=== PATIENT | female | born 1945 | race Caucasian/White ===

== ENCOUNTER 2016-02-29 19:27 | Emergency (ER) | payer OTHER ==
[~2016-02-29] VITALS: Ht 156.2 cm; Wt 93.0 kg
[~2016-02-29 19:27] MED LIST: ASPI325T45 PO; ATEN50TA8 PO; CALC-20 PO; CLOP1TAB54 PO; INSDGI SC; MIRT45TA3 PO; MULT-506 PO; NORT50CA3 PO; ROPI0.5T15 PO; SERT-234 PO; VSNOPS OPB; WARF5INJ PO
[2016-02-29 19:50] VITALS: BP 133/81; PULSE 81; TEMP 36.9; O2SAT 98; Ht 156.2 cm; Wt 93.0 kg
[2016-03-01] MEDS ORDERED: NTRGSL/4 SL (10:01)
[2016-03-01] MEDS ORDERED: FLUT110A INH (10:56)
[2016-03-01] MEDS ORDERED: THIA100T11 PO (22:03)
[2016-03-01] MEDS ORDERED: CYM/30 PO (22:03)
[2016-03-01] MEDS ORDERED: CMD/25 PO (22:03)
[2016-03-01] MEDS ORDERED: PROAIR INH (22:03)
[2016-03-01] MEDS ORDERED: GLIP2.5T11 PO (22:03)
[2016-03-01] MEDS ORDERED: LAMO25TA PO (22:03)
[2016-08-01] MEDS ORDERED: CRFL PO (17:18)
[2016-08-01] MEDS ORDERED: OMEP20TA PO (17:18)
[2016-09-14] MEDS ORDERED: GFNSR600 PO (11:03)
[2016-09-14] MEDS ORDERED: DXY100 PO (11:03)
[2016-09-14] MEDS ORDERED: HYCUDL5 PO (11:03)
[2016-09-14] MEDS ORDERED: OXYC1TAB3 PO (13:19)
[2016-09-14] MEDS ORDERED: NTRGSL/4 SL (13:27)
[2016-11-01] MEDS ORDERED: OXYB5TAB74 PO (10:56)
[2016-11-01] MEDS ORDERED: ATOR-26 PO (13:52)
== END 2016-02-29 20:15 | disposition left against medical advice (07) ==
LOC: C.EDB 19:28

== ENCOUNTER 2016-03-01 19:38 | Emergency (ER) | payer OTHER ==
[~2016-03-01] VITALS: Ht 157.5 cm; Wt 95.5 kg
[~2016-03-01 19:38] MED LIST changes: +FLUT110A INH; +NTRGSL/4 SL
[2016-03-01 19:55] VITALS: TEMP 36.7; Ht 157.5 cm; Wt 95.5 kg
[2016-03-01] MEDS ORDERED: OPTIRAY 320 IV PRN (20:15)
[2016-03-01 20:36] LABS: PARTIAL THROMBOPLASTIN RATIO 1.6; PROTHROMBIN TIME (PATIENT) 49.5 SECONDS (9.0-12.0)
[2016-03-01 20:41] LABS: ISTAT CREATININE 0.8 mg/dl (0.6-1.3); ISTAT HEMOGLOBIN 14.3 g/dl (12.0-16.0); ISTAT IONIZED CALCIUM 1.12 mmol/l (1.12-1.32)
[2016-03-01 20:43] LABS: INR 4.4 (0.9-1.1)
--- NOTE | 2016-03-01 20:57 | DIAGNOSTIC IMAGING REPORT ---
HEAD CT NONCONTRAST CT DOSE: 2939.69 mGy.cm HISTORY: Trauma EVALUATE FOR TRAUMA/INJURY TECHNIQUE: Multiaxial CT images of the head were performed without the use of intravenous contrast. Comparison: 07/06/2012 Findings: The paranasal sinuses and mastoid air cells are clear. The calvarium and skull base are intact. The ventricles and sulci are within normal limits. There is no mass, hematoma, midline shift, or acute infarct. Impression: No acute intracranial abnormality. Electronically signed by: Barak Lassiter M.D. 03/01/2016 8:55 PM
--- NOTE | 2016-03-01 20:59 | DIAGNOSTIC IMAGING REPORT ---
CHEST CT WITH CONTRAST CT DOSE: HISTORY: Trauma. Pain. EVALUATE FOR TRAUMA/INJURY TECHNIQUE: Multiaxial CT images of the chest were performed following the intravenous administration of contrast. COMPARISON: None. FINDINGS: The lungs are clear. The mediastinal vascular structures are within normal limits. No mediastinal or hilar lymphadenopathy. No pleural effusion or pneumothorax. Limited views of the upper abdomen demonstrate a normal liver and spleen. IMPRESSION: No significant abnormality identified within the chest. Electronically signed by: Barak Lassiter M.D. 03/01/2016 8:57 PM
--- NOTE | 2016-03-01 21:01 | DIAGNOSTIC IMAGING REPORT ---
ABDOMEN AND PELVIS CT WITH IV CONTRAST CT DOSE: HISTORY: Trauma. Pain. EVALUATE FOR TRAUMA/INJURY TECHNIQUE: Multiaxial CT images of the abdomen and pelvis were performed following the use of intravenous contrast. COMPARISON STUDY: None. FINDINGS: Minimal dependent basilar atelectasis. Liver spleen and pancreas are uniform. Mild cortical scarring of the kidneys. No evidence for hydronephrosis. Pancreas demonstrates mild fatty replacement. Graft bowel pattern overall is nonobstructive. There is no evidence for free fluid within the paracolic gutters. Bladder is midline. Findings of chronic sigmoid diverticulosis. There is no acute diverticulitis. IMPRESSION: No acute processes the abdomen or pelvis. Mild chronic sigmoid diverticulosis. Electronically signed by: Barak Lassiter M.D. 03/01/2016 8:59 PM
--- NOTE | 2016-03-01 21:28 | EMERGENCY ROOM VISIT NOTE ---
History Report prepared by Janet: Heather White Under the Supervision of: Dr. Gee Calderon D.O. First contact with patient: 19:49 Chief Complaint: ABDOMINAL PAIN Stated Complaint: SOB, CHEST PAIN, AB PAIN History of Present Illness The patient is a 70 year old female who presents to the Emergency Room with complaints of a sudden fall that occurred yesterday around 1700. She currently rates her discomfort as a 9/10 in severity. The patient states that last evening she fell five feet last evening landing on her right chest and then on right abdomen, but denies hitting her head. She notes that this morning around 0300 she developed abdominal pain. The patient additionally notes chest pain, and shortness of breath. She states that she is currently on Coumadin for previous PEs and DVTs. The patient additionally notes a history of previous MIs and strokes. She additionally notes a history of migraines and a cholecystectomy. The patient states that she took Tylenol last evening for her discomfort and additionally notes that she was given something prior to arrival in the ambulance. She denies any history of atrial fibrillation. The patient states that she normally does not have feeling from her waist down. Source of History: patient Onset: 0300 this morning Position: other (global) Symptom Intensity: 9/10 Quality: other (fall) Timing: other (sudden) Associated Symptoms: + SOB, + chest pain Review of Systems See HPI for pertinent positives & negatives. A total of 10 systems reviewed and were otherwise negative. Past Medical & Surgical Medical Problems: (1) CVA (cerebral vascular accident) (2) Depression (3) Diabetes (4) Hyperlipidemia (5) Hypertension (6) NV (myocardial infarction) (7) Recurrent DVT Surgical Problems: (1) History of appendectomy (2) History of cholecystectomy (3) History of hysterectomy Family History FHx: cancer FHx: diabetes FHx: gallbladder disease FHx: heart disease FHx: hypertension FHx: kidney disease/stones FHx: lung disease Social History Smoking Status: Never Smoker Alcohol Use: none Marital Status: Housing Status: lives with family Occupation Status: retired Current/Historical Medications Scheduled Alendronate Sodium (Fosamax), 70 MG PO WK Aspirin (Aspirin), 325 MG PO DAILY Atenolol (Tenormin), 50 MG PO DAILY Atorvastatin (Lipitor), 80 MG PO DAILY Calcium Carbonate-Vitamin D (Calcium 600 + D), 1 TABLET PO BID Clopidogrel Bisulfate (Plavix), 75 MG PO DAILY Insulin Glargine (Lantus), 34 UNITS SC QPM Mirtazapine (Mirtazapine), 45 MG PO HS Multivitamin (Multivitamin), 1 TABLET PO DAILY Nortriptyline Hcl (Pamelor), 50 MG PO HS Oxybutynin Chloride (Ditropan), 5 MG PO TID Ropinirole (Requip), 0.5 MG PO DAILY Sertraline (Zoloft), 200 MG PO DAILY Warfarin Sodium (Coumadin), 1 TAB PO QD@16 Scheduled PRN Fluticasone Propionate Hfa (Flovent Hfa 110MCG Inhaler), 2 PUFFS INH Q12 PRN Nitroglycerin (Nitrostat), 0.4 MG SL UD PRN for Chest Pain Tetrahydrozoline Hcl (Ophth) (Visine), 1 DROP OPB PRN PRN for PRN Allergies Coded Allergies: Aspirin (Verified Allergy, Unknown, 04/02/09) ASA=TONGUE SWELLS Macrolides and Ketolides (Verified Allergy, Unknown, `, 03/01/16) Niacin (Verified Allergy, Unknown, 04/02/09) Penicillins (Verified Allergy, Unknown, 04/02/09) Procaine (Verified Allergy, Unknown, unknown, 03/01/16) Pt states she either swelled or had a rash. Sulfa Antibiotics (Verified Allergy, Unknown, `, 03/01/16) Physical Exam Vital Signs Date Time Temp Pulse Resp B/P Pulse Ox O2 Delivery O2 Flow Rate FiO2 03/01/16 19:55 36.7 73 18 133/79 98 Room Air 03/01/16 19:52 61 Physical Exam CONSTITUTIONAL/VITAL SIGNS: Reviewed / noted above. GENERAL: Non-toxic in appearance. INTEGUMENTARY: Warm, dry, and Rex. HEAD: Normocephalic. EYES: without scleral icterus or trauma. ENT/OROPHARYNX: clear and moist. LYMPHADENOPATHY/NECK: Is supple without lymphadenopathy or meningismus. CHEST WALL: Tenderness to the chest. Ecchymosis to the left breast. RESPIRATORY: Lungs clear and equal. CARDIOVASCULAR: Regular rate and rhythm. GI/ABDOMEN: Distension and tenderness to the abdomen. Soft. No organomegaly or pulsatile mass. No rebound or guarding. Normal bowel sounds. EXTREMITIES: Warm and well perfused. BACK: No CVA tenderness. NEUROLOGICAL: Intact without focal deficits. PSYCHIATRIC: normal affect. MUSCULOSKELETAL: Normally developed with good muscle tone. Medical Decision & Procedures ER Provider Diagnostic Interpretation: CT results as stated below per my review and radiologist interpretation: HEAD CT NONCONTRAST CT DOSE: 2939.69 mGy.cm HISTORY: Trauma EVALUATE FOR TRAUMA/INJURY TECHNIQUE: Multiaxial CT images of the head were performed without the use of intravenous contrast. Comparison: 07/06/2012 Findings: The paranasal sinuses and mastoid air cells are clear. The calvarium and skull base are intact. The ventricles and sulci are within normal limits. There is no mass, hematoma, midline shift, or acute infarct. Impression: No acute intracranial abnormality. Electronically signed by: Barak Lassiter M.D. 03/01/2016 8:[address] WITH CONTRAST CT DOSE: HISTORY: Trauma. Pain. EVALUATE FOR TRAUMA/INJURY TECHNIQUE: Multiaxial CT images of the chest were performed following the intravenous administration of contrast. COMPARISON: None. FINDINGS: The lungs are clear. The mediastinal vascular structures are within normal limits. No mediastinal or hilar lymphadenopathy. No pleural effusion or pneumothorax. Limited views of the upper abdomen demonstrate a normal liver and spleen. IMPRESSION: No significant abnormality identified within the chest. Electronically signed by: Barak Lassiter M.D. 03/01/2016 8:57 PM ABDOMEN AND PELVIS CT WITH IV CONTRAST CT DOSE: HISTORY: Trauma. Pain. EVALUATE FOR TRAUMA/INJURY TECHNIQUE: Multiaxial CT images of the abdomen and pelvis were performed following the use of intravenous contrast. COMPARISON STUDY: None. FINDINGS: Minimal dependent basilar atelectasis. Liver spleen and pancreas are uniform. Mild cortical scarring of the kidneys. No evidence for hydronephrosis. Pancreas demonstrates mild fatty replacement. Graft bowel pattern overall is nonobstructive. There is no evidence for free fluid within the paracolic gutters. Bladder is midline. Findings of chronic sigmoid diverticulosis. There is no acute diverticulitis. IMPRESSION: No acute processes the abdomen or pelvis. Mild chronic sigmoid diverticulosis. Electronically signed by: Barak Lassiter M.D. 03/01/2016 8:59 PM Laboratory Results Test 03/01/16 20:05 03/01/16 20:11 03/01/16 20:21 Prothrombin Time 49.5 SECONDS (9.0-12.0) Prothromb Time International Ratio 4.4 (0.9-1.1) Activated Partial Thromboplast Time 41.8 SECONDS (21.0-31.0) Partial Thromboplastin Ratio 1.6 Bedside Lactic Acid Venous 1.86 mmol/L (0.90-1.70) Bedside Hemoglobin 14.3 g/dl (12.0-16.0) Bedside Hematocrit 42 % (37-47) Bedside Sodium 142 mEq/L (135-144) Bedside Potassium 3.8 mEq/L (3.3-5.0) Bedside Chloride 102 mEq/L (101-112) Bedside Total CO2 23 mEq/l (24-31) Anion Gap 21.0 mmol/L (16-25) Bedside Blood Urea Nitrogen 4 mg/dl (7-18) Bedside Creatinine 0.8 mg/dl (0.6-1.3) Bedside Glucose (other) 105 mg/dl (70-99) Bedside Ionized Calcium (Christina) 1.12 mmol/l (1.12-1.32) Laboratory results as stated above per my review. ED Course 1950: Previous medical records were reviewed. The patient was evaluated in room B8. A complete history and physical examination was performed. 2127: I reevaluated the patient and she is resting comfortably. I discussed the exam findings and I discussed the treatment plan. She verbalized complete understanding and agreement. She is ready to go home. 2129: IV Morphine 4mg. Medical Decision Differential includes close head injury, intracranial bleed, facial trauma, cervical spine trauma, chest and thoracic trauma, abdominal and intra-abdominal trauma, spine neurologic trauma, extremity trauma. This is a 70-year-old female who presents to the ED with a chief complaint of a fall. The patient states that she fell possibly 5 feet yesterday. She came to the emergency department last night but because it was busy, she left and came back today. The patient complains of anterior chest pain as well as anterior abdominal pain. Her exam reveals a ecchymotic area over her left breast. There is no other areas of ecchymosis noted on her exam. She has diffuse tenderness to the chest wall and abdominal wall. Her lungs are clear. The rest of her exam was unremarkable. She denies any headaches or striking her head or loss of consciousness. Her vital signs are stable. Physical exam was noted above. Hemoglobin is 14.3. INR is 4.4. She is on Coumadin. She is on this for DVT/PE. PRP was unremarkable. CT scan of the head did not show any acute intracranial process. A CT scan of the chest, abdomen and pelvis was performed and did not show any acute abnormality. The patient was told the results of the test per cheese felt to be stable for discharge and outpatient follow-up. She was given IV morphine for pain. Impression Primary Impression: Fall Additional Impression: Chest wall contusion Scribe Attestation The scribe's documentation has been prepared under my direction and personally reviewed by me in its entirety. I confirm that the note above accurately reflects all work, treatment, procedures, and medical decision making performed by me. Departure Information Dispostion Home / Self-Care Referrals Ayanna Rhodes M.D. (PCP) Forms HOME CARE DOCUMENTATION FORM, IMPORTANT VISIT INFORMATION Patient Instructions A Signature Page Additional Instructions Follow-up with your doctor for further care and evaluation in 1-2 days. Return to the emergency department for worsening or new symptoms or any concerns. You have been examined and treated today on an emergency basis only. This is not a substitute for, or an effort to provide, complete comprehensive medical care. It is impossible to recognize and treat all injuries or illnesses in a single emergency department visit. It is therefore important that you follow up closely with your doctor. Call as soon as possible for an appointment.
[2016-03-01] MEDS ORDERED: MoRPHine SULFATE 4 MG/ML 1 ML CARP\\VIAL IV STA (21:30)
[2016-03-01] MEDS ORDERED: MoRPHine SULFATE 4 MG/ML 1 ML CARP\\VIAL ONE (21:31)
[2016-03-01] MEDS ORDERED: CYM/30 PO (22:03)
[2016-03-01] MEDS ORDERED: THIA100T11 PO (22:03)
[2016-03-01] MEDS ORDERED: GLIP2.5T11 PO (22:03)
[2016-03-01] MEDS ORDERED: LAMO25TA PO (22:03)
[2016-03-01] MEDS ORDERED: CMD/25 PO (22:03)
[2016-03-01] MEDS ORDERED: PROAIR INH (22:03)
[2016-03-01 22:04] VITALS: BP 174/79; PULSE 76; O2SAT 98
[2016-08-01] MEDS ORDERED: OMEP20TA PO (17:18)
[2016-08-01] MEDS ORDERED: CRFL PO (17:18)
[2016-09-14] MEDS ORDERED: HYCUDL5 PO (11:03)
[2016-09-14] MEDS ORDERED: DXY100 PO (11:03)
[2016-09-14] MEDS ORDERED: GFNSR600 PO (11:03)
[2016-09-14] MEDS ORDERED: OXYC1TAB3 PO (13:19)
[2016-09-14] MEDS ORDERED: NTRGSL/4 SL (13:27)
[2016-11-01] MEDS ORDERED: OXYB5TAB74 PO (10:56)
[2016-11-01] MEDS ORDERED: ATOR-26 PO (13:52)
== END 2016-03-01 22:05 | disposition home or self-care (01) ==
LOC: EDBD 19:38 → C.EDB 19:42
DX: S20.212A Contusion of left front wall of thorax, initial encounter (principal); K57.30 Diverticulosis of large intestine without perforation or abscess without bleeding; E11.9 Type 2 diabetes mellitus without complications; Z79.4 Long term (current) use of insulin; Z79.01 Long term (current) use of anticoagulants; Z86.73 Personal history of transient ischemic attack (TIA), and cerebral infarction without residual deficits; E78.5 Hyperlipidemia, unspecified; I10 Essential (primary) hypertension; Z86.711 Personal history of pulmonary embolism; Z86.718 Personal history of other venous thrombosis and embolism; Z79.82 Long term (current) use of aspirin; I25.2 Old myocardial infarction; W17.89XA Other fall from one level to another, initial encounter; Y93.89 Activity, other specified; Y92.89 Other specified places as the place of occurrence of the external cause; Y99.8 Other external cause status

== ENCOUNTER 2016-07-31 13:34 | Observation (INO) | payer OTHER ==
[~2016-07-31] VITALS: Ht 154.9 cm; Wt 96.7 kg
[~2016-07-31 13:34] MED LIST changes: -ASPI325T45 PO; -ATEN50TA8 PO; -CALC-20 PO; -CLOP1TAB54 PO; +CMD/25 PO; +CYM/30 PO; +GLIP2.5T11 PO; +LAMO25TA PO; -MIRT45TA3 PO; -MULT-506 PO; -NORT50CA3 PO; +PROAIR INH; -ROPI0.5T15 PO; -SERT-234 PO; +THIA100T11 PO; -VSNOPS OPB; -WARF5INJ PO
[2016-07-31] MEDS ORDERED: NITROGLYCERIN 0.4 MG SL PER TAB CHARGE SL PRN ×2 (14:30→17:15)
--- NOTE | 2016-07-31 14:51 | DIAGNOSTIC IMAGING REPORT ---
CHEST ONE VIEW PORTABLE CLINICAL HISTORY: Atypical chest pain COMPARISON STUDY: 07/06/2012 FINDINGS: The cardiac and mediastinal contours are normal. There is no evidence of focal pulmonary consolidation. There is no evidence of failure. No pleural effusions are visualized.[ IMPRESSION: No active disease in the chest. Electronically signed by: Zacarias Campoverde M.D. 07/31/2016 2:50 PM Dictated Date/Time: 07/31/2016 2:49 PM
[2016-07-31 15:42] LABS: BASO % 0.2 %; BASO ABS # 0.02 K/uL (0-0.2); COMPLETE YES; EOS % 0.9 %; HEMATOCRIT 37.3 % (37-47); IG% 0.2 %; LYMPH % 31.6 %; LYMPH ABS # 2.53 K/uL (1.2-3.4); MEAN CELL VOLUME 95.4 fL (80-100); MEAN CORPUSCULAR HEMOGLOBIN 31.7 pg (25-34); MEAN CORPUSCULAR HGB CONC 33.2 g/dl (32-36); MONO % 6.6 %; NEUT % 60.5 %; PLATELET COUNT 325 K/uL (130-400); RED BLOOD COUNT 3.91 M/uL (4.2-5.4); WHITE BLOOD COUNT 8.01 K/uL (4.8-10.8)
[2016-07-31 16:00] LABS: BLOOD UREA NITROGEN 13 mg/dl (7-18); BUN/CREATININE RATIO 12.5 (10-20); CALCIUM 8.7 mg/dl (8.5-10.1); CARBON DIOXIDE 31 mmol/L (21-32); CHLORIDE 110 mmol/L (98-107); GLUCOSE 85 mg/dl (70-99); POTASSIUM 4.1 mmol/L (3.5-5.1); SODIUM 146 mmol/L (136-145)
[2016-07-31 16:05] LABS: CKMB/CK RATIO 1.1 (0-3.0)
[2016-07-31 16:24] LABS: INR 1.8 (0.9-1.1); PROTHROMBIN TIME (PATIENT) 20.3 SECONDS (9.0-12.0)
[2016-07-31 16:40] VITALS: O2SAT 98; BMI 40.2
[2016-07-31 16:43] LABS: ALKALINE PHOSPHATASE 69 U/L (45-117); ALT/SGPT 20 U/L (12-78); AST/SGOT 14 U/L (15-37)
[2016-07-31] MEDS ORDERED: ONDANSETRON INJ 2 MG/ML 2 ML VIAL IV PRN (17:15)
[2016-07-31] MEDS ORDERED: ACETAMINOPHEN 325 MG TAB PO PRN (17:15)
[2016-07-31 17:24] VITALS: BP 149/70; PULSE 56; TEMP 36.7; O2SAT 90
[2016-07-31] MEDS ORDERED: OXYCODONE HCL IR 5 MG TAB (IMMEDIATE RELEASE) PO PRN (17:30)
[2016-07-31] MEDS ORDERED: ALBUTEROL HFA 8 GM INHALER INH PRN (17:30)
[2016-07-31] MEDS ORDERED: ZINC OXIDE EXT PRN (17:30)
[2016-07-31] MEDS ORDERED: OXYC1TAB3 PO (17:31)
[2016-07-31] MEDS ORDERED: GLUCOSE 10 TABS/TUBE PO PRN (17:45)
[2016-07-31] MEDS ORDERED: GLUCOSE 40% GEL 15 GM TUBE PO PRN (17:45)
[2016-07-31] MEDS ORDERED: DEXTROSE 50% 50 ML SYR IV PRN (17:45)
[2016-07-31] MEDS ORDERED: GLUCAGON FOR INJ 1 MG VIAL SQ PRN (17:45)
--- NOTE | 2016-07-31 18:10 | DIAGNOSTIC IMAGING REPORT ---
THORACIC SPINE 2-VIEWS CLINICAL HISTORY: fall, back pain, rule out fx trauma. Pain. COMPARISON STUDY: None FINDINGS: Moderate degenerative disc change. No evidence for compression deformity. Moderate reactive anterior and anterolateral osteophytic changes throughout. IMPRESSION: Degenerative change. No acute abnormality. Electronically signed by: Barak Lassiter M.D. 07/31/2016 6:08 PM Dictated Date/Time: 07/31/2016 6:08 PM
--- NOTE | 2016-07-31 18:11 | DIAGNOSTIC IMAGING REPORT ---
LEFT SHOULDER MIN 2 VIEWS ROUTINE CLINICAL HISTORY: rule out fx or dislocation trauma. Pain. COMPARISON: None. DISCUSSION: The bones and joint spaces appear intact. There is no evidence of fracture, dislocation or bony disease. There is no evidence for soft tissue swelling. IMPRESSION: Negative study. Electronically signed by: Barak Lassiter M.D. 07/31/2016 6:09 PM Dictated Date/Time: 07/31/2016 6:09 PM
[2016-07-31] MEDS ORDERED: IV FLUIDS COMPLETED PRN (18:30)
[2016-07-31] MEDS: FLUTICASONE PROP HFA INH 44 MCG INHALER INH SCH (20:32)
[2016-07-31] MEDS: INSULIN ASPART 100 UNITS/ML 3 ML PEN SC SCH (20:32)
[2016-07-31] MEDS: OXYBUTYNIN CHLORIDE 5 MG TAB PO SCH (20:33)
--- NOTE | 2016-07-31 20:38 | EMERGENCY ROOM VISIT NOTE ---
History Report prepared by Janet: Romy Alba Under the Supervision of: Dr. Fito Castro D.O. First contact with patient: 14:00 Chief Complaint: CHEST PAIN Stated Complaint: CHEST PAIN Nursing Triage Summary: pt c/o sudden onset of substernal chest pain and sob after climbing steps at apt bldg. elevator was not working and grandson was helping her up steps to fast , pt believes. felt dizzy. pt took 1 sl nitro pain from 9 to 3. given [facility] pt reports she fell a couple days ago and and has upper abd tenderness and swollen size of baseball. no bruising seen pt has hx of mi's and cva History of Present Illness The patient is a 71 year old female who presents to the Emergency Room with complaints of improved chest pain that started [employer]. The pain improved with nitroglycerin. The patient states that she got into the elevator, which was previously not working, and it fell 4-5 inches then went down to the basement. When it got to the basement, the door took a long time to open so she decided to take the stairs when she went back upstairs. She states that the chest pain started while she was going up the stairs and was accompanied by shortness of breath. She denies any jaw or arm pain, but states that she "jammed" her left arm several days ago and has been experiencing pain from that. The patient also adds that her grandson was pulling her arm to try to get her to go up the stairs faster. The patient states that she has been experiencing chest pain with exertion since February. The patient is also experiencing dizziness. The patient has a history of MIs and states that the pain feels similar to the pain she experienced with those. She is on warfarin and takes 3 baby aspirin in the morning. She states that her last heart catheterization was several years ago. The patient has a history of cholecystectomy. Source of History: patient Onset: [employer]ILRO[employer]CTION [employer]OR Position: chest Timing: other (improved) Modifying Factors (Worsening): exertion Modifying Factors (Relieving): other (nitroglycerin) Associated Symptoms: + SOB Note: dizziness, no jaw or arm pain Review of Systems See HPI for pertinent positives & negatives. A total of 10 systems reviewed and were otherwise negative. Past Medical & Surgical Medical Problems: (1) Benign neoplasm of cerebral meninges (2) CAD (coronary artery disease) (3) Chest pain (4) CVA (cerebral vascular accident) (5) Depression (6) DM type 2 (diabetes mellitus, type 2) (7) DVT (deep venous thrombosis) (8) GERD (gastroesophageal reflux disease) (9) Hyperlipidemia (10) Hypertension (11) NM (myocardial infarction) (12) Peripheral neuropathy (13) Recurrent DVT (14) RLS (restless legs syndrome) Surgical Problems: (1) History of appendectomy (2) History of cholecystectomy (3) History of hysterectomy (4) History of salpingo-oophorectomy (5) S/P cholecystectomy (6) S/P removal of ovarian cyst Family History FHx: cancer FHx: diabetes FHx: gallbladder disease FHx: heart disease FHx: hypertension FHx: kidney disease/stones FHx: lung disease Social History Smoking Status: Never Smoker Alcohol Use: none Marital Status: Housing Status: lives with family Occupation Status: retired Current/Historical Medications Scheduled Alendronate Sodium (Fosamax), 70 MG PO WK Aspirin (Aspirin Adult Low Dose), 81 MG PO DAILY Atenolol (Tenormin), 25 MG PO DAILY Atorvastatin (Lipitor), 80 MG PO DAILY Cyanocobalamin (Vitamin B-12), 100 MCG PO DAILY Fluticasone Propionate (Flovent Hfa), 2 PUFFS INH BID Glipizide (Glipizide Er), 1 TAB PO DAILY Insulin Glargine (Lantus), 36 UNITS SC QPM Oxybutynin Chloride (Ditropan), 5 MG PO TID Ropinirole (Requip), 4 MG PO HS Warfarin Sod (Jantoven), 2 MG PO 5XWK Warfarin Sod (Jantoven), 4 MG PO 2XWK Scheduled PRN Albuterol (Ventolin Hfa), 2 PUFFS INH QID PRN for SOB/Wheezing Nitroglycerin (Nitrostat), 0.4 MG SL UD PRN for Chest Pain Oxycodone Ir (Roxicodone Ir), 5 MG PO Q4H PRN for Pain Tetrahydrozoline Hcl (Ophth) (Visine), 1 DROP OPB UD PRN for DRYNESS Zinc Oxide (Topical) (Desitin Rapid Relief), 1 APPLN EXT UD PRN for excoriation Allergies Coded Allergies: Macrolides and Ketolides (Verified Allergy, Unknown, `, 07/31/16) Niacin (Verified Allergy, Unknown, 07/31/16) Penicillins (Verified Allergy, Unknown, 07/31/16) Procaine (Verified Allergy, Unknown, unknown, 07/31/16) Pt states she either swelled or had a rash. Sulfa Antibiotics (Verified Allergy, Unknown, `, 07/31/16) Physical Exam Vital Signs Date Time Temp Pulse Resp B/P (MAP) Pulse Ox O2 Delivery O2 Flow Rate FiO2 07/31/16 16:15 56 20 122/65 98 Room Air 07/31/16 14:59 61 18 116/70 94 07/31/16 14:58 66 18 114/65 94 Room Air 07/31/16 13:48 59 07/31/16 13:46 99 Room Air 07/31/16 13:46 36.5 56 18 124/53 99 Room Air Physical Exam GENERAL: alert, sitting up in bed, disheveled, chronically ill appearing, well nourished, no distress, non-toxic EYE EXAM: normal conjunctiva OROPHARYNX: no exudate, no erythema, lips, buccal mucosa, and tongue normal and mucous membranes are moist NECK: supple, no nuchal rigidity, no adenopathy, non-tender LUNGS: Clear to auscultation. Normal chest wall mechanics HEART: no murmurs, S1 normal and S2 normal ABDOMEN: abdomen soft, non-tender, normo-active bowel sounds, no masses, no rebound or guarding. BACK: Back is symmetrical on inspection and there is no deformity, no midline tenderness, no CVA tenderness. SKIN: no rashes and no bruising UPPER EXTREMITIES: upper extremities are grossly normal. LOWER EXTREMITIES: Left calf bigger than right which is chronic per patient, no pitting edema. NEURO EXAM: Normal sensorium, cranial nerves II-XII grossly intact, normal speech, no gross weakness of arms, no gross weakness of legs. Medical Decision & Procedures ER Provider Diagnostic Interpretation: Radiology results as stated below per my review and the radiologist's interpretation: CHEST ONE VIEW PORTABLE FINDINGS: The cardiac and mediastinal contours are normal. There is no evidence of focal pulmonary consolidation. There is no evidence of failure. No pleural effusions are visualized.[ IMPRESSION: No active disease in the chest. Electronically signed by: Zacarias Campoverde M.D. 07/31/2016 2:50 PM Dictated Date/Time: 07/31/2016 2:49 PM LEFT SHOULDER MIN 2 VIEWS ROUTINE DISCUSSION: The bones and joint spaces appear intact. There is no evidence of fracture, dislocation or bony disease. There is no evidence for soft tissue swelling. IMPRESSION: Negative study. Electronically signed by: Barak Lassiter M.D. 07/31/2016 6:09 PM Dictated Date/Time: 07/31/2016 6:09 PM THORACIC SPINE 2-VIEWS FINDINGS: Moderate degenerative disc change. No evidence for compression deformity. Moderate reactive anterior and anterolateral osteophytic changes throughout. IMPRESSION: Degenerative change. No acute abnormality. Electronically signed by: Barak Lassiter M.D. 07/31/2016 6:08 PM Dictated Date/Time: 07/31/2016 6:08 PM Laboratory Results 07/31/16 15:25 Red Blood Count 3.91, Mean Corpuscular Volume 95.4, Mean Corpuscular Hemoglobin 31.7, Mean Corpuscular Hemoglobin Concent 33.2, Mean Platelet Volume 10.0, Neutrophils (%) (Auto) 60.5, Lymphocytes (%) (Auto) 31.6, Monocytes (%) (Auto) 6.6, Eosinophils (%) (Auto) 0.9, Basophils (%) (Auto) 0.2, Neutrophils # (Auto) 4.84, Lymphocytes # (Auto) 2.53, Monocytes # (Auto) 0.53, Eosinophils # (Auto) 0.07, Basophils # (Auto) 0.02 07/31/16 15:25 Test 07/31/16 15:25 White Blood Count 8.01 K/uL (4.8-10.8) Red Blood Count 3.91 M/uL (4.2-5.4) Hemoglobin 12.4 g/dL (12.0-16.0) Hematocrit 37.3 % (37-47) Mean Corpuscular Volume 95.4 fL (80-100) Mean Corpuscular Hemoglobin 31.7 pg (25-34) Mean Corpuscular Hemoglobin Concent 33.2 g/dl (32-36) Platelet Count 325 K/uL (130-400) Mean Platelet Volume 10.0 fL (7.4-10.4) Neutrophils (%) (Auto) 60.5 % Lymphocytes (%) (Auto) 31.6 % Monocytes (%) (Auto) 6.6 % Eosinophils (%) (Auto) 0.9 % Basophils (%) (Auto) 0.2 % Neutrophils # (Auto) 4.84 K/uL (1.4-6.5) Lymphocytes # (Auto) 2.53 K/uL (1.2-3.4) Monocytes # (Auto) 0.53 K/uL (0.11-0.59) Eosinophils # (Auto) 0.07 K/uL (0-0.5) Basophils # (Auto) 0.02 K/uL (0-0.2) RDW Standard Deviation 47.1 fL (36.4-46.3) RDW Coefficient of Variation 13.5 % (11.5-14.5) Immature Granulocyte % (Auto) 0.2 % Immature Granulocyte # (Auto) 0.02 K/uL (0.00-0.02) Prothrombin Time 20.3 SECONDS (9.0-12.0) Prothromb Time International Ratio 1.8 (0.9-1.1) Anion Gap 5.0 mmol/L (3-11) Est Creatinine Clear Calc Drug Dose 55.6 ml/min Estimated GFR () 66.1 Estimated GFR (Non- 57.0 BUN/Creatinine Ratio 12.5 (10-20) Calcium Level 8.7 mg/dl (8.5-10.1) Total Bilirubin 0.3 mg/dl (0.2-1) Direct Bilirubin < 0.1 mg/dl (0-0.2) Aspartate Amino Transf (AST/SGOT) 14 U/L (15-37) Alanine Aminotransferase (ALT/SGPT) 20 U/L (12-78) Alkaline Phosphatase 69 U/L (45-117) Total Creatine Kinase 129 U/L (26-192) Creatine Kinase MB 1.4 ng/ml (0.5-3.6) Creatine Kinase MB Ratio 1.1 (0-3.0) Troponin I < 0.015 ng/ml (0-0.045) Total Protein 7.1 gm/dl (6.4-8.2) Albumin 3.2 gm/dl (3.4-5.0) Lipase 131 U/L (73-393) Laboratory results per my review. Medications Administered Medications (Trade) Dose Ordered Sig/Juany Route Start Time Stop Time Status Last Admin Dose Admin Nitroglycerin (Nitrostat Tab) 0.4 mg Q5M PRN SL 07/31/16 14:30 07/31/16 17:50 DC 07/31/16 15:16 0.4 MG ECG Indication: chest pain Rate (beats per minute): 58 Rhythm: sinus bradycardia Findings: T-wave inversion (Inferior), no ectopy Comparison ECG Date: 07/06/2012 Change: no significant change ED Course ED COURSE: Vital signs were reviewed and showed bradycardia and hypertension. The patients medical record was reviewed The above diagnostic studies were performed and reviewed. ED treatments and interventions as stated above. 1413: The patient was evaluated in room C2. A complete history and physical examination was performed. 1430: Ordered Nitroglycerin 0.4 mg SL 1612: Upon reevaluation, the patient is resting comfortably. I discussed my findings with the patient and she understands and agrees with the treatment plan. Based on the patients age, coexisting illnesses, exam and lab findings the decision to treat as an inpatient was made. The patient remained stable while under my care. The patient will be evaluated for further management. 1616: I reviewed the patient's case with Chasity Roberts. She will evaluate the patient for further management. Medical Decision Differential diagnoses includes but is not limited to acute coronary syndrome, myocardial infarction, pericarditis, pulmonary embolus, aortic dissection, pneumonia, pneumothorax, musculoskeletal, shingles, esophageal. Medication Reconciliation: I attest that I have personally reviewed the patient' s current medication list. Blood pressure screening: Patient was found to have an elevated blood pressure and was referred to their primary doctor for recheck and further treatment. Patient is a 71-year-old female with a past medical history of multiple MIs and instructed presents the ER with exertional chest pain which has been worsening over the past several weeks. EKG was unremarkable. Chest x-ray and troponin were both negative. INR was subtherapeutic at 1.8. Patient's pain was relieved with nitroglycerin. It did recur in the ER when she got up to go to the bathroom. I do believe that this is likely cardiac in origin as she notes it feels like her previous MIs. Pain was relieved with nitroglycerin the patient was admitted to internal medicine for exertional chest pain likely unstable angina. Consults Time Called: 1614 Consulting Physician: Chasity Roberts Returned Call: 1616 I reviewed the patient's case with Chasity Roberts. She will evaluate the patient for further management. Impression Primary Impression: Exertional chest pain Scribe Attestation The scribe's documentation has been prepared under my direction and personally reviewed by me in its entirety. I confirm that the note above accurately reflects all work, treatment, procedures, and medical decision making performed by me. Departure Information Dispostion Being Evaluated By Hospitalist Referrals Ayanna Rhodes M.D. (PCP) Patient Instructions [facility]
--- NOTE | 2016-07-31 20:44 | History and Physical ---
History & Physical Date & Time of Service: Jul 31, 2016 at 17:37 Chief Complaint: Chest Pain Primary Care Physician: Ayanna Rhodes M.D. History of Present Illness Source: patient, clinic records This is a 71 y/o female with PMH of CAD, hypertension, dyslipidemia, DM 2, CVA with left sided residual weakness, history of DVT, GERD, depression, legal blindness, and other problems listed below who presents to the ED with chest pain. Patient states earlier today the elevator broke in her apartment building and while climbing 1 flight of stairs with her grandson she developed chest pain with SOB and diaphoresis. She describes pain as substernal pressure, non- radiating. Patient took SL nitro with relief. Patient states she was anxious at the time due to fear of falling because she usually does not climb stairs. She took 1 baby aspirin this am and was given 3 baby ASA by paramedics. While in ER patient developed chest pain again while ambulating to restroom. She was given SL nitro with resolution of chest pain. Repeat EKG showed no significant change. Patient states pain felt similar to prior cardiac pain. She states she had a ND approx 10 year ago. Reports cath in [place] approx 30 years ago. No stents. No recent cardiology follow up. [place] [facility] [place] stated that she had a previous normal cath. Last stress echo in 2011 was negative. Last TTE 06/2012 showed EF 60-65%, grade I diastolic dysfunction. Patient reports that 2 days ago she fell due to becoming lightheaded after standing up quickly. Patient states she hit her epigastric area on a foot stool and "jammed" her left shoulder. No LOC or head trauma. Since that time she reports epigastric burning and pain around left shoulder blade. The epigastric pain is different from the substernal CP. Epigastric pain is not affected by eating. No change in chronic diarrhea and bowel/ bladder incontinence. She reports loss of sensation from waist down attributed to neuropathy. Additionally patient reports stopping her Cymbalta and Lamictal approx 2 weeks ago because she felt they were no longer working as she was crying easily. Still feels the same. No suicidal ideation. Patient denies cough, palpitations, nausea, vomiting, abnormal bleeding, acute focal weakness/ numbness. 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 (9) Hyperlipidemia Status: Chronic (10) Hypertension Status: Chronic (11) ND (myocardial infarction) Status: Chronic Medical Problems: (1) 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 (2) CAD (coronary artery disease) Status: Chronic (3) CVA (cerebral vascular accident) Permanent Comment: with residual left sided weakness Status: Chronic (4) Depression Status: Chronic (5) DM type 2 (diabetes mellitus, type 2) Status: Chronic (6) DVT (deep venous thrombosis) Status: Resolved (7) GERD (gastroesophageal reflux disease) Status: Chronic (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 (9) Hyperlipidemia Status: Chronic (10) Hypertension Status: Chronic (11) ND (myocardial infarction) Status: Chronic (12) Peripheral neuropathy Status: Chronic (13) Recurrent DVT Status: Chronic (14) RLS (restless legs syndrome) Status: Chronic Surgical Problems: (1) History of appendectomy Status: Resolved (2) History of cholecystectomy Status: Resolved (3) History of hysterectomy Status: Resolved (4) History of salpingo-oophorectomy Status: Chronic (5) S/P cholecystectomy Status: Chronic (6) S/P removal of ovarian cyst Status: Chronic Family History Early CAD FATHER ( in 30s of ND) MOTHER ( in 30s of ND) BROTHER ( in 50s of ND) FHx: cancer FHx: diabetes FHx: gallbladder disease FHx: heart disease FHx: hypertension FHx: kidney disease/stones FHx: lung disease Social History Smoking Status: Never Smoker Alcohol Use: none Drug Use: none Marital Status: Housing status: lives with family (with daughter) Occupational Status: retired Immunizations History of Influenza Vaccine: Yes History of Tetanus Vaccine?: Yes Tetanus Immunization Date: July 07, 2003 History of Pneumococcal: Yes History of Hepatitis B Vaccine: No Multi-Drug Resistant Organisms History of MDRO: No Allergies Coded Allergies: Macrolides and Ketolides (Verified Allergy, Unknown, `, 07/31/16) Niacin (Verified Allergy, Unknown, 07/31/16) Penicillins (Verified Allergy, Unknown, 07/31/16) Procaine (Verified Allergy, Unknown, unknown, 07/31/16) Pt states she either swelled or had a rash. Sulfa Antibiotics (Verified Allergy, Unknown, `, 07/31/16) Home Medications Scheduled Alendronate Sodium (Fosamax), 70 MG PO WK Aspirin (Aspirin Adult Low Dose), 81 MG PO DAILY Atenolol (Tenormin), 25 MG PO DAILY Atorvastatin (Lipitor), 80 MG PO DAILY Cyanocobalamin (Vitamin B-12), 100 MCG PO DAILY Fluticasone Propionate (Flovent Hfa), 2 PUFFS INH BID Glipizide (Glipizide Er), 1 TAB PO DAILY Insulin Glargine (Lantus), 36 UNITS SC QPM Omeprazole (Omeprazole), 1 TAB PO DAILY Oxybutynin Chloride (Ditropan), 5 MG PO TID Ropinirole (Requip), 4 MG PO HS Sucralfate (Carafate), 10 ML PO BID Warfarin Sod (Jantoven), 2 MG PO 5XWK Warfarin Sod (Jantoven), 4 MG PO 2XWK Scheduled PRN Albuterol (Ventolin Hfa), 2 PUFFS INH QID PRN for SOB/Wheezing Nitroglycerin (Nitrostat), 0.4 MG SL UD PRN for Chest Pain Oxycodone Ir (Roxicodone Ir), 5 MG PO Q4H PRN for Pain Tetrahydrozoline Hcl (Ophth) (Visine), 1 DROP OPB UD PRN for DRYNESS Zinc Oxide (Topical) (Desitin Rapid Relief), 1 APPLN EXT UD PRN for excoriation Review of Systems Ten systems reviewed and negative except as noted in HPI. Physical Exam Vital Signs Date Time Temp Pulse Resp B/P (MAP) Pulse Ox O2 Delivery O2 Flow Rate FiO2 07/31/16 17:24 36.7 56 20 149/70 (96) 90 Room Air 07/31/16 17:03 61 18 139/80 95 Room Air 07/31/16 16:40 98 Room Air 07/31/16 16:15 56 20 122/65 98 Room Air 07/31/16 14:59 61 18 116/70 94 07/31/16 14:58 66 18 114/65 94 Room Air 07/31/16 13:48 59 07/31/16 13:46 99 Room Air 07/31/16 13:46 36.5 56 18 124/53 99 Room Air General Appearance: no apparent distress, + obese Head: normocephalic, atraumatic Eyes: normal inspection, PERRL, EOMI ENT: hearing grossly normal, pharynx normal Neck: supple, trachea midline Respiratory/Chest: lungs clear, normal breath sounds, no respiratory distress, no accessory muscle use Cardiovascular: regular rate, rhythm, no murmur Abdomen/GI: normal bowel sounds, soft, + pertinent finding (tender in epigastrium. there is an area of bulging in epigastric area when she engages abdominal muscles which reduces with lying supine.) Back: + pertinent finding (tenderness to palpation on thoracic spine and left thoracic paraspinal muscles) Extremities/Musculoskelatal: no calf tenderness, no pedal edema, + pertinent finding (left shoulder painful ROM) Neurologic/Psych: alert, oriented x 3, + pertinent finding (diminished sensation to light touch bilateral LE- chronic. LUE and LLE strength 4/5- chronic. RUE and RLE strenth 5/5. ) Skin: normal color, warm/dry, no rash (no rash on the chest) Diagnostics Laboratory Results Results Past 24 Hours Test 07/31/16 15:25 Range/Units White Blood Count 8.01 4.8-10.8 K/uL Red Blood Count 3.91 4.2-5.4 M/uL Hemoglobin 12.4 12.0-16.0 g/dL Hematocrit 37.3 37-47 % Mean Corpuscular Volume 95.4 80-100 fL Mean Corpuscular Hemoglobin 31.7 25-34 pg Mean Corpuscular Hemoglobin Concent 33.2 32-36 g/dl Platelet Count 325 130-400 K/uL Mean Platelet Volume 10.0 7.4-10.4 fL Neutrophils (%) (Auto) 60.5 % Lymphocytes (%) (Auto) 31.6 % Monocytes (%) (Auto) 6.6 % Eosinophils (%) (Auto) 0.9 % Basophils (%) (Auto) 0.2 % Neutrophils # (Auto) 4.84 1.4-6.5 K/uL Lymphocytes # (Auto) 2.53 1.2-3.4 K/uL Monocytes # (Auto) 0.53 0.11-0.59 K/uL Eosinophils # (Auto) 0.07 0-0.5 K/uL Basophils # (Auto) 0.02 0-0.2 K/uL RDW Standard Deviation 47.1 36.4-46.3 fL RDW Coefficient of Variation 13.5 11.5-14.5 % Immature Granulocyte % (Auto) 0.2 % Immature Granulocyte # (Auto) 0.02 0.00-0.02 K/uL Prothrombin Time 20.3 9.0-12.0 SECONDS Prothromb Time International Ratio 1.8 0.9-1.1 Sodium Level 146 136-145 mmol/L Potassium Level 4.1 3.5-5.1 mmol/L Chloride Level 110 98-107 mmol/L Carbon Dioxide Level 31 21-32 mmol/L Anion Gap 5.0 3-11 mmol/L Blood Urea Nitrogen 13 7-18 mg/dl Creatinine 1.00 0.60-1.20 mg/dl Est Creatinine Clear Calc Drug Dose 55.6 ml/min Estimated GFR () 66.1 Estimated GFR (Non- 57.0 BUN/Creatinine Ratio 12.5 10-20 Random Glucose 85 70-99 mg/dl Calcium Level 8.7 8.5-10.1 mg/dl Total Bilirubin 0.3 0.2-1 mg/dl Direct Bilirubin < 0.1 0-0.2 mg/dl Aspartate Amino Transf (AST/SGOT) 14 15-37 U/L Alanine Aminotransferase (ALT/SGPT) 20 12-78 U/L Alkaline Phosphatase 69 45-117 U/L Total Creatine Kinase 129 26-192 U/L Creatine Kinase MB 1.4 0.5-3.6 ng/ml Creatine Kinase MB Ratio 1.1 0-3.0 Troponin I < 0.015 0-0.045 ng/ml Total Protein 7.1 6.4-8.2 gm/dl Albumin 3.2 3.4-5.0 gm/dl Lipase 131 73-393 U/L Diagnostic Radiology CHEST ONE VIEW PORTABLE CLINICAL HISTORY: Atypical chest pain COMPARISON STUDY: 07/06/2012 FINDINGS: The cardiac and mediastinal contours are normal. There is no evidence of focal pulmonary consolidation. There is no evidence of failure. No pleural effusions are visualized.[ IMPRESSION: No active disease in the chest. THORACIC SPINE 2-VIEWS CLINICAL HISTORY: fall, back pain, rule out fx trauma. Pain. COMPARISON STUDY: None FINDINGS: Moderate degenerative disc change. No evidence for compression deformity. Moderate reactive anterior and anterolateral osteophytic changes throughout. IMPRESSION: Degenerative change. No acute abnormality. LEFT SHOULDER MIN 2 VIEWS ROUTINE CLINICAL HISTORY: rule out fx or dislocation trauma. Pain. COMPARISON: None. DISCUSSION: The bones and joint spaces appear intact. There is no evidence of fracture, dislocation or bony disease. There is no evidence for soft tissue swelling. IMPRESSION: Negative study. EKG Initial EKG- Sinus bradycardia, non specific T wave inversion lead III, no significant change from prior EKG per cardiology read, also reviewed by me Repeat EKG- NSR, no significant change Impression Assessment and Plan CHEST PAIN Presents with anginal type pain relieved by nitro R/o ACS; risk factors include hx CAD, DM 2, HTN, HL, family hx premature CAD [place] [facility] [place] [facility] [place] Last stress echo in 2011 negative; Last TTE 06/2012-EF 60-65%, grade I diastolic dysfunction Initial troponin negative; EKG- no ischemic changes; CXR- no acute findings Trend serial cardiac enzymes Check echo Repeat EKG in am Fasting lipid panel in am Took 1 baby ASA this morning then 3 baby ASA en route Continue daily aspirin 81 mg, statin, beta marvin On Coumadin for hx DVT; INR mildly subtherapeutic- continue Coumadin and recheck INR in am Consult cardiology NPO after midnight for possible stress test HX CVA With residual left sided weakness No acute issues Continue aspirin, statin DM TYPE 2 Hold glipizide Continue Lantus at reduced dose Novolog sliding scale Check A1c EPIGASTRIC PAIN Possibly due to reducible ventral hernia vs. abdominal wall pain from recent fall LFT's and lipase WNL Continue PPI for GERD L SHOULDER/ THORACIC BACK PAIN X-rays unremarkable Continue home oxycodone DEPRESSION Recently self-discontinued Cymbalta and Lamictal Denies suicidal ideation Will defer management to PCP HX DVT INR mildly subtherapeutic at 1.8 Continue Coumadin Monitor INR FULL CODE per my discussion with the patient DISPOSITION Obs to telemetry Follows with Dr. Rhodes for primary care Patient seen in collaboration with Dr. David. Please see his addendum. Attending Addendum 71 y/o female with PMH of CAD, hypertension, dyslipidemia, DM 2, CVA with left sided residual weakness, history of DVT, GERD, depression, legal blindness presents to the ED with chest pain associated with SOB and diaphoresis. Pt said that the chest pain started after she climbed a flight of stairs with her grandson. She describes pain as substernal pressure, non-radiating and relief after taking nitro. She recently fell about 2 days ago after standing up too quick and became lightheadedness. she said that she hit her epigastric area and her left shoulder. General- No acute distress Head- atraumatic Eyes- PERRL, EOMI ENT- oropharynx clear Neck- supple, no JVD Lungs- clear to auscultation, no wheezing Heart- regular rhythm; no murmur Abdomen- normal bowel sounds, soft, epigastric tenderness Extremities- no calf tenderness Chest Pain Need to r/o ACS EKG showed no significant ST changes 1st troponin negative will monitor CM check echo in am continue aspirin, statin, and beta marvin Will consult cardiology. Lab, imaging and EKG reviewed Please refer to Rosa'james PA for other documentation Rachel David MD Advanced Directives Existing Living Will: No Existing Power of Chemistry Instructor: No VTE Prophylaxis VTE Risk Assessment Done? Y/N: Yes Risk Level: High Given or contraindicated: Warfarin (Coumadin)
[2016-07-31] MEDS ORDERED: INSULIN GLARGINE SOLOSTAR 100 UNITS/ML 3 ML PEN SC SCH (21:00)
[2016-07-31] MEDS ORDERED: ROPINIROLE HCL 1 MG TAB PO SCH (21:00)
[2016-07-31 21:46] LABS: CKMB/CK RATIO 1.7 (0-3.0)
[2016-07-31 23:30] VITALS: BP 104/66; PULSE 59; TEMP 36.5; O2SAT 95
[2016-08-01 03:05] VITALS: BP 103/65; PULSE 59; TEMP 36.7; O2SAT 95
[2016-08-01 03:23] LABS: INR 1.7 (0.9-1.1); PROTHROMBIN TIME (PATIENT) 18.4 SECONDS (9.0-12.0)
[2016-08-01 03:38] LABS: CHOLESTEROL 144 mg/dl (0-200); CHOLESTEROL/HDL RATIO 3.4; CKMB/CK RATIO 1.4 (0-3.0); HDL CHOLESTEROL 42 mg/dl; LDL CHOLESTEROL CALCULATED 73 mg/dl; TRIGLYCERIDES 143 mg/dl (0-150); VERY LOW DENSITY LIPOPROT CALC 29 mg/dl
[2016-08-01 07:40] LABS: ESTIMATED AVERAGE GLUCOSE 160 mg/dl; HA1C FLAG Normal (Normal)
[2016-08-01 07:49] VITALS: BP 157/74; PULSE 63; TEMP 36.7; O2SAT 96
[2016-08-01] MEDS ORDERED: PERFLUTREN LIPID MICROSPHERE (DEFINITY) IV ONE ×2 (08:30→11:11)
[2016-08-01] MEDS ORDERED: CYANOCOBALAMIN 100 MCG TAB (VIT B-12) PO SCH (09:00)
[2016-08-01] MEDS ORDERED: ASPIRIN 81 MG ECTAB PO SCH (09:00)
[2016-08-01] MEDS ORDERED: ATORVASTATIN 40 MG TAB PO SCH (09:00)
[2016-08-01] MEDS: INSULIN ASPART 100 UNITS/ML 3 ML PEN SC SCH ×3 (09:03→17:39)
[2016-08-01] MEDS: FLUTICASONE PROP HFA INH 44 MCG INHALER INH SCH (09:04)
[2016-08-01] MEDS: OXYBUTYNIN CHLORIDE 5 MG TAB PO SCH ×2 (09:09→14:13)
[2016-08-01] MEDS ORDERED: DOBUTamine HCL 12.5 MG/ML 20 ML VIAL ONE (10:26)
[2016-08-01] MEDS ORDERED: ATROPINE SULFATE 0.1 MG/ML 5ML SYR ONE (10:26)
[2016-08-01] MEDS ORDERED: METOPROLOL TARTRATE 1 MG/ML VIAL ONE (10:26)
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
--- NOTE | 2016-08-01 11:11 | ECHOCARDIOGRAM REPORT ---
*NOTICE TO RECEIVING CONSTITUTION PARTY AGENCY This information is strictly Confidential and protected under [place] law. [place] law prohibits you from making any further disclosure of this information unless further disclosure is expressly permitted by the written consent of the person to whom it pertains or is authorized by law. A general authorization for the release of medical or other information is not sufficient for this purpose. Hospital accepts no responsibility if the information is made available to any other person, INCLUDING THE PATIENT. Interpretation Summary * Name: TACO BURTON Study Date: 08/01/2016 07:35 AM BP: 157/74 mmHg * Patient Location: [facility]\S\N283\S\1 HR: 59 * : 1945 (M/d/yyyy) Gender: Female Height: 60 in * Age: 71 yrs Ethnicity: [place] Weight: 213 lb * Ordering Physician: Rosa Marie * Referring Physician: Self, Referred * Performed By: Zuleyka Martinez * * Reason For Study: CHEST PAIN * BSA: 1.9 m2 * -- Conclusions -- * The left ventricular wall motion is normal. * The LV Left ventricular systolic function is normal. * Ejection Fraction = 60-65%. * Doppler findings do not suggest pulmonary hypertension. * Grade I diastolic dysfunction, (abnormal relaxation pattern). * There is no significant valvular heart disease. Procedure Details * A complete two-dimensional transthoracic echocardiogram was performed (2D, M-mode, Doppler and color flow Doppler). Left Ventricle * The left ventricle is normal in size. * There is normal left ventricular wall thickness. * Left ventricular systolic function is normal. * Ejection Fraction = 60-65%. * The left ventricular wall motion is normal. Right Ventricle * The right ventricle is normal size. * The right ventricular systolic function is normal as assessed by tricuspid annular plane systolic excursion (TAPSE) (normal >1.5 cm). Atria * The left atrial size is normal. * Right atrial size is normal. * There is no evidence of atrial septal defect, but resolution does not allow assessment for a patent foramen ovale. Mitral Valve * The mitral valve is normal. * There is no mitral valve stenosis. * Significant mitral regurgitation is absent. Tricuspid Valve * The tricuspid valve is normal. * There is no tricuspid stenosis. * Significant tricuspid regurgitation is absent. * Doppler findings do not suggest pulmonary hypertension. Aortic Valve * The aortic valve is trileaflet. * Aortic stenosis is absent. * There is no significant aortic regurgitation. Pulmonic Valve * The pulmonary valve is not well seen, but the Doppler examination is normal without significant regurgitation or stenosis. Great Vessels * The aortic root and proximal ascending aorta are normal sized. Pericardium/Pleural * There is no pericardial effusion. Great Vessels * Normal inferior vena cava diameter and respiratory variation suggests normal central venous pressure. * Normal inferior vena cava size and collapsability with sniff indicates a normal right atrial pressure of 3 mmHg Left Ventricular Diastolic Function * Grade I diastolic dysfunction, (abnormal relaxation pattern). MMode 2D Measurements and Calculations IVSd 0.98 cm IVSs 1.6 cm LVIDd 5.0 cm LVIDs 3.1 cm LVPWd 1.5 cm LVPWs 2.0 cm IVS/LVPW 0.67 FS 37.3 % EDV(Teich) 116.8 ml ESV(Teich) 38.5 ml EF(Teich) 67.1 % EDV(cubed) 123.1 ml ESV(cubed) 30.3 ml EF(cubed) 75.4 % % IVS thick 61.7 % % LVPW thick 38.6 % LV mass(C)d 239.2 grams LV mass(C)dI 124.7 grams/m\S\2 LV mass(C)s 230.9 grams LV mass(C)sI 120.4 grams/m\S\2 CO(Teich) 6.4 l/min CI(Teich) 3.4 l/min/m\S\2 SV(Teich) 78.3 ml SI(Teich) 40.9 ml/m\S\2 CO(cubed) 7.6 l/min CI(cubed) 4.0 l/min/m\S\2 SV(cubed) 92.7 ml SI(cubed) 48.4 ml/m\S\2 ACS 1.9 cm LA dimension 3.9 cm asc Aorta Diam 3.0 cm LVOT diam 2.0 cm LVOT area 3.2 cm\S\2 LVAd ap4 30.5 cm\S\2 LVLd ap4 8.3 cm EDV(MOD-sp4) 92.0 ml LVAs ap4 15.2 cm\S\2 LVLs ap4 6.0 cm ESV(MOD-sp4) 32.0 ml EF(MOD-sp4) 65.2 % LVAd ap2 27.8 cm\S\2 LVLd ap2 7.4 cm EDV(MOD-sp2) 86.0 ml LVAs ap2 14.5 cm\S\2 LVLs ap2 6.2 cm ESV(MOD-sp2) 28.0 ml EF(MOD-sp2) 67.4 % CO(MOD-sp4) 4.9 l/min CI(MOD-sp4) 2.6 l/min/m\S\2 SV(MOD-sp4) 60.0 ml SI(MOD-sp4) 31.3 ml/m\S\2 CO(MOD-sp2) 4.8 l/min CI(MOD-sp2) 2.5 l/min/m\S\2 SV(MOD-sp2) 58.0 ml SI(MOD-sp2) 30.3 ml/m\S\2 Doppler Measurements and Calculations MV E max richie 76.0 cm/sec MV A max richie 74.5 cm/sec MV E/A 1.0 MV P1/2t max richie 77.6 cm/sec MV P1/2t 88.5 msec MVA(P1/2t) 2.5 cm\S\2 MV dec slope 257.0 cm/sec\S\2 MV dec time 0.22 sec Ao V2 max 122.2 cm/sec Ao max PG 6.0 mmHg Ao max PG (full) 2.2 mmHg RAFITA(V,A) 2.5 cm\S\2 RAFITA(V,D) 2.5 cm\S\2 LV V1 max PG 3.7 mmHg LV V1 max 96.7 cm/sec PA V2 max 64.4 cm/sec PA max PG 1.7 mmHg
[2016-08-01 11:30] VITALS: BP 150/87; PULSE 79; TEMP 36.6; O2SAT 95
--- NOTE | 2016-08-01 12:42 | DOBUTAMINE ECHO ---
*NOTICE TO RECEIVING GREEN PARTY AGENCY This information is strictly Confidential and protected under [place] law. [place] law prohibits you from making any further disclosure of this information unless further disclosure is expressly permitted by the written consent of the person to whom it pertains or is authorized by law. A general authorization for the release of medical or other information is not sufficient for this purpose. Hospital accepts no responsibility if the information is made available to any other person, INCLUDING THE PATIENT. Interpretation Summary * The study was technically adequate. * Name: TACO BURTON Study Date: 08/01/2016 10:04 AM BP: 128/70 mmHg Patient Location: [facility]\S\N283\S\1 HR: 59 : 1945 (M/d/yyy) Gender: Female Height: 61 in Age: 71 yrs Ethnicity: [place] Weight: 213 lb Ordering Physician: Marielle Hua Referring Physician: Self, Referred Performed By: Heather Carey RDCS Reason For Study: CHEST PAIN BSA: 1.9 m2 * -- Conclusions -- * STRESS STUDY: * Normal pharmacologic stress echocardiogram. * No echocardiographic or ECG evidence of myocardial ischemia having achieved heart rate adequate for diagnostic purposes. * No symptoms suggestive of angina were induced. * The heart rate and blood pressure responses to exercise were appropriate. * Refer to separate report for details of complete resting study. Procedure Details * DOBUTAMINE ECHO, CPT#87589 Left Ventricle * The left ventricle is normal in size. * There is normal left ventricular wall thickness. * Ejection Fraction = 60-65%. * Resting wall motion: Normal. Stress wall motion: Appropriate increase in Left ventricular systolic function and decrease in cavity size. No stress induced segmental wall motion abnormalities. Stress Parameters * Normal baseline electrocardiogram. * The stress ECG response was normal * Rare isolated PVCs were noted during pharmacologic stress. * The stress portion of this study was personally supervised by the undersigned interpreting physician. * Rest heart rate was '59' BPM. * Rest blood pressure was '128/70' * Maximum heart rate achieved was 130 bpm. * Maximum heart rate was 86 % of maximum age-predicted heart rate. * Maximum blood pressure was '131/54' * Maximum Dobutamine infusion rate was '50' mcg/kg/min. * A total of .75 mg of intravenous Atropine was used to supplement Dobutamine for heart rate response. * Dobutamine infusion was terminated due to achieving target heart rate * A total of 2.5 mg of IV Metoprolol was administered to reverse Dobutamine-induced tachycardia.
--- NOTE | 2016-08-01 13:42 | Discharge Instructions ---
Discharge Instructions Date of Service Aug 01, 2016. Admission Reason for Admission: Chest Pain Discharge Discharge Diagnosis / Problem: CHEST PAIN /NO EVIDENCE OF ACUTE CORONARY EVENT Discharge Goals Goal(s): Decrease discomfort, Diagnostic testing Activity Recommendations Activity Limitations: resume your previous activity . Instructions / Follow-Up Instructions / Follow-Up HOSPITAL FOLLOW UP ON 08/07/2016 @ 11:[address] Ayanna Rhodes MD [facility] Current Hospital Diet Patient's current hospital diet: Diabetes Type 2 Diet, AHA Diet (Heart Healthy) Discharge Diet Recommended Diet: AHA Diet (Heart Healthy), Diabetes Type 2 Diet Pending Studies Studies pending at discharge: no Laboratory Results Hemoglobin A1c Test 08/01/16 03:04 Range/Units Estimated Average Glucose 160 mg/dl Hemoglobin A1c 7.2 H 4.5-5.6 % Lipid Panel Test 08/01/16 03:04 Range/Units Triglycerides Level 143 0-150 mg/dl Cholesterol Level 144 0-200 mg/dl HDL Cholesterol 42 mg/dl Cholesterol/HDL Ratio 3.4 LDL Cholesterol, Calculated 73 mg/dl Medical Emergencies . Who to Call and When: Medical Emergencies: If at any time you feel your situation is an emergency, please call 911 immediately. . Non-Emergent Contact Non-Emergency issues call your: Primary Care Provider . . "Provider Documentation" section prepared by Carmen Baker. . VTE Core Measure Inpt VTE Proph given/why not?: Warfarin (Coumadin)
[2016-08-01 14:51] VITALS: BP 130/82; PULSE 70; TEMP 36.6; O2SAT 94
[2016-08-01 15:19] VITALS: Ht 154.9 cm; Wt 96.7 kg
[2016-08-01 15:46] VITALS: BP 114/68; PULSE 72; O2SAT 96
[2016-08-01] MEDS ORDERED: WARFARIN SOD 2 MG TAB PO SCH (16:00)
[2016-08-01] MEDS ORDERED: OMEP20TA PO (17:18)
[2016-08-01] MEDS ORDERED: CRFL PO (17:18)
[2016-08-01] MEDS ORDERED: SUCRALFATE 1 GM/10 ML UDC PO ONE (17:30)
[2016-08-01 18:05] VITALS: BP 114/68; PULSE 72; TEMP 36.6; O2SAT 96
--- NOTE | 2016-08-01 21:52 | Discharge Summary ---
Discharge Summary Date of Service Aug 01, 2016. Discharge Summary Admission Date: Jul 31, 2016 at 16:24 Discharge Date: Aug 01, 2016 Discharge Disposition: Home Principal Diagnosis: CHEST PAIN /NO EVIDENCE OF ACUTE CORONARY EVENT Procedures: DOBUTAMINE STRESS TEST NEGATIVE FOR STRESS INDUCED ISCHEMIA Medication Reconciliation New Medications: Omeprazole (Omeprazole) 20 Mg Tab 1 TAB PO DAILY for 30 Days, #30 TAB 3 Refills Sucralfate (Carafate) 1 Gm/10 Ml Callie 10 ML PO BID for 6 Days, #120 ML 1 Refill Continued Medications: Albuterol (Ventolin Hfa) 60 Puffs/5400 Mcg Aers 2 PUFFS INH QID PRN for SOB/Wheezing Alendronate Sodium (Fosamax) 70 Mg Tab 70 MG PO WK, TAB TAKE THIS MEDICATION EVERY SUNDAY 30 MINUTES BEFORE FIRST MEAL OF THE DAY WITH 8 OUNCES OF WATER AND REMAIN UPRIGHT FOR 30 MINUTES AFTER TAKING. Aspirin (Aspirin Adult Low Dose) 81 Mg Tab 81 MG PO DAILY Atenolol (Tenormin) 25 Mg Tab 25 MG PO DAILY, TAB Atorvastatin (Lipitor) 80 Mg Tab 80 MG PO DAILY, TAB Cyanocobalamin (Vitamin B-12) 100 Mcg Tab 100 MCG PO DAILY, TAB Fluticasone Propionate (Flovent Hfa) 120 Puffs/5280 Mcg Aero 2 PUFFS INH BID for 30 Days, #10.6 GM 2 Refills Glipizide (Glipizide Er) 2.5 Mg Tab 1 TAB PO DAILY for 90 Days, #90 TAB 3 Refills Insulin Glargine (Lantus) 100 Unit/Ml Inj 36 UNITS SC QPM, VIAL Nitroglycerin (Nitrostat) 0.4 Mg Tab 0.4 MG SL UD PRN for Chest Pain PLACE ONE TABLET UNDER THE TONGUE EVERY 5 MINUTES FOR UP TO 3 DOSES IF NEEDED FOR CHEST PAIN. Oxybutynin Chloride (Ditropan) 5 Mg Tab 5 MG PO TID, TAB Oxycodone Ir (Roxicodone Ir) 5 Mg Tab 5 MG PO Q4H PRN for Pain, TAB Ropinirole (Requip) 4 Mg Tab 4 MG PO HS, TAB Tetrahydrozoline Hcl (Ophth) (Visine) 0.05 % Tequila 1 DROP OPB UD PRN for DRYNESS Warfarin Sod (Jantoven) 2 Mg Tab 2 MG PO 5XWK, TAB pt takes 2 mg on sunday/sunday/sunday/sunday/sunday Warfarin Sod (Jantoven) 4 Mg Tab 4 MG PO 2XWK, TAB takes on sunday/ Zinc Oxide (Topical) (Desitin Rapid Relief) 13 % Cre 1 APPLN EXT UD PRN for excoriation Admission Information HPI (per Admitting provider): This is a 71 y/o female with PMH of CAD, hypertension, dyslipidemia, DM 2, CVA with left sided residual weakness, history of DVT, GERD, depression, legal blindness, and other problems listed below who presents to the ED with chest pain. Patient states earlier today the elevator broke in her apartment building and while climbing 1 flight of stairs with her grandson she developed chest pain with SOB and diaphoresis. She describes pain as substernal pressure, non- radiating. Patient took SL nitro with relief. Patient states she was anxious at the time due to fear of falling because she usually does not climb stairs. She took 1 baby aspirin this am and was given 3 baby ASA by paramedics. While in ER patient developed chest pain again while ambulating to restroom. She was given SL nitro with resolution of chest pain. Repeat EKG showed no significant change. Patient states pain felt similar to prior cardiac pain. She states she had a DC approx 10 year ago. Reports cath in [place] approx 30 years ago. No stents. No recent cardiology follow up. In 2002 [facility] [place] hospitality intern's note stated that she had a previous normal cath. Last stress echo in 2011 was negative. Last TTE 06/2012 showed EF 60-65%, grade I diastolic dysfunction. Patient reports that 2 days ago she fell due to becoming lightheaded after standing up quickly. Patient states she hit her epigastric area on a foot stool and "jammed" her left shoulder. No LOC or head trauma. Since that time she reports epigastric burning and pain around left shoulder blade. The epigastric pain is different from the substernal CP. Epigastric pain is not affected by eating. No change in chronic diarrhea and bowel/ bladder incontinence. She reports loss of sensation from waist down attributed to neuropathy. Additionally patient reports stopping her Cymbalta and Lamictal approx 2 weeks ago because she felt they were no longer working as she was crying easily. Still feels the same. No suicidal ideation. Patient denies cough, palpitations, nausea, vomiting, abnormal bleeding, acute focal weakness/ numbness. Physical Exam (per Admitting): General Appearance: no apparent distress, + obese Head: normocephalic, atraumatic Eyes: normal inspection, PERRL, EOMI ENT: hearing grossly normal, pharynx normal Neck: supple, trachea midline Respiratory/Chest: lungs clear, normal breath sounds, no respiratory distress, no accessory muscle use Cardiovascular: regular rate, rhythm, no murmur Abdomen/GI: normal bowel sounds, soft, + pertinent finding (tender in epigastrium. there is an area of bulging in epigastric area when she engages abdominal muscles which reduces with lying supine.) Back: + pertinent finding (tenderness to palpation on thoracic spine and left thoracic paraspinal muscles) Extremities/Musculoskelatal: no calf tenderness, no pedal edema, + pertinent finding (left shoulder painful ROM) Neurologic/Psych: alert, oriented x 3, + pertinent finding (diminished sensation to light touch bilateral LE- chronic. LUE and LLE strength 4/5- chronic. RUE and RLE strenth 5/5. ) Skin: normal color, warm/dry, no rash (no rash on the chest) Hospital Course CHEST PAIN POSSIBLE GERD /LARGE HIATAL HERNIA symptom has resolved Dobutamine stress test negative pt has large Hiatal hernia possible symptom GI /GERD related ordered for Carafate /PPI out pt follow up with Family Physician HX CVA With residual left sided weakness No acute issues Continue aspirin, statin DM TYPE 2 glipizide resumed on discharge Continue Lantus Novolog sliding scale EPIGASTRIC PAIN possible causing chest heaviness /discomfort due to reducible ventral hernia /hx of hiatal hernia LFT's and lipase WNL Continue PPI for GERD added Carafate L SHOULDER/ THORACIC BACK PAIN X-rays unremarkable Continue home oxycodone DEPRESSION Recently self-discontinued Cymbalta and Lamictal Denies suicidal ideation Will defer management to PCP HX DVT Continue Coumadin Monitor INR FULL CODE DISPOSITION stable to be discharged home Follows with Dr. Rhodes for primary care Discharge Instructions DI: Medical v4 Discharge Instructions Date of Service Aug 01, 2016. Admission Reason for Admission: Chest Pain Discharge Discharge Diagnosis / Problem: CHEST PAIN /NO EVIDENCE OF ACUTE CORONARY EVENT Discharge Goals Goal(s): Decrease discomfort, Diagnostic testing Activity Recommendations Activity Limitations: resume your previous activity . Instructions / Follow-Up Instructions / Follow-Up HOSPITAL FOLLOW UP ON 08/07/2016 @ 11:[address] Ayanna Rhodes MD [facility] Current Hospital Diet Patient's current hospital diet: Diabetes Type 2 Diet, AHA Diet (Heart Healthy) Discharge Diet Recommended Diet: AHA Diet (Heart Healthy), Diabetes Type 2 Diet Pending Studies Studies pending at discharge: no Laboratory Results Hemoglobin A1c Test 08/01/16 03:04 Range/Units Estimated Average Glucose 160 mg/dl Hemoglobin A1c 7.2 H 4.5-5.6 % Lipid Panel Test 08/01/16 03:04 Range/Units Triglycerides Level 143 0-150 mg/dl Cholesterol Level 144 0-200 mg/dl HDL Cholesterol 42 mg/dl Cholesterol/HDL Ratio 3.4 LDL Cholesterol, Calculated 73 mg/dl Medical Emergencies . Who to Call and When: Medical Emergencies: If at any time you feel your situation is an emergency, please call 911 immediately. . Non-Emergent Contact Non-Emergency issues call your: Primary Care Provider . . "Provider Documentation" section prepared by Carmen Baker. . VTE Core Measure Inpt VTE Proph given/why not?: Warfarin (Coumadin) Additional Copies To Ayanna Rhodes M.D.
[2016-08-03] MEDS ORDERED: WARFARIN SOD 4 MG TAB PO SCH (16:00)
[2016-08-05] MEDS ORDERED: ALENDRONATE SODIUM 70 MG TAB PO SCH (06:30)
[2016-09-11] MEDS ORDERED: LVQ500 PO (16:43)
[2016-09-14] MEDS ORDERED: GFNSR600 PO (11:03)
[2016-09-14] MEDS ORDERED: HYCUDL5 PO (11:03)
[2016-09-14] MEDS ORDERED: DXY100 PO (11:03)
[2016-09-14] MEDS ORDERED: OXYC1TAB3 PO (13:19)
[2016-09-14] MEDS ORDERED: NTRGSL/4 SL (13:27)
[2016-11-01] MEDS ORDERED: DTR/5 PO (10:56)
[2016-11-01] MEDS ORDERED: ATOR-26 PO (13:52)
[2017-01-27] MEDS ORDERED: NRN100 PO (11:58)
[2017-01-27] MEDS ORDERED: CMD2 PO (11:58)
[2017-01-27] MEDS ORDERED: LDDP5 TD (11:58)
[2017-01-27] MEDS ORDERED: FLX5 PO (11:58)
== END 2016-08-01 18:19 | disposition home or self-care (01) ==
LOC: EDBD 13:34 → C.EDC 13:35 → C.MED 16:24 → ENRESERV 16:52
PROVIDERS: ADMIT Internal Medicine; ATTEND Hospitalist
DX: R07.9 Chest pain, unspecified (principal); R00.1 Bradycardia, unspecified; G90.2 Horner's syndrome; K21.9 Gastro-esophageal reflux disease without esophagitis; F32.9 Major depressive disorder, single episode, unspecified; E78.2 Mixed hyperlipidemia; H54.8 Legal blindness, as defined in USA; I10 Essential (primary) hypertension; G62.9 Polyneuropathy, unspecified; M81.0 Age-related osteoporosis without current pathological fracture; G25.81 Restless legs syndrome; E11.9 Type 2 diabetes mellitus without complications; I69.898 Other sequelae of other cerebrovascular disease; I25.10 Atherosclerotic heart disease of native coronary artery without angina pectoris; E66.9 Obesity, unspecified; I25.2 Old myocardial infarction; Z68.35 Body mass index [BMI] 35.0-35.9, adult; Z86.718 Personal history of other venous thrombosis and embolism; Z86.711 Personal history of pulmonary embolism; Z79.82 Long term (current) use of aspirin; Z79.01 Long term (current) use of anticoagulants; Z79.4 Long term (current) use of insulin; Z90.49 Acquired absence of other specified parts of digestive tract; Z90.710 Acquired absence of both cervix and uterus; Z83.3 Family history of diabetes mellitus; Z82.49 Family history of ischemic heart disease and other diseases of the circulatory system; Z83.6 Family history of other diseases of the respiratory system

== ENCOUNTER 2016-09-08 15:28 | Inpatient (IN) | payer OTHER ==
[~2016-09-08] VITALS: Ht 154.9 cm; Wt 95.8 kg
[~2016-09-08 15:28] MED LIST changes: -CMD/25 PO; +CRFL PO; -CYM/30 PO; -FLUT110A INH; -INSDGI SC; -LAMO25TA PO; +OMEP20TA PO; +OXYC1TAB3 PO; -PROAIR INH; -THIA100T11 PO
[2016-09-08] MEDS ORDERED: SODIUM CHLORIDE 0.9% 1000ML 1,000 ML IV STA (16:26)
[2016-09-08] MEDS ORDERED: ALBUT/IPRATROP 3MG/0.5MG NEB 3 ML VIAL INH STA (16:26)
--- NOTE | 2016-09-08 16:39 | DIAGNOSTIC IMAGING REPORT ---
CHEST ONE VIEW PORTABLE CLINICAL HISTORY: CHEST PAIN dyspnea COMPARISON STUDY: 07/31/2016 FINDINGS: The bones soft tissues and hemidiaphragms are normal. The cardiomediastinal silhouette is normal. The lungs are clear. The pulmonary vasculature is normal. IMPRESSION: Negative chest. The above report was generated using voice recognition software. It may contain grammatical, syntax or spelling errors. Electronically signed by: Barak Lassiter M.D. 09/08/2016 4:38 PM Dictated Date/Time: 09/08/2016 4:37 PM
[2016-09-08] MEDS ORDERED: MoRPHine SULFATE 4 MG/ML 1 ML CARP\\VIAL IV STA (16:58)
[2016-09-08] MEDS ORDERED: ONDANSETRON INJ 2 MG/ML 2 ML VIAL IV STA (16:58)
[2016-09-08 16:59] LABS: BASO % 0.4 %; BASO ABS # 0.04 K/uL (0-0.2); COMPLETE YES; EOS % 1.2 %; HEMATOCRIT 41.9 % (37-47); IG% 0.1 %; LYMPH % 22.6 %; LYMPH ABS # 2.18 K/uL (1.2-3.4); MEAN CELL VOLUME 97.4 fL (80-100); MEAN CORPUSCULAR HEMOGLOBIN 31.9 pg (25-34); MEAN CORPUSCULAR HGB CONC 32.7 g/dl (32-36); MEAN PLATELET VOLUME 9.7 fL (7.4-10.4); MONO % 8.6 %; NEUT % 67.1 %; PLATELET COUNT 343 K/uL (130-400); WHITE BLOOD COUNT 9.65 K/uL (4.8-10.8)
--- NOTE | 2016-09-08 17:05 | EMERGENCY ROOM VISIT NOTE ---
ED Visit Note First contact with patient: 16:12 I have seen and examined this patient with Sammy Nieto and generally agree with the treatment plan as discussed. 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 (9) Hyperlipidemia Status: Chronic (10) Hypertension Status: Chronic (11) FL (myocardial infarction) Status: Chronic (12) Peripheral neuropathy Status: Chronic (13) Recurrent DVT Status: Chronic (14) RLS (restless legs syndrome) Status: Chronic Surgical Problems: (1) History of appendectomy Status: Resolved (2) History of cholecystectomy Status: Resolved (3) History of hysterectomy Status: Resolved (4) History of salpingo-oophorectomy Status: Chronic (5) S/P cholecystectomy Status: Chronic (6) S/P removal of ovarian cyst Status: Chronic Current/Historical Medications Scheduled Alendronate Sodium (Fosamax), 70 MG PO WK Aspirin (Aspirin Adult Low Dose), 81 MG PO DAILY Atenolol (Tenormin), 25 MG PO DAILY Atorvastatin (Lipitor), 80 MG PO DAILY Cyanocobalamin (Vitamin B-12), 100 MCG PO DAILY Fluticasone Propionate (Flovent Hfa), 2 PUFFS INH BID Glipizide (Glipizide Er), 2.5 MG PO DAILY Insulin Glargine (Lantus), 36 UNITS SC QPM Omeprazole (Prilosec), 20 MG PO DAILY Oxybutynin Chloride (Ditropan), 5 MG PO TID Ropinirole (Requip), 4 MG PO HS Sucralfate (Carafate), 10 ML PO BID Warfarin Sod (Jantoven), 2 MG PO 5XWK Warfarin Sod (Jantoven), 4 MG PO 2XWK Scheduled PRN Albuterol (Ventolin Hfa), 2 PUFFS INH QID PRN for SOB/Wheezing Nitroglycerin (Nitrostat), 0.4 MG SL UD PRN for Chest Pain Oxycodone Ir (Roxicodone Ir), 5 MG PO Q4H PRN for Pain Tetrahydrozoline Hcl (Ophth) (Visine), 1 DROP OPB UD PRN for DRYNESS Zinc Oxide (Topical) (Desitin Rapid Relief), 1 APPLN EXT UD PRN for excoriation Allergies Coded Allergies: Macrolides and Ketolides (Verified Allergy, Unknown, `, 07/31/16) Niacin (Verified Allergy, Unknown, 07/31/16) Penicillins (Verified Allergy, Unknown, 07/31/16) Procaine (Verified Allergy, Unknown, unknown, 07/31/16) Pt states she either swelled or had a rash. Sulfa Antibiotics (Verified Allergy, Unknown, `, 07/31/16) Uncoded Allergies: MIACIN (Allergy, Unknown, UNKNOWN, 09/08/16) Vital Signs Date Time Temp Pulse Resp B/P (MAP) Pulse Ox O2 Delivery O2 Flow Rate FiO2 09/08/16 15:44 37.1 79 16 112/56 93 Room Air Laboratory Results 09/08/16 16:43 Red Blood Count 4.30, Mean Corpuscular Volume 97.4, Mean Corpuscular Hemoglobin 31.9, Mean Corpuscular Hemoglobin Concent 32.7, Mean Platelet Volume 9.7, Neutrophils (%) (Auto) 67.1, Lymphocytes (%) (Auto) 22.6, Monocytes (%) (Auto) 8.6, Eosinophils (%) (Auto) 1.2, Basophils (%) (Auto) 0.4, Neutrophils # (Auto) 6.47, Lymphocytes # (Auto) 2.18, Monocytes # (Auto) 0.83, Eosinophils # (Auto) 0.12, Basophils # (Auto) 0.04 Test 09/08/16 16:43 09/08/16 16:47 White Blood Count 9.65 K/uL (4.8-10.8) Red Blood Count 4.30 M/uL (4.2-5.4) Hemoglobin 13.7 g/dL (12.0-16.0) Hematocrit 41.9 % (37-47) Mean Corpuscular Volume 97.4 fL (80-100) Mean Corpuscular Hemoglobin 31.9 pg (25-34) Mean Corpuscular Hemoglobin Concent 32.7 g/dl (32-36) Platelet Count 343 K/uL (130-400) Mean Platelet Volume 9.7 fL (7.4-10.4) Neutrophils (%) (Auto) 67.1 % Lymphocytes (%) (Auto) 22.6 % Monocytes (%) (Auto) 8.6 % Eosinophils (%) (Auto) 1.2 % Basophils (%) (Auto) 0.4 % Neutrophils # (Auto) 6.47 K/uL (1.4-6.5) Lymphocytes # (Auto) 2.18 K/uL (1.2-3.4) Monocytes # (Auto) 0.83 K/uL (0.11-0.59) Eosinophils # (Auto) 0.12 K/uL (0-0.5) Basophils # (Auto) 0.04 K/uL (0-0.2) RDW Standard Deviation 52.1 fL (36.4-46.3) RDW Coefficient of Variation 14.7 % (11.5-14.5) Immature Granulocyte % (Auto) 0.1 % Immature Granulocyte # (Auto) 0.01 K/uL (0.00-0.02) Bedside Troponin I < 0.030 ng/ml (0-0.045) Medications Administered Medications (Trade) Dose Ordered Sig/Juany Route Start Time Stop Time Status Last Admin Dose Admin Sodium Chloride 1,000 ml @ 999 mls/hr Q1H1M STAT IV 09/08/16 16:26 09/08/16 17:26 09/08/16 16:57 999 MLS/HR Albuterol/ Ipratropium (Duoneb) 3 ml NOW STAT INH 09/08/16 16:26 09/08/16 16:27 DC 09/08/16 16:57 3 ML Departure Information Referrals Ayanna Rhodes M.D. (PCP) Patient Instructions My [facility]
[2016-09-08 17:18] LABS: ALT/SGPT 23 U/L (12-78); BLOOD UREA NITROGEN 13 mg/dl (7-18); BUN/CREATININE RATIO 9.7 (10-20); CALCIUM 9.2 mg/dl (8.5-10.1); CARBON DIOXIDE 30 mmol/L (21-32); CHLORIDE 105 mmol/L (98-107); GLUCOSE 64 mg/dl (70-99); POTASSIUM 3.5 mmol/L (3.5-5.1); SODIUM 140 mmol/L (136-145)
[2016-09-08 17:21] LABS: ALKALINE PHOSPHATASE 86 U/L (45-117); AST/SGOT 12 U/L (15-37)
[2016-09-08] MEDS ORDERED: DEXTROSE 50% 50 ML SYR IV PRN (18:15)
[2016-09-08] MEDS ORDERED: GLUCAGON FOR INJ 1 MG VIAL SQ PRN (18:15)
[2016-09-08] MEDS ORDERED: GLUCOSE 40% GEL 15 GM TUBE PO PRN (18:15)
[2016-09-08] MEDS ORDERED: MAGNESIUM HYDROXIDE SUSP 30 ML UDC PO PRN (18:15)
[2016-09-08] MEDS ORDERED: POLYETHYLENE (MIRALAX) 17 GM PACK PO PRN (18:15)
[2016-09-08] MEDS ORDERED: GLUCOSE 10 TABS/TUBE PO PRN (18:15)
[2016-09-08] MEDS ORDERED: ALBUT/IPRATROP 3MG/0.5MG NEB 3 ML VIAL INH PRN (18:15)
[2016-09-08] MEDS ORDERED: ONDANSETRON INJ 2 MG/ML 2 ML VIAL IV PRN (18:15)
[2016-09-08] MEDS ORDERED: ALUMINUM/MAGNESIUM/SIMETH (MAALOX MAX) 30 ML UDC PO PRN (18:15)
[2016-09-08] MEDS ORDERED: HYDROCODONE/HOMATROPINE SYRUP 5MG/1.5MG 5ML UDP PO PRN (18:15)
[2016-09-08 18:17] LABS: PARTIAL THROMBOPLASTIN RATIO 1.8; PROTHROMBIN TIME (PATIENT) 63.4 SECONDS (9.0-12.0)
[2016-09-08 18:21] LABS: INR 5.5 (0.9-1.1)
--- NOTE | 2016-09-08 18:32 | History and Physical ---
History & Physical Date & Time of Service: Sep 08, 2016 at 18:20 Chief Complaint: Sorethroat, Cough, Migraine Primary Care Physician: Ayanna Rhodes M.D. History of Present Illness Source: patient, clinic records, hospital records This is a 71 year old female with a PMH of insulin dependent DM2, hx. of DVT and PE on Coumadin, HTN, HLD, depression presents with a one day history of cough, congestion and multiple post-tussive symptoms. She states that the coughing began on 09/07 - it worsened throughout the day and into the night - she denies fevers/chills, denies chest pain - states that the coughing got so bad last night that she had two episodes of vomiting and decreased PO intake. Also states that at around 2AM, her coughing was so bad that she could not get a deep breath in and fell to the bed/chair. Denies chest pain. 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 (9) Hyperlipidemia Status: Chronic (10) Hypertension Status: Chronic (11) ID (myocardial infarction) Status: Chronic (12) Peripheral neuropathy Status: Chronic (13) Recurrent DVT Status: Chronic (14) RLS (restless legs syndrome) Status: Chronic Surgical Problems: (1) History of appendectomy Status: Resolved (2) History of cholecystectomy Status: Resolved (3) History of hysterectomy Status: Resolved (4) History of salpingo-oophorectomy Status: Chronic (5) S/P cholecystectomy Status: Chronic (6) S/P removal of ovarian cyst Status: Chronic Family History Early CAD FATHER ( in 30s of ID) MOTHER ( in 30s of ID) BROTHER ( in 50s of ID) FHx: cancer FHx: diabetes FHx: gallbladder disease FHx: heart disease FHx: hypertension FHx: kidney disease/stones FHx: lung disease Social History Smoking Status: Never Smoker Drug Use: none Marital Status: Housing status: lives with family Occupational Status: retired Immunizations History of Influenza Vaccine: Yes History of Tetanus Vaccine?: Yes Tetanus Immunization Date: July 07, 2003 History of Pneumococcal: Yes History of Hepatitis B Vaccine: No Multi-Drug Resistant Organisms History of MDRO: No Allergies Coded Allergies: Macrolides and Ketolides (Verified Allergy, Unknown, `, 07/31/16) Niacin (Verified Allergy, Unknown, 07/31/16) Penicillins (Verified Allergy, Unknown, 07/31/16) Procaine (Verified Allergy, Unknown, unknown, 07/31/16) Pt states she either swelled or had a rash. Sulfa Antibiotics (Verified Allergy, Unknown, `, 07/31/16) Uncoded Allergies: MIACIN (Allergy, Unknown, UNKNOWN, 09/08/16) Home Medications Scheduled Alendronate Sodium (Fosamax), 70 MG PO WK Aspirin (Aspirin Adult Low Dose), 81 MG PO DAILY Atenolol (Tenormin), 25 MG PO DAILY Atorvastatin (Lipitor), 80 MG PO DAILY Cyanocobalamin (Vitamin B-12), 100 MCG PO DAILY Fluticasone Propionate (Flovent Hfa), 2 PUFFS INH BID Glipizide (Glipizide Er), 2.5 MG PO DAILY Insulin Glargine (Lantus), 36 UNITS SC QPM Omeprazole (Prilosec), 20 MG PO DAILY Oxybutynin Chloride (Ditropan), 5 MG PO TID Ropinirole (Requip), 4 MG PO HS Sucralfate (Carafate), 10 ML PO BID Warfarin Sod (Jantoven), 2 MG PO 5XWK Warfarin Sod (Jantoven), 4 MG PO 2XWK Scheduled PRN Albuterol (Ventolin Hfa), 2 PUFFS INH QID PRN for SOB/Wheezing Nitroglycerin (Nitrostat), 0.4 MG SL UD PRN for Chest Pain Oxycodone Ir (Roxicodone Ir), 5 MG PO Q4H PRN for Pain Tetrahydrozoline Hcl (Ophth) (Visine), 1 DROP OPB UD PRN for DRYNESS Zinc Oxide (Topical) (Desitin Rapid Relief), 1 APPLN EXT UD PRN for excoriation Review of Systems Constitutional: No fever, No chills, No sweats Respiratory: + cough (chest congestion), + shortness of breath, No sputum, No wheezing, No dyspnea on exertion, No dyspnea at rest, No hemoptysis Abdomen: + nausea, + vomiting, No pain, No diarrhea, No constipation, No GI bleeding Musculoskeletal: No joint pain, No muscle pain Genitourinary - Female: No dysuria, No urinary frequency, No urinary urgency, No urinary incontinence, No urinary retention, No hematuria Neurologic: + problem reported (dizziness with coughing), No memory loss, No paralysis, No weakness, No balance problems Psychiatric: No depression symptoms, No anxiety, No insomnia Hematologic / Lymphatic: No abnormal bleeding/bruising Integumentary: No rash Allergic / Immunologic: + seasonal allergies, No environmental allergies Physical Exam Vital Signs Date Time Temp Pulse Resp B/P (MAP) Pulse Ox O2 Delivery O2 Flow Rate FiO2 09/08/16 17:11 68 09/08/16 17:00 71 18 104/57 96 Room Air 09/08/16 15:44 37.1 79 16 112/56 93 Room Air General Appearance: no apparent distress, + obese, + pertinent finding ( intermittent dry coughing throughout exam) Head: normocephalic, atraumatic Eyes: normal inspection Respiratory/Chest: chest non-tender, lungs clear, normal breath sounds, no respiratory distress, no accessory muscle use Cardiovascular: regular rate, rhythm, no edema, no murmur Abdomen/GI: normal bowel sounds, non tender, soft Extremities/Musculoskelatal: normal inspection, no calf tenderness, normal capillary refill, no pedal edema, normal range of motion Neurologic/Psych: no motor/sensory deficits, alert, normal mood/affect Skin: normal color Lymphatic: no adenopathy Diagnostics Laboratory Results Results Past 24 Hours Test 09/08/16 16:43 09/08/16 16:47 Range/Units White Blood Count 9.65 4.8-10.8 K/uL Red Blood Count 4.30 4.2-5.4 M/uL Hemoglobin 13.7 12.0-16.0 g/dL Hematocrit 41.9 37-47 % Mean Corpuscular Volume 97.4 80-100 fL Mean Corpuscular Hemoglobin 31.9 25-34 pg Mean Corpuscular Hemoglobin Concent 32.7 32-36 g/dl Platelet Count 343 130-400 K/uL Mean Platelet Volume 9.7 7.4-10.4 fL Neutrophils (%) (Auto) 67.1 % Lymphocytes (%) (Auto) 22.6 % Monocytes (%) (Auto) 8.6 % Eosinophils (%) (Auto) 1.2 % Basophils (%) (Auto) 0.4 % Neutrophils # (Auto) 6.47 1.4-6.5 K/uL Lymphocytes # (Auto) 2.18 1.2-3.4 K/uL Monocytes # (Auto) 0.83 0.11-0.59 K/uL Eosinophils # (Auto) 0.12 0-0.5 K/uL Basophils # (Auto) 0.04 0-0.2 K/uL RDW Standard Deviation 52.1 36.4-46.3 fL RDW Coefficient of Variation 14.7 11.5-14.5 % Immature Granulocyte % (Auto) 0.1 % Immature Granulocyte # (Auto) 0.01 0.00-0.02 K/uL Sodium Level 140 136-145 mmol/L Potassium Level 3.5 3.5-5.1 mmol/L Chloride Level 105 98-107 mmol/L Carbon Dioxide Level 30 21-32 mmol/L Anion Gap 5.0 3-11 mmol/L Blood Urea Nitrogen 13 7-18 mg/dl Creatinine 1.30 0.60-1.20 mg/dl Est Creatinine Clear Calc Drug Dose 41.9 ml/min Estimated GFR () 48.1 Estimated GFR (Non- 41.5 BUN/Creatinine Ratio 9.7 10-20 Random Glucose 64 70-99 mg/dl Calcium Level 9.2 8.5-10.1 mg/dl Total Bilirubin 0.3 0.2-1 mg/dl Direct Bilirubin < 0.1 0-0.2 mg/dl Aspartate Amino Transf (AST/SGOT) 12 15-37 U/L Alanine Aminotransferase (ALT/SGPT) 23 12-78 U/L Alkaline Phosphatase 86 45-117 U/L Total Protein 7.7 6.4-8.2 gm/dl Albumin 3.3 3.4-5.0 gm/dl Lipase 92 73-393 U/L Bedside Troponin I < 0.030 0-0.045 ng/ml Microbiology Results 09/08/16 Group A Streptococcus Screen - Final, Resulted SPECIMEN NEGATIVE FOR GROUP A BETA ST... 09/08/16 Group A Streptococcus Screen (ESME), Resulted Pending Diagnostic Radiology CHEST ONE VIEW PORTABLE CLINICAL HISTORY: CHEST PAIN dyspnea COMPARISON STUDY: 07/31/2016 FINDINGS: The bones soft tissues and hemidiaphragms are normal. The cardiomediastinal silhouette is normal. The lungs are clear. The pulmonary vasculature is normal. IMPRESSION: Negative chest. EKG Normal sinus rhythm Nonspecific T wave abnormality Abnormal ECG Impression Assessment and Plan This is a 71 year old female with a PMH of insulin dependent DM2, hx. of DVT and PE on Coumadin, HTN, HLD, depression presents with a one day history of cough, congestion and multiple post-tussive symptoms Viral Bronchitis leading to Post-tussive Emesis, Post-tussive Syncope patient has had a bad cough one day prior to arrival CXR, WBC, vitals stable unlikely a pneumonia, will recheck two view CXR in AM will try Hycodan syrup TID PRN nebs as needed oxygen as needed observe in tele, and trend cardiac enzymes; unlikely ACS Acute Kidney Injury likely from emesis and decreased appetite creatinine of 1.3, baseline is around 0.9 gentle hydration Hx. of PE hx. of multiple PEs and DVTs patient is on Coumadin INR supratherapeutic no signs of bleeding/bruising hold Coumadin until INR < 3 Insulin Dependent DM2 well controlled at home, with Ha1c consistent < 7% will hold glipizide Lantus 15units BID sliding scale HTN blood pressure stable continue current medications DVT ppx Coumadin FULL CODE VTE Prophylaxis VTE Risk Assessment Done? Y/N: Yes Risk Level: High Given or contraindicated: Warfarin (Coumadin)
[2016-09-08] MEDS ORDERED: IV FLUIDS COMPLETED PRN (19:00)
[2016-09-08] MEDS ORDERED: HYDROCODONE/HOMATROPINE SYRUP 5MG/1.5MG 5ML UDP PO STA (19:06)
[2016-09-08 19:08] VITALS: BP 146/81; PULSE 72; TEMP 37; O2SAT 93; BMI 38.9
[2016-09-08] MEDS: ACETAMINOPHEN 325 MG TAB PO PRN (19:47)
[2016-09-08] MEDS: SODIUM CHLORIDE 0.9% 1000ML 1,000 ML IV SCH (19:50)
[2016-09-08 20:00] VITALS: O2SAT 94
[2016-09-08] MEDS: SUCRALFATE 1 GM/10 ML UDC PO SCH (21:32)
[2016-09-08] MEDS: FLUTICASONE PROP HFA INH 44 MCG INHALER INH SCH (21:32)
[2016-09-08] MEDS: ROPINIROLE HCL 1 MG TAB PO SCH (21:33)
[2016-09-08] MEDS: OXYBUTYNIN CHLORIDE 5 MG TAB PO SCH (21:33)
[2016-09-08] MEDS: INSULIN ASPART 100 UNITS/ML 3 ML PEN SC SCH (21:34)
[2016-09-08] MEDS: INSULIN GLARGINE SOLOSTAR 100 UNITS/ML 3 ML PEN SC SCH (21:36)
--- NOTE | 2016-09-08 22:08 | EMERGENCY ROOM VISIT NOTE ---
ED Visit Note First contact with patient: 16:12 Chief Complaint: Sore throat and cough. History of Present Illness: Ms. Kamara is a 71-year-old white female who ambulates into the ED accompanied by a female friend with complaints of sore throat and cough. Historically patient reports she has a history of coronary artery disease with myocardial infarction, pulmonary emboli, dyslipidemia, hypertension and insulin- dependent diabetes. Patient reports she was feeling her normal self until late afternoon yesterday, approximately 24 hours ago. She reports at that time she developed a gradual onset of severe right-sided throat pain. Initially it was mild and gradually increased in intensity. Then she developed sinus congestion and cough. Overnight she reports she went to the bathroom twice and developed a severe coughing episode and subsequently had 2 episodes of post tussive syncope. These episodes are not observed. Her symptoms continued through the night and when she woke this morning her throat pain was now bilateral and she has developed posttussive chest pain. Currently she reports her worse discomfort is her posttussive chest pain. She describes this as a sharp sensation. She places this discomfort over the anterior sternum. She rates her discomfort 9/10. The pain is nonradiating. She reports the pain occurs with cough and a few minutes after the cough then self resolves. She is not taken any medications for any of her symptoms prior to arrival at the hospital. Additionally she complains of throat pain over the posterior pharyngeal area. She describes this as an achy sensation. She rates her discomfort 9/10. Her pain is radiating into both ears. Her pain worsens with swallowing and coughing. She has not identified any alleviating factors related to the pain. Associated with her pain she reports she is having dizziness, painful swallowing and sinus congestion. She denies fevers, chills, sweats, headache, recent head trauma, hearing changes , ear drainage, inability to swallow, voice changes, drooling, painful talking, neck pain/stiffness, hemoptysis, wheezing, claudication, cramping, recent surgery/inactivity/extended travel, abdominal pain, posttussive vomiting, decreased appetite, diarrhea, constipation, back/flank pain, urinary symptoms, hematuria. Review of Systems: As noted above in history of present illness. All body systems were reviewed and found to be negative as noted above. Past Medical History: As previously noted, CVA, GERD, Alfonso syndrome, peripheral neuropathy, restless leg syndrome, depression, status post appendectomy, cholecystectomy, hysterectomy and ovarian cyst removal. Current Medications: Medications Dose Route/Sig Max Daily Dose Days Date Category Dose Instructions Prilosec (Omeprazole) 20 Mg Capcr 20 Mg PO DAILY 09/08/16 Reported Carafate (Sucralfate) 1 Gm/10 Ml Callie 10 Ml PO BID 6 08/01/16 Rx Aspirin Adult Low Dose (Aspirin) 81 Mg Tab 81 Mg PO DAILY 07/31/16 Reported Visine (Tetrahydrozoline Hcl (Ophth)) 0.05 % Tequila 1 Drop OPB UD PRN 07/31/16 Reported Roxicodone Ir (Oxycodone HCl) 5 Mg Tab 5 Mg PO Q4H PRN 07/31/16 Reported Desitin Rapid Relief (Zinc Oxide (Topical)) 13 % Cre 1 Appln EXT UD PRN 07/31/16 Reported Ventolin Hfa (Albuterol) 60 Puffs/5400 Mcg Aers 2 Puffs INH QID PRN 07/31/16 Reported Jantoven (Warfarin Sodium) 4 Mg Tab 4 Mg PO 2XWK 07/31/16 Reported takes on sunday/ Jantoven (Warfarin Sodium) 2 Mg Tab 2 Mg PO 5XWK 07/31/16 Reported pt takes 2 mg on sunday/sunday/sunday/sunday/sunday Lantus (Insulin Glargine) 100 Unit/Ml Inj 36 Units SC QPM 07/31/16 Reported Flovent Hfa (Fluticasone Propionate) 120 Puffs/5280 Mcg Aero 2 Puffs INH BID 30 07/31/16 Reported Tenormin (Atenolol) 25 Mg Tab 25 Mg PO DAILY 03/01/16 Reported Glipizide Er (Glipizide) 2.5 Mg Tab 2.5 Mg PO DAILY 90 03/01/16 Reported Requip (Ropinirole HCl) 4 Mg Tab 4 Mg PO HS 03/01/16 Reported Fosamax (Alendronate Sodium) 70 Mg Tab 70 Mg PO WK 04/30/13 Reported TAKE THIS MEDICATION EVERY SUNDAY 30 MINUTES BEFORE FIRST MEAL OF THE DAY WITH 8 OUNCES OF WATER AND REMAIN UPRIGHT FOR 30 MINUTES AFTER TAKING. Lipitor (Atorvastatin Calcium) 80 Mg Tab 80 Mg PO DAILY 03/07/13 Reported Ditropan (Oxybutynin Chloride) 5 Mg Tab 5 Mg PO TID 07/06/12 Reported Nitrostat (Nitroglycerin) 0.4 Mg Tab 0.4 Mg SL UD PRN 02/13/[address] ONE TABLET UNDER THE TONGUE EVERY 5 MINUTES FOR UP TO 3 DOSES IF NEEDED FOR CHEST PAIN. Allergies to Medications: Miacin, macrolides, ketolides, niacin, penicillin, procaine, sulfa. Social History: Patient is not employed; she lives with her daughter and feels safe in her home environment; she denies tobacco and alcohol use. Physical Examination: Vital Signs: Date Time Temp Pulse Resp B/P (MAP) Pulse Ox O2 Delivery O2 Flow Rate FiO2 09/08/16 17:00 71 18 104/57 96 Room Air 09/08/16 15:44 37.1 79 16 112/56 93 Room Air GENERAL: 71-year-old female in mild distress due to pain, nontoxic-appearing, afebrile and hemodynamically stable. NEUROLOGICAL: Awake, alert and oriented to person, place and time. Answering questions appropriately and following commands. Normal gait. Good hand eye coordination. No focal motor sensory deficits. SKIN: Warm, dry and pink. No soft tissue eruptions or trauma noted. HEENT: Atraumatic and normocephalic. No erythema or tenderness over the frontal or maxillary sinuses. External ears are nontender. Auditory canals are pink and patent. Normal-appearing tympanic membranes without erythema or edema. PERRLA. Sclera white and conjunctiva pink. No drainage from naris, but auto congestion. Airway patent. Pharynx is minimally erythematous but not edematous. No posterior pharyngeal exudates. Speech normal. No lymphadenopathy. Trachea midline. No jugular venous distention. No carotid bruits. BACK: No tenderness over the bony cervical, thoracic and lumbar spine. No nuchal rigidity. Full range of motion of the cervical spine. No CVA tenderness. THORAX: Lungs sounds are slightly decreased bilaterally with a few scattered rales in the right base. Equal bilaterally with symmetrical chest wall. No wheezing, rales. No crepitus, tenderness, subcutaneous air or deformities noted. HEART: Regular rate and rhythm. No gallops, rubs or murmurs are appreciated. ABDOMEN: Obese, soft and nontender. Positive bowel sounds in all quadrants. No guarding, rigidity or organomegaly. EXTREMITIES: Moves all extremities well on command and with purpose. All distal neurovascular statuses are intact and equal bilaterally. No dependent edema. No calf tenderness or cords. ED Course: Patient is assessed as noted above. Patient's medication list was reviewed. Laboratory Testing: Test 09/08/16 16:43 09/08/16 16:47 Range/Units White Blood Count 9.65 4.8-10.8 K/uL Red Blood Count 4.30 4.2-5.4 M/uL Hemoglobin 13.7 12.0-16.0 g/dL Hematocrit 41.9 37-47 % Mean Corpuscular Volume 97.4 80-100 fL Mean Corpuscular Hemoglobin 31.9 25-34 pg Mean Corpuscular Hemoglobin Concent 32.7 32-36 g/dl Platelet Count 343 130-400 K/uL Mean Platelet Volume 9.7 7.4-10.4 fL Neutrophils (%) (Auto) 67.1 % Lymphocytes (%) (Auto) 22.6 % Monocytes (%) (Auto) 8.6 % Eosinophils (%) (Auto) 1.2 % Basophils (%) (Auto) 0.4 % Neutrophils # (Auto) 6.47 1.4-6.5 K/uL Lymphocytes # (Auto) 2.18 1.2-3.4 K/uL Monocytes # (Auto) 0.83 0.11-0.59 K/uL Eosinophils # (Auto) 0.12 0-0.5 K/uL Basophils # (Auto) 0.04 0-0.2 K/uL RDW Standard Deviation 52.1 36.4-46.3 fL RDW Coefficient of Variation 14.7 11.5-14.5 % Immature Granulocyte % (Auto) 0.1 % Immature Granulocyte # (Auto) 0.01 0.00-0.02 K/uL Prothrombin Time 63.4 9.0-12.0 SECONDS Prothromb Time International Ratio 5.5 0.9-1.1 Activated Partial Thromboplast Time 47.4 21.0-31.0 SECONDS Partial Thromboplastin Ratio 1.8 Sodium Level 140 136-145 mmol/L Potassium Level 3.5 3.5-5.1 mmol/L Chloride Level 105 98-107 mmol/L Carbon Dioxide Level 30 21-32 mmol/L Anion Gap 5.0 3-11 mmol/L Blood Urea Nitrogen 13 7-18 mg/dl Creatinine 1.30 0.60-1.20 mg/dl Est Creatinine Clear Calc Drug Dose 41.9 ml/min Estimated GFR () 48.1 Estimated GFR (Non- 41.5 BUN/Creatinine Ratio 9.7 10-20 Random Glucose 64 70-99 mg/dl Calcium Level 9.2 8.5-10.1 mg/dl Total Bilirubin 0.3 0.2-1 mg/dl Direct Bilirubin < 0.1 0-0.2 mg/dl Aspartate Amino Transf (AST/SGOT) 12 15-37 U/L Alanine Aminotransferase (ALT/SGPT) 23 12-78 U/L Alkaline Phosphatase 86 45-117 U/L Total Protein 7.7 6.4-8.2 gm/dl Albumin 3.3 3.4-5.0 gm/dl Lipase 92 73-393 U/L Bedside Troponin I < 0.030 0-0.045 ng/ml Group A Streptococcus Screen: Negative. Cultures pending. EKG: Was read by myself and reviewed with Dr. Pelaez; shows normal sinus rhythm with nonspecific T wave abnormalities. Ventricular rate 71 bpm. No acute ischemic changes. When compared to previous from July 2016 there were no longer abnormalities in the T waves in the lateral leads and the T waves in the anterior leads are now inverted. Chest X-Rays: Were read by myself and the radiologist showing no acute infiltrates, effusions or pneumothorax. Normal heart silhouette and bony anatomy. No vascular changes. Patient was hydrated with normal saline and she received an albuterol/Atrovent nebulizer breathing treatment. Additionally she received 4 mg of morphine IV for pain and 4 mg of Zofran. Patient was reassessed after her breathing treatment and reported that she was feeling better. I did listen to her lungs and she had resolution of rhonchi in the right bases. After she received her morphine and Zofran and she reports she was not feeling any better with her pain level. I also noted during my reassessments of the patient her pulse oximetry was ranging 88-90% on room air. Patient's case was reviewed with Dr. Pelaez; we agreed on diagnostic approach , treatment, disposition and plan. Patient's case was consulted with case management and Dr. Lew, [facility] hospitalist, for medical observation/admission. Patient was educated about today's findings and instructed on her treatment plan. Clinical Impression: Posttussive chest pain. Posttussive syncope. Elevated INR. Pharyngitis. Bilateral ear pain. Decision-Making: Initially my differential diagnosis I considered strep throat, mononucleosis, other causes of pharyngitis, otitis interna, otitis externa, sinusitis, pneumonia, pulmonary embolism, carotid sinus syndrome and other causes. Disposition and Plan: Patient be brought in the hospital by the [facility]ist; please see their notes and orders for final disposition and plan.
[2016-09-08 23:58] VITALS: BP 115/68; PULSE 83; TEMP 37.2; O2SAT 92
[2016-09-09] VITALS (9 sets, daily range): BP systolic 110–120; BP diastolic 64–75; PULSE 70–90; TEMP 36.7–37.9; O2SAT 86–93
[2016-09-09] MEDS: INSULIN ASPART 100 UNITS/ML 3 ML PEN SC SCH ×4 (07:00→20:47)
[2016-09-09] MEDS: FLUTICASONE PROP HFA INH 44 MCG INHALER INH SCH ×2 (07:35→20:59)
[2016-09-09] MEDS: ATORVASTATIN 40 MG TAB PO SCH (07:36)
[2016-09-09] MEDS: SUCRALFATE 1 GM/10 ML UDC PO SCH ×2 (07:36→20:58)
[2016-09-09] MEDS: CYANOCOBALAMIN 100 MCG TAB (VIT B-12) PO SCH (07:37)
[2016-09-09] MEDS: PANTOprazole SOD 40 MG TAB PO SCH (07:38)
[2016-09-09] MEDS: OXYBUTYNIN CHLORIDE 5 MG TAB PO SCH ×3 (07:38→20:57)
[2016-09-09] MEDS: INSULIN GLARGINE SOLOSTAR 100 UNITS/ML 3 ML PEN SC SCH ×2 (07:48→20:57)
[2016-09-09] MEDS: SODIUM CHLORIDE 0.9% 1000ML 1,000 ML IV SCH (07:48)
[2016-09-09 08:55] LABS: MEAN CELL VOLUME 96.2 fL (80-100); MEAN CORPUSCULAR HEMOGLOBIN 30.1 pg (25-34); MEAN CORPUSCULAR HGB CONC 31.3 g/dl (32-36); MEAN PLATELET VOLUME 9.6 fL (7.4-10.4); PLATELET COUNT 304 K/uL (130-400); RED BLOOD COUNT 3.95 M/uL (4.2-5.4); WHITE BLOOD COUNT 11.66 K/uL (4.8-10.8)
[2016-09-09] MEDS ORDERED: ASPIRIN 81 MG ECTAB PO SCH (09:00)
--- NOTE | 2016-09-09 09:27 | DIAGNOSTIC IMAGING REPORT ---
CHEST 2 VIEWS ROUTINE CLINICAL HISTORY: r/o pneumonia pneumonia COMPARISON STUDY: 09/08/2016 FINDINGS: Developing right basilar parenchymal infiltrate. Lungs otherwise are clear. Mild stable cardiomegaly. Diaphragms smooth. IMPRESSION: Developing parenchymal infiltrate right base The above report was generated using voice recognition software. It may contain grammatical, syntax or spelling errors. Electronically signed by: Barak Lassiter M.D. 09/09/2016 9:26 AM Dictated Date/Time: 09/09/2016 9:25 AM
[2016-09-09 09:36] LABS: BUN/CREATININE RATIO 8.8 (10-20); CALCIUM 7.9 mg/dl (8.5-10.1); CREATININE 1.1 mg/dl (0.60-1.20); POTASSIUM 3.7 mmol/L (3.5-5.1)
--- NOTE | 2016-09-09 15:33 | Progress Note ---
Internal Med Progress Note Date of Service: Sep 09, 2016. Provider Documentation: SUBJECTIVE: has persisted cough very poor appetite feels tired and weak OBJECTIVE: Vital Signs-as noted below Exam: General-very weak Eyes-sclera non icteric Lungs-+ crackles Heart-regular Abdomen-soft, non tender Extremities- no lower ext edema Neuro-generalized weakness, legally blind , no focal deficit Lab data as noted below. ASSESSMENT & PLAN: This is a 71 year old female with a PMH of insulin dependent DM2, hx. of DVT and PE on Coumadin, HTN, HLD, depression presents with a one day history of cough, congestion and multiple post-tussive symptoms Cough /Pneumonia : Cxray : IMPRESSION: Developing parenchymal infiltrate right base will order Doxycycline -total 5-7 days tx cont antitussive meds -changed to Robitussin AC cont resp support with neb tx / Acute Kidney Injury resolved likely from emesis and decreased appetite D/c IVF Hx. of PE hx. of multiple PEs and DVTs INR supratherapeutic no signs of bleeding/bruising hold Coumadin until INR ~2 Insulin Dependent DM2 well controlled at home, with Ha1c consistent < 7% will hold glipizide Lantus 15units BID sliding scale HTN blood pressure stable continue current medications DVT ppx INR elevated FULL CODE DISPOSITION lives at home will need PT/OT eval prior to discharge Vital Signs: Date Time Temp Pulse Resp B/P (MAP) Pulse Ox O2 Delivery O2 Flow Rate FiO2 09/09/16 12:18 91 Nasal Cannula 3.0 09/09/16 11:30 36.7 70 20 116/72 (87) 86 Room Air 09/09/16 08:00 91 Nasal Cannula 3.0 09/09/16 07:55 90 Nasal Cannula 2.0 09/09/16 07:45 36.9 89 20 113/75 (88) 88 Room Air 09/09/16 04:04 37.0 84 20 120/64 (82) 93 Nasal Cannula 3.0 09/09/16 04:00 Nasal Cannula 2.0 09/09/16 00:00 Nasal Cannula 2.0 09/08/16 23:58 37.2 83 20 115/68 (84) 92 Nasal Cannula 3.0 09/08/16 20:00 94 Room Air 09/08/16 19:08 37.0 72 18 146/81 93 Room Air 09/08/16 18:53 71 18 128/67 91 09/08/16 17:11 68 09/08/16 17:00 71 18 104/57 96 Room Air 09/08/16 15:44 37.1 79 16 112/56 93 Room Air Lab Results: Results Past 24 Hours Test 09/08/16 16:43 09/08/16 16:47 09/08/16 19:15 09/08/16 19:50 Range/Units White Blood Count 9.65 4.8-10.8 K/uL Red Blood Count 4.30 4.2-5.4 M/uL Hemoglobin 13.7 12.0-16.0 g/dL Hematocrit 41.9 37-47 % Mean Corpuscular Volume 97.4 80-100 fL Mean Corpuscular Hemoglobin 31.9 25-34 pg Mean Corpuscular Hemoglobin Concent 32.7 32-36 g/dl Platelet Count 343 130-400 K/uL Mean Platelet Volume 9.7 7.4-10.4 fL Neutrophils (%) (Auto) 67.1 % Lymphocytes (%) (Auto) 22.6 % Monocytes (%) (Auto) 8.6 % Eosinophils (%) (Auto) 1.2 % Basophils (%) (Auto) 0.4 % Neutrophils # (Auto) 6.47 1.4-6.5 K/uL Lymphocytes # (Auto) 2.18 1.2-3.4 K/uL Monocytes # (Auto) 0.83 0.11-0.59 K/uL Eosinophils # (Auto) 0.12 0-0.5 K/uL Basophils # (Auto) 0.04 0-0.2 K/uL RDW Standard Deviation 52.1 36.4-46.3 fL RDW Coefficient of Variation 14.7 11.5-14.5 % Immature Granulocyte % (Auto) 0.1 % Immature Granulocyte # (Auto) 0.01 0.00-0.02 K/uL Prothrombin Time 63.4 9.0-12.0 SECONDS Prothromb Time International Ratio 5.5 0.9-1.1 Activated Partial Thromboplast Time 47.4 21.0-31.0 SECONDS Partial Thromboplastin Ratio 1.8 Sodium Level 140 136-145 mmol/L Potassium Level 3.5 3.5-5.1 mmol/L Chloride Level 105 98-107 mmol/L Carbon Dioxide Level 30 21-32 mmol/L Anion Gap 5.0 3-11 mmol/L Blood Urea Nitrogen 13 7-18 mg/dl Creatinine 1.30 0.60-1.20 mg/dl Est Creatinine Clear Calc Drug Dose 41.9 ml/min Estimated GFR () 48.1 Estimated GFR (Non- 41.5 BUN/Creatinine Ratio 9.7 10-20 Random Glucose 64 70-99 mg/dl Calcium Level 9.2 8.5-10.1 mg/dl Total Bilirubin 0.3 0.2-1 mg/dl Direct Bilirubin < 0.1 0-0.2 mg/dl Aspartate Amino Transf (AST/SGOT) 12 15-37 U/L Alanine Aminotransferase (ALT/SGPT) 23 12-78 U/L Alkaline Phosphatase 86 45-117 U/L Total Protein 7.7 6.4-8.2 gm/dl Albumin 3.3 3.4-5.0 gm/dl Lipase 92 73-393 U/L Bedside Troponin I < 0.030 0-0.045 ng/ml Bedside Glucose 76 76 70-90 mg/dl Test 09/09/16 00:45 09/09/16 06:34 09/09/16 08:17 09/09/16 10:59 Range/Units Total Creatine Kinase 111 100 26-192 U/L Creatine Kinase MB < 0.5 < 0.5 0.5-3.6 ng/ml Creatine Kinase MB Ratio 0-3.0 Troponin I < 0.015 < 0.015 0-0.045 ng/ml Bedside Glucose 134 136 70-90 mg/dl White Blood Count 11.66 4.8-10.8 K/uL Red Blood Count 3.95 4.2-5.4 M/uL Hemoglobin 11.9 12.0-16.0 g/dL Hematocrit 38.0 37-47 % Mean Corpuscular Volume 96.2 80-100 fL Mean Corpuscular Hemoglobin 30.1 25-34 pg Mean Corpuscular Hemoglobin Concent 31.3 32-36 g/dl RDW Standard Deviation 51.7 36.4-46.3 fL RDW Coefficient of Variation 14.5 11.5-14.5 % Platelet Count 304 130-400 K/uL Mean Platelet Volume 9.6 7.4-10.4 fL Prothrombin Time 57.0 9.0-12.0 SECONDS Prothromb Time International Ratio 5.0 0.9-1.1 Sodium Level 137 136-145 mmol/L Potassium Level 3.7 3.5-5.1 mmol/L Chloride Level 104 98-107 mmol/L Carbon Dioxide Level 28 21-32 mmol/L Anion Gap 5.0 3-11 mmol/L Blood Urea Nitrogen 10 7-18 mg/dl Creatinine 1.10 0.60-1.20 mg/dl Est Creatinine Clear Calc Drug Dose 49.7 ml/min Estimated GFR () 58.9 Estimated GFR (Non- 50.8 BUN/Creatinine Ratio 8.8 10-20 Random Glucose 151 70-99 mg/dl Calcium Level 7.9 8.5-10.1 mg/dl
[2016-09-09] MEDS ORDERED: WARFARIN SOD 2 MG TAB PO SCH (16:00)
[2016-09-09] MEDS: DOXYCYCLINE IV 100 MG in DEXTROSE 5% 100ML 100 ML IV SCH (17:31)
[2016-09-09] MEDS: ACETAMINOPHEN 325 MG TAB PO PRN (17:35)
[2016-09-09] MEDS: GUAIFENESIN/CODEINE 100MG/10MG 5ML UDC PO PRN (17:35)
[2016-09-09] MEDS: ROPINIROLE HCL 1 MG TAB PO SCH (20:58)
[2016-09-10] VITALS (10 sets, daily range): BP systolic 84–120; BP diastolic 52–77; PULSE 65–86; TEMP 36.7–37.8; O2SAT 91–95
[2016-09-10] MEDS: DOXYCYCLINE IV 100 MG in DEXTROSE 5% 100ML 100 ML IV SCH (04:51)
[2016-09-10] MEDS: INSULIN ASPART 100 UNITS/ML 3 ML PEN SC SCH ×4 (07:00→20:10)
[2016-09-10 08:18] LABS: INR 3.5 (0.9-1.1); PROTHROMBIN TIME (PATIENT) 39.7 SECONDS (9.0-12.0)
[2016-09-10] MEDS: SUCRALFATE 1 GM/10 ML UDC PO SCH ×2 (09:17→20:05)
[2016-09-10] MEDS: OXYBUTYNIN CHLORIDE 5 MG TAB PO SCH ×3 (09:17→20:03)
[2016-09-10] MEDS: PANTOprazole SOD 40 MG TAB PO SCH (09:17)
[2016-09-10] MEDS: FLUTICASONE PROP HFA INH 44 MCG INHALER INH SCH ×2 (09:17→20:05)
[2016-09-10] MEDS: ATORVASTATIN 40 MG TAB PO SCH (09:17)
[2016-09-10] MEDS: CYANOCOBALAMIN 100 MCG TAB (VIT B-12) PO SCH (09:19)
[2016-09-10] MEDS: INSULIN GLARGINE SOLOSTAR 100 UNITS/ML 3 ML PEN SC SCH ×2 (09:20→20:14)
[2016-09-10] MEDS: GUAIFENESIN/CODEINE 100MG/10MG 5ML UDC PO PRN ×2 (09:25→20:01)
[2016-09-10] MEDS: ACETAMINOPHEN 325 MG TAB PO PRN (09:26)
[2016-09-10] MEDS ORDERED: GUAIFENESIN 600 MG TABCR PO ONE (11:30)
[2016-09-10] MEDS: LEVOFLOXACIN 500 MG TAB PO SCH (11:34)
[2016-09-10] MEDS: OXYCODONE HCL IR 5 MG TAB (IMMEDIATE RELEASE) PO PRN ×2 (11:40→22:51)
--- NOTE | 2016-09-10 12:25 | Progress Note ---
Internal Med Progress Note Date of Service: Sep 10, 2016. Provider Documentation: SUBJECTIVE: cough still persists says does not feel well , no fever or chills OBJECTIVE: Vital Signs-as noted below Exam: General-very weak Eyes-sclera non icteric Lungs-+ crackles Heart-regular Abdomen-soft, non tender Extremities- no lower ext edema Neuro-generalized weakness, legally blind , no focal deficit Lab data as noted below. ASSESSMENT & PLAN: This is a 71 year old female with a PMH of insulin dependent DM2, hx. of DVT and PE on Coumadin, HTN, HLD, depression presents with a one day history of cough, congestion and multiple post-tussive symptoms Cough /Pneumonia : Cxray : IMPRESSION: Developing parenchymal infiltrate right base pt mentions of having coughing spell while eating speech eval requested to assess dysphagia -appreciate bed side eval by speech no dysphagia or aspiration noted diet resumed to regular consistency Abx changed to Levaquin for broader coverage cont antitussive meds -changed to Robitussin AC cont resp support with neb Acute Kidney Injury resolved likely from emesis and decreased appetite Hx. of PE hx. of multiple PEs and DVTs INR supratherapeutic no signs of bleeding/bruising hold Coumadin until INR ~2 Insulin Dependent DM2 well controlled at home, with Ha1c consistent < 7% will hold glipizide Lantus 15units BID sliding scale HTN blood pressure stable continue current medications DVT ppx INR elevated FULL CODE DISPOSITION lives at home appreciate OT eval -pt is independent in ADL's no further OT needed awaiting PT eval plan to discharge home when medically stable Vital Signs: Date Time Temp Pulse Resp B/P (MAP) Pulse Ox O2 Delivery O2 Flow Rate FiO2 09/10/16 12:00 36.9 69 22 84/52 (63) 95 Nasal Cannula 4.0 09/10/16 11:15 36.9 72 18 95 4.0 09/10/16 11:05 36.9 72 18 119/65 (83) 95 4.0 09/10/16 09:47 86 18 94 Nasal Cannula 4.0 09/10/16 08:00 Nasal Cannula 4.0 09/10/16 07:53 37.0 76 19 110/68 (82) 94 Nasal Cannula 6.0 09/10/16 04:21 Nasal Cannula 3.0 09/10/16 04:15 37.8 83 20 120/77 (91) 91 Nasal Cannula 6.0 Humidified Oxygen 09/10/16 00:00 Nasal Cannula 3.0 09/09/16 23:20 37.9 83 28 112/68 (83) 92 Nasal Cannula 6.0 Humidified Oxygen 09/09/16 20:00 Nasal Cannula 3.0 09/09/16 19:37 37.2 90 18 110/70 (83) 88 Nasal Cannula 3.0 09/09/16 16:00 Nasal Cannula 3.0 09/09/16 15:33 37.4 72 18 113/64 (80) 91 Nasal Cannula 3.0 Lab Results: Results Past 24 Hours Test 09/09/16 16:04 09/09/16 20:46 09/10/16 06:36 09/10/16 07:47 Range/Units Bedside Glucose 100 94 115 70-90 mg/dl Prothrombin Time 39.7 9.0-12.0 SECONDS Prothromb Time International Ratio 3.5 0.9-1.1 Test 09/10/16 11:20 Range/Units Bedside Glucose 111 70-90 mg/dl
[2016-09-10] MEDS ORDERED: WARFARIN SOD 4 MG TAB PO SCH (16:00)
[2016-09-10] MEDS: GUAIFENESIN 600 MG TABCR PO SCH (20:03)
[2016-09-10] MEDS: ROPINIROLE HCL 1 MG TAB PO SCH (20:04)
[2016-09-11] MEDS: GUAIFENESIN/CODEINE 100MG/10MG 5ML UDC PO PRN ×3 (04:02→16:15)
[2016-09-11 05:32] LABS: INR 3.2 (0.9-1.1); PROTHROMBIN TIME (PATIENT) 36.1 SECONDS (9.0-12.0)
[2016-09-11 07:43] VITALS: BP 119/77; PULSE 73; TEMP 37.3; O2SAT 92
[2016-09-11] MEDS: OXYCODONE HCL IR 5 MG TAB (IMMEDIATE RELEASE) PO PRN ×3 (08:39→21:28)
[2016-09-11] MEDS: CYANOCOBALAMIN 100 MCG TAB (VIT B-12) PO SCH (08:40)
[2016-09-11] MEDS: ATORVASTATIN 40 MG TAB PO SCH (08:40)
[2016-09-11] MEDS: GUAIFENESIN 600 MG TABCR PO SCH ×2 (08:41→21:29)
[2016-09-11] MEDS: OXYBUTYNIN CHLORIDE 5 MG TAB PO SCH ×3 (08:41→21:29)
[2016-09-11] MEDS: PANTOprazole SOD 40 MG TAB PO SCH (08:41)
[2016-09-11] MEDS: SUCRALFATE 1 GM/10 ML UDC PO SCH ×2 (08:42→21:30)
[2016-09-11] MEDS: INSULIN ASPART 100 UNITS/ML 3 ML PEN SC SCH ×4 (08:42→20:05)
[2016-09-11] MEDS: FLUTICASONE PROP HFA INH 44 MCG INHALER INH SCH ×2 (08:42→21:28)
[2016-09-11] MEDS: LEVOFLOXACIN 500 MG TAB PO SCH (08:43)
[2016-09-11] MEDS: INSULIN GLARGINE SOLOSTAR 100 UNITS/ML 3 ML PEN SC SCH ×2 (08:51→21:28)
[2016-09-11 09:54] VITALS: O2SAT 87
[2016-09-11 09:55] VITALS: O2SAT 90
[2016-09-11 13:10] VITALS: O2SAT 91
[2016-09-11 13:45] VITALS: Ht 154.9 cm; Wt 95.8 kg
[2016-09-11] MEDS ORDERED: LVQ500 PO (16:43)
--- NOTE | 2016-09-11 16:44 | Discharge Instructions ---
Discharge Instructions Date of Service Sep 11, 2016. Admission Reason for Admission: Syncope, Viral Bronchitis Discharge Discharge Diagnosis / Problem: PNEUMONIA Discharge Goals Goal(s): Decrease discomfort, Diagnostic testing Activity Recommendations Activity Limitations: resume your previous activity . Instructions / Follow-Up Instructions / Follow-Up HOSPITAL FOLLOW UP : 09/18/2016 11:20 AM Miugel Rodríguez MD Family Practice [facility] CL[facility] FOLLOW UP : 09/14/2016 12:15 PM [facility], [facility] Diet Patient's current hospital diet: Diabetes Type 2 Diet, AHA Diet (Heart Healthy) Discharge Diet Recommended Diet: AHA Diet (Heart Healthy), Diabetes Type 2 Diet Pending Studies Studies pending at discharge: no Laboratory Results Hemoglobin A1c Test 08/01/16 03:04 Range/Units Estimated Average Glucose 160 mg/dl Hemoglobin A1c 7.2 H 4.5-5.6 % Lipid Panel Test 08/01/16 03:04 Range/Units Triglycerides Level 143 0-150 mg/dl Cholesterol Level 144 0-200 mg/dl HDL Cholesterol 42 mg/dl Cholesterol/HDL Ratio 3.4 LDL Cholesterol, Calculated 73 mg/dl Medical Emergencies . Who to Call and When: Medical Emergencies: If at any time you feel your situation is an emergency, please call 911 immediately. . Non-Emergent Contact Non-Emergency issues call your: Primary Care Provider . . "Provider Documentation" section prepared by Carmen Baker. . VTE Core Measure Inpt VTE Proph given/why not?: Warfarin (Coumadin)
--- NOTE | 2016-09-11 18:34 | Progress Note ---
Internal Med Progress Note Date of Service: Sep 11, 2016. Provider Documentation: SUBJECTIVE: clinically better still has dry non productive cough sided /ribs hurt with constant coughing OBJECTIVE: Vital Signs-as noted below Exam: General-very weak Eyes-sclera non icteric Lungs-mild crackles at rt side Heart-regular Abdomen-soft, non tender Extremities- no lower ext edema Neuro-generalized weakness, legally blind , no focal deficit Lab data as noted below. ASSESSMENT & PLAN: This is a 71 year old female with a PMH of insulin dependent DM2, hx. of DVT and PE on Coumadin, HTN, HLD, depression presents with a one day history of cough, congestion and multiple post-tussive symptoms Cough /Pneumonia : Cxray : IMPRESSION: Developing parenchymal infiltrate right base pt mentions of having coughing spell while eating speech eval requested to assess dysphagia -appreciate bed side eval by speech no dysphagia or aspiration noted diet resumed to regular consistency Abx changed to Levaquin for broader coverage -needs 5 days tx cont antitussive meds -changed to Robitussin AC cont resp support with neb / Acute Kidney Injury resolved likely from emesis and decreased appetite Hx. of PE hx. of multiple PEs and DVTs INR supratherapeutic no signs of bleeding/bruising hold Coumadin until INR ~2 Insulin Dependent DM2 well controlled at home, with Ha1c consistent < 7% will hold glipizide Lantus 15units BID sliding scale HTN blood pressure stable continue current medications DVT ppx INR elevated FULL CODE DISPOSITION lives at home appreciate OT eval -pt is independent in ADL's no further OT needed awaiting PT eval plan to discharge home when medically stable Vital Signs: Date Time Temp Pulse Resp B/P (MAP) Pulse Ox O2 Delivery O2 Flow Rate FiO2 09/12/16 08:14 37.1 69 18 113/74 (87) 90 Room Air 09/12/16 08:00 Room Air 09/12/16 06:18 37.0 09/12/16 00:00 Room Air 09/11/16 23:28 37.7 74 20 99/63 (75) 91 Room Air 09/11/16 16:50 Room Air 09/11/16 13:10 91 Room Air 09/11/16 09:55 90 Nasal Cannula 1.0 Humidified Oxygen 09/11/16 09:54 87 Room Air Lab Results: Results Past 24 Hours Test 09/11/16 11:33 09/11/16 16:23 09/11/16 19:48 09/12/16 07:04 Range/Units Bedside Glucose 82 79 92 70-90 mg/dl Prothrombin Time 23.3 9.0-12.0 SECONDS Prothromb Time International Ratio 2.1 0.9-1.1 Test 09/12/16 07:29 Range/Units Bedside Glucose 99 70-90 mg/dl
[2016-09-11] MEDS: ROPINIROLE HCL 1 MG TAB PO SCH (21:29)
[2016-09-11] MEDS ORDERED: NURSING DECISION MEDICATION ORDER SCH (22:30)
[2016-09-11] MEDS ORDERED: COUGH DROP (SUGAR FREE) LOZ 24 LOZ/1 BOX PO PRN (22:45)
[2016-09-11 23:28] VITALS: BP 99/63; PULSE 74; TEMP 37.7; O2SAT 91
[2016-09-12 06:18] VITALS: TEMP 37
[2016-09-12] MEDS: GUAIFENESIN/CODEINE 100MG/10MG 5ML UDC PO PRN (06:20)
[2016-09-12] MEDS: CYANOCOBALAMIN 100 MCG TAB (VIT B-12) PO SCH (07:53)
[2016-09-12] MEDS: SUCRALFATE 1 GM/10 ML UDC PO SCH ×2 (07:53→21:10)
[2016-09-12] MEDS: PANTOprazole SOD 40 MG TAB PO SCH (07:53)
[2016-09-12] MEDS: FLUTICASONE PROP HFA INH 44 MCG INHALER INH SCH ×2 (07:53→21:11)
[2016-09-12] MEDS: OXYBUTYNIN CHLORIDE 5 MG TAB PO SCH ×3 (07:53→21:11)
[2016-09-12] MEDS: GUAIFENESIN 600 MG TABCR PO SCH ×2 (07:54→21:11)
[2016-09-12] MEDS: ATORVASTATIN 40 MG TAB PO SCH (07:55)
[2016-09-12] MEDS: INSULIN ASPART 100 UNITS/ML 3 ML PEN SC SCH ×4 (07:58→21:00)
[2016-09-12 08:14] VITALS: BP 113/74; PULSE 69; TEMP 37.1; O2SAT 90
[2016-09-12] MEDS: INSULIN GLARGINE SOLOSTAR 100 UNITS/ML 3 ML PEN SC SCH ×2 (08:40→21:10)
[2016-09-12 08:56] LABS: INR 2.1 (0.9-1.1); PROTHROMBIN TIME (PATIENT) 23.3 SECONDS (9.0-12.0)
[2016-09-12] MEDS ORDERED: ALBUTEROL HFA 8 GM INHALER INH PRN (09:30)
[2016-09-12] MEDS: LEVOFLOXACIN 500 MG TAB PO SCH (12:17)
[2016-09-12] MEDS ORDERED: HYDROCODONE/HOMATROPINE SYRUP 5MG/1.5MG 5ML UDP PO SCH (13:15)
[2016-09-12] MEDS ORDERED: MAGNESIUM SULFATE 1GM / D5W 1 GM in PREMIXED IN D5W 100 ML IV SCH (13:30)
--- NOTE | 2016-09-12 13:45 | Progress Note ---
Subjective Date of Service: Sep 12, 2016. Subjective Pt evaluation today including: conversation w/ patient, physical exam, lab review, review of studies, review of inpatient medication list Saw/examined the patient in room 421 cough with no improvement chest congestion, difficulty bringing up sputum Rib pain secondary to cough No chest pain Problem List Medical Problems: (1) Chest wall contusion Status: Acute (2) Exertional chest pain Status: Acute (3) Fall Status: Acute Review of Systems Constitutional: No fever, No chills Respiratory: + cough, + sputum, + shortness of breath, + dyspnea on exertion, + problem reported (rib pain with cough), No wheezing, No dyspnea at rest, No hemoptysis Cardiac: No chest pain, No edema, No palpitations Abdomen: + pain (epigastric pain worse with cough) Female : No dysuria, No urinary frequency Psychiatric: No depression symptoms Heme: No abnormal bleeding/bruising Medications Current Inpatient Medications Medications (Trade) Dose Ordered Sig/Juany Route Start Time Stop Time Status Last Admin Dose Admin Acetaminophen (Tylenol Tab) 650 mg Q4H PRN PO 09/08/16 18:15 10/08/16 18:14 09/10/16 09:26 650 MG Al Hydrox/Mg Hydrox/Simethicone (Maalox Max Susp) 15 ml Q4H PRN PO 09/08/16 18:15 10/08/16 18:14 Magnesium Hydroxide (Milk Of Magnesia Susp) 30 ml Q12H PRN PO 09/08/16 18:15 10/08/16 18:14 09/12/16 08:49 30 ML Ondansetron HCl (Zofran Inj) 4 mg Q6H PRN IV 09/08/16 18:15 10/08/16 18:14 Polyethylene (Miralax Powder Packet) 17 gm DAILY PRN PO 09/08/16 18:15 10/08/16 18:14 09/11/16 23:43 17 GM Insulin Glargine (Lantus Solostar Pen) 15 units Q12 SC 09/08/16 21:00 10/08/16 20:59 09/12/16 08:40 15 UNITS Insulin Aspart (novoLOG ASPART) SLIDING SCALE If C... ACHS SC 09/08/16 21:00 10/08/16 20:59 Glucose (Glucose 40% Gel) 15-30 GRAMS 15 GRAMS... UD PRN PO 09/08/16 18:15 10/08/16 18:14 Glucose (Glucose Chew Tab) 4-8 Tablets 4 Tabl... UD PRN PO 09/08/16 18:15 10/08/16 18:14 Dextrose (Dextrose 50% 50ML Syringe) 25-50ML OF 50% DW IV FOR... UD PRN IV 09/08/16 18:15 10/08/16 18:14 Glucagon (Glucagon Inj) 1 mg UD PRN SQ 09/08/16 18:15 10/08/16 18:14 Atenolol (Tenormin Tab) 25 mg DAILY PO 09/09/16 09:00 10/09/16 08:59 09/12/16 07:54 25 MG Atorvastatin Calcium (Lipitor Tab) 80 mg DAILY PO 09/09/16 09:00 10/09/16 08:59 09/12/16 07:55 80 MG Cyanocobalamin (Vitamin B-12 Tab) 100 mcg DAILY PO 09/09/16 09:00 10/09/16 08:59 09/12/16 07:53 100 MCG Fluticasone Propionate (Flovent Hfa 44MCG Inhaler) 2 puffs BID INH 09/08/16 21:00 10/08/16 20:59 09/12/16 07:53 2 PUFFS Oxybutynin Chloride (Ditropan Tab) 5 mg TID PO 09/08/16 21:00 10/08/16 20:59 09/12/16 07:53 5 MG Ropinirole HCl (Requip Tab) 4 mg HS PO 09/08/16 21:00 10/08/16 20:59 09/11/16 21:29 4 MG Sucralfate (Carafate Susp) 1 gm BID PO 09/08/16 21:00 10/08/16 20:59 09/12/16 07:53 1 GM Pantoprazole Sodium (Protonix Tab) 40 mg DAILY PO 09/09/16 09:00 10/09/16 08:59 09/12/16 07:53 40 MG Albuterol/ Ipratropium (Duoneb) 3 ml Q4R PRN INH 09/08/16 18:15 10/08/16 18:14 09/10/16 09:47 3 ML Miscellaneous (Iv Fluids Completed) 1 ea PRN PRN N/A 09/08/16 19:00 09/08/17 18:59 Levofloxacin (Levaquin Tab) 500 mg DAILY@11 PO 09/10/16 11:00 09/17/16 10:59 09/12/16 12:17 500 MG Oxycodone HCl (Roxicodone Immediate Rel Tab) 5 mg Q4H PRN PO 09/10/16 10:15 09/24/16 10:14 09/11/16 21:28 5 MG Guaifenesin (Mucinex Contr Rel Tab) 600 mg Q12 PO 09/10/16 21:00 10/10/16 20:59 09/12/16 07:54 600 MG Menthol (Nice Rea) 1 rea PRN PRN PO 09/11/16 22:45 10/11/16 22:44 09/11/16 23:43 1 REA Albuterol (Ventolin Hfa Inhaler) 2 puffs QID PRN INH 09/12/16 09:30 10/12/16 09:29 Aspirin (Ecotrin Tab) 81 mg DAILY PO 09/13/16 08:00 10/13/16 07:59 Warfarin Sodium (Coumadin Tab) 2 mg DAILY@16 PO 09/12/16 16:00 10/12/16 15:59 Hydrocodone Bit/ Homatropine Methylb (Hycodan Syrup) 5 ml TODAY@1315 PO 09/12/16 13:15 09/12/16 16:00 Hydrocodone Bit/ Homatropine Methylb (Hycodan Syrup) 5 ml TID PRN PO 09/12/16 12:45 09/26/16 12:44 Magnesium Sulfate 1 gm/Prmx 100 ml @ 100 mls/hr TODAY@1330 IV 09/12/16 13:30 09/12/16 17:00 Objective Vital Signs Date Time Temp Pulse Resp B/P (MAP) Pulse Ox O2 Delivery O2 Flow Rate FiO2 09/12/16 08:14 37.1 69 18 113/74 (87) 90 Room Air 09/12/16 08:00 Room Air 09/12/16 06:18 37.0 09/12/16 00:00 Room Air 09/11/16 23:28 37.7 74 20 99/63 (75) 91 Room Air 09/11/16 16:50 Room Air Physical Exam General Appearance: no apparent distress Eyes: normal inspection Respiratory/Chest: no respiratory distress, no accessory muscle use, + rhonchi , + pertinent finding (+chest wall tenderness lateral wall bilaterally) Cardiovascular: regular rate, rhythm, no edema, no murmur Abdomen: normal bowel sounds, soft, + tenderness (epigastric tenderness, + hernia), + hernia Extremities: no pedal edema Neurologic/Psychiatric: no motor/sensory deficits, alert, normal mood/affect Skin: normal color Laboratory Results Last 24 Hours Test 09/11/16 16:23 09/11/16 19:48 09/12/16 07:04 09/12/16 07:29 Bedside Glucose 79 mg/dl 92 mg/dl 99 mg/dl Prothrombin Time 23.3 SECONDS Prothromb Time International Ratio 2.1 Test 09/12/16 11:41 Bedside Glucose 109 mg/dl Assessment and Plan This is a 71 year old female with a PMH of insulin dependent DM2, hx. of DVT and PE on Coumadin, HTN, HLD, depression presents with a one day history of cough, congestion and multiple post-tussive symptoms Pneumonia leading to Post-tussive Emesis, Post-tussive Syncope 09/12 repeat CXR suggestive of pneumonia on Levaquin day #4/5 switch cough medications to Hycodan continue Mucinex nebs and O2 as needed 09/11 patient has had a bad cough one day prior to arrival CXR, WBC, vitals stable unlikely a pneumonia, will recheck two view CXR in AM will try Hycodan syrup TID PRN nebs as needed oxygen as needed observe in tele, and trend cardiac enzymes; unlikely ACS Acute Kidney Injury likely from emesis and decreased appetite creatinine of 1.3, baseline is around 0.9 gentle hydration Hx. of PE hx. of multiple PEs and DVTs patient is on Coumadin INR supratherapeutic no signs of bleeding/bruising hold Coumadin until INR < 3 Insulin Dependent DM2 well controlled at home, with Ha1c consistent < 7% will hold glipizide Lantus 15units BID sliding scale HTN blood pressure stable continue current medications DVT ppx Coumadin FULL CODE
[2016-09-12 15:17] VITALS: BP 113/72; PULSE 86; TEMP 37.2; O2SAT 90
[2016-09-12] MEDS: WARFARIN SOD 2 MG TAB PO SCH (16:00)
[2016-09-12] MEDS: BOOST GLUCOSE CONTROL PO SCH (17:00)
[2016-09-12] MEDS: HYDROCODONE/HOMATROPINE SYRUP 5MG/1.5MG 5ML UDP PO PRN (21:10)
[2016-09-12] MEDS: OXYCODONE HCL IR 5 MG TAB (IMMEDIATE RELEASE) PO PRN (21:11)
[2016-09-12] MEDS: ROPINIROLE HCL 1 MG TAB PO SCH (21:12)
[2016-09-12 22:50] VITALS: BP 101/65; PULSE 69; TEMP 36.9; O2SAT 90
[2016-09-13 06:11] LABS: MEAN CELL VOLUME 93.9 fL (80-100); MEAN CORPUSCULAR HEMOGLOBIN 30.4 pg (25-34); MEAN CORPUSCULAR HGB CONC 32.4 g/dl (32-36); MEAN PLATELET VOLUME 8.9 fL (7.4-10.4); PLATELET COUNT 317 K/uL (130-400); RED BLOOD COUNT 3.62 M/uL (4.2-5.4); WHITE BLOOD COUNT 6.77 K/uL (4.8-10.8)
[2016-09-13 06:22] LABS: INR 1.9 (0.9-1.1); PROTHROMBIN TIME (PATIENT) 20.6 SECONDS (9.0-12.0)
[2016-09-13 06:42] LABS: BUN/CREATININE RATIO 11.4 (10-20); CALCIUM 8.3 mg/dl (8.5-10.1); CREATININE 0.93 mg/dl (0.60-1.20); MAGNESIUM 2.5 mg/dl (1.8-2.4); POTASSIUM 3.6 mmol/L (3.5-5.1)
[2016-09-13 07:28] VITALS: BP 107/71; PULSE 65; TEMP 36.7; O2SAT 91
[2016-09-13] MEDS: CYANOCOBALAMIN 100 MCG TAB (VIT B-12) PO SCH (08:59)
[2016-09-13] MEDS: OXYBUTYNIN CHLORIDE 5 MG TAB PO SCH ×3 (09:00→20:49)
[2016-09-13] MEDS: PANTOprazole SOD 40 MG TAB PO SCH (09:00)
[2016-09-13] MEDS: GUAIFENESIN 600 MG TABCR PO SCH ×2 (09:00→20:50)
[2016-09-13] MEDS: ATORVASTATIN 40 MG TAB PO SCH (09:00)
[2016-09-13] MEDS: BOOST GLUCOSE CONTROL PO SCH ×2 (09:01→17:00)
[2016-09-13] MEDS: SUCRALFATE 1 GM/10 ML UDC PO SCH ×2 (09:01→20:49)
[2016-09-13] MEDS: FLUTICASONE PROP HFA INH 44 MCG INHALER INH SCH ×2 (09:02→20:50)
[2016-09-13] MEDS: INSULIN ASPART 100 UNITS/ML 3 ML PEN SC SCH ×4 (09:06→20:48)
[2016-09-13] MEDS: INSULIN GLARGINE SOLOSTAR 100 UNITS/ML 3 ML PEN SC SCH ×2 (09:11→20:53)
[2016-09-13] MEDS: HYDROCODONE/HOMATROPINE SYRUP 5MG/1.5MG 5ML UDP PO PRN ×2 (09:11→21:01)
[2016-09-13] MEDS: ASPIRIN 81 MG ECTAB PO SCH (09:52)
[2016-09-13] MEDS: LEVOFLOXACIN 500 MG TAB PO SCH (12:23)
[2016-09-13] MEDS ORDERED: BENZONATATE 100MG CAP PO ONE (13:30)
--- NOTE | 2016-09-13 14:53 | Progress Note ---
Subjective Date of Service: Sep 13, 2016. Subjective Pt evaluation today including: conversation w/ patient, physical exam, lab review, review of studies, review of inpatient medication list Saw/examined the patient in room 421 +cough persists no shortness of breath chest wall tenderness with coughing Problem List Medical Problems: (1) Chest wall contusion Status: Acute (2) Exertional chest pain Status: Acute (3) Fall Status: Acute Review of Systems Constitutional: No fever, No chills Respiratory: + cough, + sputum, No wheezing, No shortness of breath, No dyspnea on exertion, No dyspnea at rest, No hemoptysis Cardiac: No chest pain, No edema, No palpitations Abdomen: No pain, No nausea, No vomiting, No diarrhea Heme: No abnormal bleeding/bruising Medications Current Inpatient Medications Medications (Trade) Dose Ordered Sig/Juany Route Start Time Stop Time Status Last Admin Dose Admin Acetaminophen (Tylenol Tab) 650 mg Q4H PRN PO 09/08/16 18:15 10/08/16 18:14 09/10/16 09:26 650 MG Al Hydrox/Mg Hydrox/Simethicone (Maalox Max Susp) 15 ml Q4H PRN PO 09/08/16 18:15 10/08/16 18:14 Magnesium Hydroxide (Milk Of Magnesia Susp) 30 ml Q12H PRN PO 09/08/16 18:15 10/08/16 18:14 09/12/16 08:49 30 ML Ondansetron HCl (Zofran Inj) 4 mg Q6H PRN IV 09/08/16 18:15 10/08/16 18:14 09/12/16 21:10 4 MG Polyethylene (Miralax Powder Packet) 17 gm DAILY PRN PO 09/08/16 18:15 10/08/16 18:14 09/11/16 23:43 17 GM Insulin Glargine (Lantus Solostar Pen) 15 units Q12 SC 09/08/16 21:00 10/08/16 20:59 09/13/16 09:11 7 UNITS Insulin Aspart (novoLOG ASPART) SLIDING SCALE If C... ACHS SC 09/08/16 21:00 10/08/16 20:59 Glucose (Glucose 40% Gel) 15-30 GRAMS 15 GRAMS... UD PRN PO 09/08/16 18:15 10/08/16 18:14 Glucose (Glucose Chew Tab) 4-8 Tablets 4 Tabl... UD PRN PO 09/08/16 18:15 10/08/16 18:14 Dextrose (Dextrose 50% 50ML Syringe) 25-50ML OF 50% DW IV FOR... UD PRN IV 09/08/16 18:15 10/08/16 18:14 Glucagon (Glucagon Inj) 1 mg UD PRN SQ 09/08/16 18:15 10/08/16 18:14 Atenolol (Tenormin Tab) 25 mg DAILY PO 09/09/16 09:00 10/09/16 08:59 09/13/16 08:59 25 MG Atorvastatin Calcium (Lipitor Tab) 80 mg DAILY PO 09/09/16 09:00 10/09/16 08:59 09/13/16 09:00 80 MG Cyanocobalamin (Vitamin B-12 Tab) 100 mcg DAILY PO 09/09/16 09:00 10/09/16 08:59 09/13/16 08:59 100 MCG Fluticasone Propionate (Flovent Hfa 44MCG Inhaler) 2 puffs BID INH 09/08/16 21:00 10/08/16 20:59 09/13/16 09:02 2 PUFFS Oxybutynin Chloride (Ditropan Tab) 5 mg TID PO 09/08/16 21:00 10/08/16 20:59 09/13/16 14:18 5 MG Ropinirole HCl (Requip Tab) 4 mg HS PO 09/08/16 21:00 10/08/16 20:59 09/12/16 21:12 4 MG Sucralfate (Carafate Susp) 1 gm BID PO 09/08/16 21:00 10/08/16 20:59 09/13/16 09:01 1 GM Pantoprazole Sodium (Protonix Tab) 40 mg DAILY PO 09/09/16 09:00 10/09/16 08:59 09/13/16 09:00 40 MG Albuterol/ Ipratropium (Duoneb) 3 ml Q4R PRN INH 09/08/16 18:15 10/08/16 18:14 09/10/16 09:47 3 ML Miscellaneous (Iv Fluids Completed) 1 ea PRN PRN N/A 09/08/16 19:00 09/08/17 18:59 Levofloxacin (Levaquin Tab) 500 mg DAILY@11 PO 09/10/16 11:00 09/17/16 10:59 09/13/16 12:23 500 MG Oxycodone HCl (Roxicodone Immediate Rel Tab) 5 mg Q4H PRN PO 09/10/16 10:15 09/24/16 10:14 09/12/16 21:11 5 MG Guaifenesin (Mucinex Contr Rel Tab) 600 mg Q12 PO 09/10/16 21:00 10/10/16 20:59 09/13/16 09:00 600 MG Menthol (Nice Rea) 1 rae PRN PRN PO 09/11/16 22:45 10/11/16 22:44 09/11/16 23:43 1 REA Albuterol (Ventolin Hfa Inhaler) 2 puffs QID PRN INH 09/12/16 09:30 10/12/16 09:29 Aspirin (Ecotrin Tab) 81 mg DAILY PO 09/13/16 08:00 10/13/16 07:59 09/13/16 09:52 81 MG Warfarin Sodium (Coumadin Tab) 2 mg DAILY@16 PO 09/12/16 16:00 10/12/16 15:59 09/12/16 16:00 2 MG Hydrocodone Bit/ Homatropine Methylb (Hycodan Syrup) 5 ml TID PRN PO 09/12/16 12:45 09/26/16 12:44 09/13/16 09:11 5 ML Enteral Nutritional Formula (Boost Glucose Control) 1 can BIDM PO 09/12/16 17:00 10/12/16 16:59 09/13/16 09:01 1 CAN Objective Vital Signs Date Time Temp Pulse Resp B/P (MAP) Pulse Ox O2 Delivery O2 Flow Rate FiO2 09/13/16 09:00 Room Air 09/13/16 07:28 36.7 65 16 107/71 (83) 91 Room Air 09/13/16 00:00 Room Air 09/12/16 22:50 36.9 69 18 101/65 (77) 90 Room Air 09/12/16 16:24 Room Air 09/12/16 15:17 37.2 86 24 113/72 (86) 90 Room Air Physical Exam General Appearance: no apparent distress Eyes: normal inspection ENT: hearing grossly normal Respiratory/Chest: lungs clear, normal breath sounds, no respiratory distress, no accessory muscle use Cardiovascular: regular rate, rhythm, no edema, no murmur Abdomen: normal bowel sounds, non tender, soft Extremities: normal inspection, no pedal edema Neurologic/Psychiatric: no motor/sensory deficits, alert, normal mood/affect Laboratory Results Last 24 Hours Test 09/12/16 16:50 09/12/16 19:54 09/13/16 06:00 09/13/16 07:41 Bedside Glucose 100 mg/dl 122 mg/dl 85 mg/dl White Blood Count 6.77 K/uL Red Blood Count 3.62 M/uL Hemoglobin 11.0 g/dL Hematocrit 34.0 % Mean Corpuscular Volume 93.9 fL Mean Corpuscular Hemoglobin 30.4 pg Mean Corpuscular Hemoglobin Concent 32.4 g/dl RDW Standard Deviation 48.4 fL RDW Coefficient of Variation 14.0 % Platelet Count 317 K/uL Mean Platelet Volume 8.9 fL Nucleated RBC Absolute Count (auto) 0.02 K/uL Nucleated Red Blood Cells % 0.3 % Prothrombin Time 20.6 SECONDS Prothromb Time International Ratio 1.9 Sodium Level 140 mmol/L Potassium Level 3.6 mmol/L Chloride Level 103 mmol/L Carbon Dioxide Level 32 mmol/L Anion Gap 5.0 mmol/L Blood Urea Nitrogen 11 mg/dl Creatinine 0.93 mg/dl Est Creatinine Clear Calc Drug Dose 59.5 ml/min Estimated GFR () 72.2 Estimated GFR (Non- 62.3 BUN/Creatinine Ratio 11.4 Random Glucose 81 mg/dl Calcium Level 8.3 mg/dl Magnesium Level 2.5 mg/dl Test 09/13/16 11:28 Bedside Glucose 94 mg/dl Assessment and Plan This is a 71 year old female with a PMH of insulin dependent DM2, hx. of DVT and PE on Coumadin, HTN, HLD, depression presents with a one day history of cough, congestion and multiple post-tussive symptoms Pneumonia leading to Post-tussive Emesis, Post-tussive Syncope 09/13 last dose of Levaquin today repeat CXR in AM Hycodan, Mucinex nebs, O2 as needed chest PT ambulation will likely d/c home in AM 09/12 repeat CXR suggestive of pneumonia on Levaquin day #4/5 switch cough medications to Hycodan continue Mucinex nebs and O2 as needed 09/11 patient has had a bad cough one day prior to arrival CXR, WBC, vitals stable unlikely a pneumonia, will recheck two view CXR in AM will try Hycodan syrup TID PRN nebs as needed oxygen as needed observe in tele, and trend cardiac enzymes; unlikely ACS Acute Kidney Injury likely from emesis and decreased appetite creatinine of 1.3, baseline is around 0.9 gentle hydration Hx. of PE hx. of multiple PEs and DVTs patient is on Coumadin INR supratherapeutic no signs of bleeding/bruising Coumadin restarted Insulin Dependent DM2 well controlled at home, with Ha1c consistent < 7% will hold glipizide Lantus 15units BID sliding scale HTN blood pressure stable continue current medications DVT ppx Coumadin FULL CODE
[2016-09-13 15:05] VITALS: BP 94/58; PULSE 63; TEMP 36.9; O2SAT 92
[2016-09-13] MEDS: WARFARIN SOD 2 MG TAB PO SCH (15:52)
[2016-09-13] MEDS ORDERED: BENZONATATE 100MG CAP PO SCH (20:00)
[2016-09-13] MEDS: ROPINIROLE HCL 1 MG TAB PO SCH (20:50)
[2016-09-13 23:16] VITALS: BP 108/67; PULSE 64; TEMP 37; O2SAT 91
[2016-09-14 06:40] LABS: INR 1.8 (0.9-1.1); PROTHROMBIN TIME (PATIENT) 19.4 SECONDS (9.0-12.0)
[2016-09-14 07:21] VITALS: BP 125/76; PULSE 62; TEMP 36.8; O2SAT 92
--- NOTE | 2016-09-14 08:02 | DIAGNOSTIC IMAGING REPORT ---
CHEST 2 VIEWS ROUTINE HISTORY: 71 years Female f/u CXR for poss pneumonia COMPARISON: Chest radiograph 09/09/2016, 07/31/2016; chest CT 03/01/2016 TECHNIQUE: Frontal and lateral views of the chest FINDINGS: There are worsening subsegmental alveolar opacities of the bilateral lung bases. Mild blunting of the right costophrenic angle suggests trace pleural effusion. Cardiac silhouette is upper limits of normal. There is no pneumothorax. No overt pulmonary edema. Bones are grossly intact. IMPRESSION: Worsening subsegmental alveolar opacities of the bilateral lung bases suggest pneumonia with trace right pleural effusion. The above report was generated using voice recognition software. It may contain grammatical, syntax or spelling errors. Electronically signed by: Alen Mills M.D. 09/14/2016 8:01 AM Dictated Date/Time: 09/14/2016 7:58 AM
[2016-09-14] MEDS: SUCRALFATE 1 GM/10 ML UDC PO SCH (09:15)
[2016-09-14] MEDS: CYANOCOBALAMIN 100 MCG TAB (VIT B-12) PO SCH (09:15)
[2016-09-14] MEDS: ASPIRIN 81 MG ECTAB PO SCH (09:16)
[2016-09-14] MEDS: GUAIFENESIN 600 MG TABCR PO SCH (09:16)
[2016-09-14] MEDS: PANTOprazole SOD 40 MG TAB PO SCH (09:16)
[2016-09-14] MEDS: OXYBUTYNIN CHLORIDE 5 MG TAB PO SCH (09:16)
[2016-09-14] MEDS: ATORVASTATIN 40 MG TAB PO SCH (09:16)
[2016-09-14] MEDS: BOOST GLUCOSE CONTROL PO SCH (09:17)
[2016-09-14] MEDS: INSULIN ASPART 100 UNITS/ML 3 ML PEN SC SCH (09:18)
[2016-09-14] MEDS: FLUTICASONE PROP HFA INH 44 MCG INHALER INH SCH (09:18)
[2016-09-14] MEDS: INSULIN GLARGINE SOLOSTAR 100 UNITS/ML 3 ML PEN SC SCH (09:23)
[2016-09-14] MEDS: HYDROCODONE/HOMATROPINE SYRUP 5MG/1.5MG 5ML UDP PO PRN (09:24)
[2016-09-14] MEDS ORDERED: DOXYCYCLINE HYCLATE 100 MG CAP PO STA (09:52)
--- NOTE | 2016-09-14 11:00 | Progress Note ---
Subjective Date of Service: Sep 14, 2016. Subjective Pt evaluation today including: conversation w/ patient, physical exam, lab review, review of studies, review of inpatient medication list Saw/examined the patient in room 421 +dry cough persistent, but slightly improved; no nausea/vomiting, no syncope since admission No chest pain, no shortness of breath Problem List Medical Problems: (1) Chest wall contusion Status: Acute (2) Exertional chest pain Status: Acute (3) Fall Status: Acute Review of Systems Constitutional: No fever, No chills, No weakness Respiratory: + cough, No sputum, No wheezing, No shortness of breath, No dyspnea on exertion, No dyspnea at rest, No hemoptysis Cardiac: No chest pain Neurologic: No weakness, No vertigo, No balance problems Heme: No abnormal bleeding/bruising Medications Current Inpatient Medications Medications (Trade) Dose Ordered Sig/Juany Route Start Time Stop Time Status Last Admin Dose Admin Acetaminophen (Tylenol Tab) 650 mg Q4H PRN PO 09/08/16 18:15 10/08/16 18:14 09/10/16 09:26 650 MG Al Hydrox/Mg Hydrox/Simethicone (Maalox Max Susp) 15 ml Q4H PRN PO 09/08/16 18:15 10/08/16 18:14 Magnesium Hydroxide (Milk Of Magnesia Susp) 30 ml Q12H PRN PO 09/08/16 18:15 10/08/16 18:14 09/12/16 08:49 30 ML Ondansetron HCl (Zofran Inj) 4 mg Q6H PRN IV 09/08/16 18:15 10/08/16 18:14 09/12/16 21:10 4 MG Polyethylene (Miralax Powder Packet) 17 gm DAILY PRN PO 09/08/16 18:15 10/08/16 18:14 09/11/16 23:43 17 GM Insulin Glargine (Lantus Solostar Pen) 15 units Q12 SC 09/08/16 21:00 10/08/16 20:59 09/14/16 09:23 7 UNITS Insulin Aspart (novoLOG ASPART) SLIDING SCALE If C... ACHS SC 09/08/16 21:00 10/08/16 20:59 Glucose (Glucose 40% Gel) 15-30 GRAMS 15 GRAMS... UD PRN PO 09/08/16 18:15 10/08/16 18:14 Glucose (Glucose Chew Tab) 4-8 Tablets 4 Tabl... UD PRN PO 09/08/16 18:15 10/08/16 18:14 Dextrose (Dextrose 50% 50ML Syringe) 25-50ML OF 50% DW IV FOR... UD PRN IV 09/08/16 18:15 10/08/16 18:14 Glucagon (Glucagon Inj) 1 mg UD PRN SQ 09/08/16 18:15 10/08/16 18:14 Atenolol (Tenormin Tab) 25 mg DAILY PO 09/09/16 09:00 10/09/16 08:59 09/14/16 09:15 25 MG Atorvastatin Calcium (Lipitor Tab) 80 mg DAILY PO 09/09/16 09:00 10/09/16 08:59 09/14/16 09:16 80 MG Cyanocobalamin (Vitamin B-12 Tab) 100 mcg DAILY PO 09/09/16 09:00 10/09/16 08:59 09/14/16 09:15 100 MCG Fluticasone Propionate (Flovent Hfa 44MCG Inhaler) 2 puffs BID INH 09/08/16 21:00 10/08/16 20:59 09/14/16 09:18 2 PUFFS Oxybutynin Chloride (Ditropan Tab) 5 mg TID PO 09/08/16 21:00 10/08/16 20:59 09/14/16 09:16 5 MG Ropinirole HCl (Requip Tab) 4 mg HS PO 09/08/16 21:00 10/08/16 20:59 09/13/16 20:50 4 MG Sucralfate (Carafate Susp) 1 gm BID PO 09/08/16 21:00 10/08/16 20:59 09/14/16 09:15 1 GM Pantoprazole Sodium (Protonix Tab) 40 mg DAILY PO 09/09/16 09:00 10/09/16 08:59 09/14/16 09:16 40 MG Albuterol/ Ipratropium (Duoneb) 3 ml Q4R PRN INH 09/08/16 18:15 10/08/16 18:14 09/10/16 09:47 3 ML Miscellaneous (Iv Fluids Completed) 1 ea PRN PRN N/A 09/08/16 19:00 09/08/17 18:59 Oxycodone HCl (Roxicodone Immediate Rel Tab) 5 mg Q4H PRN PO 09/10/16 10:15 09/24/16 10:14 09/12/16 21:11 5 MG Guaifenesin (Mucinex Contr Rel Tab) 600 mg Q12 PO 09/10/16 21:00 10/10/16 20:59 09/14/16 09:16 600 MG Menthol (Nice Rea) 1 rea PRN PRN PO 09/11/16 22:45 10/11/16 22:44 09/11/16 23:43 1 REA Albuterol (Ventolin Hfa Inhaler) 2 puffs QID PRN INH 09/12/16 09:30 10/12/16 09:29 Aspirin (Ecotrin Tab) 81 mg DAILY PO 09/13/16 08:00 10/13/16 07:59 09/14/16 09:16 81 MG Warfarin Sodium (Coumadin Tab) 2 mg DAILY@16 PO 09/12/16 16:00 10/12/16 15:59 09/13/16 15:52 2 MG Hydrocodone Bit/ Homatropine Methylb (Hycodan Syrup) 5 ml TID PRN PO 09/12/16 12:45 09/26/16 12:44 09/14/16 09:24 5 ML Enteral Nutritional Formula (Boost Glucose Control) 1 can BIDM PO 09/12/16 17:00 10/12/16 16:59 09/14/16 09:17 1 CAN Doxycycline Hyclate (Vibramycin Cap) 100 mg BID PO 09/14/16 20:00 09/20/16 20:01 Objective Vital Signs Date Time Temp Pulse Resp B/P (MAP) Pulse Ox O2 Delivery O2 Flow Rate FiO2 09/14/16 07:21 36.8 62 19 125/76 (92) 92 Room Air 09/13/16 23:16 37.0 64 16 108/67 (81) 91 Room Air 09/13/16 16:15 Room Air 09/13/16 15:05 36.9 63 16 94/58 (70) 92 Room Air Physical Exam General Appearance: no apparent distress ENT: hearing grossly normal Respiratory/Chest: chest non-tender, lungs clear, normal breath sounds, no respiratory distress, no accessory muscle use Cardiovascular: regular rate, rhythm, no edema, no murmur Abdomen: normal bowel sounds, non tender, soft Extremities: normal range of motion, non-tender, normal inspection, no pedal edema, no calf tenderness Neurologic/Psychiatric: no motor/sensory deficits, alert, normal mood/affect Skin: normal color Lymphatic: no adenopathy Laboratory Results Last 24 Hours Test 09/13/16 11:28 09/13/16 16:45 09/13/16 20:26 09/14/16 06:04 Bedside Glucose 94 mg/dl 108 mg/dl 124 mg/dl Prothrombin Time 19.4 SECONDS Prothromb Time International Ratio 1.8 Test 09/14/16 07:47 Bedside Glucose 97 mg/dl Assessment and Plan This is a 71 year old female with a PMH of insulin dependent DM2, hx. of DVT and PE on Coumadin, HTN, HLD, depression presents with a one day history of cough, congestion and multiple post-tussive symptoms Pneumonia leading to Post-tussive Emesis, Post-tussive Syncope 09/14 patient with pneumonia will switch Levaquin to doxycycline, seems like an atypical pneumonia with dry cough continue Hycodan syrup for cough no Tessalon due to procaine allergy noted 09/13 last dose of Levaquin today repeat CXR in AM Hycodan, Mucinex nebs, O2 as needed chest PT ambulation will likely d/c home in AM 09/12 repeat CXR suggestive of pneumonia on Levaquin day #4/5 switch cough medications to Hycodan continue Mucinex nebs and O2 as needed 09/11 patient has had a bad cough one day prior to arrival CXR, WBC, vitals stable unlikely a pneumonia, will recheck two view CXR in AM will try Hycodan syrup TID PRN nebs as needed oxygen as needed observe in tele, and trend cardiac enzymes; unlikely ACS Acute Kidney Injury likely from emesis and decreased appetite creatinine of 1.3, baseline is around 0.9 gentle hydration Hx. of PE hx. of multiple PEs and DVTs patient is on Coumadin INR supratherapeutic no signs of bleeding/bruising Coumadin restarted Insulin Dependent DM2 well controlled at home, with Ha1c consistent < 7% will hold glipizide Lantus 15units BID sliding scale HTN blood pressure stable continue current medications DVT ppx Coumadin FULL CODE
[2016-09-14] MEDS ORDERED: HYCUDL5 PO (11:03)
[2016-09-14] MEDS ORDERED: DXY100 PO (11:03)
[2016-09-14] MEDS ORDERED: GFNSR600 PO (11:03)
--- NOTE | 2016-09-14 11:06 | Discharge Instructions ---
Discharge Instructions Date of Service Sep 14, 2016. Admission Reason for Admission: Syncope, Viral Bronchitis Discharge Discharge Diagnosis / Problem: Pneumonia; Post-tussive syncope, vomiting Discharge Goals Goal(s): Decrease discomfort, Improve function, Diagnostic testing, Therapeutic intervention Activity Recommendations Activity Limitations: resume your previous activity . Instructions / Follow-Up Instructions / Follow-Up Please follow-up with Dr. Saldana (covering for Dr. Rhodes) on September 19 at 12:30PM You will be prescribed doxycycline for likely atypical pneumonia - take this twice a day for seven days You will be prescribed Hycodan syrup for the cough Follow-up with the Coumadin clinic early next week to make sure INR is within 2- 3 Current Hospital Diet Patient's current hospital diet: Diabetes Type 2 Diet, AHA Diet (Heart Healthy) Discharge Diet Recommended Diet: AHA Diet (Heart Healthy), Diabetes Type 2 Diet Pending Studies Studies pending at discharge: no Laboratory Results Hemoglobin A1c Test 08/01/16 03:04 Range/Units Estimated Average Glucose 160 mg/dl Hemoglobin A1c 7.2 H 4.5-5.6 % Lipid Panel Test 08/01/16 03:04 Range/Units Triglycerides Level 143 0-150 mg/dl Cholesterol Level 144 0-200 mg/dl HDL Cholesterol 42 mg/dl Cholesterol/HDL Ratio 3.4 LDL Cholesterol, Calculated 73 mg/dl Medical Emergencies . Who to Call and When: Medical Emergencies: If at any time you feel your situation is an emergency, please call 911 immediately. . Non-Emergent Contact Non-Emergency issues call your: Primary Care Provider . . "Provider Documentation" section prepared by Shon Zuinga. . VTE Core Measure Inpt VTE Proph given/why not?: Warfarin (Coumadin)
--- NOTE | 2016-09-14 11:11 | Discharge Summary ---
Discharge Summary Date of Service Sep 14, 2016. Discharge Summary Admission Date: Sep 09, 2016 at 17:44 Discharge Date: Sep 14, 2016 Discharge Disposition: Home Principal Diagnosis: Pneumonia, likely Atypical Post-tussive syncope Post-tussive vomiting Medication Reconciliation New Medications: Doxycycline Hyclate (Doxycycline Hyclate) 100 Mg Cap 100 MG PO BID for 7 Days, #14 CAP Guaifenesin Ext Rel (Mucinex Ext Rel) 600 Mg Tabcr 600 MG PO Q12 for 5 Days, #10 TABS Hydrocodone/Homatropine (Hydromet 5-1.5 mg/5Ml) 5 Ml/Cup Syrp 5 ML PO TID PRN for Cough for 5 Days, #100 ML Continued Medications: Albuterol (Ventolin Hfa) 60 Puffs/5400 Mcg Aers 2 PUFFS INH QID PRN for SOB/Wheezing Alendronate Sodium (Fosamax) 70 Mg Tab 70 MG PO WK, TAB TAKE THIS MEDICATION EVERY SUNDAY 30 MINUTES BEFORE FIRST MEAL OF THE DAY WITH 8 OUNCES OF WATER AND REMAIN UPRIGHT FOR 30 MINUTES AFTER TAKING. Aspirin (Aspirin Adult Low Dose) 81 Mg Tab 81 MG PO DAILY Atenolol (Tenormin) 25 Mg Tab 25 MG PO DAILY, TAB Atorvastatin (Lipitor) 80 Mg Tab 80 MG PO DAILY, TAB Cyanocobalamin (Vitamin B-12) 100 Mcg Tab 100 MCG PO DAILY, TAB Fluticasone Propionate (Flovent Hfa) 120 Puffs/5280 Mcg Aero 2 PUFFS INH BID for 30 Days, #10.6 GM 2 Refills Glipizide (Glipizide Er) 2.5 Mg Tab 2.5 MG PO DAILY for 90 Days, #90 TAB 3 Refills Insulin Glargine (Lantus) 100 Unit/Ml Inj 36 UNITS SC QPM, VIAL Nitroglycerin (Nitrostat) 0.4 Mg Tab 0.4 MG SL UD PRN for Chest Pain PLACE ONE TABLET UNDER THE TONGUE EVERY 5 MINUTES FOR UP TO 3 DOSES IF NEEDED FOR CHEST PAIN. Omeprazole (Prilosec) 20 Mg Capcr 20 MG PO DAILY, CAP Oxybutynin Chloride (Ditropan) 5 Mg Tab 5 MG PO TID, TAB Oxycodone Ir (Roxicodone Ir) 5 Mg Tab 5 MG PO Q4H PRN for Pain, TAB Ropinirole (Requip) 4 Mg Tab 4 MG PO HS, TAB Sucralfate (Carafate) 1 Gm/10 Ml Callie 10 ML PO BID for 6 Days, #120 ML 1 Refill Tetrahydrozoline Hcl (Ophth) (Visine) 0.05 % Tequila 1 DROP OPB UD PRN for DRYNESS Warfarin Sod (Febtoven) 2 Mg Tab 2 MG PO 5XWK, TAB pt takes 2 mg on sunday/sunday/sunday/sunday/sunday Warfarin Sod (Febtoven) 4 Mg Tab 4 MG PO 2XWK, TAB takes on sunday/ Zinc Oxide (Topical) (Desitin Rapid Relief) 13 % Cre 1 APPLN EXT UD PRN for excoriation Admission Information HPI (per Admitting provider): This is a 71 year old female with a PMH of insulin dependent DM2, hx. of DVT and PE on Coumadin, HTN, HLD, depression presents with a one day history of cough, congestion and multiple post-tussive symptoms. She states that the coughing began on 09/07 - it worsened throughout the day and into the night - she denies fevers/chills, denies chest pain - states that the coughing got so bad last night that she had two episodes of vomiting and decreased PO intake. Also states that at around 2AM, her coughing was so bad that she could not get a deep breath in and fell to the bed/chair. Denies chest pain. Physical Exam (per Admitting): General Appearance: no apparent distress, + obese, + pertinent finding ( intermittent dry coughing throughout exam) Head: normocephalic, atraumatic Eyes: normal inspection Respiratory/Chest: chest non-tender, lungs clear, normal breath sounds, no respiratory distress, no accessory muscle use Cardiovascular: regular rate, rhythm, no edema, no murmur Abdomen/GI: normal bowel sounds, non tender, soft Extremities/Musculoskelatal: normal inspection, no calf tenderness, normal capillary refill, no pedal edema, normal range of motion Neurologic/Psych: no motor/sensory deficits, alert, normal mood/affect Skin: normal color Lymphatic: no adenopathy Hospital Course This is a 71 year old female with a PMH of insulin dependent DM2, hx. of DVT and PE on Coumadin, HTN, HLD, depression presents with a one day history of cough, congestion and multiple post-tussive symptoms Pneumonia leading to Post-tussive Emesis, Post-tussive Syncope 09/14 patient with pneumonia will switch Levaquin to doxycycline, seems like an atypical pneumonia with dry cough continue Hycodan syrup for cough no Tessalon due to procaine allergy noted 09/13 last dose of Levaquin today repeat CXR in AM Hycodan, Mucinex nebs, O2 as needed chest PT ambulation will likely d/c home in AM 09/12 repeat CXR suggestive of pneumonia on Levaquin day #4/5 switch cough medications to Hycodan continue Mucinex nebs and O2 as needed 09/11 patient has had a bad cough one day prior to arrival CXR, WBC, vitals stable unlikely a pneumonia, will recheck two view CXR in AM will try Hycodan syrup TID PRN nebs as needed oxygen as needed observe in tele, and trend cardiac enzymes; unlikely ACS Acute Kidney Injury likely from emesis and decreased appetite creatinine of 1.3, baseline is around 0.9 gentle hydration Hx. of PE hx. of multiple PEs and DVTs patient is on Coumadin INR supratherapeutic no signs of bleeding/bruising Coumadin restarted Insulin Dependent DM2 well controlled at home, with Ha1c consistent < 7% will hold glipizide Lantus 15units BID sliding scale HTN blood pressure stable continue current medications DVT ppx Coumadin FULL CODE Total time spent on discharge = 40 minutes This includes examination of the patient, discharge planning, medication reconciliation, and communication with other providers. Discharge Instructions Please follow-up with Dr. Saldana (covering for Dr. Rhodes) on September 19 at 12:30PM You will be prescribed doxycycline for likely atypical pneumonia - take this twice a day for seven days You will be prescribed Hycodan syrup for the cough Follow-up with the Coumadin clinic early next week to make sure INR is within 2- 3
[2016-09-14 11:56] VITALS: BP 125/76; PULSE 62; TEMP 36.8; O2SAT 92
[2016-09-14] MEDS ORDERED: OXYC1TAB3 PO (13:19)
[2016-09-14] MEDS ORDERED: NTRGSL/4 SL (13:27)
[2016-09-14] MEDS ORDERED: DOXYCYCLINE HYCLATE 100 MG CAP PO SCH (20:00)
[2016-11-01] MEDS ORDERED: OXYB5TAB74 PO (10:56)
[2016-11-01] MEDS ORDERED: ATOR-26 PO (13:52)
== END 2016-09-14 13:46 | disposition home or self-care (01) | DRG 194 ==
LOC: C.EDB 15:29 → C.2T 18:06 → EDBEDREQ 18:11 → ENRESERV 18:18 → OBSVTOIN 09-09 17:44 → ENRESERV 09-10 10:33 → C.4E 09-10 11:59
PROVIDERS: ADMIT Family Medicine; ATTEND Family Medicine
DX: J18.9 Pneumonia, unspecified organism (principal); N17.9 Acute kidney failure, unspecified; I69.354 Hemiplegia and hemiparesis following cerebral infarction affecting left non-dominant side; J20.8 Acute bronchitis due to other specified organisms; R11.10 Vomiting, unspecified; I25.10 Atherosclerotic heart disease of native coronary artery without angina pectoris; I25.2 Old myocardial infarction; I11.9 Hypertensive heart disease without heart failure; E11.42 Type 2 diabetes mellitus with diabetic polyneuropathy; E78.5 Hyperlipidemia, unspecified; K21.9 Gastro-esophageal reflux disease without esophagitis; G25.81 Restless legs syndrome; E66.9 Obesity, unspecified; Z51.81 Encounter for therapeutic drug level monitoring; Z79.899 Other long term (current) drug therapy; Z79.01 Long term (current) use of anticoagulants; Z79.4 Long term (current) use of insulin; Z79.82 Long term (current) use of aspirin; Z86.718 Personal history of other venous thrombosis and embolism; Z86.711 Personal history of pulmonary embolism; Z68.39 Body mass index [BMI] 39.0-39.9, adult; Z82.49 Family history of ischemic heart disease and other diseases of the circulatory system; Z83.3 Family history of diabetes mellitus; Z84.1 Family history of disorders of kidney and ureter

== ENCOUNTER 2016-11-01 14:58 | Emergency (ER) | payer OTHER ==
[~2016-11-01] VITALS: Ht 154.9 cm; Wt 94.0 kg
[~2016-11-01 14:58] MED LIST changes: +ATOR-26 PO; +DXY100 PO; +GFNSR600 PO; +HYCUDL5 PO; -OMEP20TA PO; +OXYB5TAB74 PO
[2016-11-01 15:04] VITALS: TEMP 36.7; Ht 154.9 cm; Wt 94.0 kg
[2016-11-01] MEDS ORDERED: ONDANSETRON INJ 2 MG/ML 2 ML VIAL IV STA (15:13)
[2016-11-01] MEDS ORDERED: SODIUM CHLORIDE 0.9% 500ML 500 ML IV STA (15:13)
[2016-11-01] MEDS ORDERED: MoRPHine SULFATE 10 MG/ML CARP/VIAL IV STA (15:13)
[2016-11-01] MEDS ORDERED: MoRPHine SULFATE 4 MG/ML 1 ML CARP\\VIAL IV PRN (15:15)
[2016-11-01] MEDS ORDERED: WARF2TAB8 PO (15:26)
[2016-11-01] MEDS ORDERED: ALEN70TA2 PO (15:26)
[2016-11-01] MEDS ORDERED: INSDGI SC (15:26)
[2016-11-01] MEDS ORDERED: WARF4TAB8 PO (15:26)
[2016-11-01] MEDS ORDERED: FLVHFA44 INH (15:26)
--- NOTE | 2016-11-01 15:38 | EMERGENCY ROOM VISIT NOTE ---
History Report prepared by Janet: Gwendolyn Agustin Under the Supervision of: Dr. Damian Draper M.D. First contact with patient: 15:06 Chief Complaint: BACK PAIN Stated Complaint: HERNIA, BACK PAIN, LEFT FOOT History of Present Illness The patient is a 71 year old female who presents to the Emergency Room with complaints of worsening back pain starting around 0800 this morning. She currently rates her discomfort as a 10/10 in severity. The patient was slightly lightheaded this morning when she woke up. She notes that this is normal as her blood sugar is sometimes low in the morning. She was trying to get out of bed and her right foot got caught in the sheets. She fell to the ground landing on her left foot and then her abdomen. The pain worsens with movement. She reports pain in the outside of her left foot. She has pain in her lower back between her waist and her pelvis. She also has worsened pain in her abdomen around her hernia. She is nauseous. She denies any ankle pain, rib pain, neck pain, or LOC. She is unsure if she hit her head. She has a headache, but states that she often has migraines. She is on Coumadin. She had been feeling well the past couple of days. She states that the pain feels like her previous appendicitis. She has had an appendectomy. She has a history of kidney problems and has been on dialysis in the past. Source of History: patient Onset: 0800 this morning Position: back (lower) Symptom Intensity: 10/10 Quality: other (pain) Timing: worsening Modifying Factors (Worsening): movement Associated Symptoms: + headache, + nausea, + abdominal pain, No LOC, No neck pain Note: Pt reports foot pain. Pt denies ankle pain, rib pain. Review of Systems See HPI for pertinent positives & negatives. A total of 10 systems reviewed and were otherwise negative. Past Medical & Surgical Medical Problems: (1) Benign neoplasm of cerebral meninges (2) CAD (coronary artery disease) (3) Chest pain (4) CVA (cerebral vascular accident) (5) Depression (6) DM type 2 (diabetes mellitus, type 2) (7) DVT (deep venous thrombosis) (8) GERD (gastroesophageal reflux disease) (9) History of Alfonso's syndrome (10) Hyperlipidemia (11) Hypertension (12) KS (myocardial infarction) (13) Peripheral neuropathy (14) Pneumonia (15) Recurrent DVT (16) RLS (restless legs syndrome) (17) Syncope (18) Viral bronchitis Surgical Problems: (1) History of appendectomy (2) History of cholecystectomy (3) History of hysterectomy (4) History of salpingo-oophorectomy (5) S/P cholecystectomy (6) S/P removal of ovarian cyst Family History Early CAD FATHER ( in 30s of [place]) MOTHER ( in 30s of [place]) BROTHER ( in 50s of [place]) FHx: cancer FHx: diabetes FHx: gallbladder disease FHx: heart disease FHx: hypertension FHx: kidney disease/stones FHx: lung disease Social History Smoking Status: Never Smoker Alcohol Use: none Drug Use: none Marital Status: Housing Status: lives with family Occupation Status: retired Current/Historical Medications Scheduled Alendronate Sodium (Fosamax), 70 MG PO WK Aspirin (Aspirin Adult Low Dose), 81 MG PO DAILY Atenolol (Tenormin), 25 MG PO DAILY Atorvastatin (Lipitor), 80 MG PO DAILY Cyanocobalamin (Vitamin B-12), 100 MCG PO DAILY Duloxetine Hcl (Cymbalta), 60 MG PO DAILY Fluticasone Propionate (Flovent Hfa), 2 PUFFS INH BID Glipizide (Glipizide Er), 2.5 MG PO DAILY Insulin Glargine (Lantus), 36 UNITS SC QPM Omeprazole (Prilosec), 20 MG PO DAILY Oxybutynin Chloride (Ditropan), 5 MG PO TID Ropinirole (Requip), 4 MG PO HS Warfarin Sod (Jantoven), 2 MG PO 4XWK Warfarin Sod (Jantoven), 4 MG PO 3XWK Scheduled PRN Albuterol (Ventolin Hfa), 2 PUFFS INH QID PRN for SOB/Wheezing Hydrocodone/Acetaminophen 5MG/325MG ([place]o 5MG/325MG), 1 TABLET PO Q4 PRN for Pain Nitroglycerin (Nitrostat), 0.4 MG SL UD PRN for Chest Pain Tetrahydrozoline Hcl (Ophth) (Visine), 1 DROP OPB UD PRN for DRYNESS Tramadol (Ultram), 50 MG PO Q6 PRN for Pain Zinc Oxide (Topical) (Desitin Rapid Relief), 1 APPLN EXT UD PRN for excoriation Allergies Coded Allergies: Macrolides and Ketolides (Verified Allergy, Unknown, `, 07/31/16) Niacin (Verified Allergy, Unknown, 07/31/16) Penicillins (Verified Allergy, Unknown, 07/31/16) Procaine (Verified Allergy, Unknown, unknown, 07/31/16) Pt states she either swelled or had a rash. Sulfa Antibiotics (Verified Allergy, Unknown, `, 07/31/16) Uncoded Allergies: MIACIN (Allergy, Unknown, UNKNOWN, 09/08/16) Physical Exam Vital Signs Date Time Temp Pulse Resp B/P (MAP) Pulse Ox O2 Delivery O2 Flow Rate FiO2 11/01/16 16:22 58 18 130/77 92 Room Air 11/01/16 15:04 36.7 66 18 116/76 98 Room Air Physical Exam GENERAL: Patient is in moderate distress secondary to pain. HEENT: No acute trauma, normocephalic atraumatic, mucous membranes moist, no nasal congestion, no scleral icterus. NECK: No stridor, no adenopathy, no meningismus, trachea is midline. LUNGS: Clear to auscultation bilaterally, no wheeze, no rhonchi, breath sounds equal. HEART: Without murmurs gallops or rubs, regular rate and rhythm. ABDOMEN: Epigastric abdominal wall hernia that is reducible, no peritonitis, no contusions, abdomen is soft. BACK: Unable to directly examine as she was in too much pain to roll, lower back pain worsens with any movement. EXTREMITIES: Tender over the lateral proximal left 5th metatarsal, no gross deformity, no contusion or swelling, left ankle is nontender, other extremities show no evidence for acute trauma. NEUROLOGIC: Oriented x 3, no acute motor or sensory deficits, no focal weakness. SKIN: No rash, no jaundice, no diaphoresis. Medical Decision & Procedures ER Provider Diagnostic Interpretation: X-ray results as stated below per interpretation by me and the radiologist. Radiology results as stated below per my review and radiologist interpretation: LEFT FOOT 3 VIEWS CLINICAL HISTORY: Fall with left foot pain. FINDINGS: 3 views of the left foot are obtained. No prior studies are available for comparison at the time of dictation. The skeletal structures are osteopenic. No fracture is seen. Mild arthritic change is present at the first metatarsophalangeal joint. The joint spaces of the foot are otherwise preserved. There is a large plantar calcaneal enthesophyte. Mild degenerative spurring is noted along the dorsal aspect of the tarsal bones. Mild dorsal soft tissue swelling is observed. IMPRESSION: 1. Mild soft tissue swelling with no radiographic evidence of left foot fracture. 2. Osteopenia, plantar heel spur, and mild arthritic change as above. Electronically signed by: Damian Kinney M.D. 11/01/2016 4:41 PM Dictated Date/Time: 11/01/2016 4:[address] OF THE ABDOMEN AND PELVIS WITHOUT CONTRAST CLINICAL HISTORY: Abdominal pain following fall. Anticoagulation. COMPARISON STUDY: CT of the abdomen and pelvis March 01, 2016. TECHNIQUE: Axial images of the abdomen and pelvis were obtained without IV contrast. Images were reviewed in the axial, sagittal, and coronal planes. A dose lowering technique was utilized adhering to the principles of ALARA. FINDINGS: Note is made of multiple old right-sided rib fractures. Evaluation of the abdomen and pelvis is suboptimal given the lack of IV and oral contrast. No hemoperitoneum or pneumoperitoneum is present. Fat-containing ventral hernias are noted. There is no evidence of traumatic injury to the liver, spleen, adrenal glands, kidneys or pancreas on this unenhanced examination. 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 There is no evidence for rupture. This colonic diverticulosis without evidence for acute diverticulitis. Pelvic collaterals are incidentally noted. No acute lumbar spine or pelvic fractures identified. There is no ascites. There is no lymphadenopathy. Mild biliary ductal dilatation is unchanged from prior CT and likely related to prior cholecystectomy. IMPRESSION: 1. No acute traumatic findings within the abdomen or pelvis although evaluation suboptimal given the lack of IV contrast. 2. Colonic diverticulosis without evidence for acute diverticulitis. 3. 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 No rupture. Electronically signed by: Jose Levy M.D. 11/01/2016 4:37 PM Dictated Date/Time: 11/01/2016 4:[address] SCAN OF THE BRAIN WITHOUT IV CONTRAST CLINICAL HISTORY: Fall. Head injury. COMPARISON STUDY: CT of the brain dated 03/01/2016. TECHNIQUE: Unenhanced axial CT scan of the brain is performed from the vertex to the skull base. CT DOSE: 2652.35 mGy.cm FINDINGS: Brain parenchyma: There are age-related involutional changes noting mild subcortical and periventricular microangiopathic change. There is no hemorrhage, mass effect, or evidence of acute territorial ischemia by CT criteria. Buchanan-white matter is preserved. No extra-axial fluid collection is seen. Ventricles, sulci, cisterns: Prominent secondary to involutional change. Intracranial vasculature: There is atherosclerotic calcification of the cavernous carotid arteries. Calvarium: Skeletal structures are osteopenic. There is no depressed calvarial fracture. Sinuses and mastoids: The visualized paranasal sinuses are clear. The mastoid air cells are well pneumatized. Orbits: The bony orbits are grossly intact. IMPRESSION: There is no hemorrhage, mass effect, or evidence of acute territorial ischemia by CT criteria. Electronically signed by: Damian Kinney M.D. 11/01/2016 4:30 PM Dictated Date/Time: 11/01/2016 4:[address] SCAN OF THE LUMBAR SPINE WITHOUT IV CONTRAST CLINICAL HISTORY: Fall with back pain. COMPARISON STUDY: Abdominal CT dated 03/01/2016. TECHNIQUE: CT scan of the lumbar spine is performed from the lower thoracic spine to the sacrum. Images are reviewed in the axial, sagittal, and coronal planes. IV contrast was not administered for this examination. A dose lowering technique was utilized adhering to the principles of ALARA. FINDINGS: The skeletal structures are osteopenic. There is no evidence of fracture or malalignment involving the lumbar spine. Vertebral body height and alignment are maintained. The transverse and spinous processes are intact. No lytic or blastic lesions are identified. There is no evidence of spondylolysis. Tiny anterior osteophytes are seen throughout. There is no evidence of large disc herniation. Small posterior disc bulges are suggested at L3-L4 and L4-L5. The visualized sacrum and bony pelvis appear intact. Mild degenerative change is noted in the sacroiliac joints. The paraspinous soft tissues are within normal limits. There is a 1.4 cm calcified right renal artery aneurysm. Mild atherosclerotic calcification is noted in the abdominal aorta. There is diverticulosis noted in the partially visualized colon. IMPRESSION: 1. There is no evidence of fracture or malalignment involving the lumbar spine. 2. Osteopenia and mild degenerative change as above. 3. Again seen is a peripherally calcified right renal artery aneurysm. Electronically signed by: Damian Kinney M.D. 11/01/2016 4:57 PM Dictated Date/Time: 11/01/2016 4:30 PM Laboratory Results 11/01/16 15:39 11/01/16 15:39 Test 11/01/16 15:39 Red Blood Count 4.19 M/uL (4.2-5.4) Mean Corpuscular Volume 97.1 fL (80-100) Mean Corpuscular Hemoglobin 32.0 pg (25-34) Mean Corpuscular Hemoglobin Concent 32.9 g/dl (32-36) RDW Standard Deviation 55.7 fL (36.4-46.3) RDW Coefficient of Variation 15.7 % (11.5-14.5) Mean Platelet Volume 10.0 fL (7.4-10.4) Prothrombin Time 18.1 SECONDS (9.0-12.0) Prothromb Time International Ratio 1.7 (0.9-1.1) Activated Partial Thromboplast Time 30.6 SECONDS (21.0-31.0) Partial Thromboplastin Ratio 1.2 Urine Color YELLOW Urine Appearance CLEAR (CLEAR) Urine pH 6.5 (4.5-7.5) Urine Specific [place] 1.023 (1.000-1.030) Urine Protein NEG (NEG) Urine Glucose (UA) NEG (NEG) Urine Ketones NEG (NEG) Urine Occult Blood NEG (NEG) Urine Nitrite NEG (NEG) Urine Bilirubin NEG (NEG) Urine Urobilinogen NEG (NEG) Urine Leukocyte Esterase NEG (NEG) Anion Gap 6.0 mmol/L (3-11) Est Creatinine Clear Calc Drug Dose 49.8 ml/min Estimated GFR () 58.9 Estimated GFR (Non- 50.8 BUN/Creatinine Ratio 8.6 (10-20) Calcium Level 9.3 mg/dl (8.5-10.1) Total Bilirubin 0.4 mg/dl (0.2-1) Aspartate Amino Transf (AST/SGOT) 15 U/L (15-37) Alanine Aminotransferase (ALT/SGPT) 21 U/L (12-78) Alkaline Phosphatase 90 U/L (45-117) Total Protein 8.0 gm/dl (6.4-8.2) Albumin 3.6 gm/dl (3.4-5.0) Globulin 4.4 gm/dl (2.5-4.0) Albumin/Globulin Ratio 0.8 (0.9-2) Laboratory results reviewed by me. Medications Administered Medications (Trade) Dose Ordered Sig/Juany Route Start Time Stop Time Status Last Admin Dose Admin Sodium Chloride 500 ml @ 999 mls/hr Q31M STAT IV 11/01/16 15:13 11/01/16 15:43 DC 11/01/16 15:53 999 MLS/HR Morphine Sulfate (MoRPHine SULFATE INJ) 6 mg NOW STAT IV 11/01/16 15:13 11/01/16 15:17 DC 11/01/16 15:53 6 MG Morphine Sulfate (MoRPHine SULFATE INJ) 4 mg Q15M PRN IV 11/01/16 15:15 11/15/16 15:14 11/01/16 16:51 4 MG Ondansetron HCl (Zofran Inj) 4 mg NOW STAT IV 11/01/16 15:13 11/01/16 15:17 DC 11/01/16 15:52 4 MG ED Course 1509: The patient was evaluated in room B3B. A complete history and physical exam was performed. 1513: Zofran Inj 4 mg IV, Morphine Sulfate 6 mg IV, NSS 500 ml @ 999 mls/hr IV. 1515: Morphine Sulfate 4 mg IV. 1714: I reevaluated the patient. I discussed results and discharge instructions : she verbalized understanding and agreement. The patient is ready for discharge. Medical Decision Differential diagnoses considered include foot fracture, intracranial bleeding, intraabdominal trauma, abdominal wall contusion, splenic or liver injury, lumbar fracture or strain. There is no leukocytosis or concerning anemia. No significant electrolyte abnormality, kidney failure, or hepatitis. INR is elevated and consistent with Coumadin use. Left foot film does not show fracture. Lumbar spine CT does not show any evidence for acute fracture. Abdominal and pelvis CT shows no acute traumatic process. No evidence for bleeding. Brain CT shows no acute bleed or mass effect. Urinalysis does not show infection or hematuria. On exam, the patient did have lower back pain with any movement. The patient received IV morphine, IV Zofran and IV saline. She is definitely more comfortable. The patient was reassured by her testing. She is feeling better. I think she has strained her back, contused her abdominal wall and contused her left foot. Ice to the sore areas, rest, Dacono for severe pain. The patient was encouraged to return to this ER for worsening symptoms. She will follow with her doctor for a recheck. She is being discharged. [place] Drug Monitoring Program Search Results: patient reviewed within database, no issues identified Medication Reconcilliation Current Medication List: was personally reviewed by me Blood Pressure Screening Patient's blood pressure: Elevated blood pressure Blood pressure disposition: Elevated BP felt to be situational Impression Primary Impression: Low back pain Additional Impressions: Contusion of left foot Abdominal wall contusion Fall Scribe Attestation The scribe's documentation has been prepared under my direction and personally reviewed by me in its entirety. I confirm that the note above accurately reflects all work, treatment, procedures, and medical decision making performed by me. Departure Information Dispostion Home / Self-Care Prescriptions Hydrocodone/Acetaminophen 5MG/325MG (Dacono 5MG/325MG) Tab 1 TABLET PO Q4 Y for Pain, #12 TAB Prov: Damian Draper M.D. 11/01/16 Referrals Ayanna Rhodes M.D. (PCP) Forms HOME CARE DOCUMENTATION FORM, IMPORTANT VISIT INFORMATION Patient Instructions My [facility] Additional Instructions norco 1 tab every 4 hours for severe pain ice to the sore areas for 2 days start heat in 2 days after you finish with the ice rest no lifting imaging was all see dontae [place] this week for a recheck return if worsening Problem Qualifiers
[2016-11-01 15:57] LABS: HEMATOCRIT 40.7 % (37-47); MEAN CELL VOLUME 97.1 fL (80-100); MEAN CORPUSCULAR HGB CONC 32.9 g/dl (32-36); PLATELET COUNT 365 K/uL (130-400); RED BLOOD COUNT 4.19 M/uL (4.2-5.4); WHITE BLOOD COUNT 7.49 K/uL (4.8-10.8)
[2016-11-01 16:10] LABS: INR 1.7 (0.9-1.1); PARTIAL THROMBOPLASTIN RATIO 1.2; PROTHROMBIN TIME (PATIENT) 18.1 SECONDS (9.0-12.0)
[2016-11-01 16:17] LABS: BUN/CREATININE RATIO 8.6 (10-20); CALCIUM 9.3 mg/dl (8.5-10.1); CREATININE 1.1 mg/dl (0.60-1.20); POTASSIUM 3.6 mmol/L (3.5-5.1)
[2016-11-01 16:20] LABS: ALB/GLOB RATIO 0.8 (0.9-2)
--- NOTE | 2016-11-01 16:32 | DIAGNOSTIC IMAGING REPORT ---
CT SCAN OF THE BRAIN WITHOUT IV CONTRAST CLINICAL HISTORY: Fall. Head injury. COMPARISON STUDY: CT of the brain dated 03/01/2016. TECHNIQUE: Unenhanced axial CT scan of the brain is performed from the vertex to the skull base. CT DOSE: 2652.35 mGy.cm FINDINGS: Brain parenchyma: There are age-related involutional changes noting mild subcortical and periventricular microangiopathic change. There is no hemorrhage, mass effect, or evidence of acute territorial ischemia by CT criteria. Buchanan-white matter is preserved. No extra-axial fluid collection is seen. Ventricles, sulci, cisterns: Prominent secondary to involutional change. Intracranial vasculature: There is atherosclerotic calcification of the cavernous carotid arteries. Calvarium: Skeletal structures are osteopenic. There is no depressed calvarial fracture. Sinuses and mastoids: The visualized paranasal sinuses are clear. The mastoid air cells are well pneumatized. Orbits: The bony orbits are grossly intact. IMPRESSION: There is no hemorrhage, mass effect, or evidence of acute territorial ischemia by CT criteria. Electronically signed by: Damian Kinney M.D. 11/01/2016 4:30 PM Dictated Date/Time: 11/01/2016 4:28 PM
--- NOTE | 2016-11-01 16:38 | DIAGNOSTIC IMAGING REPORT ---
CT OF THE ABDOMEN AND PELVIS WITHOUT CONTRAST CLINICAL HISTORY: Abdominal pain following fall. Anticoagulation. COMPARISON STUDY: CT of the abdomen and pelvis March 01, 2016. TECHNIQUE: Axial images of the abdomen and pelvis were obtained without IV contrast. Images were reviewed in the axial, sagittal, and coronal planes. A dose lowering technique was utilized adhering to the principles of ALARA. FINDINGS: Note is made of multiple old right-sided rib fractures. Evaluation of the abdomen and pelvis is suboptimal given the lack of IV and oral contrast. No hemoperitoneum or pneumoperitoneum is present. Fat-containing ventral hernias are noted. There is no evidence of traumatic injury to the liver, spleen, adrenal glands, kidneys or pancreas on this unenhanced examination. 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 There is no evidence for rupture. This colonic diverticulosis without evidence for acute diverticulitis. Pelvic collaterals are incidentally noted. No acute lumbar spine or pelvic fractures identified. There is no ascites. There is no lymphadenopathy. Mild biliary ductal dilatation is unchanged from prior CT and likely related to prior cholecystectomy. IMPRESSION: 1. No acute traumatic findings within the abdomen or pelvis although evaluation suboptimal given the lack of IV contrast. 2. Colonic diverticulosis without evidence for acute diverticulitis. 3. 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 No rupture. Electronically signed by: Jose Levy M.D. 11/01/2016 4:37 PM Dictated Date/Time: 11/01/2016 4:28 PM
--- NOTE | 2016-11-01 16:42 | DIAGNOSTIC IMAGING REPORT ---
LEFT FOOT 3 VIEWS CLINICAL HISTORY: Fall with left foot pain. FINDINGS: 3 views of the left foot are obtained. No prior studies are available for comparison at the time of dictation. The skeletal structures are osteopenic. No fracture is seen. Mild arthritic change is present at the first metatarsophalangeal joint. The joint spaces of the foot are otherwise preserved. There is a large plantar calcaneal enthesophyte. Mild degenerative spurring is noted along the dorsal aspect of the tarsal bones. Mild dorsal soft tissue swelling is observed. IMPRESSION: 1. Mild soft tissue swelling with no radiographic evidence of left foot fracture. 2. Osteopenia, plantar heel spur, and mild arthritic change as above. Electronically signed by: Damian Kinney M.D. 11/01/2016 4:41 PM Dictated Date/Time: 11/01/2016 4:40 PM
[2016-11-01] MEDS ORDERED: PRLSR20 PO (16:43)
[2016-11-01 16:52] LABS: URINE APPEARANCE CLEAR (CLEAR); URINE BILIRUBIN NEG (NEG); URINE COLOR YELLOW; URINE NITRITE NEG (NEG); URINE PH 6.5 (4.5-7.5); URINE SPECIFIC GRAVITY 1.023 (1.000-1.030); UROBILINOGEN NEG (NEG)
[2016-11-01 16:54] LABS: MANUAL MICROSCOPIC REQUIRED? NO; REVIEW REQ? NO
--- NOTE | 2016-11-01 16:58 | DIAGNOSTIC IMAGING REPORT ---
CT SCAN OF THE LUMBAR SPINE WITHOUT IV CONTRAST CLINICAL HISTORY: Fall with back pain. COMPARISON STUDY: Abdominal CT dated 03/01/2016. TECHNIQUE: CT scan of the lumbar spine is performed from the lower thoracic spine to the sacrum. Images are reviewed in the axial, sagittal, and coronal planes. IV contrast was not administered for this examination. A dose lowering technique was utilized adhering to the principles of ALARA. FINDINGS: The skeletal structures are osteopenic. There is no evidence of fracture or malalignment involving the lumbar spine. Vertebral body height and alignment are maintained. The transverse and spinous processes are intact. No lytic or blastic lesions are identified. There is no evidence of spondylolysis. Tiny anterior osteophytes are seen throughout. There is no evidence of large disc herniation. Small posterior disc bulges are suggested at L3-L4 and L4-L5. The visualized sacrum and bony pelvis appear intact. Mild degenerative change is noted in the sacroiliac joints. The paraspinous soft tissues are within normal limits. There is a 1.4 cm calcified right renal artery aneurysm. Mild atherosclerotic calcification is noted in the abdominal aorta. There is diverticulosis noted in the partially visualized colon. IMPRESSION: 1. There is no evidence of fracture or malalignment involving the lumbar spine. 2. Osteopenia and mild degenerative change as above. 3. Again seen is a peripherally calcified right renal artery aneurysm. Electronically signed by: Damian Kinney M.D. 11/01/2016 4:57 PM Dictated Date/Time: 11/01/2016 4:30 PM
[2016-11-01] MEDS ORDERED: DULO60CA44 PO (17:06)
[2016-11-01] MEDS ORDERED: TRAM-10 PO (17:06)
[2016-11-01] MEDS ORDERED: VSNOPS OPB (17:31)
[2016-11-01] MEDS ORDERED: ZINC1CRE3 EXT (17:31)
[2016-11-01] MEDS ORDERED: PRVHFAIN INH (17:31)
[2016-11-01] MEDS ORDERED: CYAN100T PO (17:31)
[2016-11-01] MEDS ORDERED: HYDR-5688 PO (17:34)
[2016-11-01 18:00] VITALS: BP 112/56; PULSE 61; O2SAT 93
[2016-11-01] MEDS ORDERED: ASPI-589 PO (19:50)
[2016-11-01] MEDS ORDERED: ROPI4TAB3 PO (22:03)
[2016-11-01] MEDS ORDERED: ATEN-173 PO (22:03)
== END 2016-11-01 18:40 | disposition home or self-care (01) ==
LOC: C.EDB 15:00
DX: M54.5 Low back pain (principal); S30.1XXA Contusion of abdominal wall, initial encounter; S90.32XA Contusion of left foot, initial encounter; W19.XXXA Unspecified fall, initial encounter; E11.9 Type 2 diabetes mellitus without complications; I10 Essential (primary) hypertension; E78.5 Hyperlipidemia, unspecified; I25.10 Atherosclerotic heart disease of native coronary artery without angina pectoris; F32.9 Major depressive disorder, single episode, unspecified; K21.9 Gastro-esophageal reflux disease without esophagitis; I25.2 Old myocardial infarction; Z86.73 Personal history of transient ischemic attack (TIA), and cerebral infarction without residual deficits; Z86.718 Personal history of other venous thrombosis and embolism; Z90.710 Acquired absence of both cervix and uterus; Z90.721 Acquired absence of ovaries, unilateral; Z90.49 Acquired absence of other specified parts of digestive tract; Z98.890 Other specified postprocedural states; Z79.4 Long term (current) use of insulin; Z79.82 Long term (current) use of aspirin; Z79.899 Other long term (current) drug therapy; Z88.0 Allergy status to penicillin; Z88.2 Allergy status to sulfonamides; Z88.8 Allergy status to other drugs, medicaments and biological substances; Z80.9 Family history of malignant neoplasm, unspecified; Z83.3 Family history of diabetes mellitus; Z83.79 Family history of other diseases of the digestive system; Z82.49 Family history of ischemic heart disease and other diseases of the circulatory system; Z84.1 Family history of disorders of kidney and ureter

== ENCOUNTER 2017-01-23 11:11 | Inpatient (IN) | payer OTHER ==
[~2017-01-23] VITALS: Ht 154.9 cm; Wt 93.0 kg
[~2017-01-23 11:11] MED LIST changes: +ALEN70TA2 PO; +ASPI-589 PO; +ATEN-173 PO; -CRFL PO; +CYAN100T PO; +DTR/5 PO; +DULO60CA44 PO; -DXY100 PO; +FLVHFA44 INH; -GFNSR600 PO; -HYCUDL5 PO; +HYDR-5688 PO; +INSDGI SC; -OXYB5TAB74 PO; -OXYC1TAB3 PO; +PRLSR20 PO; +PRVHFAIN INH; +ROPI4TAB3 PO; +TRAM-10 PO; +VSNOPS OPB; +WARF2TAB8 PO; +WARF4TAB8 PO; +ZINC1CRE3 EXT
[2017-01-23] MEDS ORDERED: ONDANSETRON INJ 2 MG/ML 2 ML VIAL IV STA ×2 (11:23→13:13)
[2017-01-23] MEDS ORDERED: SODIUM CHLORIDE 0.9% 1000ML 1,000 ML IV STA (11:23)
[2017-01-23] MEDS ORDERED: MoRPHine SULFATE 10 MG/ML CARP/VIAL IV STA ×2 (11:23→13:12)
[2017-01-23] MEDS ORDERED: OPTIRAY 320 IV PRN (11:45)
[2017-01-23 11:48] LABS: BASO % 0.6 %; BASO ABS # 0.04 K/uL (0-0.2); COMPLETE YES; EOS % 0.9 %; HEMATOCRIT 39.5 % (37-47); IG% 0.2 %; LYMPH % 35.3 %; LYMPH ABS # 2.28 K/uL (1.2-3.4); MEAN CELL VOLUME 98.3 fL (80-100); MEAN CORPUSCULAR HEMOGLOBIN 33.1 pg (25-34); MEAN CORPUSCULAR HGB CONC 33.7 g/dl (32-36); MEAN PLATELET VOLUME 10.4 fL (7.4-10.4); MONO % 8.8 %; NEUT % 54.2 %; PLATELET COUNT 301 K/uL (130-400); RED BLOOD COUNT 4.02 M/uL (4.2-5.4); WHITE BLOOD COUNT 6.46 K/uL (4.8-10.8)
[2017-01-23 12:07] LABS: ALT/SGPT 24 U/L (12-78); AST/SGOT 14 U/L (15-37); BLOOD UREA NITROGEN 11 mg/dl (7-18); BUN/CREATININE RATIO 10.2 (10-20); CALCIUM 8.8 mg/dl (8.5-10.1); CARBON DIOXIDE 28 mmol/L (21-32); CHLORIDE 105 mmol/L (98-107); GLUCOSE 120 mg/dl (70-99); POTASSIUM 3.9 mmol/L (3.5-5.1); SODIUM 138 mmol/L (136-145)
[2017-01-23 12:09] LABS: ALKALINE PHOSPHATASE 80 U/L (45-117)
[2017-01-23 12:12] LABS: MANUAL MICROSCOPIC REQUIRED? NO; REVIEW REQ? YES; URINE APPEARANCE CLEAR (CLEAR); URINE BILIRUBIN NEG (NEG); URINE COLOR YELLOW; URINE EPITHELIAL CELL AUTO >30 /lpf (0-5); URINE NITRITE NEG (NEG); URINE SPECIFIC GRAVITY 1.017 (1.000-1.030); UROBILINOGEN NEG (NEG); ZZUR CULT IF INDIC CLEAN CATCH YES
--- NOTE | 2017-01-23 13:02 | DIAGNOSTIC IMAGING REPORT ---
ABDOMEN AND PELVIS CT WITH IV CONTRAST CT DOSE: 1015.57 mGy.cm HISTORY: Acute generalized abdominal pain abd pain TECHNIQUE: Multiaxial CT images of the abdomen and pelvis were performed following the use of intravenous contrast. A dose lowering technique was utilized adhering to the principles of ALARA. COMPARISON STUDY: CT abdomen and pelvis 11/01/2016. FINDINGS: Mild subsegmental dependent bibasilar atelectasis. No pneumoperitoneum or pneumatosis. The imaged inferior cardiac chambers are mildly enlarged. Coronary arterial calcifications are noted. Prior cholecystectomy. Mild intrahepatic and nectar hepatic biliary ductal dilation is again seen, likely physiologic changes from post cholecystectomy state. Common bile duct measures 7 mm transversely. Liver is otherwise unremarkable. The spleen, pancreas and adrenal glands are within normal limits. There is cortical lobulation and parenchymal thinning involve the bilateral kidneys. 1.3 center low attenuating lesion of the posterior aspect interpolar right kidney suggests renal cyst. No renal calculi or hydronephrosis. 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 The ureters and urinary bladder are unremarkable. Prior hysterectomy. Unchanged 3.1 x 1.4 cm cystic structure within the region of the right adnexum is noted, nonspecific. There is mild atherosclerosis of the aorta. No bulky adenopathy. Small sliding-type hiatal hernia. There is no bowel obstruction identified. Moderate to extensive sigmoid diverticulosis without CT evidence of acute diverticulitis. The appendix is not seen and may be surgically absent. Nonspecific prominent venous collaterals are seen over the anterior lower pelvis. Calcifications are seen within the left femoral vein. These findings may be related to chronic deep venous thrombosis. Soft tissues are otherwise unremarkable. Diastases recti noted. The bones appear intact. Multilevel degenerative changes of the spine. IMPRESSION: 1. No acute intra-abdominal or intrapelvic abnormality identified. 2. Moderate to extensive sigmoid colonic diverticulosis without diverticulitis. 3. 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 4. Prior cholecystectomy with persistent mild intrahepatic and extrahepatic biliary ductal dilation, likely physiologic from postsurgical state. 5. Unchanged prominent venous collaterals over the lower anterior abdominal wall with calcifications of the left femoral vein. Chronic deep venous thrombosis is a differential consideration. Electronically signed by: Alen Mills M.D. 01/23/2017 1:01 PM Dictated Date/Time: 01/23/2017 12:54 PM
[2017-01-23 13:40] LABS: PROTHROMBIN TIME (PATIENT) 46.2 SECONDS (9.0-12.0)
[2017-01-23] MEDS ORDERED: CIPROFLOXACIN 500 MG TAB PO STA (13:44)
[2017-01-23] MEDS ORDERED: CIPR-255 PO (13:44)
[2017-01-23 13:55] LABS: INR 4.1 (0.9-1.1)
[2017-01-23 15:05] VITALS: BP 150/76; PULSE 62; TEMP 37; O2SAT 95; Ht 154.9 cm; Wt 93.0 kg
[2017-01-23] MEDS ORDERED: IV FLUIDS COMPLETED PRN (15:30)
[2017-01-23] MEDS ORDERED: HYDROmorphone INJ 1 MG/ML SYR ONE (15:41)
[2017-01-23] MEDS: HYDROmorphone INJ 1 MG/ML SYR IV PRN ×2 (15:43→20:11)
[2017-01-23] MEDS ORDERED: OMEP20TA PO (15:45)
[2017-01-23] MEDS ORDERED: MOMLX PO (15:45)
[2017-01-23] MEDS ORDERED: NITROGLYCERIN 0.4 MG SL PER TAB CHARGE SL PRN (15:45)
[2017-01-23] MEDS ORDERED: MRLP17X PO (15:45)
[2017-01-23] MEDS ORDERED: BUPR150T7 PO (15:45)
[2017-01-23] MEDS ORDERED: WARF1TAB PO (15:45)
[2017-01-23 16:14] VITALS: BP 114/68; PULSE 55; TEMP 36.7; O2SAT 95
[2017-01-23] MEDS ORDERED: ALBUTEROL HFA 8 GM INHALER INH PRN (16:15)
[2017-01-23] MEDS ORDERED: GLUCAGON FOR INJ 1 MG VIAL SQ PRN (16:15)
[2017-01-23] MEDS ORDERED: GLUCOSE 10 TABS/TUBE PO PRN (16:15)
[2017-01-23] MEDS ORDERED: DEXTROSE 50% 50 ML SYR IV PRN (16:15)
[2017-01-23] MEDS ORDERED: GLUCOSE 40% GEL 15 GM TUBE PO PRN (16:15)
[2017-01-23] MEDS ORDERED: PANTOprazole INJ 40 MG in SYRINGE 0 ML IV ONE (16:15)
[2017-01-23] MEDS: SODIUM CHLORIDE 0.9% 1000ML 1,000 ML IV SCH ×2 (16:30→23:57)
--- NOTE | 2017-01-23 16:30 | CONSULTATION REPORT ---
DATE OF CONSULTATION: 01/23/2017 CHIEF COMPLAINT: Right-sided abdominal pain and vomiting. HISTORY OF PRESENT ILLNESS: The patient is a 71-year-old female with pain that began in her right lower quadrant around the iliac crest last evening, seems spread throughout the right side during the night. She developed nausea and had 2 episodes of vomiting, which she describes as mucus material. She continues to have pain along the right side despite treatment with morphine. She has not had a previous history of pain. She did have open cholecystectomy in the early . She has not had any other epigastric pain or fatty food intolerance prior to this. She does not have any current fevers or chills. She had a small somewhat hard bowel movement since her symptoms began. She does feel somewhat bloated and has had difficulty voiding. She has been drinking water. She has not had anything to eat since last evening, when she had her regular dinner. She denies any itching or burning on the right side. She has had 1 previous urinary infection. No history of pyelonephritis. 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 PAST SURGICAL HISTORY: Open cholecystectomy, appendectomy, vaginal hysterectomy with unilateral oophorectomy and a history of a right ovarian cystectomy. FAMILY HISTORY: Strong history of cardiovascular disease including her father, mother and brother. SOCIAL HISTORY: She lives with her daughter, who was scheduled to be seen in [place] tomorrow regarding a possible leg amputation. She assists in the care of her [id number] great grandchild. She denies tobacco use and is . CURRENT MEDICATIONS: Home meds include Ventolin 2 puffs q.i.d. as needed, Fosamax 70 mg weekly, aspirin 81 mg daily, atenolol 25 mg daily, Lipitor 80 mg daily, Cipro 250 mg b.i.d., vitamin B12 100 mcg daily, Cymbalta 60 mg daily, Flovent 2 puffs b.i.d., glipizide 2.5 mg daily, Sterling 1 tablet as needed, Lantus 36 units at nighttime, nitroglycerin 0.4 mg as needed, Ditropan 0.5 mg t.i.d., Requip 4 mg at bedtime, Visine eyedrops as needed, Ultram 50 mg as needed, and Coumadin alternating doses of 2 and 4 mg. REVIEW OF SYSTEMS: GENERAL: No fevers or sweats. No weight changes. RESPIRATORY: Denies cough or shortness of breath. CARDIAC: History of CAD, but no current chest pain or edema. ABDOMEN: As per HPI. Her bowels move regularly. She has noted an epigastric hernia over the last 3 months or so. OBJECTIVE: VITAL SIGNS: She appears somewhat uncomfortable. Temperature 37.0, pulse 64, respirations 18, blood pressure 150/76, and pulse ox 95% on room air. HEENT: Consistent with visual impairment. Otherwise, unremarkable. HEART: Regular rate and rhythm. No murmurs appreciated. LUNGS: Clear to auscultation with regular respiratory rate. ABDOMEN: Shows easily reducible epigastric hernia about 2 cm. Left abdomen is nontender. She has superficial tenderness, extending from the right CVA area down along the right side into the right lower quadrant. She seems to be most tender over the costal margin. SKIN: No rashes were evident on her thorax or abdomen. The remaining skin was unremarkable. LABORATORY DATA: White count is 6000, hemoglobin 13.3, hematocrit 39.5, and platelets 301,000. Sodium 138, potassium 3.9, BUN 11, creatinine 1.1, and glucose 120. Lactic acid was 1.4. LFTs were all normal. Her INR was 4.1. Urinalysis shows trace blood, moderate leukocyte esterase, 10-30 white cells and negative for bacteria. IMAGING STUDIES: CT of the abdomen showed colonic diverticulosis without diverticulitis. There is a 1.3-cm aneurysm in the right renal artery without rupture. There was prior cholecystectomy with the common bile duct measuring 7 mm. There is a small hiatal hernia. The appendix was felt to be surgically absent. Overall, there is no acute intraabdominal or intrapelvic abnormality identified. IMPRESSION: 1. Right flank pain. 2. Supratherapeutic INR. 3. Possible urinary tract infection. PLAN: Source of her pain is unclear, although seems to be quite superficial and not intra-abdominal in nature. It is possible she has Tietze syndrome or may develop into shingles type of pattern. Her INR was 4. She was seen along with Dr. Almazan in the Emergency Department. We were concerned that she continued to require IV analgesics for her pain and her INR was elevated. We recommended evaluation by the medical service for possible admission. HORTENSIA
--- NOTE | 2017-01-23 16:46 | EMERGENCY ROOM VISIT NOTE ---
History Report prepared by Cameronibjuan jose: Lucia Chaudhary Under the Supervision of: Renata LoveO. First contact with patient: 11:16 Chief Complaint: ABDOMINAL PAIN Stated Complaint: SEVERE PAIN ON RIGHT SIDE, VOMITING History of Present Illness The patient is a 71 year old female who presents to the Emergency Room with complaints of worsening abdominal pain since yesterday afternoon. Her pain started in her RLQ yesterday and then radiated throughout her abdomen. She states that today most of her pain is located in the RUQ. She rates her current pain as a 10/10 in severity. She has a hiatal hernia and states that she has pain radiating from her hernia into the right side of her back. Movement exacerbates her pain. She is still passing gas. The patient reports nausea and 4 episodes of vomiting. She had a bowel movement yesterday that was harder than usual. She denies any dysuria or history of kidney stones. Pt denies headache, fevers, chest pain, shortness of breath, diarrhea, hematochezia, and melena. Source of History: patient Onset: yesterday afternoon Position: abdomen Symptom Intensity: 10/10 Quality: other (radiating) Timing: worsening Modifying Factors (Worsening): movement Associated Symptoms: + nausea, + vomiting, + back pain, No fevers, No headache, No chest pain, No SOB, No melena, No hematochezia, No diarrhea, No urinary symptoms Review of Systems See HPI for pertinent positives & negatives. A total of 10 systems reviewed and were otherwise negative. Past Medical & Surgical Medical Problems: (1) Benign neoplasm of cerebral meninges (2) CAD (coronary artery disease) (3) Chest pain (4) CVA (cerebral vascular accident) (5) Depression (6) DM type 2 (diabetes mellitus, type 2) (7) DVT (deep venous thrombosis) (8) GERD (gastroesophageal reflux disease) (9) History of Alfonso's syndrome (10) Hyperlipidemia (11) Hypertension (12) Macular degeneration (13) VA (myocardial infarction) (14) Peripheral neuropathy (15) Pneumonia (16) Recurrent DVT (17) RLS (restless legs syndrome) (18) Syncope (19) Viral bronchitis Surgical Problems: (1) History of appendectomy (2) History of cholecystectomy (3) History of hysterectomy (4) History of salpingo-oophorectomy (5) S/P cholecystectomy (6) S/P removal of ovarian cyst Family History Early CAD FATHER ( in 30s of VA) MOTHER ( in 30s of VA) BROTHER ( in 50s of VA) FHx: cancer FHx: diabetes FHx: gallbladder disease FHx: heart disease FHx: hypertension FHx: kidney disease/stones FHx: lung disease Social History Smoking Status: Never Smoker Alcohol Use: none Drug Use: none Marital Status: Housing Status: lives with family Occupation Status: retired Current/Historical Medications Scheduled Alendronate Sodium (Fosamax), 70 MG PO WK Aspirin (Aspirin Adult Low Dose), 81 MG PO DAILY Atenolol (Tenormin), 25 MG PO DAILY Atorvastatin (Lipitor), 80 MG PO DAILY Bupropion Hcl (Wellbutrin Sr), 1 TAB PO BID Cyanocobalamin (Vitamin B-12), 100 MCG PO DAILY Duloxetine Hcl (Cymbalta), 60 MG PO DAILY Fluticasone Propionate (Flovent Hfa), 2 PUFFS INH BID Glipizide (Glipizide Er), 2.5 MG PO DAILY Insulin Glargine (Lantus), 36 UNITS SC QPM Magnesium Hydroxide (Milk of Magnesia), 30 ML PO BID Omeprazole (Omeprazole), 1 TAB PO DAILY Oxybutynin Chloride (Ditropan), 5 MG PO TID Polyethylene (Miralax), 17 GM PO DAILY Warfarin Sodium (Coumadin), 1 TAB PO UD Scheduled PRN Albuterol (Ventolin Hfa), 2 PUFFS INH QID PRN for SOB/Wheezing Nitroglycerin (Nitrostat), 0.4 MG SL UD PRN for Chest Pain Tetrahydrozoline Hcl (Ophth) (Visine), 1 DROP OPB UD PRN for DRYNESS Tramadol (Ultram), 50 MG PO Q6 PRN for Pain Allergies Coded Allergies: Macrolides and Ketolides (Verified Allergy, Unknown, `, 01/23/17) Niacin (Verified Allergy, Unknown, 01/23/17) Penicillins (Verified Allergy, Unknown, 01/23/17) Procaine (Verified Allergy, Unknown, unknown, 01/23/17) Pt states she either swelled or had a rash. Sulfa Antibiotics (Verified Allergy, Unknown, `, 01/23/17) Uncoded Allergies: JAIME (Allergy, Unknown, UNKNOWN, 09/08/16) Physical Exam Vital Signs Date Time Temp Pulse Resp B/P (MAP) Pulse Ox O2 Delivery O2 Flow Rate FiO2 01/23/17 15:05 37.0 62 18 150/76 95 Room Air 01/23/17 14:31 64 18 150/76 95 01/23/17 13:05 55 18 140/74 93 Room Air 01/23/17 11:14 37.0 68 16 146/11 97 Physical Exam GENERAL: Disheveled elderly female in moderate distress holding right abdomen. EYE EXAM: normal conjunctiva. OROPHARYNX: no exudate, no erythema, lips, buccal mucosa, and tongue normal and mucous membranes are moist NECK: supple, no nuchal rigidity, no adenopathy, non-tender LUNGS: Clear to auscultation. Normal chest wall mechanics HEART: no murmurs, S1 normal and S2 normal ABDOMEN: Abdomen is tender to palpation in right side through right chest wall. Right abdomen palpable hernia in supraumbilical region. BACK: Back is symmetrical on inspection and there is no deformity, no midline tenderness, no CVA tenderness. SKIN: no rashes and no bruising UPPER EXTREMITIES: upper extremities are grossly normal. LOWER EXTREMITIES: No pitting edema. NEURO EXAM: Normal sensorium, cranial nerves II-XII grossly intact, normal speech, no gross weakness of arms, no gross weakness of legs. Medical Decision & Procedures ER Provider Diagnostic Interpretation: Radiology results as stated below per my review and the radiologist's interpretation: ABDOMEN AND PELVIS CT WITH IV CONTRAST CT DOSE: 1015.57 mGy.cm HISTORY: Acute generalized abdominal pain abd pain TECHNIQUE: Multiaxial CT images of the abdomen and pelvis were performed following the use of intravenous contrast. A dose lowering technique was utilized adhering to the principles of ALARA. COMPARISON STUDY: CT abdomen and pelvis 11/01/2016. FINDINGS: Mild subsegmental dependent bibasilar atelectasis. No pneumoperitoneum or pneumatosis. The imaged inferior cardiac chambers are mildly enlarged. Coronary arterial calcifications are noted. Prior cholecystectomy. Mild intrahepatic and nectar hepatic biliary ductal dilation is again seen, likely physiologic changes from post cholecystectomy state. Common bile duct measures 7 mm transversely. Liver is otherwise unremarkable. The spleen, pancreas and adrenal glands are within normal limits. There is cortical lobulation and parenchymal thinning involve the bilateral kidneys. 1.3 center low attenuating lesion of the posterior aspect interpolar right kidney suggests renal cyst. No renal calculi or hydronephrosis. 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 The ureters and urinary bladder are unremarkable. Prior hysterectomy. Unchanged 3.1 x 1.4 cm cystic structure within the region of the right adnexum is noted, nonspecific. There is mild atherosclerosis of the aorta. No bulky adenopathy. Small sliding-type hiatal hernia. There is no bowel obstruction identified. Moderate to extensive sigmoid diverticulosis without CT evidence of acute diverticulitis. The appendix is not seen and may be surgically absent. Nonspecific prominent venous collaterals are seen over the anterior lower pelvis. Calcifications are seen within the left femoral vein. These findings may be related to chronic deep venous thrombosis. Soft tissues are otherwise unremarkable. Diastases recti noted. The bones appear intact. Multilevel degenerative changes of the spine. IMPRESSION: 1. No acute intra-abdominal or intrapelvic abnormality identified. 2. Moderate to extensive sigmoid colonic diverticulosis without diverticulitis. 3. 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 4. Prior cholecystectomy with persistent mild intrahepatic and extrahepatic biliary ductal dilation, likely physiologic from postsurgical state. 5. Unchanged prominent venous collaterals over the lower anterior abdominal wall with calcifications of the left femoral vein. Chronic deep venous thrombosis is a differential consideration. Electronically signed by: Alen Mills M.D. 01/23/2017 1:01 PM Dictated Date/Time: 01/23/2017 12:54 PM Laboratory Results 01/23/17 11:40 Red Blood Count 4.02, Mean Corpuscular Volume 98.3, Mean Corpuscular Hemoglobin 33.1, Mean Corpuscular Hemoglobin Concent 33.7, Mean Platelet Volume 10.4, Neutrophils (%) (Auto) 54.2, Lymphocytes (%) (Auto) 35.3, Monocytes (%) (Auto) 8.8, Eosinophils (%) (Auto) 0.9, Basophils (%) (Auto) 0.6, Neutrophils # (Auto) 3.50, Lymphocytes # (Auto) 2.28, Monocytes # (Auto) 0.57, Eosinophils # (Auto) 0.06, Basophils # (Auto) 0.04 01/23/17 11:40 Test 01/23/17 11:40 01/23/17 11:50 01/23/17 12:55 White Blood Count 6.46 K/uL (4.8-10.8) Red Blood Count 4.02 M/uL (4.2-5.4) Hemoglobin 13.3 g/dL (12.0-16.0) Hematocrit 39.5 % (37-47) Mean Corpuscular Volume 98.3 fL (80-100) Mean Corpuscular Hemoglobin 33.1 pg (25-34) Mean Corpuscular Hemoglobin Concent 33.7 g/dl (32-36) Platelet Count 301 K/uL (130-400) Mean Platelet Volume 10.4 fL (7.4-10.4) Neutrophils (%) (Auto) 54.2 % Lymphocytes (%) (Auto) 35.3 % Monocytes (%) (Auto) 8.8 % Eosinophils (%) (Auto) 0.9 % Basophils (%) (Auto) 0.6 % Neutrophils # (Auto) 3.50 K/uL (1.4-6.5) Lymphocytes # (Auto) 2.28 K/uL (1.2-3.4) Monocytes # (Auto) 0.57 K/uL (0.11-0.59) Eosinophils # (Auto) 0.06 K/uL (0-0.5) Basophils # (Auto) 0.04 K/uL (0-0.2) RDW Standard Deviation 50.7 fL (36.4-46.3) RDW Coefficient of Variation 14.2 % (11.5-14.5) Immature Granulocyte % (Auto) 0.2 % Immature Granulocyte # (Auto) 0.01 K/uL (0.00-0.02) Prothrombin Time 46.2 SECONDS (9.0-12.0) Prothromb Time International Ratio 4.1 (0.9-1.1) Anion Gap 5.0 mmol/L (3-11) Est Creatinine Clear Calc Drug Dose 49.5 ml/min Estimated GFR () 58.9 Estimated GFR (Non- 50.8 BUN/Creatinine Ratio 10.2 (10-20) Calcium Level 8.8 mg/dl (8.5-10.1) Total Bilirubin 0.4 mg/dl (0.2-1) Direct Bilirubin < 0.1 mg/dl (0-0.2) Aspartate Amino Transf (AST/SGOT) 14 U/L (15-37) Alanine Aminotransferase (ALT/SGPT) 24 U/L (12-78) Alkaline Phosphatase 80 U/L (45-117) Total Protein 7.4 gm/dl (6.4-8.2) Albumin 3.3 gm/dl (3.4-5.0) Lipase 94 U/L (73-393) Urine Color YELLOW Urine Appearance CLEAR (CLEAR) Urine pH 7.0 (4.5-7.5) Urine Specific [place] 1.017 (1.000-1.030) Urine Protein NEG (NEG) Urine Glucose (UA) NEG (NEG) Urine Ketones NEG (NEG) Urine Occult Blood TRACE (NEG) Urine Nitrite NEG (NEG) Urine Bilirubin NEG (NEG) Urine Urobilinogen NEG (NEG) Urine Leukocyte Esterase MODERATE (NEG) Urine WBC (Auto) 10-30 /hpf (0-5) Urine RBC (Auto) 5-10 /hpf (0-4) Urine Hyaline Casts (Auto) 10-30 /lpf (0-5) Urine Epithelial Cells (Auto) >30 /lpf (0-5) Urine Bacteria (Auto) NEG (NEG) Urine Renal Epithelial Cells /lpf (0-5) Lactic Acid Level 1.4 mmol/L (0.4-2.0) Laboratory results per my review. Medications Administered Medications (Trade) Dose Ordered Sig/Juany Route Start Time Stop Time Status Last Admin Dose Admin Sodium Chloride 1,000 ml @ 999 mls/hr Q1H1M STAT IV 01/23/17 11:23 01/23/17 12:23 DC 01/23/17 11:44 999 MLS/HR Ondansetron HCl (Zofran Inj) 4 mg NOW STAT IV 01/23/17 11:23 01/23/17 11:26 DC 01/23/17 11:44 4 MG Morphine Sulfate (MoRPHine SULFATE INJ) 6 mg NOW STAT IV 01/23/17 11:23 01/23/17 11:26 DC 01/23/17 11:44 6 MG Morphine Sulfate (MoRPHine SULFATE INJ) 6 mg NOW STAT IV 01/23/17 13:12 01/23/17 13:13 DC 01/23/17 13:25 6 MG Ondansetron HCl (Zofran Inj) 4 mg NOW STAT IV 01/23/17 13:13 01/23/17 13:14 DC 01/23/17 13:25 4 MG Ciprofloxacin (Cipro Tab) 500 mg NOW STAT PO 01/23/17 13:44 01/23/17 13:45 DC 01/23/17 13:52 500 MG ED Course ED COURSE: Vital signs were reviewed and showed normal vitals. The patients medical record was reviewed The above diagnostic studies were performed and reviewed. ED treatments and interventions as stated above. 1117: The patient was evaluated in room A11. A complete history and physical examination was performed. 1123: Ordered Morphine Sulfate 6 mg IV, Zofran 4 mg IV, NSS 1,000 mL @ 999 mls/ hr 1216: I reassessed the patient at this time. She is still having pain and just received her medications. 1312: Ordered Ordered Morphine Sulfate 6 mg IV 1313: Ordered Zofran 4 mg IV 1318: I reassessed the patient at this time. She is feeling better and was given more pain medications. 1344: Ordered Cipro 500 mg PO 1350: I spoke with Dr. Almazan of general surgery. We discussed the patient' s case. He will have Андрей Cash PA-C come to evaluate the patient. 1352: I updated the patient and she is still having abdominal pain. 1356: I spoke with Андрей Cash PA-C with general surgery. He will come to see the patient in the ED. 1417: I discussed the case with Dr. Almazan again at this time. He recommends inpatient care. 1429: I spoke with Nathaly Tyler PA-C with the [facility] regarding the patient's case. She will evaluate the patient for further management. 1431: Upon reevaluation, the patient is resting more comfortably. I discussed my findings with the patient and she understands and agrees with the treatment plan. Based on the patients age, coexisting illnesses, exam and lab findings the decision to treat as an inpatient was made. The patient remained stable while under my care. The patient will be evaluated for further management. Medical Decision Differential diagnoses includes but is not limited to gastritis, peptic ulcer disease, GERD, gallbladder disease, pancreatitis, small bowel obstruction, acute coronary syndrome, pericarditis, ischemic bowel, irritable bowel disease, irritable bowel syndrome, appendicitis, diverticulitis, malignancy, hernia, urinary tract infection, torsion, [/ectopic (if female)], perforation, trauma, infectious. Patient is a 71-year-old female who presents to ER for right sided abdominal pain which started in her right lower quadrant. Previous cholecystectomy and appendectomy. CBC, BMP, LFTs, bilirubin and lipase is normal. Lactic acid was normal at 1.4. INR was supratherapeutic at 4.1. UA shows a likely UTI although it is contaminated. Patient was given 2 doses of IV morphine. She was persistently acutely tender in the right side. I did have surgery evaluate her at bedside due to her age and exam findings. They believe this is mostly musculoskeletal. I did recommend observation. Discussed with internal medicine. Patient will be observed overnight. Consults Time Called: 1347 Consulting Physician: Dr. Almazan Returned Call: [address] Almazan of general surgery. We discussed the patient's case. He will have Андрей Cash PA-C come to evaluate the patient. Additional Consults: Time Called: 1354 Consulted Physician: Андрей Cash PA-C Returned Call: 135 Additional Comments: I spoke with Андрей Cash PA-C with general surgery. He will come to see the patient in the ED. Time Called: 1417 Consulted Physician: Dr. Almazan Returned Call: 1413 Additional Comments: I discussed the case with Dr. Almazan again at this time. He recommends inpatient care. Impression Primary Impression: Abdominal pain Additional Impression: Vomiting Scribe Attestation The scribe's documentation has been prepared under my direction and personally reviewed by me in its entirety. I confirm that the note above accurately reflects all work, treatment, procedures, and medical decision making performed by me. Departure Information Dispostion Being Evaluated By Hospitalist Referrals No Doctor, Assigned (PCP) Forms Call Back Authorization, HOME CARE DOCUMENTATION FORM, IMPORTANT VISIT INFORMATION Patient Instructions Abdominal Pain - [facility], My [facility] Health Problem Qualifiers Primary Impression: Abdominal pain Abdominal location: unspecified location Qualified Codes: R10.9 - Unspecified abdominal pain Additional Impression: Vomiting Vomiting type: unspecified Vomiting Intractability: unspecified Nausea presence: unspecified Qualified Codes: R11.10 - Vomiting, unspecified
--- NOTE | 2017-01-23 17:13 | History and Physical ---
History & Physical Date & Time of Service: Jan 23, 2017 at 16:10 Chief Complaint: Severe Pain On Right Side, Vomiting Primary Care Physician: Ayanna Rhodes M.D. History of Present Illness Source: patient, clinic records, hospital records Pt is 71 y/o F with PMH HTN, DVT/PE on Coumadin, hx CVA, HTN, insulin dependent DM II, hyperlipidemia, depression, presented to ER with c/o abdominal pain starting yesterday. Pt c/o sharp pain to RLQ last night and today with upper abdominal pain with radiation to R flank. C/O nausea since yesterday and vomited 4 times. Hx GERD and on omeprazole but states this feels different. Ate hoagie last night, others also ate and have no symptoms. Denies recent travel, eating undercooked foods, drinking spring/well water. Pt states was holding and bouncing a baby on lap day prior to pain onset but denies any known injury. Denies diarrhea, last normal BM couple of days ago and states able to have hard BM yesterday. Reports has to use miralax or milk of magnesia intermittently for constipation. Also c/o decreased urine out put the past day. Has tried drinking water. Denies eating today. Pt reports hx SOB occurs during summer during high humidity and uses albuterol prn and flovent BID. states hasn't had to use those since summer, pt unsure if ever been formally dx with COPD or asthma. Reports hx chronically swollen left leg, denies any worsening. Reports hx left sided weakness s/p CVA in past. Hx cholecystectomy, appendectomy, hysterectomy and removal ovaries. Denies fever/chills, diaphoresis, hematemesis, hematochezia, melena, dysuria, hematuria, RIVERA, dizziness, syncope, neck pain, CP, SOB, orthopnea, palpitations, cough, sore throat, choking, otalgia, rhinorrhea, worsening weakness, rashes. In ER no leukocytosis, normal lactic acid, normal lipase. INR: 4.1. U/A: mod leuk, WBC:10-30, RBC: 5-10, epithelial >30, neg bacteria. Urine culture pending. CT scan: No acute intra-abdominal or intrapelvic abnormality identified. pt was given cipro po for possible UTI. Was given zofran x 2 doses which decreased nausea. Given total 12mg morphine and pt states continues with abdominal pain. 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 (9) Hyperlipidemia Status: Chronic (10) Hypertension Status: Chronic (11) SD (myocardial infarction) Status: Chronic (12) Peripheral neuropathy Status: Chronic (13) Recurrent DVT Status: Chronic (14) RLS (restless legs syndrome) Status: Chronic Surgical Problems: (1) History of appendectomy Status: Resolved (2) History of cholecystectomy Status: Resolved (3) History of hysterectomy Status: Resolved (4) History of salpingo-oophorectomy Status: Chronic (5) S/P cholecystectomy Status: Chronic (6) S/P removal of ovarian cyst Status: Chronic Family History Early CAD FATHER ( in 30s of SD) MOTHER ( in 30s of SD) BROTHER ( in 50s of SD) GRANDFATHER GRANDMOTHER FHx: cancer DAUGHTER (hx cervical and throat CA) FHx: gallbladder disease FHx: heart disease FHx: hypertension GRANDFATHER GRANDMOTHER Stroke GRANDMOTHER Social History Smoking Status: Former Smoker (smoked 1ppd x 2 years, quit 50 years ago) Smokeless Tobacco Use: No Alcohol Use: socially Drug Use: none Marital Status: Housing status: lives with family Occupational Status: retired Immunizations History of Influenza Vaccine: Yes History of Tetanus Vaccine?: Yes Tetanus Immunization Date: July 07, 2003 History of Pneumococcal: Yes History of Hepatitis B Vaccine: No Multi-Drug Resistant Organisms History of MDRO: No Allergies Coded Allergies: Macrolides and Ketolides (Verified Allergy, Unknown, `, 01/23/17) Niacin (Verified Allergy, Unknown, 01/23/17) Penicillins (Verified Allergy, Unknown, 01/23/17) Procaine (Verified Allergy, Unknown, unknown, 01/23/17) Pt states she either swelled or had a rash. Sulfa Antibiotics (Verified Allergy, Unknown, `, 01/23/17) Uncoded Allergies: MIACIN (Allergy, Unknown, UNKNOWN, 09/08/16) Home Medications Scheduled Alendronate Sodium (Fosamax), 70 MG PO WK Aspirin (Aspirin Adult Low Dose), 81 MG PO DAILY Atenolol (Tenormin), 25 MG PO DAILY Atorvastatin (Lipitor), 80 MG PO DAILY Bupropion Hcl (Wellbutrin Sr), 1 TAB PO BID Cyanocobalamin (Vitamin B-12), 100 MCG PO DAILY Duloxetine Hcl (Cymbalta), 60 MG PO DAILY Fluticasone Propionate (Flovent Hfa), 2 PUFFS INH BID Glipizide (Glipizide Er), 2.5 MG PO DAILY Insulin Glargine (Lantus), 36 UNITS SC QPM Magnesium Hydroxide (Milk of Magnesia), 30 ML PO BID Omeprazole (Omeprazole), 1 TAB PO DAILY Oxybutynin Chloride (Ditropan), 5 MG PO TID Polyethylene (Miralax), 17 GM PO DAILY Warfarin Sodium (Coumadin), 1 TAB PO UD Scheduled PRN Albuterol (Ventolin Hfa), 2 PUFFS INH QID PRN for SOB/Wheezing Nitroglycerin (Nitrostat), 0.4 MG SL UD PRN for Chest Pain Tetrahydrozoline Hcl (Ophth) (Visine), 1 DROP OPB UD PRN for DRYNESS Tramadol (Ultram), 50 MG PO Q6 PRN for Pain Review of Systems Constitutional: No fever, No chills, No sweats, No weight loss, No fatigue Eyes: No worsening of vision, No eye pain, No redness, No discharge, No diplopia ENT: No unusual epistaxis, No nasal symptoms, No sore throat, No tinnitus Respiratory: No cough, No sputum, No wheezing, No shortness of breath, No hemoptysis Cardiovascular: No chest pain, No orthopnea, No PND Abdomen: + problem reported (see HPI) Musculoskeletal: No joint pain, No muscle pain Neurologic: + weakness (hx left sided weakness from CVA), + numbness/tingling ( hx diabetic neuropathy, hx RLS, denies any worsening), No memory loss Psychiatric: + depression symptoms (denies suicidal ideations), No anxiety Hematologic / Lymphatic: + abnormal bleeding/bruising (denies acute bleeding) Integumentary: + color change, No rash, No itch Physical Exam Vital Signs Date Time Temp Pulse Resp B/P (MAP) Pulse Ox O2 Delivery O2 Flow Rate FiO2 01/23/17 14:31 64 18 150/76 95 01/23/17 13:05 55 18 140/74 93 Room Air 01/23/17 11:14 37.0 68 16 146/11 97 General Appearance: no apparent distress, + obese Head: normocephalic, atraumatic Eyes: normal inspection, sclerae normal ENT: hearing grossly normal, pharynx normal, + pertinent finding (mucous membranes moist) Neck: supple, no JVD, trachea midline Respiratory/Chest: chest non-tender, lungs clear, normal breath sounds, no respiratory distress, no accessory muscle use Cardiovascular: regular rate, rhythm, no murmur, normal peripheral pulses Abdomen/GI: normal bowel sounds, soft, + tenderness (distended secondary to adipose tissue, soft. r lower abdomen with approx 2 cm faint yellow ecchymosis without significant tenderness over this site. tenderness to palpation to epigastric, LUQ, RUQ, RLQ without rebound or guarding. ) Back: no CVA tenderness Extremities/Musculoskelatal: no calf tenderness, normal capillary refill, non- tender, + pertinent finding (left leg with non-pitting edema) Neurologic/Psych: alert, normal mood/affect, oriented x 3 Skin: normal color, warm/dry Diagnostics Laboratory Results Results Past 24 Hours Test 01/23/17 11:40 01/23/17 11:50 01/23/17 12:55 Range/Units White Blood Count 6.46 4.8-10.8 K/uL Red Blood Count 4.02 4.2-5.4 M/uL Hemoglobin 13.3 12.0-16.0 g/dL Hematocrit 39.5 37-47 % Mean Corpuscular Volume 98.3 80-100 fL Mean Corpuscular Hemoglobin 33.1 25-34 pg Mean Corpuscular Hemoglobin Concent 33.7 32-36 g/dl Platelet Count 301 130-400 K/uL Mean Platelet Volume 10.4 7.4-10.4 fL Neutrophils (%) (Auto) 54.2 % Lymphocytes (%) (Auto) 35.3 % Monocytes (%) (Auto) 8.8 % Eosinophils (%) (Auto) 0.9 % Basophils (%) (Auto) 0.6 % Neutrophils # (Auto) 3.50 1.4-6.5 K/uL Lymphocytes # (Auto) 2.28 1.2-3.4 K/uL Monocytes # (Auto) 0.57 0.11-0.59 K/uL Eosinophils # (Auto) 0.06 0-0.5 K/uL Basophils # (Auto) 0.04 0-0.2 K/uL RDW Standard Deviation 50.7 36.4-46.3 fL RDW Coefficient of Variation 14.2 11.5-14.5 % Immature Granulocyte % (Auto) 0.2 % Immature Granulocyte # (Auto) 0.01 0.00-0.02 K/uL Prothrombin Time 46.2 9.0-12.0 SECONDS Prothromb Time International Ratio 4.1 0.9-1.1 Sodium Level 138 136-145 mmol/L Potassium Level 3.9 3.5-5.1 mmol/L Chloride Level 105 98-107 mmol/L Carbon Dioxide Level 28 21-32 mmol/L Anion Gap 5.0 3-11 mmol/L Blood Urea Nitrogen 11 7-18 mg/dl Creatinine 1.10 0.60-1.20 mg/dl Est Creatinine Clear Calc Drug Dose 49.5 ml/min Estimated GFR () 58.9 Estimated GFR (Non- 50.8 BUN/Creatinine Ratio 10.2 10-20 Random Glucose 120 70-99 mg/dl Calcium Level 8.8 8.5-10.1 mg/dl Total Bilirubin 0.4 0.2-1 mg/dl Direct Bilirubin < 0.1 0-0.2 mg/dl Aspartate Amino Transf (AST/SGOT) 14 15-37 U/L Alanine Aminotransferase (ALT/SGPT) 24 12-78 U/L Alkaline Phosphatase 80 45-117 U/L Total Protein 7.4 6.4-8.2 gm/dl Albumin 3.3 3.4-5.0 gm/dl Lipase 94 73-393 U/L Urine Color YELLOW Urine Appearance CLEAR CLEAR Urine pH 7.0 4.5-7.5 Urine Specific [place] 1.017 1.000-1.030 Urine Protein NEG NEG Urine Glucose (UA) NEG NEG Urine Ketones NEG NEG Urine Occult Blood TRACE NEG Urine Nitrite NEG NEG Urine Bilirubin NEG NEG Urine Urobilinogen NEG NEG Urine Leukocyte Esterase MODERATE NEG Urine WBC (Auto) 10-30 0-5 /hpf Urine RBC (Auto) 5-10 0-4 /hpf Urine Hyaline Casts (Auto) 10-30 0-5 /lpf Urine Epithelial Cells (Auto) >30 0-5 /lpf Urine Bacteria (Auto) NEG NEG Urine Renal Epithelial Cells 0-5 /lpf Lactic Acid Level 1.4 0.4-2.0 mmol/L Microbiology Results 01/23/17 Urine Culture, Received Pending Diagnostic Radiology CT ABD/PELVIS: 1. No acute intra-abdominal or intrapelvic abnormality identified. 2. Moderate to extensive sigmoid colonic diverticulosis without diverticulitis. 3. 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 4. Prior cholecystectomy with persistent mild intrahepatic and extrahepatic biliary ductal dilation, likely physiologic from postsurgical state. 5. Unchanged prominent venous collaterals over the lower anterior abdominal wall with calcifications of the left femoral vein. Chronic deep venous thrombosis is a differential consideration. Impression Assessment and Plan ABDOMINAL PAIN Pt with onset abdominal pain, N/V last night. Hx cholecystectomy, appendectomy, hysterectomy, oophorectomy. Hx GERD. Vitals stable. Afebrile. No leukocytosis. normal lactic acid. Normal lipase. U/A: mod leuk, WBC: 10-30, RBC: 5-10, epi>30 , neg bacteria. initially given dose of cipro in ER. Pending urine culture. Pt without dysuria, gross hematuria. At this time will hold on further abx until urine culture. No CVA tenderness on exam so less likely pyelonephritis. DDX: gastroenteritis, pancreatitis CT abd/pelvis: 1. No acute intra-abdominal or intrapelvic abnormality identified. 2. Moderate to extensive sigmoid colonic diverticulosis without diverticulitis. -Continue to monitor -NSS 125ml/hr -Dilaudid 1mg IV Q4H prn pain initially, consider decreasing dose upon reassessment -Zofran IV prn N/V -Protonix IV -CBC, CMP, Lipase in am -surgery consult SUPRA THERAPEUTIC INR Pt with hx PE, recurrent DVT. INR 4.1 today. No active bleeding -will hold today's Coumadin -repeat INR in am DM II A1c 6.7 on 08/21/16 -hold glipizide -A1c in am -NovoLog sliding scale -Lantus - will decrease from home dose to 10U BID while pt on clear liquids HTN BP stable -continue atenolol HX CAD Pt denies CP, SOB -continue ASA -continue atenolol -continue Lipitor -nitro prn CP, notify provider and obtain EKG OVERACTIVE BLADDER -hold Ditropan as pt reporting decreased urine out put -continue to monitor DEPRESSION Stable, denies suicidal ideations -continue Cymbalta -continue Wellbutrin DVT PROPHYLAXIS -Coumadin DISPOSITION -admit med/surg obs -Full Code as per discussion with pt -Follows with Dr Rhodes for routine care Pt was seen with Dr Estrada. See addendum ADDENDUM: I have seen and examined this patient. VSS on exam and she denies h/ o fevers or chills. She has no CVA tenderness. She has significant TTP in RUQ extending into the epigastric and LUQ areas, worse in the RUQ. Pain is acute, sharp and constant and she denies having anything like this in the past. She had some vomiting overnight and reports nausea controlled only because of antiemetics being given. Abdomen is otherwise soft and not distended with a ventral hernia. Physical exam otherwise unremarkable. Agree with supportive care with IVF, pain meds and antiemetics. Apprec Surgery following serial abd exams. DO Sean Level of Care Med/Surg Advanced Directives Existing Living Will: No Existing Power of Display Department Manager: No Resuscitation Status FULL RESUSCITATION VTE Prophylaxis VTE Risk Assessment Done? Y/N: Yes Risk Level: Moderate Given or contraindicated: Warfarin (Coumadin) Additional Copies To Ayanna Rhodes M.D.
[2017-01-23] MEDS: INSULIN ASPART 100 UNITS/ML 3 ML PEN SC SCH ×2 (18:37→21:50)
[2017-01-23] MEDS: ONDANSETRON INJ 2 MG/ML 2 ML VIAL IV PRN (18:43)
[2017-01-23 19:28] VITALS: BP 127/88; PULSE 56; TEMP 36.6; O2SAT 92
[2017-01-23] MEDS ORDERED: ROPI4TAB3 PO (20:39)
[2017-01-23] MEDS ORDERED: INSULIN GLARGINE SOLOSTAR 100 UNITS/ML 3 ML PEN SC SCH (21:00)
[2017-01-23] MEDS: ACETAMINOPHEN 325 MG TAB PO PRN (21:47)
[2017-01-23] MEDS: ROPINIROLE HCL 1 MG TAB PO SCH (21:47)
[2017-01-23] MEDS: BuPROPion SR 150 MG TABCR PO SCH (21:47)
[2017-01-23 22:58] VITALS: BP 123/81; PULSE 57; TEMP 36.5; O2SAT 93
[2017-01-23] MEDS: TRAMADOL HCL 50 MG TAB PO PRN (23:57)
[2017-01-24] MEDS: TRAMADOL HCL 50 MG TAB PO PRN ×3 (06:08→23:21)
--- NOTE | 2017-01-24 07:40 | SURGERY PROGRESS NOTE ---
DATE: 01/24/2017 Salomon is resting in bed but still has moderate abdominal pain localized in the right lower rib cage. The pain is fairly much constant as it was yesterday. She is slightly nauseated. Her last vitals showed a temperature of 36.5, pulse 57, respirations 12, blood pressure 123/81, O2 sat is 93 on room air. I&O noted. Laboratory joseph is pending this morning. Yesterday her INR was 4.1. On physical exam, the patient has the most localized tenderness is in the right lower rib cage probably from the 9 to the 12th rib distribution as it is sensitive to touch. I do not see any skin breakdown at this time or any excoriation that may mimic a viral component such as shingles. The rest of the abdomen is benign. She does have what appears to be a soft tissue possibly lipoma above her incision which is a lower transverse incision. At this point, I think continue supportive care. We will leave it up to the medical service whether they want to treat her empirically for herpes simplex. I will review the CAT scan again with the radiologist today to see if there is any abdominal wall or lower rib cage pathology that may have been overlooked.
[2017-01-24 07:45] VITALS: BP 124/78; PULSE 62; TEMP 37; O2SAT 94
[2017-01-24 07:59] LABS: HEMATOCRIT 36.7 % (37-47); MEAN CELL VOLUME 100.5 fL (80-100); MEAN CORPUSCULAR HEMOGLOBIN 31.8 pg (25-34); MEAN CORPUSCULAR HGB CONC 31.6 g/dl (32-36); MEAN PLATELET VOLUME 10.1 fL (7.4-10.4); PLATELET COUNT 244 K/uL (130-400); RED BLOOD COUNT 3.65 M/uL (4.2-5.4); WHITE BLOOD COUNT 6.74 K/uL (4.8-10.8)
[2017-01-24] MEDS: INSULIN ASPART 100 UNITS/ML 3 ML PEN SC SCH ×4 (08:00→21:00)
[2017-01-24 08:04] VITALS: O2SAT 94
[2017-01-24 08:07] LABS: INR 3.1 (0.9-1.1)
[2017-01-24] MEDS: SODIUM CHLORIDE 0.9% 1000ML 1,000 ML IV SCH ×2 (08:24→16:13)
[2017-01-24 08:27] LABS: BUN/CREATININE RATIO 8.2 (10-20); CALCIUM 7.7 mg/dl (8.5-10.1); CREATININE 0.97 mg/dl (0.60-1.20)
[2017-01-24 08:30] LABS: ALB/GLOB RATIO 0.8 (0.9-2)
[2017-01-24] MEDS ORDERED: HYDROmorphone INJ 1 MG/ML SYR IV STA (08:36)
[2017-01-24] MEDS: ONDANSETRON INJ 2 MG/ML 2 ML VIAL IV PRN ×2 (08:44→15:51)
[2017-01-24] MEDS: ASPIRIN 81 MG ECTAB PO SCH (08:53)
[2017-01-24] MEDS: ATORVASTATIN 40 MG TAB PO SCH (08:53)
[2017-01-24] MEDS: BuPROPion SR 150 MG TABCR PO SCH ×2 (08:53→20:59)
[2017-01-24] MEDS: DULOXETINE HCL 60 MG CAP PO SCH (08:53)
[2017-01-24] MEDS ORDERED: GABAPENTIN 600 MG TAB PO STA (08:55)
[2017-01-24 09:50] LABS: ESTIMATED AVERAGE GLUCOSE 146 mg/dl; HA1C FLAG Normal (Normal)
--- NOTE | 2017-01-24 11:12 | DIAGNOSTIC IMAGING REPORT ---
ABDOMINAL ULTRASOUND, RIGHT UPPER QUADRANT HISTORY: right upper quadrant pain. COMPARISON: Abdomen and pelvis CT 01/23/2017. FINDINGS: Pancreas: Obscured by overlying bowel gas. Liver: No hepatic masses. The liver is 17 cm in length. Gallbladder: The gallbladder is surgically absent. CBD: 8 mm. This is within the range of normal limits given the patient's age and postcholecystectomy state. Right kidney: No hydronephrosis. IMPRESSION: 1. Cholecystectomy. 2. The pancreas is obscured by overlying bowel gas. Electronically signed by: Nemesio Hopson M.D. 01/24/2017 11:10 AM Dictated Date/Time: 01/24/2017 11:09 AM
[2017-01-24] MEDS: ACYCLOVIR 400 MG TAB PO SCH ×3 (11:15→20:59)
--- NOTE | 2017-01-24 11:16 | DIAGNOSTIC IMAGING REPORT ---
DUPLEX MESENTERIC CLINICAL HISTORY: 71 years-old Female presenting with rule out vascular obstruction. TECHNIQUE: Real-time grayscale and color and spectral Doppler ultrasound imaging of the aorta and mesenteric vessels was performed. COMPARISON: CT from 01/23/2017. FINDINGS: Aorta: Patent. Normal waveforms. Peak systolic velocity 86 cm/s. Celiac axis: Patent. Normal waveforms. Peak systolic velocity 126 cm/s. Hepatic artery: Not visualized. Splenic artery: Not visualized. Superior mesenteric artery: Patent. Normal waveforms. Peak systolic velocity 226 cm/s proximally, 109 cm/s in the midportion, and 98 cm/s distally. Inferior mesenteric artery: Not visualized. Reference ranges: Celiac artery: PSV ? 240 cm/s suggests stenosis ? 50%; PSV ? 320 cm/s suggests stenosis ? 70%. Superior mesenteric artery: PSV ? 295 cm/s suggests stenosis ? 50%; PSV ? 400 cm/s suggests stenosis ? 70%. IMPRESSION: 1. No evidence of abdominal aortic aneurysm or hemodynamically significant atherosclerotic plaque. Electronically signed by: Carlton lAcala M.D. 01/24/2017 11:15 AM Dictated Date/Time: 01/24/2017 11:12 AM
[2017-01-24] MEDS: PANTOprazole INJ 40 MG in SYRINGE 0 ML IV SCH (11:17)
--- NOTE | 2017-01-24 11:21 | DIAGNOSTIC IMAGING REPORT ---
ULTRASOUND KIDNEYS AND BLADDER CLINICAL HISTORY: Right flank pain. COMPARISON STUDY: Abdominal CT dated 01/23/2017. TECHNIQUE: Real-time, grayscale, and color flow sonography of the kidneys and bladder is performed. Images are reviewed in the transverse and longitudinal planes. FINDINGS: Kidneys: The kidneys demonstrate cortical atrophy. The right kidney measures 12.1 x 5.3 x 4.8 cm and the left kidney measures 11.2 x 5.7 x 3.7 cm. Small foci of cortical scarring are seen bilaterally. There is no hydronephrosis. No shadowing renal calculi are identified. There is no sonographic evidence of contour deforming renal mass lesion. No perinephric fluid is identified. Bladder: The bladder is decompressed and grossly unremarkable. Ureteral jets were not seen. IMPRESSION: 1. The kidneys demonstrate cortical atrophy and are without hydronephrosis. 2. The bladder was decompressed and is grossly unremarkable. Electronically signed by: Damian Kinney M.D. 01/24/2017 11:20 AM Dictated Date/Time: 01/24/2017 11:19 AM
[2017-01-24 15:39] VITALS: BP 144/87; PULSE 66; TEMP 36.6; O2SAT 94
[2017-01-24] MEDS ORDERED: WARFARIN SOD 2 MG TAB PO SCH (16:00)
[2017-01-24] MEDS: HYDROmorphone INJ 0.5 MG/0.5 ML SYR IV PRN ×2 (16:08→21:04)
--- NOTE | 2017-01-24 20:19 | Progress Note ---
Internal Med Progress Note Date of Service: Jan 24, 2017. Provider Documentation: SUBJECTIVE: Patient seen and assessed at the bedside. Has been having right upper quadrant pain and on exam right flank costovertebral tenderness OBJECTIVE: Exam: General- awake and alert Eyes- EOMI ENT- no epistaxis Neck- no JVD Lungs- CTABL Heart- bradycardic Abdomen- tenderness to palpation of right upper quadrant, ight flank costovertebral tenderness Extremities- no calf tenderness Neuro- residual left sided weakness from history of stroke in the past ASSESSMENT & PLAN: CT abd/pelvis: 1. No acute intra-abdominal or intrapelvic abnormality identified. 2. Moderate to extensive sigmoid colonic diverticulosis without diverticulitis. Ultrasound abdomen and kidneys did not find evidence for mesenteric ischemia or Kidney stones There are no skin findings of zoster however general surgery consultation concerned that patient may be have pre-lesional zoster pain Have started acyclovir empirically and gabapentin for neuralgia Continue other pain medications od Cymbata and dilaudid prn Pt with hx PE, recurrent DVT. INR 4.1 on admission with INR today 3.1 after coumadin was held on day of admission Will restart home dosed Coumadin medication regimen and trend INR DM II A1c 6.7 on 08/21/16 -hold glipizide -NovoLog sliding scale -on reduced dosed Lantus while pt on clear liquids and less appetite HTN BP stable -continue atenolol HX CAD Pt denies CP, SOB -continue ASA -continue atenolol -continue Lipitor OVERACTIVE BLADDER -hold Ditropan as pt reporting decreased urine out put -continue to monitor DEPRESSION Stable, denies suicidal ideations -continue Cymbalta -continue Wellbutrin DVT PROPHYLAXIS -Coumadin DISPOSITION -admit med/surg obs -Full Code as per discussion with pt -Follows with Dr Rhodes for routine care Vital Signs: Date Time Temp Pulse Resp B/P (MAP) Pulse Ox O2 Delivery O2 Flow Rate FiO2 01/24/17 15:45 Room Air 01/24/17 15:39 36.6 66 18 144/87 (106) 94 Room Air 01/24/17 08:04 94 Room Air 01/24/17 07:45 Room Air 01/24/17 07:45 37.0 62 16 124/78 (93) 94 Room Air 01/23/17 23:50 Room Air 01/23/17 22:58 36.5 57 12 123/81 (95) 93 Room Air Lab Results: Results Past 24 Hours Test 01/23/17 20:35 01/24/17 07:38 01/24/17 07:59 01/24/17 11:50 Range/Units Bedside Glucose 83 120 113 70-90 mg/dl White Blood Count 6.74 4.8-10.8 K/uL Red Blood Count 3.65 4.2-5.4 M/uL Hemoglobin 11.6 12.0-16.0 g/dL Hematocrit 36.7 37-47 % Mean Corpuscular Volume 100.5 80-100 fL Mean Corpuscular Hemoglobin 31.8 25-34 pg Mean Corpuscular Hemoglobin Concent 31.6 32-36 g/dl RDW Standard Deviation 53.4 36.4-46.3 fL RDW Coefficient of Variation 14.5 11.5-14.5 % Platelet Count 244 130-400 K/uL Mean Platelet Volume 10.1 7.4-10.4 fL Prothrombin Time 35.0 9.0-12.0 SECONDS Prothromb Time International Ratio 3.1 0.9-1.1 Sodium Level 137 136-145 mmol/L Potassium Level 4.0 3.5-5.1 mmol/L Chloride Level 105 98-107 mmol/L Carbon Dioxide Level 26 21-32 mmol/L Anion Gap 6.0 3-11 mmol/L Blood Urea Nitrogen 8 7-18 mg/dl Creatinine 0.97 0.60-1.20 mg/dl Est Creatinine Clear Calc Drug Dose 56.1 ml/min Estimated GFR () 68.6 Estimated GFR (Non- 59.2 BUN/Creatinine Ratio 8.2 10-20 Random Glucose 123 70-99 mg/dl Estimated Average Glucose 146 mg/dl Hemoglobin A1c 6.7 4.5-5.6 % Calcium Level 7.7 8.5-10.1 mg/dl Total Bilirubin 0.5 0.2-1 mg/dl Aspartate Amino Transf (AST/SGOT) 15 15-37 U/L Alanine Aminotransferase (ALT/SGPT) 20 12-78 U/L Alkaline Phosphatase 77 45-117 U/L Total Protein 6.5 6.4-8.2 gm/dl Albumin 2.9 3.4-5.0 gm/dl Globulin 3.6 2.5-4.0 gm/dl Albumin/Globulin Ratio 0.8 0.9-2 Lipase 82 73-393 U/L Test 01/24/17 17:10 Range/Units Bedside Glucose 74 70-90 mg/dl
[2017-01-24] MEDS: ROPINIROLE HCL 1 MG TAB PO SCH (21:00)
[2017-01-24 23:02] VITALS: BP 143/70; PULSE 63; TEMP 36.7; O2SAT 94
[2017-01-25] MEDS: SODIUM CHLORIDE 0.9% 1000ML 1,000 ML IV SCH (00:23)
[2017-01-25] MEDS: ACETAMINOPHEN 325 MG TAB PO PRN ×2 (04:00→13:51)
[2017-01-25 04:33] VITALS: O2SAT 92
[2017-01-25 04:34] VITALS: O2SAT 96
[2017-01-25] MEDS ORDERED: ALBUT/IPRATROP 3MG/0.5MG NEB 3 ML VIAL INH PRN (05:00)
[2017-01-25 05:29] VITALS: PULSE 82; O2SAT 96
--- NOTE | 2017-01-25 07:23 | DIAGNOSTIC IMAGING REPORT ---
CHEST ONE VIEW PORTABLE CLINICAL HISTORY: 71 years-old Female presenting with sob. TECHNIQUE: Portable upright AP view of the chest was obtained. COMPARISON: 09/14/2016. FINDINGS: Cardiomediastinal silhouette normal. Lungs and pleural spaces clear. Degenerative changes of the thoracic spine. Upper abdomen normal. IMPRESSION: 1. No acute cardiopulmonary disease. Electronically signed by: Carlton Alcala M.D. 01/25/2017 7:22 AM Dictated Date/Time: 01/25/2017 7:21 AM
[2017-01-25 07:24] VITALS: BP 130/76; PULSE 73; TEMP 36.7; O2SAT 97
[2017-01-25] MEDS: TRAMADOL HCL 50 MG TAB PO PRN ×2 (07:24→21:01)
--- NOTE | 2017-01-25 07:25 | SURGERY PROGRESS NOTE ---
DATE: 01/25/2017 Salomon still is complaining of significant pain in the right ribcage. Now she feels some of the pain is underneath the ribcage. I reviewed the CAT scan yesterday with the radiologist, there was nothing pertinent found in the musculoskeletal area of any significance. They questioned a minimal possible inflammatory process in the colon, but it is of soft reading. On exam today, she has localized tenderness again in the same area distribution between the 9th and 12th rib area. There is no skin erosions or any skin lesion at this time is suspicious for herpes, although she was started on Zovirax yesterday. However, clinically the patient is a little bit nauseated, but she was able to rest comfortably during the night. At this point, I would continue the present therapy. I do not see any reason to any reimaging. If the pain persists the next 24 hours that is not sufficient for oral analgesics then consideration may be given to the pain management possibility to a block that would just be therapeutic and diagnostic.
[2017-01-25] MEDS: INSULIN ASPART 100 UNITS/ML 3 ML PEN SC SCH ×4 (08:00→21:00)
[2017-01-25 08:17] LABS: BASO % 0.4 %; BASO ABS # 0.03 K/uL (0-0.2); COMPLETE YES; EOS % 1.2 %; IG% 0.4 %; LYMPH % 26.7 %; LYMPH ABS # 1.79 K/uL (1.2-3.4); MEAN CORPUSCULAR HEMOGLOBIN 32.6 pg (25-34); MEAN CORPUSCULAR HGB CONC 32.6 g/dl (32-36); MEAN PLATELET VOLUME 10.2 fL (7.4-10.4); MONO % 7.8 %; NEUT % 63.5 %; PLATELET COUNT 236 K/uL (130-400)
[2017-01-25 08:22] LABS: INR 3.3 (0.9-1.1)
[2017-01-25] MEDS: ASPIRIN 81 MG ECTAB PO SCH (08:42)
[2017-01-25] MEDS: ATORVASTATIN 40 MG TAB PO SCH (08:43)
[2017-01-25] MEDS: ACYCLOVIR 400 MG TAB PO SCH ×3 (08:43→21:02)
[2017-01-25] MEDS: DULOXETINE HCL 60 MG CAP PO SCH (08:43)
[2017-01-25] MEDS: BuPROPion SR 150 MG TABCR PO SCH ×2 (08:43→21:02)
[2017-01-25 08:44] LABS: BUN/CREATININE RATIO 7.3 (10-20); C-REACTIVE PROTEIN 0.54 mg/dl (0-0.29); CALCIUM 7.6 mg/dl (8.5-10.1); CREATININE 0.79 mg/dl (0.60-1.20); POTASSIUM 3.6 mmol/L (3.5-5.1)
[2017-01-25 08:47] LABS: ALB/GLOB RATIO 0.8 (0.9-2)
[2017-01-25] MEDS ORDERED: GABAPENTIN 600 MG TAB PO SCH (09:00)
[2017-01-25] MEDS: HYDROmorphone INJ 0.5 MG/0.5 ML SYR IV PRN (09:21)
[2017-01-25] MEDS ORDERED: POLYETHYLENE (MIRALAX) 17 GM PACK PO STA (10:37)
[2017-01-25] MEDS ORDERED: POTASSIUM CHLORIDE 20 MEQ TABCR PO STA (10:40)
[2017-01-25] MEDS ORDERED: POLYETHYLENE (MIRALAX) 17 GM PACK PO PRN (10:45)
[2017-01-25] MEDS: PANTOprazole INJ 40 MG in SYRINGE 0 ML IV SCH (11:06)
--- NOTE | 2017-01-25 15:12 | DIAGNOSTIC IMAGING REPORT ---
ULTRASOUND BILATERAL UPPER EXTREMITY VENOUS CLINICAL HISTORY: Upper extremity edema. COMPARISON STUDY: No priors.. TECHNIQUE: Real-time, grayscale, and color Doppler sonography of the deep veins of the right and left upper extremity is performed. Compression and augmentation were utilized. FINDINGS: There is no sonographic evidence of deep venous thrombosis identified in the right or left upper extremity. The internal jugular, axillary, and brachial veins are patent and normally compressible bilateral. Normal venous waveforms and augmentation are seen within the subclavian veins. The cephalic and basilic veins are clear in both are. The visualized radial and ulnar veins are patent bilaterally. IMPRESSION: There is no sonographic evidence of deep venous thrombosis identified in the right or left upper extremity. Electronically signed by: Damian Kinney M.D. 01/25/2017 3:11 PM Dictated Date/Time: 01/25/2017 3:11 PM
[2017-01-25 15:25] VITALS: BP 144/80; PULSE 73; TEMP 36.9; O2SAT 96
[2017-01-25] MEDS ORDERED: WARFARIN SOD 4 MG TAB PO SCH (16:00)
[2017-01-25] MEDS: ONDANSETRON INJ 2 MG/ML 2 ML VIAL IV PRN (19:12)
--- NOTE | 2017-01-25 19:31 | Progress Note ---
Internal Med Progress Note Date of Service: Jan 25, 2017. Provider Documentation: SUBJECTIVE: Patient seen and assessed at the bedside. IV fluids stopped due to hand swelling. Has been having right upper quadrant pain and on exam right flank costovertebral tenderness unchanged from yesterday. Lightheaded and headache when standing up. OBJECTIVE: Exam: General- awake and alert Eyes- EOMI ENT- no epistaxis Neck- no JVD Lungs- CTABL Heart- RRR Abdomen- tenderness to palpation of right upper quadrant, right flank costovertebral tenderness, no skin findings of Zoster lesions Extremities- no calf tenderness Neuro- residual left sided weakness from history of stroke in the past ASSESSMENT & PLAN: CT abd/pelvis: 1. No acute intra-abdominal or intrapelvic abnormality identified. 2. Moderate to extensive sigmoid colonic diverticulosis without diverticulitis. Ultrasound abdomen and kidneys did not find evidence for mesenteric ischemia or Kidney stones There are no skin findings of zoster however general surgery consultation concerned that patient may be have pre-lesional zoster pain Have started acyclovir empirically and gabapentin for neuralgia, gabapentin to be held because of lightheadedness Continue other pain medications of Cymbata and dilaudid prn Pain management consultation requested Pt with hx PE, recurrent DVT. INR 4.1 on admission Unchanged prominent venous collaterals over the lower anterior abdominal wall with calcifications of the left femoral vein. Chronic deep venous thrombosis is a differential consideration Ultrasound studies did not find evidence of upper extremities DVTs Home dosed Coumadin restarted and INR 3.3, unclear whether patient may need nerve block by pain management and will hold warfarin for now If INR becomes subtherapeutic and pain management does not need to do never block, then can supplement anticoagulation with Lovenox DM II A1c 6.7 on 08/21/16 -hold glipizide -NovoLog sliding scale -on reduced dosed Lantus while pt on clear liquids and less appetite, tolerating liquid diet to some extent HTN BP stable -continue atenolol HX CAD Pt denies CP, SOB -continue ASA -continue atenolol -continue Lipitor OVERACTIVE BLADDER -hold Ditropan as pt reporting decreased urine out put -continue to monitor DEPRESSION Stable, denies suicidal ideations -continue Cymbalta -continue Wellbutrin DVT PROPHYLAXIS -Coumadin therapeutic INR DISPOSITION -Full Code as per discussion with pt -Follows with Dr Rhodes for routine care Vital Signs: Date Time Temp Pulse Resp B/P (MAP) Pulse Ox O2 Delivery O2 Flow Rate FiO2 01/25/17 16:00 Room Air 01/25/17 15:25 36.9 73 18 144/80 (101) 96 Room Air 01/25/17 07:50 Nasal Cannula 2.0 01/25/17 07:24 36.7 73 18 130/76 (94) 97 Nasal Cannula 2.0 01/25/17 05:29 82 16 96 Nasal Cannula 2.0 01/25/17 04:34 96 Nasal Cannula 2.0 01/25/17 04:33 92 Room Air 01/24/17 23:10 Room Air 01/24/17 23:02 36.7 63 16 143/70 (94) 94 Room Air Lab Results: Results Past 24 Hours Test 01/24/17 20:30 01/25/17 07:57 01/25/17 08:14 01/25/17 12:05 Range/Units Bedside Glucose 93 121 129 70-90 mg/dl White Blood Count 6.70 4.8-10.8 K/uL Red Blood Count 3.50 4.2-5.4 M/uL Hemoglobin 11.4 12.0-16.0 g/dL Hematocrit 35.0 37-47 % Mean Corpuscular Volume 100.0 80-100 fL Mean Corpuscular Hemoglobin 32.6 25-34 pg Mean Corpuscular Hemoglobin Concent 32.6 32-36 g/dl Platelet Count 236 130-400 K/uL Mean Platelet Volume 10.2 7.4-10.4 fL Neutrophils (%) (Auto) 63.5 % Lymphocytes (%) (Auto) 26.7 % Monocytes (%) (Auto) 7.8 % Eosinophils (%) (Auto) 1.2 % Basophils (%) (Auto) 0.4 % Neutrophils # (Auto) 4.25 1.4-6.5 K/uL Lymphocytes # (Auto) 1.79 1.2-3.4 K/uL Monocytes # (Auto) 0.52 0.11-0.59 K/uL Eosinophils # (Auto) 0.08 0-0.5 K/uL Basophils # (Auto) 0.03 0-0.2 K/uL RDW Standard Deviation 51.8 36.4-46.3 fL RDW Coefficient of Variation 14.3 11.5-14.5 % Immature Granulocyte % (Auto) 0.4 % Immature Granulocyte # (Auto) 0.03 0.00-0.02 K/uL Erythrocyte Sedimentation Rate 27 0-21 mm/hr Prothrombin Time 37.0 9.0-12.0 SECONDS Prothromb Time International Ratio 3.3 0.9-1.1 Sodium Level 137 136-145 mmol/L Potassium Level 3.6 3.5-5.1 mmol/L Chloride Level 104 98-107 mmol/L Carbon Dioxide Level 26 21-32 mmol/L Anion Gap 7.0 3-11 mmol/L Blood Urea Nitrogen 6 7-18 mg/dl Creatinine 0.79 0.60-1.20 mg/dl Est Creatinine Clear Calc Drug Dose 68.9 ml/min Estimated GFR () 87.9 Estimated GFR (Non- 75.8 BUN/Creatinine Ratio 7.3 10-20 Random Glucose 111 70-99 mg/dl Calcium Level 7.6 8.5-10.1 mg/dl Total Bilirubin 0.4 0.2-1 mg/dl Aspartate Amino Transf (AST/SGOT) 14 15-37 U/L Alanine Aminotransferase (ALT/SGPT) 18 12-78 U/L Alkaline Phosphatase 68 45-117 U/L C-Reactive Protein 0.54 0-0.29 mg/dl Total Protein 6.3 6.4-8.2 gm/dl Albumin 2.8 3.4-5.0 gm/dl Globulin 3.5 2.5-4.0 gm/dl Albumin/Globulin Ratio 0.8 0.9-2
[2017-01-25] MEDS: SENNA 8.6 MG TAB PO SCH (21:01)
[2017-01-25] MEDS: ROPINIROLE HCL 1 MG TAB PO SCH (21:02)
[2017-01-25 22:48] VITALS: BP 131/85; PULSE 79; TEMP 37.1; O2SAT 93
[2017-01-26 06:19] LABS: BASO % 0.3 %; BASO ABS # 0.03 K/uL (0-0.2); COMPLETE YES; EOS % 0.7 %; HEMATOCRIT 35.9 % (37-47); IG% 0.1 %; LYMPH % 23.6 %; LYMPH ABS # 2.08 K/uL (1.2-3.4); MEAN CELL VOLUME 99.2 fL (80-100); MEAN CORPUSCULAR HEMOGLOBIN 31.8 pg (25-34); MEAN PLATELET VOLUME 9.8 fL (7.4-10.4); MONO % 7.7 %; NEUT % 67.6 %; PLATELET COUNT 244 K/uL (130-400); RED BLOOD COUNT 3.62 M/uL (4.2-5.4); WHITE BLOOD COUNT 8.83 K/uL (4.8-10.8)
[2017-01-26 06:26] LABS: INR 3.3 (0.9-1.1); PROTHROMBIN TIME (PATIENT) 36.8 SECONDS (9.0-12.0)
[2017-01-26 06:48] LABS: BUN/CREATININE RATIO 5.8 (10-20); CREATININE 0.81 mg/dl (0.60-1.20); POTASSIUM 3.7 mmol/L (3.5-5.1)
[2017-01-26 06:51] LABS: ALB/GLOB RATIO 0.8 (0.9-2)
[2017-01-26] MEDS: TRAMADOL HCL 50 MG TAB PO PRN (07:32)
[2017-01-26 07:53] VITALS: BP 138/82; PULSE 74; TEMP 36.8; O2SAT 94
--- NOTE | 2017-01-26 07:57 | SURGERY PROGRESS NOTE ---
DATE: 01/26/2017 SUBJECTIVE: Maribeth continues to have pain which is according to her not resolved at all since admission. She states it is still localized in her right lower chest rib cage between the 9 and 12th rib. OBJECTIVE: On examination, she is exquisitely tender in that area without any skin breakdown. At this point, her vitals showed a temperature of 37.1, pulse 79, respirations 16, blood pressure 131/85, O2 sats 93 on room air. The abdomen is completely benign, although she is complaining of some nausea. Laboratory-joseph, her INR is 3.3 today. She has no white count, no left shift, hemoglobin is 11.5. ASSESSMENT AND PLAN: At this point we will await pain management input. We may need to reconsider getting a CT scan of the chest and abdomen if she continues to have this incapacitating pain.
[2017-01-26 07:59] VITALS: O2SAT 94
[2017-01-26] MEDS: INSULIN ASPART 100 UNITS/ML 3 ML PEN SC SCH ×4 (08:00→21:00)
[2017-01-26] MEDS: ONDANSETRON INJ 2 MG/ML 2 ML VIAL IV PRN (09:00)
[2017-01-26] MEDS: HYDROmorphone INJ 0.5 MG/0.5 ML SYR IV PRN ×2 (09:07→21:10)
[2017-01-26] MEDS: ASPIRIN 81 MG ECTAB PO SCH (09:08)
[2017-01-26] MEDS: ACYCLOVIR 400 MG TAB PO SCH ×3 (09:08→21:02)
[2017-01-26] MEDS: SENNA 8.6 MG TAB PO SCH ×2 (09:08→21:00)
[2017-01-26] MEDS: ATORVASTATIN 40 MG TAB PO SCH (09:08)
[2017-01-26] MEDS: DULOXETINE HCL 60 MG CAP PO SCH (09:08)
[2017-01-26] MEDS: BuPROPion SR 150 MG TABCR PO SCH ×2 (09:08→21:02)
[2017-01-26] MEDS: PANTOprazole SOD 40 MG TAB PO SCH (09:09)
[2017-01-26] MEDS: GABAPENTIN 100 MG CAP PO SCH ×2 (09:38→21:02)
--- NOTE | 2017-01-26 10:27 | Pain Management Consultation ---
Pain Management Consultation Date of Consultation Jan 26, 2017. Reason for Consultation right abdominal pain Pain Location 1 - 2 - History Mrs. Kamara is a 71 year old white female that is being seen in consultation of the [facility] for right sided abdominal pain that has been ongoing for 4 days without any known cause. She describes a deep aching pain with sharp stabbing depending on physical activity. Pain is aggravated by laying on the right side, twisting, and bending forwards. Laying on her left side does decrease the pain. She denies any injury. Ther pain started abruptly 6 hours prior to arrival into the Emergency Department. There is associated nausea and vomiting. Patient denies ever having a similar pain before. She rates her pain an 8/10. Abdominal CT scan is negative, ultrasound is negative. Patient does have a history of a cholecystectomy. She is taking Tramadol 50mg x 4 hours PRN pain which is mildly efficacious. There is a suspicion of herpes zoster but the rash is not yet present so she has been empirically placed on Gabapentin and Acyclovir. Gabapentin at 600mg caused lightheadedness. She denies any constipation, diarrhea, vomiting, urinary sx, fevers. Case discussed with Dr. 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 (15) Macular degeneration (16) Abdominal pain (17) History of hysterectomy (18) History of cholecystectomy (19) History of appendectomy (20) S/P removal of ovarian cyst (21) History of salpingo-oophorectomy Family History Early CAD FATHER ( in 30s of MO) MOTHER ( in 30s of [place]) BROTHER ( in 50s of [place]) GRANDFATHER GRANDMOTHER FHx: cancer DAUGHTER (hx cervical and throat CA) FHx: gallbladder disease FHx: heart disease FHx: hypertension GRANDFATHER GRANDMOTHER Stroke GRANDMOTHER Social / Work History Smokeless Tobacco Use: No Alcohol Use: socially Drug Use: none Marital Status: Housing Status: lives with family Occupation: retired Allergies Coded Allergies: Macrolides and Ketolides (Verified Allergy, Unknown, `, 01/23/17) Niacin (Verified Allergy, Unknown, 01/23/17) Penicillins (Verified Allergy, Unknown, 01/23/17) Procaine (Verified Allergy, Unknown, unknown, 01/23/17) Pt states she either swelled or had a rash. Sulfa Antibiotics (Verified Allergy, Unknown, `, 01/23/17) Uncoded Allergies: MIACIN (Allergy, Unknown, UNKNOWN, 09/08/16) Medications Current Inpatient Medications Medications (Trade) Dose Ordered Sig/Juany Route Start Time Stop Time Status Last Admin Dose Admin Ioversol (Optiray 320) 100 ml UD PRN IV 01/23/17 11:45 01/27/17 11:44 Miscellaneous (Iv Fluids Completed) 1 ea PRN PRN N/A 01/23/17 15:30 01/23/18 15:29 Ondansetron HCl (Zofran Inj) 4 mg Q6H PRN IV 01/23/17 15:30 02/22/17 15:29 01/26/17 09:00 4 MG Albuterol (Ventolin Hfa Inhaler) 2 puffs QID PRN INH 01/23/17 16:15 02/22/17 16:14 Aspirin (Ecotrin Tab) 81 mg DAILY PO 01/24/17 09:00 02/23/17 08:59 01/26/17 09:08 81 MG Atenolol (Tenormin Tab) 25 mg DAILY PO 01/24/17 09:00 02/23/17 08:59 01/26/17 09:09 25 MG Atorvastatin Calcium (Lipitor Tab) 80 mg DAILY PO 01/24/17 09:00 02/23/17 08:59 01/26/17 09:08 80 MG Bupropion HCl (Wellbutrin-Sr Tab) 150 mg BID PO 01/23/17 21:00 02/22/17 20:59 01/26/17 09:08 150 MG Duloxetine HCl (Cymbalta Cap) 60 mg DAILY PO 01/24/17 09:00 02/23/17 08:59 01/26/17 09:08 60 MG Nitroglycerin (Nitrostat Tab) 0.4 mg UD PRN SL 01/23/17 15:45 02/22/17 15:44 Miscellaneous Information (Order Awaiting Action) 1 ea QS N/A 01/23/17 16:00 02/22/17 15:59 Insulin Glargine (Lantus Solostar Pen) 10 units Q12 SC 01/23/17 21:00 02/22/17 20:59 Future Hold Insulin Aspart (novoLOG ASPART) SLIDING SCALE If C... ACHS SC 01/23/17 17:15 02/22/17 17:14 Glucose (Glucose 40% Gel) 15-30 GRAMS 15 GRAMS... UD PRN PO 01/23/17 16:15 02/22/17 16:14 Glucose (Glucose Chew Tab) 4-8 Tablets 4 Tabl... UD PRN PO 01/23/17 16:15 02/22/17 16:14 Dextrose (Dextrose 50% 50ML Syringe) 25-50ML OF 50% DW IV FOR... UD PRN IV 01/23/17 16:15 02/22/17 16:14 01/23/17 19:00 25 ML Glucagon (Glucagon Inj) 1 mg UD PRN SQ 01/23/17 16:15 02/22/17 16:14 Hydromorphone HCl (Dilaudid Inj) 0.5 mg Q2H PRN IV 01/23/17 20:15 02/06/17 15:44 01/26/17 09:07 0.5 MG Acetaminophen (Tylenol Tab) 650 mg Q6H PRN PO 01/23/17 20:15 02/22/17 20:14 01/25/17 13:51 650 MG Tramadol HCl (Ultram Tab) 50 mg Q6H PRN PO 01/23/17 20:15 02/22/17 20:14 01/26/17 07:32 50 MG Ropinirole HCl (Requip Tab) 4 mg HS PO 01/23/17 21:00 02/22/17 20:59 01/25/17 21:02 4 MG Acyclovir (Zovirax Tab) 400 mg TID PO 01/24/17 09:30 02/03/17 09:29 01/26/17 09:08 400 MG Albuterol/ Ipratropium (Duoneb) 3 ml Q2H PRN INH 01/25/17 05:00 02/24/17 04:59 01/25/17 05:29 3 ML Senna (Senokot Tab) 8.6 mg BID PO 01/25/17 21:00 02/24/17 20:59 01/26/17 09:08 8.6 MG Polyethylene (Miralax Powder Packet) 17 gm DAILY PRN PO 01/25/17 10:45 02/24/17 10:44 01/26/17 09:07 17 GM Pantoprazole Sodium (Protonix Tab) 40 mg QAM PO 01/26/17 09:00 02/25/17 08:59 01/26/17 09:09 40 MG Gabapentin (Neurontin Cap) 100 mg BID PO 01/26/17 09:15 02/25/17 09:14 Lidocaine (Lidoderm Patch 5%) 1 patch QAM TD 01/27/17 09:00 02/26/17 08:59 Miscellaneous (Remove Lidoderm Patch) 1 ea DAILY@21 N/A 01/26/17 21:00 02/25/17 20:59 Review of Systems Denies any constitutional, cardiac, pulmonary, neurological, GI, , extremity, endocrine, neuro, ENT, dermatological, or musculoskeletal complaints other than stated in HPI Physical Exam Height & Weight: Height 5 feet, 1.00 inches. Weight 93.000 (Kilograms) 205 (Pounds) Last Vital Signs Documentation Date Time Temp Pulse Resp B/P (MAP) Pulse Ox O2 Delivery O2 Flow Rate FiO2 01/26/17 07:59 94 Room Air 01/26/17 07:53 36.8 74 18 138/82 (100) 01/25/17 07:50 2.0 Exam: GENERAL: Mrs. Kamara is a 71 y/o white female that appears her stated age. Speech and cognition is intact. Mood and affect is appropriate. She does appear moderately uncomfortable with positional changes. HEAD: Normocephalic; atraumatic. EYES: Pupils are round, equal, and reactive to light; EOM intact. ENT: No external ear discharge or lesions. No rhinorrhea or epistaxis. No mucosal lesions. CHEST: Regular chest respiration and excursion. No tenderness of the ribs or intercostal spaces. ABDOMEN: Active bowel sounds throughout. No peritoneal signs. There is exquisite tenderness to light palpation of the right CVA and the right upper and mid abdomen. There is no allodynia. BACK: Full ROM. No midline or facet tenderness. No SI joint tenderness. NEURO: CN II-XII grossly intact with no focal deficits noted. SKIN: No lesions, erythema, or rashes noted. Laboratory Laboratory Results (Last CBC): 01/26/17 05:58 Red Blood Count 3.62 L, Mean Corpuscular Volume 99.2, Mean Corpuscular Hemoglobin 31.8, Mean Corpuscular Hemoglobin Concent 32.0, Mean Platelet Volume 9.8, Neutrophils (%) (Auto) 67.6, Lymphocytes (%) (Auto) 23.6, Monocytes (%) ( Auto) 7.7, Eosinophils (%) (Auto) 0.7, Basophils (%) (Auto) 0.3, Neutrophils # ( Auto) 5.97, Lymphocytes # (Auto) 2.08, Monocytes # (Auto) 0.68 H, Eosinophils # (Auto) 0.06, Basophils # (Auto) 0.[address] Findings ABDOMEN AND PELVIS CT WITH IV CONTRAST CT DOSE: 1015.57 mGy.cm HISTORY: Acute generalized abdominal pain abd pain TECHNIQUE: Multiaxial CT images of the abdomen and pelvis were performed following the use of intravenous contrast. A dose lowering technique was utilized adhering to the principles of ALARA. COMPARISON STUDY: CT abdomen and pelvis 11/01/2016. FINDINGS: Mild subsegmental dependent bibasilar atelectasis. No pneumoperitoneum or pneumatosis. The imaged inferior cardiac chambers are mildly enlarged. Coronary arterial calcifications are noted. Prior cholecystectomy. Mild intrahepatic and nectar hepatic biliary ductal dilation is again seen, likely physiologic changes from post cholecystectomy state. Common bile duct measures 7 mm transversely. Liver is otherwise unremarkable. The spleen, pancreas and adrenal glands are within normal limits. There is cortical lobulation and parenchymal thinning involve the bilateral kidneys. 1.3 center low attenuating lesion of the posterior aspect interpolar right kidney suggests renal cyst. No renal calculi or hydronephrosis. 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 The ureters and urinary bladder are unremarkable. Prior hysterectomy. Unchanged 3.1 x 1.4 cm cystic structure within the region of the right adnexum is noted, nonspecific. There is mild atherosclerosis of the aorta. No bulky adenopathy. Small sliding-type hiatal hernia. There is no bowel obstruction identified. Moderate to extensive sigmoid diverticulosis without CT evidence of acute diverticulitis. The appendix is not seen and may be surgically absent. Nonspecific prominent venous collaterals are seen over the anterior lower pelvis. Calcifications are seen within the left femoral vein. These findings may be related to chronic deep venous thrombosis. Soft tissues are otherwise unremarkable. Diastases recti noted. The bones appear intact. Multilevel degenerative changes of the spine. IMPRESSION: 1. No acute intra-abdominal or intrapelvic abnormality identified. 2. Moderate to extensive sigmoid colonic diverticulosis without diverticulitis. 3. 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 4. Prior cholecystectomy with persistent mild intrahepatic and extrahepatic biliary ductal dilation, likely physiologic from postsurgical state. 5. Unchanged prominent venous collaterals over the lower anterior abdominal wall with calcifications of the left femoral vein. Chronic deep venous thrombosis is a differential consideration. Electronically signed by: Alen Mills M.D. 01/23/2017 1:01 PM Dictated Date/Time: 01/23/2017 12:54 PM Other Findings ABDOMINAL ULTRASOUND, RIGHT UPPER QUADRANT HISTORY: right upper quadrant pain. COMPARISON: Abdomen and pelvis CT 01/23/2017. FINDINGS: Pancreas: Obscured by overlying bowel gas. Liver: No hepatic masses. The liver is 17 cm in length. Gallbladder: The gallbladder is surgically absent. CBD: 8 mm. This is within the range of normal limits given the patient's age and postcholecystectomy state. Right kidney: No hydronephrosis. IMPRESSION: 1. Cholecystectomy. 2. The pancreas is obscured by overlying bowel gas. Electronically signed by: Nemesio Hopson M.D. 01/24/2017 11:10 AM Dictated Date/Time: 01/24/2017 11:09 AM DUPLEX MESENTERIC CLINICAL HISTORY: 71 years-old Female presenting with rule out vascular obstruction. TECHNIQUE: Real-time grayscale and color and spectral Doppler ultrasound imaging of the aorta and mesenteric vessels was performed. COMPARISON: CT from 01/23/2017. FINDINGS: Aorta: Patent. Normal waveforms. Peak systolic velocity 86 cm/s. Celiac axis: Patent. Normal waveforms. Peak systolic velocity 126 cm/s. Hepatic artery: Not visualized. Splenic artery: Not visualized. Superior mesenteric artery: Patent. Normal waveforms. Peak systolic velocity 226 cm/s proximally, 109 cm/s in the midportion, and 98 cm/s distally. Inferior mesenteric artery: Not visualized. Reference ranges: Celiac artery: PSV ? 240 cm/s suggests stenosis ? 50%; PSV ? 320 cm/s suggests stenosis ? 70%. Superior mesenteric artery: PSV ? 295 cm/s suggests stenosis ? 50%; PSV ? 400 cm/s suggests stenosis ? 70%. IMPRESSION: 1. No evidence of abdominal aortic aneurysm or hemodynamically significant atherosclerotic plaque. Electronically signed by: Carlton Alcala M.D. 01/24/2017 11:15 AM Dictated Date/Time: 01/24/2017 11:12 AM ULTRASOUND KIDNEYS AND BLADDER CLINICAL HISTORY: Right flank pain. COMPARISON STUDY: Abdominal CT dated 01/23/2017. TECHNIQUE: Real-time, grayscale, and color flow sonography of the kidneys and bladder is performed. Images are reviewed in the transverse and longitudinal planes. FINDINGS: Kidneys: The kidneys demonstrate cortical atrophy. The right kidney measures 12.1 x 5.3 x 4.8 cm and the left kidney measures 11.2 x 5.7 x 3.7 cm. Small foci of cortical scarring are seen bilaterally. There is no hydronephrosis. No shadowing renal calculi are identified. There is no sonographic evidence of contour deforming renal mass lesion. No perinephric fluid is identified. Bladder: The bladder is decompressed and grossly unremarkable. Ureteral jets were not seen. IMPRESSION: 1. The kidneys demonstrate cortical atrophy and are without hydronephrosis. 2. The bladder was decompressed and is grossly unremarkable. Electronically signed by: Damian Kinney M.D. 01/24/2017 11:20 AM Dictated Date/Time: 01/24/2017 11:19 AM Assessment 1. Right-sided abdominal wall and flank pain of unknown etiology Recommendations 1. There is a concern on the patient's pain being caused by herpes zoster but the patient does not have a rash and her symptoms have been ongoing for 4 days now. The right sided abdominal pain is diffuse rather than focal following a single dermatome. 2. She was unable to tolerate Gabapentin at 600mg so it was changed to 100mg PO BID for possible increased pain relief. 3. Lidocaine patches were ordered and to be applied to the patient's most painful area. 4. Do not recommend interventional procedures at this time. 5. Thoracic MRI w/o contrast has been ordered to evaluate for possible thoracic radiculopathy as a possible etiology to her pain.
--- NOTE | 2017-01-26 15:36 | DIAGNOSTIC IMAGING REPORT ---
THORACIC SPINE WITHOUT HISTORY: Pain. Radiculopathy. thoracic radiculopathy TECHNIQUE: Multiplanar multisequence MRI of the thoracic spine was performed without the use of contrast. COMPARISON: None. FINDINGS: Signal characteristics of the vertebral bodies indicate several small benign bone hemangiomas. No evidence for a true bone marrow replacing process. No compression deformity. Mild degenerative disc change at the entire thoracic region. No major disc herniation or significant component of spinal stenosis. Signal characteristics of the thoracic cord are unremarkable. IMPRESSION: Moderate degenerative disc change at the entire thoracic region. No acute process. The above report was generated using voice recognition software. It may contain grammatical, syntax or spelling errors. Electronically signed by: Barak Lassiter M.D. 01/26/2017 3:35 PM Dictated Date/Time: 01/26/2017 3:32 PM
[2017-01-26 15:49] VITALS: BP 121/72; PULSE 91; TEMP 37.1; O2SAT 92
[2017-01-26 16:00] VITALS: O2SAT 92
[2017-01-26] MEDS ORDERED: WARFARIN SOD 2 MG TAB PO SCH (16:00)
--- NOTE | 2017-01-26 17:38 | Progress Note ---
Internal Med Progress Note Date of Service: Jan 26, 2017. Provider Documentation: SUBJECTIVE: Patient has been assessed by pain management. MRI ordered by pain management generally unremarkable. Patient continues with pain of right abdomen and right flank OBJECTIVE: Exam: General- awake and alert Eyes- EOMI ENT- no epistaxis Neck- no JVD Lungs- CTABL Heart- RRR Abdomen- tenderness to palpation of right upper quadrant, right flank costovertebral tenderness, no skin findings of Zoster lesions Extremities- no calf tenderness Neuro- residual left sided weakness from history of stroke in the past ASSESSMENT & PLAN: CT abd/pelvis: 1. No acute intra-abdominal or intrapelvic abnormality identified. 2. Moderate to extensive sigmoid colonic diverticulosis without diverticulitis. Ultrasound abdomen and kidneys did not find evidence for mesenteric ischemia or Kidney stones There are no skin findings of zoster however general surgery consultation initially concerned that patient may be have pre-lesional zoster pain Was started acyclovir empirically and gabapentin for neuralgia, gabapentin minimized doses because of lightheadedness Continue other pain medications of Cymbata and dilaudid prn Pain management consult also ordered Lidocaine patches and ordered Thoracic MRI w/o contrast has been ordered to evaluate for possible thoracic radiculopathy but MRI is negative Have asked gastroenterology service to order outpatient appointment 01/31/2017 11 :40 AM Sandra Garrison MD Gastroenterology, [facility] Also follow up scheduled 02/01/2017 11:20 AM Ayanna Rhodes MD Family Practice [facility] Pt with hx PE, recurrent DVT. INR 4.1 on admission Unchanged prominent venous collaterals over the lower anterior abdominal wall with calcifications of the left femoral vein. Chronic deep venous thrombosis is a differential consideration Ultrasound studies did not find evidence of upper extremities DVTs Likely due to poor appetite patient having relative high INR, the INR is 3.3 on 01/26/17 despite warfarin held on 01/25/17, patient given new warfarin regimen of 2 mg daily and will check INR Will need anticoagulation clinic follow up upon discharge DM II A1c 6.7 on 08/21/16 -hold glipizide -NovoLog sliding scale -on reduced dosed Lantus while pt on clear liquids and less appetite, tolerating liquid diet to some extent HTN BP stable -continue atenolol HX CAD Pt denies CP, SOB -continue ASA, continue atenolol, continue Lipitor OVERACTIVE BLADDER -hold Ditropan as pt reporting decreased urine out put DEPRESSION history, c/w Cymbalta, Wellbutrin DVT PROPHYLAXIS -Coumadin therapeutic INR Full Code as per discussion with pt Vital Signs: Date Time Temp Pulse Resp B/P (MAP) Pulse Ox O2 Delivery O2 Flow Rate FiO2 01/26/17 15:49 37.1 91 17 121/72 (88) 92 Room Air 01/26/17 07:59 94 Room Air 01/26/17 07:53 36.8 74 18 138/82 (100) 94 Room Air 01/26/17 07:35 Room Air 01/25/17 23:10 Room Air 01/25/17 22:48 37.1 79 16 131/85 (100) 93 Room Air Lab Results: Results Past 24 Hours Test 01/25/17 20:03 01/26/17 05:58 01/26/17 07:58 01/26/17 11:55 Range/Units Bedside Glucose 98 104 94 70-90 mg/dl White Blood Count 8.83 4.8-10.8 K/uL Red Blood Count 3.62 4.2-5.4 M/uL Hemoglobin 11.5 12.0-16.0 g/dL Hematocrit 35.9 37-47 % Mean Corpuscular Volume 99.2 80-100 fL Mean Corpuscular Hemoglobin 31.8 25-34 pg Mean Corpuscular Hemoglobin Concent 32.0 32-36 g/dl Platelet Count 244 130-400 K/uL Mean Platelet Volume 9.8 7.4-10.4 fL Neutrophils (%) (Auto) 67.6 % Lymphocytes (%) (Auto) 23.6 % Monocytes (%) (Auto) 7.7 % Eosinophils (%) (Auto) 0.7 % Basophils (%) (Auto) 0.3 % Neutrophils # (Auto) 5.97 1.4-6.5 K/uL Lymphocytes # (Auto) 2.08 1.2-3.4 K/uL Monocytes # (Auto) 0.68 0.11-0.59 K/uL Eosinophils # (Auto) 0.06 0-0.5 K/uL Basophils # (Auto) 0.03 0-0.2 K/uL RDW Standard Deviation 51.0 36.4-46.3 fL RDW Coefficient of Variation 14.3 11.5-14.5 % Immature Granulocyte % (Auto) 0.1 % Immature Granulocyte # (Auto) 0.01 0.00-0.02 K/uL Prothrombin Time 36.8 9.0-12.0 SECONDS Prothromb Time International Ratio 3.3 0.9-1.1 Sodium Level 136 136-145 mmol/L Potassium Level 3.7 3.5-5.1 mmol/L Chloride Level 104 98-107 mmol/L Carbon Dioxide Level 28 21-32 mmol/L Anion Gap 4.0 3-11 mmol/L Blood Urea Nitrogen 5 7-18 mg/dl Creatinine 0.81 0.60-1.20 mg/dl Est Creatinine Clear Calc Drug Dose 67.2 ml/min Estimated GFR () 85.3 Estimated GFR (Non- 73.6 BUN/Creatinine Ratio 5.8 10-20 Random Glucose 102 70-99 mg/dl Calcium Level 8.0 8.5-10.1 mg/dl Total Bilirubin 0.5 0.2-1 mg/dl Aspartate Amino Transf (AST/SGOT) 13 15-37 U/L Alanine Aminotransferase (ALT/SGPT) 18 12-78 U/L Alkaline Phosphatase 71 45-117 U/L Total Protein 6.5 6.4-8.2 gm/dl Albumin 2.8 3.4-5.0 gm/dl Globulin 3.7 2.5-4.0 gm/dl Albumin/Globulin Ratio 0.8 0.9-2
[2017-01-26] MEDS: ROPINIROLE HCL 1 MG TAB PO SCH (21:03)
[2017-01-26 23:12] VITALS: BP 135/76; PULSE 62; TEMP 36.7; O2SAT 91
[2017-01-27 07:18] VITALS: BP 164/81; PULSE 66; TEMP 36.6; O2SAT 91
[2017-01-27 07:30] LABS: BASO % 0.6 %; BASO ABS # 0.03 K/uL (0-0.2); COMPLETE YES; EOS % 1.7 %; HEMATOCRIT 37.8 % (37-47); IG% 0.2 %; LYMPH % 34.9 %; MEAN CELL VOLUME 98.4 fL (80-100); MEAN CORPUSCULAR HEMOGLOBIN 31.5 pg (25-34); MEAN PLATELET VOLUME 9.9 fL (7.4-10.4); MONO % 8.9 %; NEUT % 53.7 %; PLATELET COUNT 261 K/uL (130-400); RED BLOOD COUNT 3.84 M/uL (4.2-5.4); WHITE BLOOD COUNT 5.16 K/uL (4.8-10.8)
[2017-01-27 07:35] LABS: INR 3.2 (0.9-1.1)
[2017-01-27] MEDS: INSULIN ASPART 100 UNITS/ML 3 ML PEN SC SCH (08:00)
[2017-01-27 08:05] LABS: BUN/CREATININE RATIO 6.1 (10-20); CALCIUM 7.9 mg/dl (8.5-10.1); CREATININE 0.84 mg/dl (0.60-1.20); POTASSIUM 3.4 mmol/L (3.5-5.1)
[2017-01-27 08:08] LABS: ALB/GLOB RATIO 0.8 (0.9-2)
[2017-01-27] MEDS: ATORVASTATIN 40 MG TAB PO SCH (08:46)
[2017-01-27] MEDS: GABAPENTIN 100 MG CAP PO SCH (08:46)
[2017-01-27] MEDS: ACYCLOVIR 400 MG TAB PO SCH (08:46)
[2017-01-27] MEDS: ASPIRIN 81 MG ECTAB PO SCH (08:46)
[2017-01-27] MEDS: DULOXETINE HCL 60 MG CAP PO SCH (08:46)
[2017-01-27] MEDS: PANTOprazole SOD 40 MG TAB PO SCH (08:46)
[2017-01-27] MEDS: SENNA 8.6 MG TAB PO SCH (08:46)
[2017-01-27] MEDS: BuPROPion SR 150 MG TABCR PO SCH (08:47)
[2017-01-27] MEDS ORDERED: LIDODERM (LIDOCAINE) PATCH 5% TD SCH (09:00)
--- NOTE | 2017-01-27 09:21 | Surgery Progress Note ---
Surgery Progress Note Date of Service Jan 27, 2017. Subjective Post OP Day: HD 5 + complaints (right flank pain), + flatus, + diet (taking po well), No nausea, No vomiting Objective Vital Signs: Date Time Temp Pulse Resp B/P (MAP) Pulse Ox O2 Delivery O2 Flow Rate FiO2 01/27/17 08:00 Room Air 01/27/17 07:18 36.6 66 18 164/81 (108) 91 Room Air 01/26/17 23:25 Room Air 01/26/17 23:12 36.7 62 16 135/76 (95) 91 Room Air 01/26/17 16:00 92 Room Air 01/26/17 15:49 37.1 91 17 121/72 (88) 92 Room Air General Appearance: WD/WN, no apparent distress Head: normocephalic, atraumatic Neck: supple, trachea midline Respiratory/Chest: chest non-tender, lungs clear Cardiovascular: regular rate, rhythm, no edema, no murmur Abdomen: normal bowel sounds, non tender, non distended, soft, + pertinent finding (right flank and abdominal tenderness mild; pain worse) Extremities: non-tender, no pedal edema Laboratory Results: Results Past 24 Hours Test 01/26/17 11:55 01/26/17 17:34 01/26/17 20:41 01/27/17 07:07 Range/Units Bedside Glucose 94 89 93 70-90 mg/dl White Blood Count 5.16 4.8-10.8 K/uL Red Blood Count 3.84 4.2-5.4 M/uL Hemoglobin 12.1 12.0-16.0 g/dL Hematocrit 37.8 37-47 % Mean Corpuscular Volume 98.4 80-100 fL Mean Corpuscular Hemoglobin 31.5 25-34 pg Mean Corpuscular Hemoglobin Concent 32.0 32-36 g/dl Platelet Count 261 130-400 K/uL Mean Platelet Volume 9.9 7.4-10.4 fL Neutrophils (%) (Auto) 53.7 % Lymphocytes (%) (Auto) 34.9 % Monocytes (%) (Auto) 8.9 % Eosinophils (%) (Auto) 1.7 % Basophils (%) (Auto) 0.6 % Neutrophils # (Auto) 2.77 1.4-6.5 K/uL Lymphocytes # (Auto) 1.80 1.2-3.4 K/uL Monocytes # (Auto) 0.46 0.11-0.59 K/uL Eosinophils # (Auto) 0.09 0-0.5 K/uL Basophils # (Auto) 0.03 0-0.2 K/uL RDW Standard Deviation 51.3 36.4-46.3 fL RDW Coefficient of Variation 14.3 11.5-14.5 % Immature Granulocyte % (Auto) 0.2 % Immature Granulocyte # (Auto) 0.01 0.00-0.02 K/uL Prothrombin Time 36.0 9.0-12.0 SECONDS Prothromb Time International Ratio 3.2 0.9-1.1 Sodium Level 137 136-145 mmol/L Potassium Level 3.4 3.5-5.1 mmol/L Chloride Level 102 98-107 mmol/L Carbon Dioxide Level 28 21-32 mmol/L Anion Gap 7.0 3-11 mmol/L Blood Urea Nitrogen 5 7-18 mg/dl Creatinine 0.84 0.60-1.20 mg/dl Est Creatinine Clear Calc Drug Dose 64.8 ml/min Estimated GFR () 81.6 Estimated GFR (Non- 70.4 BUN/Creatinine Ratio 6.1 10-20 Random Glucose 97 70-99 mg/dl Calcium Level 7.9 8.5-10.1 mg/dl Total Bilirubin 0.5 0.2-1 mg/dl Aspartate Amino Transf (AST/SGOT) 14 15-37 U/L Alanine Aminotransferase (ALT/SGPT) 19 12-78 U/L Alkaline Phosphatase 75 45-117 U/L Total Protein 6.7 6.4-8.2 gm/dl Albumin 2.9 3.4-5.0 gm/dl Globulin 3.8 2.5-4.0 gm/dl Albumin/Globulin Ratio 0.8 0.9-2 Diagnostic Interpretation: THORACIC SPINE WITHOUT HISTORY: Pain. Radiculopathy. thoracic radiculopathy TECHNIQUE: Multiplanar multisequence MRI of the thoracic spine was performed without the use of contrast. COMPARISON: None. FINDINGS: Signal characteristics of the vertebral bodies indicate several small benign bone hemangiomas. No evidence for a true bone marrow replacing process. No compression deformity. Mild degenerative disc change at the entire thoracic region. No major disc herniation or significant component of spinal stenosis. Signal characteristics of the thoracic cord are unremarkable. IMPRESSION: Moderate degenerative disc change at the entire thoracic region. No acute process. Assessment & Plan Right flank pain without obvious cause -no acute issues -discharge per medical team -outpatient workup
[2017-01-27] MEDS ORDERED: POTASSIUM CHLORIDE 20 MEQ TABCR PO STA (10:22)
--- NOTE | 2017-01-27 11:55 | Progress Note ---
Internal Med Progress Note Date of Service: Jan 27, 2017. Provider Documentation: SUBJECTIVE: Patient continues to have right abdomen and flank discomfort. Patient is waiting for family to pick her up from the hospital as the progress with inpatient treatment of the pain has not sufficiently resolve her pain. She is to be discharged with pain medications and follow up with gastroenterology clinic and primary care clinic follow up OBJECTIVE: Exam: General- awake and alert Eyes- EOMI ENT- no epistaxis Neck- no JVD Lungs- CTABL Heart- RRR Abdomen- tenderness to palpation of right upper quadrant, right flank costovertebral tenderness, no skin findings of Zoster lesions Extremities- no calf tenderness Neuro- residual left sided weakness from history of stroke in the past ASSESSMENT & PLAN: Right sided Abdominal Pain/Flank Pain CT abd/pelvis: 1. No acute intra-abdominal or intrapelvic abnormality identified. 2. Moderate to extensive sigmoid colonic diverticulosis without diverticulitis. Ultrasound abdomen and kidneys did not find evidence for mesenteric ischemia or Kidney stones There are no skin findings of zoster however general surgery consultation initially concerned that patient may be have pre-lesional zoster pain Was started acyclovir empirically and gabapentin for neuralgia, gabapentin minimized doses because of lightheadedness Continue other pain medications of Cymbata and dilaudid prn Pain management consult also ordered Lidocaine patches and ordered Thoracic MRI w/o contrast has been ordered to evaluate for possible thoracic radiculopathy but MRI is negative Continue Lidocaine patch as outpatient. Adding Flexeril to pain regimen. Stop Acyclovir Patient has gastroenterology outpatient appointment 01/31/2017 11:40 AM Sandra Garrison MD Gastroenterology, [facility] Also follow up scheduled 02/01/2017 11:20 AM Ayanna Rhodes MD Family Practice [facility] Pt with hx PE, recurrent DVT. INR 4.1 on admission Unchanged prominent venous collaterals over the lower anterior abdominal wall with calcifications of the left femoral vein. Chronic deep venous thrombosis is a differential consideration Ultrasound studies did not find evidence of upper extremities DVTs Likely due to poor appetite patient having relative high INR, the INR is 3.3 on 01/26/17 despite warfarin held on 01/25/17, patient given new warfarin regimen of 2 mg daily starting 01/26/17 and INR on 01/27/17 is 3.2 Will need anticoagulation clinic follow up 01/30/2017 12:15 PM [facility] [place] Nutrition: decreased appetite contributes to supratherapeutic INR DM II A1c 6.7 on 08/21/16 stop insulin on discharge, continue oral medications only, poor oral intake HTN BP stable, continue atenolol HX CAD, continue ASA, continue atenolol, continue Lipitor OVERACTIVE BLADDER, continue Ditropan at home DEPRESSION history, c/w Cymbalta, Wellbutrin Discharge instructions: Patient has gastroenterology outpatient appointment 01/31/2017 11:40 AM Sandra Garrison MD Gastroenterology, [facility] Also follow up scheduled 02/01/2017 11:20 AM Ayanna Rhodes MD Family Practice [facility] Patient has been taking warfarin 2 mg daily starting 01/26/17 and INR on 01/27/17 is 3.2. Continue Warfarin 2 mg daily for now Will need anticoagulation clinic follow up 01/30/2017 12:15 PM [facility] Patient to start new pain medications: Lidocaine patches to be applied once daily for 12 hours and then patch to be removed, wait 12 hours before applying a new patch Patient also to take gabapentin and Flexeril (Cyclobenzaprine) medication Vital Signs: Date Time Temp Pulse Resp B/P (MAP) Pulse Ox O2 Delivery O2 Flow Rate FiO2 01/27/17 08:00 Room Air 01/27/17 07:18 36.6 66 18 164/81 (108) 91 Room Air 01/26/17 23:25 Room Air 01/26/17 23:12 36.7 62 16 135/76 (95) 91 Room Air 01/26/17 16:00 92 Room Air 01/26/17 15:49 37.1 91 17 121/72 (88) 92 Room Air Lab Results: Results Past 24 Hours Test 01/26/17 11:55 01/26/17 17:34 01/26/17 20:41 01/27/17 07:07 Range/Units Bedside Glucose 94 89 93 70-90 mg/dl White Blood Count 5.16 4.8-10.8 K/uL Red Blood Count 3.84 4.2-5.4 M/uL Hemoglobin 12.1 12.0-16.0 g/dL Hematocrit 37.8 37-47 % Mean Corpuscular Volume 98.4 80-100 fL Mean Corpuscular Hemoglobin 31.5 25-34 pg Mean Corpuscular Hemoglobin Concent 32.0 32-36 g/dl Platelet Count 261 130-400 K/uL Mean Platelet Volume 9.9 7.4-10.4 fL Neutrophils (%) (Auto) 53.7 % Lymphocytes (%) (Auto) 34.9 % Monocytes (%) (Auto) 8.9 % Eosinophils (%) (Auto) 1.7 % Basophils (%) (Auto) 0.6 % Neutrophils # (Auto) 2.77 1.4-6.5 K/uL Lymphocytes # (Auto) 1.80 1.2-3.4 K/uL Monocytes # (Auto) 0.46 0.11-0.59 K/uL Eosinophils # (Auto) 0.09 0-0.5 K/uL Basophils # (Auto) 0.03 0-0.2 K/uL RDW Standard Deviation 51.3 36.4-46.3 fL RDW Coefficient of Variation 14.3 11.5-14.5 % Immature Granulocyte % (Auto) 0.2 % Immature Granulocyte # (Auto) 0.01 0.00-0.02 K/uL Prothrombin Time 36.0 9.0-12.0 SECONDS Prothromb Time International Ratio 3.2 0.9-1.1 Sodium Level 137 136-145 mmol/L Potassium Level 3.4 3.5-5.1 mmol/L Chloride Level 102 98-107 mmol/L Carbon Dioxide Level 28 21-32 mmol/L Anion Gap 7.0 3-11 mmol/L Blood Urea Nitrogen 5 7-18 mg/dl Creatinine 0.84 0.60-1.20 mg/dl Est Creatinine Clear Calc Drug Dose 64.8 ml/min Estimated GFR () 81.6 Estimated GFR (Non- 70.4 BUN/Creatinine Ratio 6.1 10-20 Random Glucose 97 70-99 mg/dl Calcium Level 7.9 8.5-10.1 mg/dl Total Bilirubin 0.5 0.2-1 mg/dl Aspartate Amino Transf (AST/SGOT) 14 15-37 U/L Alanine Aminotransferase (ALT/SGPT) 19 12-78 U/L Alkaline Phosphatase 75 45-117 U/L Total Protein 6.7 6.4-8.2 gm/dl Albumin 2.9 3.4-5.0 gm/dl Globulin 3.8 2.5-4.0 gm/dl Albumin/Globulin Ratio 0.8 0.9-2
[2017-01-27 11:58] VITALS: BP 164/81; PULSE 66; TEMP 36.6; O2SAT 91
[2017-01-27] MEDS ORDERED: CMD2 PO (11:58)
[2017-01-27] MEDS ORDERED: FLX5 PO (11:58)
[2017-01-27] MEDS ORDERED: LDDP5 TD (11:58)
[2017-01-27] MEDS ORDERED: NRN100 PO (11:58)
--- NOTE | 2017-01-27 11:59 | Discharge Instructions ---
Discharge Instructions Date of Service Jan 27, 2017. Admission Reason for Admission: Abdominal Pain Discharge Discharge Diagnosis / Problem: right abdominal and flank pain, supratherapeutic INR on coumadin, Diabetes Discharge Goals Goal(s): Decrease discomfort, Improve function Activity Recommendations Activity Limitations: per Instructions/Follow-up section Lifting Limitations: until after follow-up appointment Exercise/Sports Limitations: until after follow-up appointment Shower/Bathe: no limitations . Instructions / Follow-Up Instructions / Follow-Up Discharge instructions: Patient has gastroenterology outpatient appointment 01/31/2017 11:40 AM Sandra Garrison MD Gastroenterology, [facility] Also follow up scheduled 02/01/2017 11:20 AM Ayanna Rhodes MD Family Practice [facility] Patient has been taking warfarin 2 mg daily starting 01/26/17 and INR on 01/27/17 is 3.2. Continue Warfarin 2 mg daily for now Will need anticoagulation clinic follow up 01/30/2017 12:15 PM [facility] [place] Patient to start new pain medications: Lidocaine patches to be applied once daily for 12 hours and then patch to be removed, wait 12 hours before applying a new patch Patient also to take gabapentin and Flexeril (Cyclobenzaprine) medication Current Hospital Diet Patient's current hospital diet: Clear Liquid Diet, Diabetes Type 2 Diet Discharge Diet Recommended Diet: Clear Liquid Diet, Diabetes Type 2 Diet Pending Studies Studies pending at discharge: no Laboratory Results 01/27/17 07:07 Red Blood Count 3.84, Mean Corpuscular Volume 98.4, Mean Corpuscular Hemoglobin 31.5, Mean Corpuscular Hemoglobin Concent 32.0, Mean Platelet Volume 9.9, Neutrophils (%) (Auto) 53.7, Lymphocytes (%) (Auto) 34.9, Monocytes (%) (Auto) 8.9, Eosinophils (%) (Auto) 1.7, Basophils (%) (Auto) 0.6, Neutrophils # (Auto) 2.77, Lymphocytes # (Auto) 1.80, Monocytes # (Auto) 0.46, Eosinophils # (Auto) 0.09, Basophils # (Auto) 0.03 01/27/17 07:07 Test 01/23/17 11:40 01/23/17 11:50 01/23/17 12:55 01/24/17 07:38 Direct Bilirubin < 0.1 mg/dl (0-0.2) Urine Color YELLOW Urine Appearance CLEAR (CLEAR) Urine pH 7.0 (4.5-7.5) Urine Specific [place] 1.017 (1.000-1.030) Urine Protein NEG (NEG) Urine Glucose (UA) NEG (NEG) Urine Ketones NEG (NEG) Urine Occult Blood TRACE (NEG) Urine Nitrite NEG (NEG) Urine Bilirubin NEG (NEG) Urine Urobilinogen NEG (NEG) Urine Leukocyte Esterase MODERATE (NEG) Urine WBC (Auto) 10-30 /hpf (0-5) Urine RBC (Auto) 5-10 /hpf (0-4) Urine Hyaline Casts (Auto) 10-30 /lpf (0-5) Urine Epithelial Cells (Auto) >30 /lpf (0-5) Urine Bacteria (Auto) NEG (NEG) Urine Renal Epithelial Cells /lpf (0-5) Lactic Acid Level 1.4 mmol/L (0.4-2.0) Estimated Average Glucose 146 mg/dl Hemoglobin A1c 6.7 % (4.5-5.6) Lipase 82 U/L (73-393) Test 01/25/17 07:57 01/26/17 20:41 01/27/17 07:07 Erythrocyte Sedimentation Rate 27 mm/hr (0-21) C-Reactive Protein 0.54 mg/dl (0-0.29) Bedside Glucose 93 mg/dl (70-90) White Blood Count 5.16 K/uL (4.8-10.8) Red Blood Count 3.84 M/uL (4.2-5.4) Hemoglobin 12.1 g/dL (12.0-16.0) Hematocrit 37.8 % (37-47) Mean Corpuscular Volume 98.4 fL (80-100) Mean Corpuscular Hemoglobin 31.5 pg (25-34) Mean Corpuscular Hemoglobin Concent 32.0 g/dl (32-36) Platelet Count 261 K/uL (130-400) Mean Platelet Volume 9.9 fL (7.4-10.4) Neutrophils (%) (Auto) 53.7 % Lymphocytes (%) (Auto) 34.9 % Monocytes (%) (Auto) 8.9 % Eosinophils (%) (Auto) 1.7 % Basophils (%) (Auto) 0.6 % Neutrophils # (Auto) 2.77 K/uL (1.4-6.5) Lymphocytes # (Auto) 1.80 K/uL (1.2-3.4) Monocytes # (Auto) 0.46 K/uL (0.11-0.59) Eosinophils # (Auto) 0.09 K/uL (0-0.5) Basophils # (Auto) 0.03 K/uL (0-0.2) RDW Standard Deviation 51.3 fL (36.4-46.3) RDW Coefficient of Variation 14.3 % (11.5-14.5) Immature Granulocyte % (Auto) 0.2 % Immature Granulocyte # (Auto) 0.01 K/uL (0.00-0.02) Prothrombin Time 36.0 SECONDS (9.0-12.0) Prothromb Time International Ratio 3.2 (0.9-1.1) Anion Gap 7.0 mmol/L (3-11) Est Creatinine Clear Calc Drug Dose 64.8 ml/min Estimated GFR () 81.6 Estimated GFR (Non- 70.4 BUN/Creatinine Ratio 6.1 (10-20) Calcium Level 7.9 mg/dl (8.5-10.1) Total Bilirubin 0.5 mg/dl (0.2-1) Aspartate Amino Transf (AST/SGOT) 14 U/L (15-37) Alanine Aminotransferase (ALT/SGPT) 19 U/L (12-78) Alkaline Phosphatase 75 U/L (45-117) Total Protein 6.7 gm/dl (6.4-8.2) Albumin 2.9 gm/dl (3.4-5.0) Globulin 3.8 gm/dl (2.5-4.0) Albumin/Globulin Ratio 0.8 (0.9-2) Date/Time Source Procedure Growth Status 01/23/17 11:50 Urine , Clean Catch Urine Culture - Final MORE THAN THREE TYPES OF ORGANISMS MS... Complete Hemoglobin A1c Test 01/24/17 07:38 Range/Units Estimated Average Glucose 146 mg/dl Hemoglobin A1c 6.7 H 4.5-5.6 % Medical Emergencies . Who to Call and When: Medical Emergencies: If at any time you feel your situation is an emergency, please call 911 immediately. . Non-Emergent Contact Non-Emergency issues call your: Primary Care Provider Call Non-Emergent contact if: your pain is worsening . . "Provider Documentation" section prepared by Miguel Cross. . VTE Core Measure Inpt VTE Proph given/why not?: Warfarin (Coumadin)
--- NOTE | 2017-01-27 12:18 | Discharge Summary ---
Discharge Summary Date of Service Jan 27, 2017. Discharge Summary Admission Date: Jan 24, 2017 at 20:22 Discharge Date: Jan 27, 2017 Discharge Disposition: Home Principal Diagnosis: right abdominal and flank pain, Diabetes, Supra-therapeutic INR on coumadin Medication Reconciliation New Medications: Cyclobenzaprine HCl (Cyclobenzaprine HCl) 5 Mg Tab 5 MG PO BID for 10 Days, #20 TAB Gabapentin (Gabapentin) 100 Mg Cap 100 MG PO BID for 10 Days, #20 CAP Lidocaine (Lidocaine) 1 Patch Tdsy 1 PATCH TD QAM for 10 Days, #10 Warfarin Sod (Coumadin) 2 Mg Tab 2 MG PO DAILY@16 for 30 Days, #30 TAB Continued Medications: Albuterol (Ventolin Hfa) 60 Puffs/5400 Mcg Aers 2 PUFFS INH QID PRN for SOB/Wheezing Alendronate Sodium (Fosamax) 70 Mg Tab 70 MG PO WK, TAB TAKE THIS MEDICATION EVERY SUNDAY 30 MINUTES BEFORE FIRST MEAL OF THE DAY WITH 8 OUNCES OF WATER AND REMAIN UPRIGHT FOR 30 MINUTES AFTER TAKING. Aspirin (Aspirin Adult Low Dose) 81 Mg Tab 81 MG PO DAILY Atenolol (Tenormin) 25 Mg Tab 25 MG PO DAILY, TAB Atorvastatin (Lipitor) 80 Mg Tab 80 MG PO DAILY, TAB Bupropion Hcl (Wellbutrin Sr) 150 Mg Tab 1 TAB PO BID for 30 Days, #60 TAB 5 Refills Cyanocobalamin (Vitamin B-12) 100 Mcg Tab 100 MCG PO DAILY, TAB Duloxetine Hcl (Cymbalta) 60 Mg Cap 60 MG PO DAILY, CAP Fluticasone Propionate (Flovent Hfa) 120 Puffs/5280 Mcg Aero 2 PUFFS INH BID for 30 Days, #10.6 GM 2 Refills pt reports uses in summer Glipizide (Glipizide Er) 2.5 Mg Tab 2.5 MG PO DAILY for 90 Days, #90 TAB 3 Refills Magnesium Hydroxide (Milk of Magnesia) 30 Ml Susp 30 ML PO BID for Constipation Nitroglycerin (Nitrostat) 0.4 Mg Tab 0.4 MG SL UD PRN for Chest Pain for 10 Days, #[address] ONE TABLET UNDER THE TONGUE EVERY 5 MINUTES FOR UP TO 3 DOSES IF NEEDED FOR CHEST PAIN. Omeprazole (Omeprazole) 20 Mg Tab 1 TAB PO DAILY for 90 Days, #90 TAB 1 Refill Oxybutynin Chloride (Ditropan) 5 Mg Tab 5 MG PO TID, TAB Polyethylene (Miralax) 17 Gm Pow 17 GM PO DAILY for Constipation Ropinirole (Requip) 4 Mg Tab 4 MG PO HS, TAB Tetrahydrozoline Hcl (Ophth) (Visine) 0.05 % Tequila 1 DROP OPB UD PRN for DRYNESS Tramadol (Ultram) 50 Mg Tab 50 MG PO Q6 PRN for Pain, TAB Discontinued Medications: Insulin Glargine (Lantus) 100 Unit/Ml Inj 36 UNITS SC QPM, VIAL Warfarin Sodium (Coumadin) 1 Mg Tab 1 TAB PO UD for 30 Days, TAB 5 Refills 4 tab po on , , sunday. 2 tab po on mon, sun, sun, sat Admission Information HPI (per Admitting provider): Pt is 71 y/o F with PMH HTN, DVT/PE on Coumadin, hx CVA, HTN, insulin dependent DM II, hyperlipidemia, depression, presented to ER with c/o abdominal pain starting yesterday. Pt c/o sharp pain to RLQ last night and today with upper abdominal pain with radiation to R flank. C/O nausea since yesterday and vomited 4 times. Hx GERD and on omeprazole but states this feels different. Ate hoagie last night, others also ate and have no symptoms. Denies recent travel, eating undercooked foods, drinking spring/well water. Pt states was holding and bouncing a baby on lap day prior to pain onset but denies any known injury. Denies diarrhea, last normal BM couple of days ago and states able to have hard BM yesterday. Reports has to use miralax or milk of magnesia intermittently for constipation. Also c/o decreased urine out put the past day. Has tried drinking water. Denies eating today. Pt reports hx SOB occurs during summer during high humidity and uses albuterol prn and flovent BID. states hasn't had to use those since summer, pt unsure if ever been formally dx with COPD or asthma. Reports hx chronically swollen left leg, denies any worsening. Reports hx left sided weakness s/p CVA in past. Hx cholecystectomy, appendectomy, hysterectomy and removal ovaries. Denies fever/chills, diaphoresis, hematemesis, hematochezia, melena, dysuria, hematuria, RIVERA, dizziness, syncope, neck pain, CP, SOB, orthopnea, palpitations, cough, sore throat, choking, otalgia, rhinorrhea, worsening weakness, rashes. In ER no leukocytosis, normal lactic acid, normal lipase. INR: 4.1. U/A: mod leuk, WBC:10-30, RBC: 5-10, epithelial >30, neg bacteria. Urine culture pending. CT scan: No acute intra-abdominal or intrapelvic abnormality identified. pt was given cipro po for possible UTI. Was given zofran x 2 doses which decreased nausea. Given total 12mg morphine and pt states continues with abdominal pain. Physical Exam (per Admitting): General Appearance: no apparent distress, + obese Head: normocephalic, atraumatic Eyes: normal inspection, sclerae normal ENT: hearing grossly normal, pharynx normal, + pertinent finding (mucous membranes moist) Neck: supple, no JVD, trachea midline Respiratory/Chest: chest non-tender, lungs clear, normal breath sounds, no respiratory distress, no accessory muscle use Cardiovascular: regular rate, rhythm, no murmur, normal peripheral pulses Abdomen/GI: normal bowel sounds, soft, + tenderness (distended secondary to adipose tissue, soft. r lower abdomen with approx 2 cm faint yellow ecchymosis without significant tenderness over this site. tenderness to palpation to epigastric, LUQ, RUQ, RLQ without rebound or guarding. ) Back: no CVA tenderness Extremities/Musculoskelatal: no calf tenderness, normal capillary refill, non-tender, + pertinent finding (left leg with non-pitting edema) Neurologic/Psych: alert, normal mood/affect, oriented x 3 Skin: normal color, warm/dry Hospital Course Right sided Abdominal Pain/Flank Pain CT abd/pelvis: 1. No acute intra-abdominal or intrapelvic abnormality identified. 2. Moderate to extensive sigmoid colonic diverticulosis without diverticulitis. Ultrasound abdomen and kidneys did not find evidence for mesenteric ischemia or Kidney stones There are no skin findings of zoster however general surgery consultation initially concerned that patient may be have pre-lesional zoster pain Was started acyclovir empirically and gabapentin for neuralgia, gabapentin minimized doses because of lightheadedness Continue other pain medications of Cymbata and dilaudid prn Pain management consult also ordered Lidocaine patches and ordered Thoracic MRI w/o contrast has been ordered to evaluate for possible thoracic radiculopathy but MRI is negative Continue Lidocaine patch as outpatient. Adding Flexeril to pain regimen. Stop Acyclovir Patient has gastroenterology outpatient appointment 01/31/2017 11:40 AM Sandra Garrison MD Gastroenterology, [facility], [place] Also follow up scheduled 02/01/2017 11:20 AM Ayanna Rhodes MD [facility] Pt with hx PE, recurrent DVT. INR 4.1 on admission Unchanged prominent venous collaterals over the lower anterior abdominal wall with calcifications of the left femoral vein. Chronic deep venous thrombosis is a differential consideration Ultrasound studies did not find evidence of upper extremities DVTs Likely due to poor appetite patient having relative high INR, the INR is 3.3 on 01/26/17 despite warfarin held on 01/25/17, patient given new warfarin regimen of 2 mg daily starting 01/26/17 and INR on 01/27/17 is 3.2 Will need anticoagulation clinic follow up 01/30/2017 12:15 PM [facility] Nutrition: decreased appetite contributes to supratherapeutic INR DM II A1c 6.7 on 08/21/16 stop insulin on discharge, continue oral medications only, poor oral intake HTN BP stable, continue atenolol HX CAD, continue ASA, continue atenolol, continue Lipitor OVERACTIVE BLADDER, continue Ditropan at home DEPRESSION history, c/w Cymbalta, Wellbutrin Discharge instructions: Patient has gastroenterology outpatient appointment 01/31/2017 11:40 AM Sandra Garrison MD Gastroenterology, [facility], [place] Also follow up scheduled 02/01/2017 11:20 AM Ayanna Rhodes MD [facility] Patient has been taking warfarin 2 mg daily starting 01/26/17 and INR on 01/27/17 is 3.2. Continue Warfarin 2 mg daily for now Will need anticoagulation clinic follow up 01/30/2017 12:15 PM [facility] Patient to start new pain medications: Lidocaine patches to be applied once daily for 12 hours and then patch to be removed, wait 12 hours before applying a new patch Patient also to take gabapentin and Flexeril (Cyclobenzaprine) medication Total time spent on discharge = 60 minutes This includes examination of the patient, discharge planning, medication reconciliation, and communication with other providers. Discharge Instructions Patient has gastroenterology outpatient appointment 01/31/2017 11:40 AM Sandra Garrison MD Gastroenterology, [facility], [place] Also follow up scheduled 02/01/2017 11:20 AM Ayanna Rhodes MD Family Practice [facility] [place] Patient has been taking warfarin 2 mg daily starting 01/26/17 and INR on 01/27/17 is 3.2. Continue Warfarin 2 mg daily for now Will need anticoagulation clinic follow up 01/30/2017 12:15 PM [facility], [place] Patient to start new pain medications: Lidocaine patches to be applied once daily for 12 hours and then patch to be removed, wait 12 hours before applying a new patch Patient also to take gabapentin and Flexeril (Cyclobenzaprine) medication
[2017-01-27] MEDS ORDERED: CYCLOBENZAPRINE HCL 5 MG TAB PO SCH (21:00)
--- NOTE | 2017-01-30 13:10 | EDITING REQUIRED CODING QUERY ---
CODING QUERY To promote full compliance with coding requirements relating to patient care, provider participation is requested in all cases of compounder uncertainty. Please assist us with the question(s) below: Coding Question(s): Patient with right sided and abdominal wall /flank pain . Pain Consult " concern for pain caused by pre-lesional herpes zoster". Patient started on Acyclovir empirically and gabapentin. Please document, if known or suspected, the etiology of abdominal pain. Thank you! Brodie Morris [facility] Physician's Response(s): Was not able to determine clearly the etiology of the abdominal pain. Patient was seen by general surgery and based on the imaging and their expertise the pain was unable to be attributed to an organic source. Initially presumed that perhaps this may be some form of herpes zoster pain despite not having skin lesions. Pain management evaluation did not find pain to be related to zoster. Thank you Brodie Morris Principal Diagnosis: "_that condition established after study, to be chiefly responsible for occasioning the admission of the patient to the hospital for care." Co-Existing Principal Diagnosis: "_when two or more diagnoses equally meet the criteria for principal diagnosis as determined by the circumstances of admission, diagnostic work up, and/or therapy provided, and the Alphabetic Index, Tabular List, or another coding guideline does not provide sequencing direction, any one of the diagnoses may be sequenced first." "When the physician has documented what appears to be a current diagnosis in the body of the record, but has not included the diagnosis in the final diagnostic statement, the physician should be asked whether the diagnosis should be added." (Source Coding Clinic 2 QTR90. p3-4)
== END 2017-01-27 12:50 | disposition home or self-care (01) | DRG 392 ==
LOC: C.EDB 11:13 → C.MSW 15:05 → EDBEDREQTM 15:11 → EDBEDREQSVC 15:11 → ENRESERV 15:35 → OBSVTOIN 01-24 20:22
PROVIDERS: ADMIT Hospitalist; ATTEND Hospitalist
DX: R10.31 Right lower quadrant pain (principal); K57.30 Diverticulosis of large intestine without perforation or abscess without bleeding; I25.10 Atherosclerotic heart disease of native coronary artery without angina pectoris; F32.9 Major depressive disorder, single episode, unspecified; Z86.718 Personal history of other venous thrombosis and embolism; I10 Essential (primary) hypertension; E78.5 Hyperlipidemia, unspecified; I25.2 Old myocardial infarction; R79.1 Abnormal coagulation profile; H35.30 Unspecified macular degeneration; G25.81 Restless legs syndrome; Z82.49 Family history of ischemic heart disease and other diseases of the circulatory system; Z79.4 Long term (current) use of insulin; Z86.711 Personal history of pulmonary embolism; K21.9 Gastro-esophageal reflux disease without esophagitis; G90.2 Horner's syndrome; Z87.891 Personal history of nicotine dependence; Z88.2 Allergy status to sulfonamides; Z88.0 Allergy status to penicillin; N32.81 Overactive bladder; E11.40 Type 2 diabetes mellitus with diabetic neuropathy, unspecified

== ENCOUNTER 2017-02-11 15:40 | Emergency (ER) | payer OTHER ==
[~2017-02-11] VITALS: Ht 175.3 cm; Wt 88.7 kg
[~2017-02-11 15:40] MED LIST changes: +BUPR150T7 PO; +CMD2 PO; +FLX5 PO; -HYDR-5688 PO; -INSDGI SC; +LDDP5 TD; +MOMLX PO; +MRLP17X PO; +NRN100 PO; +OMEP20TA PO; -PRLSR20 PO; -WARF2TAB8 PO; -WARF4TAB8 PO; -ZINC1CRE3 EXT
[2017-02-11 15:45] VITALS: TEMP 37.1; Ht 175.3 cm; Wt 88.7 kg
[2017-02-11] MEDS ORDERED: LIDODERM (LIDOCAINE) PATCH 5% TD STA (16:07)
--- NOTE | 2017-02-11 16:11 | EMERGENCY ROOM VISIT NOTE ---
History Report prepared by Janet: Nelly Cano Under the Supervision of: Dr. Gee Pelaez M.D. First contact with patient: 15:58 Chief Complaint: HEADACHE Stated Complaint: HEADACHE, RINGING IN L EAR, UPPER GASTRIC CHEST PA History of Present Illness The patient is a 71 year old female who presents to the Emergency Room with complaints of constant rib pain beginning today. The patient states that she has been having a headache today that is pounding. She reports that she developed pain in her lower chest and rib area. She notes that she started taking gabapentin recently and upped her dose 2 days ago. The patient complains of lethargy, tingling from the waist up, dizziness, double vision, and abdominal pain that started 1 month ago. She notes a history of hernia and cholecystectomy. The patient states that since she took her gabapentin today she has been feeling better. Source of History: patient Onset: today Position: other (ribs) Quality: other (tingling) Timing: constant Associated Symptoms: + headache, + abdominal pain Note: Pt has double vision, dizziness, and lethargy. Review of Systems See HPI for pertinent positives & negatives. A total of 10 systems reviewed and were otherwise negative. Past Medical & Surgical Medical Problems: (1) Benign neoplasm of cerebral meninges (2) CAD (coronary artery disease) (3) Chest pain (4) CVA (cerebral vascular accident) (5) Depression (6) DM type 2 (diabetes mellitus, type 2) (7) DVT (deep venous thrombosis) (8) GERD (gastroesophageal reflux disease) (9) History of Alfonso's syndrome (10) Hyperlipidemia (11) Hypertension (12) Macular degeneration (13) ME (myocardial infarction) (14) Peripheral neuropathy (15) Pneumonia (16) Recurrent DVT (17) RLS (restless legs syndrome) (18) Syncope (19) Viral bronchitis Surgical Problems: (1) History of appendectomy (2) History of cholecystectomy (3) History of hysterectomy (4) History of salpingo-oophorectomy (5) S/P cholecystectomy (6) S/P removal of ovarian cyst Family History Early CAD FATHER ( in 30s of ME) MOTHER ( in 30s of ME) BROTHER ( in 50s of ME) GRANDFATHER GRANDMOTHER FHx: cancer DAUGHTER (hx cervical and throat CA) FHx: gallbladder disease FHx: heart disease FHx: hypertension GRANDFATHER GRANDMOTHER Stroke GRANDMOTHER Social History Smoking Status: Former Smoker Alcohol Use: none Drug Use: none Marital Status: Housing Status: lives with family Occupation Status: retired Current/Historical Medications Scheduled Alendronate Sodium (Fosamax), 70 MG PO WK Aspirin (Aspirin Adult Low Dose), 81 MG PO DAILY Atenolol (Tenormin), 25 MG PO DAILY Atorvastatin (Lipitor), 80 MG PO DAILY Ciprofloxacin Hcl (Cipro), 1 TAB PO BID Cyanocobalamin (Vitamin B-12), 100 MCG PO DAILY Cyclobenzaprine HCl (Cyclobenzaprine HCl), 5 MG PO BID Docusate Sodium (Colace), 1 CAP PO BID Duloxetine Hcl (Cymbalta), 60 MG PO DAILY Glipizide (Glipizide Er), 2.5 MG PO DAILY Magnesium Hydroxide (Milk of Magnesia), 30 ML PO BID Metronidazole (Flagyl), 500 MG PO TID Mirtazapine (Mirtazapine), 22.5-45 MG PO DAILY Multiple Vitamins W/ Minerals (Multi For Her 50+), 1 CAP PO QPM Oxybutynin Chloride (Ditropan), 5 MG PO TID Polyethylene (Miralax), 17 GM PO DAILY Ropinirole (Requip), 4 MG PO HS Sennosides (Senokot), 8.6 MG PO HS Warfarin Sod (Jantoven), 2 MG PO 4XWK Warfarin Sod (Jantoven), 4 MG PO 3XWK Scheduled PRN Albuterol (Ventolin Hfa), 2 PUFFS INH QID PRN for SOB/Wheezing Fluticasone Propionate (Flovent Hfa), 2 PUFFS INH BID PRN for Shortness of Breath Nitroglycerin (Nitrostat), 0.4 MG SL UD PRN for Chest Pain Oxycodone/Acetaminophen 5MG/325MG (Percocet 5MG/325MG), 1-2 TAB PO Q4H PRN for Pain Ranitidine (Zantac), 150 MG PO DAILY PRN for Heartburn Tetrahydrozoline Hcl (Ophth) (Visine), 1 DROP OPB UD PRN for DRYNESS Tramadol (Ultram), 50 MG PO Q6 PRN for Pain Allergies Coded Allergies: Macrolides and Ketolides (Verified Allergy, Unknown, `, 02/11/17) Niacin (Verified Allergy, Unknown, 02/11/17) Penicillins (Verified Allergy, Unknown, 02/11/17) Procaine (Verified Allergy, Unknown, unknown, 02/11/17) Pt states she either swelled or had a rash. Sulfa Antibiotics (Verified Allergy, Unknown, `, 02/11/17) Uncoded Allergies: MIACIN (Allergy, Unknown, UNKNOWN, 09/08/16) Physical Exam Vital Signs Date Time Temp Pulse Resp B/P (MAP) Pulse Ox O2 Delivery O2 Flow Rate FiO2 02/11/17 17:41 67 16 158/70 97 Room Air 02/11/17 17:05 60 135/68 96 65 140/96 72 156/96 02/11/17 16:27 64 02/11/17 16:23 Room Air 02/11/17 16:23 Room Air 02/11/17 15:45 37.1 63 20 168/74 94 Room Air Physical Exam GENERAL: Patient is a healthy-appearing well-nourished female HEAD: Normocephalic atraumatic EYES: Ocular movements intact pupils equal and react to light OROPHARYNX mucous membranes are moist no exudates present no erythema or edema present NECK: Supple no nuchal rigidity CHEST: Good equal expansion LUNGS: Clear and equal to auscultation CARDIAC: Normal S1 and S2 ABDOMEN: Soft, no guarding, tender to the RUQ BACK: No CVA tenderness EXTREMITIES: No pain upon palpation normal muscle strength in all groups no clubbing cyanosis or edema NEURO: Patient is following commands and answering questions appropriately. Alert and oriented x3 Cranial Nerves 2-12 grossly intact Medical Decision & Procedures ER Provider Diagnostic Interpretation: Radiology results as stated below per my review and radiologist interpretation: HEAD WITHOUT CONTRAST (CT) FINDINGS: Senior Drupal Developer topogram: Unremarkable. Ventricles and sulci normal in size. Brain parenchyma normal in appearance with preserved ordoñez-white differentiation. No mass effect or midline shift. No hemorrhage or acute territorial infarct. No extra-axial fluid collection. Paranasal sinuses and mastoid air cells clear. Calvarium intact. IMPRESSION: 1. No acute intracranial abnormality. Electronically signed by: Carlton Alcala M.D. 02/11/2017 4:58 PM Dictated Date/Time: 02/11/2017 4:56 PM ABD/PELVIS IV CONTRAST ONLY FINDINGS: Senior Drupal Developer topogram: Unremarkable. Lung bases: Minimal dependent changes likely atelectasis. Mild multichamber enlargement of the heart. No pericardial or pleural effusion. Liver: Normal morphology. No liver lesion. Patent hepatic vasculature. Biliary: Mild biliary ductal prominence likely a reservoir effect in the post cholecystectomy state. Gallbladder surgically absent. Pancreas: Mild parenchymal atrophy. Spleen: Normal. Splenule noted. Adrenal glands: Normal. Kidneys and ureters: Well-defined hypodensity in the right kidney likely simple cyst. No hydronephrosis. No nephrolithiasis. 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 Single main renal arteries bilaterally. Ureters normal. Bladder: Normal. Pelvic organs: Uterus surgically absent. Ovaries likely still present and normal in appearance. A cystic lesion in the right adnexa measuring 3 cm (series 5 image 383) may represent a peritoneal inclusion cyst in the postsurgical setting. Similar abnormality though smaller in the left adnexa (series 5 image 388). Bowel: Barbour colonic diverticulosis. The appendix is absent. Focal pericolonic inflammatory change at the level of the mid sigmoid colon (series 5 image 329). No adjacent fluid collection. No surrounding loculated extraluminal or free intraperitoneal gas. No bowel obstruction. Peritoneal cavity: No free fluid or intraperitoneal gas. Lymph nodes: No enlarged lymph nodes in the abdomen or pelvis. Vasculature: Calcification in the left common femoral vein may relate to chronic thrombus. Atherosclerosis of the normal caliber abdominal aorta. Extensive collateral varices noted in the lower abdominal wall likely further indicating a venous obstruction from chronic thrombus and collateral drainage into the right common femoral vein. Abdominal wall: Atrophy of the right rectus abdominis with a small fat-containing ventral hernia in the epigastrium, possibly postsurgical. Musculoskeletal: Normal. IMPRESSION: 1. Findings consistent with acute uncomplicated diverticulitis in the mid sigmoid colon. No CT evidence of nicho perforation or adjacent abscess. 2. Chronic findings are unchanged from prior exam further detailed above. Electronically signed by: Carlton Alcala M.D. 02/11/2017 5:16 PM Dictated Date/Time: 02/11/2017 5:06 PM CHEST ONE VIEW PORTABLE FINDINGS: Cardiomediastinal silhouette normal. Lungs and pleural spaces clear. Degenerative changes of the thoracic spine. Upper abdomen normal. IMPRESSION: 1. No acute cardiopulmonary disease. Electronically signed by: Carlton Aclala M.D. 02/11/2017 4:32 PM Dictated Date/Time: 02/11/2017 4:31 PM Laboratory Results 02/11/17 16:15 Red Blood Count 4.12, Mean Corpuscular Volume 99.0, Mean Corpuscular Hemoglobin 32.5, Mean Corpuscular Hemoglobin Concent 32.8, Mean Platelet Volume 10.1, Neutrophils (%) (Auto) 62.1, Lymphocytes (%) (Auto) 24.9, Monocytes (%) (Auto) 9.6, Eosinophils (%) (Auto) 2.6, Basophils (%) (Auto) 0.5, Neutrophils # (Auto) 4.84, Lymphocytes # (Auto) 1.94, Monocytes # (Auto) 0.75, Eosinophils # (Auto) 0.20, Basophils # (Auto) 0.04 02/11/17 16:15 Test 02/11/17 16:15 02/11/17 16:24 02/11/17 17:25 White Blood Count 7.79 K/uL (4.8-10.8) Red Blood Count 4.12 M/uL (4.2-5.4) Hemoglobin 13.4 g/dL (12.0-16.0) Hematocrit 40.8 % (37-47) Mean Corpuscular Volume 99.0 fL (80-100) Mean Corpuscular Hemoglobin 32.5 pg (25-34) Mean Corpuscular Hemoglobin Concent 32.8 g/dl (32-36) Platelet Count 366 K/uL (130-400) Mean Platelet Volume 10.1 fL (7.4-10.4) Neutrophils (%) (Auto) 62.1 % Lymphocytes (%) (Auto) 24.9 % Monocytes (%) (Auto) 9.6 % Eosinophils (%) (Auto) 2.6 % Basophils (%) (Auto) 0.5 % Neutrophils # (Auto) 4.84 K/uL (1.4-6.5) Lymphocytes # (Auto) 1.94 K/uL (1.2-3.4) Monocytes # (Auto) 0.75 K/uL (0.11-0.59) Eosinophils # (Auto) 0.20 K/uL (0-0.5) Basophils # (Auto) 0.04 K/uL (0-0.2) RDW Standard Deviation 50.0 fL (36.4-46.3) RDW Coefficient of Variation 14.0 % (11.5-14.5) Immature Granulocyte % (Auto) 0.3 % Immature Granulocyte # (Auto) 0.02 K/uL (0.00-0.02) Prothrombin Time 38.8 SECONDS (9.0-12.0) Prothromb Time International Ratio 3.8 (0.9-1.1) Est Creatinine Clear Calc Drug Dose 64.8 ml/min Estimated GFR () 69.4 Estimated GFR (Non- 59.9 BUN/Creatinine Ratio 11.6 (10-20) Calcium Level 8.8 mg/dl (8.5-10.1) Total Bilirubin 0.3 mg/dl (0.2-1) Direct Bilirubin < 0.1 mg/dl (0-0.2) Aspartate Amino Transf (AST/SGOT) 12 U/L (15-37) Alanine Aminotransferase (ALT/SGPT) 21 U/L (12-78) Alkaline Phosphatase 80 U/L (45-117) Total Creatine Kinase 102 U/L (26-192) Creatine Kinase MB 1.0 ng/ml (0.5-3.6) Creatine Kinase MB Ratio 1.0 (0-3.0) Troponin I < 0.015 ng/ml (0-0.045) Total Protein 7.6 gm/dl (6.4-8.2) Albumin 3.2 gm/dl (3.4-5.0) Thyroid Stimulating Hormone (TSH) 0.389 uIu/ml (0.300-4.500) Bedside Hemoglobin 13.3 g/dl (12.0-16.0) Bedside Hematocrit 39 % (37-47) Bedside Sodium 143 mEq/L (135-144) Bedside Potassium 3.6 mEq/L (3.3-5.0) Bedside Chloride 105 mEq/L (101-112) Bedside Total CO2 27 mEq/l (24-31) Anion Gap 15.0 mmol/L (16-25) Bedside Blood Urea Nitrogen 10 mg/dl (7-18) Bedside Creatinine 1.0 mg/dl (0.6-1.3) Bedside Glucose (other) 107 mg/dl (70-99) Bedside Ionized Calcium (Christina) 1.16 mmol/l (1.12-1.32) Urine Color YELLOW Urine Appearance CLEAR (CLEAR) Urine pH 6.5 (4.5-7.5) Urine Specific Wever 1.023 (1.000-1.030) Urine Protein NEG (NEG) Urine Glucose (UA) NEG (NEG) Urine Ketones NEG (NEG) Urine Occult Blood NEG (NEG) Urine Nitrite NEG (NEG) Urine Bilirubin NEG (NEG) Urine Urobilinogen NEG (NEG) Urine Leukocyte Esterase NEG (NEG) Labs reviewed by ED physician. Medications Administered Medications (Trade) Dose Ordered Sig/Juany Route Start Time Stop Time Status Last Admin Dose Admin Lidocaine (Lidoderm Patch 5%) 1 patch NOW STAT TD 02/11/17 16:07 02/11/17 16:09 DC 02/11/17 16:15 1 PATCH Ondansetron HCl (Zofran Inj) 4 mg NOW STAT IV 02/11/17 16:43 02/11/17 16:44 DC 02/11/17 16:59 4 MG Acetaminophen (Tylenol Tab) 1,000 mg NOW STAT PO 02/11/17 16:43 02/11/17 16:44 DC 02/11/17 17:00 1,000 MG Ciprofloxacin (Cipro Tab) 500 mg NOW STAT PO 02/11/17 17:21 02/11/17 17:22 DC 02/11/17 17:39 500 MG Metronidazole (Flagyl Tab) 500 mg NOW STAT PO 02/11/17 17:21 02/11/17 17:22 DC 02/11/17 17:39 500 MG Hydromorphone HCl (Dilaudid Inj) 1 mg NOW STAT IV 02/11/17 17:27 02/11/17 17:29 DC 02/11/17 17:39 1 MG Oxycodone/ Acetaminophen (Percocet 5/ 325MG Home Pack) 1 homepack UD STAT PO 02/11/17 17:27 02/11/17 17:29 DC 02/11/17 18:13 1 HOMEPACK Senna (Senokot Tab) 8.6 mg NOW STAT PO 02/11/17 17:27 02/11/17 17:29 DC 02/11/17 18:12 8.6 MG Docusate Sodium (coLACE CAP) 100 mg BID STAT PO 02/11/17 17:27 02/11/17 17:29 DC 02/11/17 17:39 100 MG ECG Indication: chest pain Rate (beats per minute): 60 Rhythm: normal sinus Findings: no acute ischemic change, no ectopy ED Course 1558: Past medical records reviewed. The patient was evaluated in room A3. A complete history and physical examination was performed. 1607: Lidocaine 1 patch TD. 1612: Per review of the patients history, she was admitted to the hospital in December and started Neurontin to manage her pain. She was complaining of lightheadedness at that time. 1643: Tylenol Tab 1000mg PO, Zofran Inj 4mg IV. 1721: Flagyl Tab 500mg PO, Cipro Tab 500mg PO. 1727: Colcace Cap 100mg PO, Senna 8.6mg PO, Oxycodone/Acetaminophen 1 homepack PO, Dilaudid Inj 1mg IV. 1736: Upon reexamination the patient is doing well. I discussed results and treatment plan with the patient. She verbalizes agreement and understanding. The patient is ready for discharge. Medical Decision Differential diagnosis: Etiologies such as appendicitis, diverticulitis, PUD, biliary pathology, UTI, pancreatitis, obstruction, mesenteric ischemia, aortic pathology, infections, inflammatory bowel disease, renal colic, as well as others were entertained. This is a 71-year-old female who presents emergency department complaining of continued abdominal pain. The patient was recently admitted for this abdominal pain. In addition she is also complaining of dizziness and believe this is because she began taking her Neurontin again. I will note that the patient had issues with Neurontin when she was in the hospital. She was sent for CAT scan the abdomen pelvis and this was concerning for diverticulitis. The patient is pain was controlled with Lidoderm patch as well as Dilaudid for the pain. Repeat examination revealed improvement patient's symptoms. I believe the patient as well as to be discharged home however I will place her on Cipro and Flagyl along with Percocet for home. I strongly recommended that the patient follow-up with gastroenterology. Patient was in agreement with the treatment plan. Medication Reconcilliation Current Medication List: was personally reviewed by me Blood Pressure Screening Patient's blood pressure: Elevated blood pressure Blood pressure disposition: Elevated BP felt to be situational Impression Primary Impression: Diverticulitis Scribe Attestation The scribe's documentation has been prepared under my direction and personally reviewed by me in its entirety. I confirm that the note above accurately reflects all work, treatment, procedures, and medical decision making performed by me. Departure Information Dispostion Home / Self-Care Prescriptions Oxycodone/Acetaminophen 5MG/325MG (PERCOCET 5MG/325MG) Tab 1-2 TAB PO Q4H Y for Pain, #14 TAB Prov: Gee Pelaez MD 02/11/17 Docusate Sodium (COLACE) 100 Mg Cap 1 CAP PO BID for 10 Days, #20 CAP Prov: Gee Pelaez MD 02/11/17 Sennosides (SENOKOT) 8.6 Mg Tab 8.6 MG PO HS for 10 Days, #10 TAB Prov: Gee Pelaez MD 02/11/17 Metronidazole (Flagyl) 500 Mg Tab 500 MG PO TID for 10 Days, #30 TAB Prov: Gee Pelaez MD 02/11/17 Ciprofloxacin Hcl (CIPRO) 500 Mg Tab 1 TAB PO BID for 10 Days, #20 TAB Prov: Gee Pelaez MD 02/11/17 Referrals Ayanna Rhodes M.D. (PCP) Forms HOME CARE DOCUMENTATION FORM, IMPORTANT VISIT INFORMATION Patient Instructions Diet Clear Liquid Dc, Diverticulosis Diverticulitis, My [facility] Additional Instructions Clear liquid diet next 48 hours Return if pain is out of control or fevers develop Hold Coumadin tonight Stop taking 300 mg Neurontin You were found to have an elevated blood pressure today (>120 sytolic or >90 diastolic). Per medicare guidelines, you need to follow up with this blood pressure screening with your Primary Care Physician (PCP). For a new PCP call [phone]. You received narcotic or benzodiazepene medication while in the emergency room today. This is an addictive medication that may cause drowziness as well as constipation. Do not drive, operate heavy machinery, or drink alcohol under the influence of this medication. Take Percocet for breakthrough pain You have been examined and treated today on an emergency basis only. This is not a substitute for, or an effort to provide, complete comprehensive medical care. It is impossible to recognize and treat all injuries or illnesses in a single emergency department visit. It is therefore important that you follow up closely with Dr Rhodes. Call as soon as possible for an appointment. Thank you for your time and consideration. I look forward to speaking with you again soon. Please don't hesitate to call us if you have any questions.
[2017-02-11 16:30] LABS: BASO % 0.5 %; BASO ABS # 0.04 K/uL (0-0.2); COMPLETE YES; EOS % 2.6 %; HEMATOCRIT 40.8 % (37-47); IG% 0.3 %; LYMPH % 24.9 %; LYMPH ABS # 1.94 K/uL (1.2-3.4); MEAN CORPUSCULAR HEMOGLOBIN 32.5 pg (25-34); MEAN CORPUSCULAR HGB CONC 32.8 g/dl (32-36); MEAN PLATELET VOLUME 10.1 fL (7.4-10.4); MONO % 9.6 %; NEUT % 62.1 %; PLATELET COUNT 366 K/uL (130-400); RED BLOOD COUNT 4.12 M/uL (4.2-5.4); WHITE BLOOD COUNT 7.79 K/uL (4.8-10.8)
[2017-02-11] MEDS ORDERED: OPTIRAY 320 IV PRN (16:30)
--- NOTE | 2017-02-11 16:33 | DIAGNOSTIC IMAGING REPORT ---
CHEST ONE VIEW PORTABLE CLINICAL HISTORY: 71 years-old Female presenting with Pt c/o Abd pain . TECHNIQUE: Portable upright AP view of the chest was obtained. COMPARISON: 01/25/2017. FINDINGS: Cardiomediastinal silhouette normal. Lungs and pleural spaces clear. Degenerative changes of the thoracic spine. Upper abdomen normal. IMPRESSION: 1. No acute cardiopulmonary disease. Electronically signed by: Carlton Alcala M.D. 02/11/2017 4:32 PM Dictated Date/Time: 02/11/2017 4:31 PM
[2017-02-11] MEDS ORDERED: WARF4TAB8 PO (16:35)
[2017-02-11] MEDS ORDERED: WARF2TAB8 PO (16:35)
[2017-02-11 16:37] LABS: ISTAT HEMOGLOBIN 13.3 g/dl (12.0-16.0); ISTAT IONIZED CALCIUM 1.16 mmol/l (1.12-1.32)
[2017-02-11] MEDS ORDERED: ZNTT/150 PO (16:37)
[2017-02-11] MEDS ORDERED: MULT1CAP7 PO (16:37)
[2017-02-11] MEDS ORDERED: RMRS/45 PO (16:37)
[2017-02-11] MEDS ORDERED: ACETAMINOPHEN 500 MG TAB PO STA (16:43)
[2017-02-11] MEDS ORDERED: ONDANSETRON INJ 2 MG/ML 2 ML VIAL IV STA (16:43)
[2017-02-11 16:44] LABS: INR 3.8 (0.9-1.1); PROTHROMBIN TIME (PATIENT) 38.8 SECONDS (9.0-12.0)
[2017-02-11 16:52] LABS: ALT/SGPT 21 U/L (12-78); AST/SGOT 12 U/L (15-37); BLOOD UREA NITROGEN 11 mg/dl (7-18); BUN/CREATININE RATIO 11.6 (10-20); CALCIUM 8.8 mg/dl (8.5-10.1); CARBON DIOXIDE 28 mmol/L (21-32); CHLORIDE 107 mmol/L (98-107); CREATININE 0.96 mg/dl (0.60-1.20); GLUCOSE 102 mg/dl (70-99); POTASSIUM 3.5 mmol/L (3.5-5.1); SODIUM 139 mmol/L (136-145)
--- NOTE | 2017-02-11 16:59 | DIAGNOSTIC IMAGING REPORT ---
HEAD WITHOUT CONTRAST (CT) CLINICAL HISTORY: 71 years-old Female presenting with Pt c/o headache, ringing in ear. TECHNIQUE: Multidetector CT imaging of the head was performed without the use of intravenous contrast. IV contrast: None. A dose lowering technique was used consistent with the principles of ALARA (as low as reasonably achievable). COMPARISON: 11/01/2016. CT DOSE (mGy.cm): The estimated cumulative dose is 2151.[address] abdomen and pelvis. FINDINGS: Medication Administration Professional topogram: Unremarkable. Ventricles and sulci normal in size. Brain parenchyma normal in appearance with preserved ordoñez-white differentiation. No mass effect or midline shift. No hemorrhage or acute territorial infarct. No extra-axial fluid collection. Paranasal sinuses and mastoid air cells clear. Calvarium intact. IMPRESSION: 1. No acute intracranial abnormality. Electronically signed by: Carlton Alcala M.D. 02/11/2017 4:58 PM Dictated Date/Time: 02/11/2017 4:56 PM
[2017-02-11 17:03] LABS: ALKALINE PHOSPHATASE 80 U/L (45-117); THYROID STIMULATING HORMONE 0.389 uIu/ml (0.300-4.500)
--- NOTE | 2017-02-11 17:17 | DIAGNOSTIC IMAGING REPORT ---
ABD/PELVIS IV CONTRAST ONLY CLINICAL HISTORY: 71 years-old Female presenting with Pt c/o RUQ abd pain . TECHNIQUE: Multidetector CT of the abdomen and pelvis was performed after the administration of intravenous contrast. IV contrast: 118 mL of Optiray 320. A dose lowering technique was used consistent with the principles of ALARA (as low as reasonably achievable). COMPARISON: 01/23/2017. CT DOSE (mGy.cm): The estimated cumulative dose is 2151.45 mGy.cm. FINDINGS: Delivery Table Operator topogram: Unremarkable. Lung bases: Minimal dependent changes likely atelectasis. Mild multichamber enlargement of the heart. No pericardial or pleural effusion. Liver: Normal morphology. No liver lesion. Patent hepatic vasculature. Biliary: Mild biliary ductal prominence likely a reservoir effect in the post cholecystectomy state. Gallbladder surgically absent. Pancreas: Mild parenchymal atrophy. Spleen: Normal. Splenule noted. Adrenal glands: Normal. Kidneys and ureters: Well-defined hypodensity in the right kidney likely simple cyst. No hydronephrosis. No nephrolithiasis. 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 Single main renal arteries bilaterally. Ureters normal. Bladder: Normal. Pelvic organs: Uterus surgically absent. Ovaries likely still present and normal in appearance. A cystic lesion in the right adnexa measuring 3 cm (series 5 image 383) may represent a peritoneal inclusion cyst in the postsurgical setting. Similar abnormality though smaller in the left adnexa (series 5 image 388). Bowel: Barbour colonic diverticulosis. The appendix is absent. Focal pericolonic inflammatory change at the level of the mid sigmoid colon (series 5 image 329). No adjacent fluid collection. No surrounding loculated extraluminal or free intraperitoneal gas. No bowel obstruction. Peritoneal cavity: No free fluid or intraperitoneal gas. Lymph nodes: No enlarged lymph nodes in the abdomen or pelvis. Vasculature: Calcification in the left common femoral vein may relate to chronic thrombus. Atherosclerosis of the normal caliber abdominal aorta. Extensive collateral varices noted in the lower abdominal wall likely further indicating a venous obstruction from chronic thrombus and collateral drainage into the right common femoral vein. Abdominal wall: Atrophy of the right rectus abdominis with a small fat-containing ventral hernia in the epigastrium, possibly postsurgical. Musculoskeletal: Normal. IMPRESSION: 1. Findings consistent with acute uncomplicated diverticulitis in the mid sigmoid colon. No CT evidence of nicho perforation or adjacent abscess. 2. Chronic findings are unchanged from prior exam further detailed above. Electronically signed by: Carlton Alcala M.D. 02/11/2017 5:16 PM Dictated Date/Time: 02/11/2017 5:06 PM
[2017-02-11] MEDS ORDERED: CIPROFLOXACIN 500 MG TAB PO STA (17:21)
[2017-02-11] MEDS ORDERED: METRONIDAZOLE 250 MG TAB PO STA (17:21)
[2017-02-11] MEDS ORDERED: SENNA 8.6 MG TAB PO STA (17:27)
[2017-02-11] MEDS ORDERED: HYDROmorphone INJ 1 MG/ML SYR IV STA (17:27)
[2017-02-11] MEDS ORDERED: PERCOCET HOME PACK PO STA (17:27)
[2017-02-11] MEDS ORDERED: DOCUSATE SODIUM 100 MG CAP PO STA (17:27)
[2017-02-11] MEDS ORDERED: DOCU-94 PO (17:31)
[2017-02-11] MEDS ORDERED: OXYC-57 PO (17:31)
[2017-02-11] MEDS ORDERED: METR-163 PO (17:31)
[2017-02-11] MEDS ORDERED: CIPR-255 PO (17:31)
[2017-02-11] MEDS ORDERED: SENN1TAB77 PO (17:31)
[2017-02-11 17:38] LABS: URINE APPEARANCE CLEAR (CLEAR); URINE BILIRUBIN NEG (NEG); URINE COLOR YELLOW; URINE NITRITE NEG (NEG); URINE PH 6.5 (4.5-7.5); URINE SPECIFIC GRAVITY 1.023 (1.000-1.030); UROBILINOGEN NEG (NEG)
[2017-02-11 17:41] VITALS: BP 158/70; PULSE 67; O2SAT 97
[2017-02-11 17:43] LABS: MANUAL MICROSCOPIC REQUIRED? NO; REVIEW REQ? NO
== END 2017-02-11 18:10 | disposition home or self-care (01) ==
LOC: EDBD 15:40 → C.EDA 15:41
DX: K57.32 Diverticulitis of large intestine without perforation or abscess without bleeding (principal); R51 Headache; R07.81 Pleurodynia; I25.10 Atherosclerotic heart disease of native coronary artery without angina pectoris; F32.9 Major depressive disorder, single episode, unspecified; E11.42 Type 2 diabetes mellitus with diabetic polyneuropathy; K21.9 Gastro-esophageal reflux disease without esophagitis; E78.5 Hyperlipidemia, unspecified; I10 Essential (primary) hypertension; H35.30 Unspecified macular degeneration; I25.2 Old myocardial infarction; G25.81 Restless legs syndrome; Z79.82 Long term (current) use of aspirin; Z79.84 Long term (current) use of oral hypoglycemic drugs; Z79.01 Long term (current) use of anticoagulants; Z90.89 Acquired absence of other organs; Z90.49 Acquired absence of other specified parts of digestive tract; Z90.710 Acquired absence of both cervix and uterus; Z86.718 Personal history of other venous thrombosis and embolism; Z86.73 Personal history of transient ischemic attack (TIA), and cerebral infarction without residual deficits; Z87.891 Personal history of nicotine dependence; Z82.49 Family history of ischemic heart disease and other diseases of the circulatory system; Z80.49 Family history of malignant neoplasm of other genital organs; Z80.0 Family history of malignant neoplasm of digestive organs; Z83.79 Family history of other diseases of the digestive system; Z82.3 Family history of stroke

== ENCOUNTER 2017-03-19 08:19 | Observation (INO) | payer OTHER ==
[2017-03-09 14:13] VITALS: BMI 38.0
--- NOTE | 2017-03-09 15:08 | PAT Medication Instructions ---
Service Date Mar 09, 2017. Current Home Medication List Albuterol (Ventolin Hfa), 2 PUFFS INH QID PRN for SOB/Wheezing Alendronate Sodium (Fosamax), 70 MG PO WK Aspirin (Aspirin Adult Low Dose), 81 MG PO QAM Atenolol (Tenormin), 25 MG PO QAM Atorvastatin (Lipitor), 80 MG PO QAM Calcium Carbonate-Cholecalcife (Caltrate 600+D), 1 TAB PO QPM Cyanocobalamin (Vitamin B-12), 100 MCG PO QAM Fluticasone Propionate (Flovent Hfa), 2 PUFFS INH BID PRN for Shortness of Breath Glipizide (Glipizide Er), 2.5 MG PO QAM Insulin Aspart (Novolog Penfill), 36 UNITS SQ QPM Magnesium Hydroxide (Milk of Magnesia), 30 ML PO BID PRN for Constipation Mirtazapine (Mirtazapine), 45 MG PO HS Multiple Vitamins W/ Minerals (Multi For Her 50+), 1 CAP PO QPM Nitroglycerin (Nitrostat), 0.4 MG SL UD PRN for Chest Pain Oxybutynin Chloride (Ditropan), 5 MG PO TID Polyethylene (Miralax), 17 GM PO DAILY PRN for Constipation Probiotic Product (Probiotic), 1 CAP PO QAM Ranitidine (Zantac), 150 MG PO DAILY PRN for Heartburn Ropinirole (Requip), 4 MG PO HS Tetrahydrozoline Hcl (Ophth) (Visine), 1 DROP OPB UD PRN for DRYNESS Tramadol (Ultram), 50 MG PO Q6 PRN for Pain Warfarin Sod (Jantoven), 2 MG PO 4XWK Warfarin Sod (Jantoven), 4 MG PO 3XWK Medication Instructions For Your Scheduled Surgery - Continue as directed: Alendronate Sodium (Fosamax), 70 MG PO WK Nitroglycerin (Nitrostat), 0.4 MG SL UD PRN for Chest Pain - Hold the following medications per surgeon's instructions: Warfarin Sod (Jantoven), 2 MG PO 4XWK Warfarin Sod (Jantoven), 4 MG PO 3XWK - Hold the following medications 24 hours prior to surgery: Ropinirole (Requip), 4 MG PO HS - Hold the following medications the morning of surgery: Glipizide (Glipizide Er), 2.5 MG PO QAM Magnesium Hydroxide (Milk of Magnesia), 30 ML PO BID PRN for Constipation Cyanocobalamin (Vitamin B-12), 100 MCG PO QAM Oxybutynin Chloride (Ditropan), 5 MG PO TID Polyethylene (Miralax), 17 GM PO DAILY PRN for Constipation Probiotic Product (Probiotic), 1 CAP PO QAM - Take the following medications the morning of surgery with a sip of water OTHERWISE NOTHING TO EAT OR DRINK AFTER MIDNIGHT: Albuterol (Ventolin Hfa), 2 PUFFS INH QID PRN for SOB/Wheezing (use if needed; BRING TO HOSPITAL) Aspirin (Aspirin Adult Low Dose), 81 MG PO QAM (okay to continue per surgeon) Atenolol (Tenormin), 25 MG PO QAM Atorvastatin (Lipitor), 80 MG PO QAM Tramadol (Ultram), 50 MG PO Q6 PRN for Pain (may take if needed up to 4 hours prior to surgery) Tetrahydrozoline Hcl (Ophth) (Visine), 1 DROP OPB UD PRN for DRYNESS Fluticasone Propionate (Flovent Hfa), 2 PUFFS INH BID PRN for Shortness of Breath Ranitidine (Zantac), 150 MG PO DAILY PRN for Heartburn - Take the following medications as scheduled the night before surgery: Albuterol (Ventolin Hfa), 2 PUFFS INH QID PRN for SOB/Wheezing Mirtazapine (Mirtazapine), 45 MG PO HS Insulin Aspart (Novolog Penfill), 36 UNITS SQ QPM Multiple Vitamins W/ Minerals (Multi For Her 50+), 1 CAP PO QPM Magnesium Hydroxide (Milk of Magnesia), 30 ML PO BID PRN for Constipation Tramadol (Ultram), 50 MG PO Q6 PRN for Pain Tetrahydrozoline Hcl (Ophth) (Visine), 1 DROP OPB UD PRN for DRYNESS Fluticasone Propionate (Flovent Hfa), 2 PUFFS INH BID PRN for Shortness of Breath Calcium Carbonate-Cholecalcife (Caltrate 600+D), 1 TAB PO QPM Oxybutynin Chloride (Ditropan), 5 MG PO TID Polyethylene (Miralax), 17 GM PO DAILY PRN for Constipation If you have any questions please call us at [phone] or [phone] or [phone]
[~2017-03-19] VITALS: Ht 154.9 cm; Wt 92.4 kg
[2017-03-19] VITALS (10 sets, daily range): BP systolic 102–173; BP diastolic 61–89; PULSE 60–82; TEMP 36.4–36.8; O2SAT 91–98; Ht 154.9 cm; Wt 92.4 kg
[~2017-03-19 08:19] MED LIST changes: -BUPR150T7 PO; +CALC-354 PO; +CLINDAMYCIN 600 MG/54 ML D5W IV SCH; -CMD2 PO; -DULO60CA44 PO; -FLX5 PO; +INSU1INJ2 SQ; -LDDP5 TD; +MISCCAP80 PO; +MULT1CAP7 PO; -NRN100 PO; -OMEP20TA PO; +RMRS/45 PO; +WARF2TAB8 PO; +WARF4TAB8 PO; +ZNTT/150 PO
[2017-03-19] MEDS ORDERED: ETOMIDATE 2 MG/ML 20 ML VIAL IV ONE (08:47)
[2017-03-19] MEDS ORDERED: MIDAZOLAM HCL 1 MG/ML 2ML VIAL ONE (08:47)
[2017-03-19] MEDS ORDERED: LIDOCAINE HCL 2% 2 ML VIAL (20MG/ML) ONE (08:47)
[2017-03-19] MEDS ORDERED: FENTANYL CITRATE INJ 50 MCG/1 ML 2 ML VIAL ONE (08:47)
[2017-03-19] MEDS ORDERED: LABETALOL HCL IV 5 MG/ML 20ML IV PRN (09:00)
[2017-03-19] MEDS ORDERED: EpHEDrine SULFATE INJ 50 MG/ML AMP IV PRN (09:00)
[2017-03-19] MEDS ORDERED: ONDANSETRON INJ 2 MG/ML 2 ML VIAL IV PRN ×2 (09:00→10:45)
[2017-03-19] MEDS ORDERED: PHENYLEPHRINE 100MCG/ML 5ML SYR IV PRN (09:00)
[2017-03-19] MEDS ORDERED: HYDROmorphone INJ 1 MG/ML SYR IV PRN (09:00)
[2017-03-19] MEDS ORDERED: ATROPINE SULFATE 0.1 MG/ML 5ML SYR IV PRN (09:00)
--- NOTE | 2017-03-19 09:21 | History & Physical Bridge Note ---
H&P Re-Evaluation Bridge Note: I have examined the patient, reviewed the History & Physical and in the interval since the performance of the History & Physical I have noted the following changes of clinical significance: No changes noted
[2017-03-19] MEDS ORDERED: CLINDAMYCIN IV 600 MG in DEXTROSE 5% 50ML 50 ML IV ONE (09:30)
[2017-03-19] MEDS ORDERED: BUPIVACAINE 0.5 % 5 MG/1 ML MPF 30ML VIAL ONE (09:31)
[2017-03-19] MEDS ORDERED: BACITRACIN OINT 15 GM TUBE ONE (09:31)
[2017-03-19] MEDS ORDERED: LIDOCAINE HCL 1% 20 ML VIAL ONE (09:31)
[2017-03-19 09:46] LABS: INR 1.2 (0.9-1.1); PTT PATIENT 26.4 SECONDS (21.0-31.0)
[2017-03-19] MEDS ORDERED: ESMOLOL HCL 10 MG/ML 10 ML VIAL ONE (09:59)
[2017-03-19] MEDS ORDERED: ONDANSETRON INJ 2 MG/ML 2 ML VIAL ONE (09:59)
[2017-03-19] MEDS ORDERED: GLYCOPYRROLATE INJ 0.2 MG/ML VIAL ONE (10:08)
[2017-03-19] MEDS ORDERED: PROPOFOL IV EMULSION 10 MG/ML 20 ML VIAL IV ONE (10:08)
[2017-03-19] MEDS ORDERED: NEOSTIGMINE METHYLSULFATE 5 MG/5 ML SYR ONE (10:08)
--- NOTE | 2017-03-19 10:27 | [facility] Post Operative Brief Note ---
Immediate Operative Summary Operative Date Mar 19, 2017. Pre-Operative Diagnosis Ventral Hernia Post-Operative Diagnosis Ventral Hernia Procedure(s) Performed Open Ventral Hernia Repair Surgeon Dr. Jenkins Angiographer Surgeon(s) none Estimated Blood Loss 5 ML Findings Consistent with Post-Op Diagnosis Fluids (cc crystalloids) ventral hernia, size 2x2cm Specimens none per surgeon Drains None Anesthesia Type General Complication(s) none Disposition Accompanied Pt To Recover: yes Disposition: Recovery Room / PACU
[2017-03-19] MEDS ORDERED: HYDROmorphone INJ 0.5 MG/0.5 ML SYR IV PRN (10:45)
[2017-03-19] MEDS ORDERED: ACETAMINOPHEN 325 MG TAB PO PRN (10:45)
[2017-03-19] MEDS ORDERED: OXYCODONE/ACETAMINOPHEN 5-325 TAB PO PRN (10:45)
[2017-03-19] MEDS: FENTANYL CITRATE INJ 50 MCG/1 ML 2 ML VIAL IV PRN ×4 (10:53→11:34)
--- NOTE | 2017-03-19 11:19 | OPERATIVE REPORT ---
DATE OF OPERATION: 03/19/2017 PREOPERATIVE DIAGNOSIS: Ventral hernia. POSTOPERATIVE DIAGNOSIS: Same. OPERATION: Open repair of ventral hernia with primary closure. ANESTHESIA: General. ESTIMATED BLOOD LOSS: About 5 mL. FINDINGS: Ventral hernia size about 2 x 2 cm. COMPLICATIONS: None. INDICATIONS FOR THE PROCEDURE: This is a 71-year-old female who presented with symptomatic ventral hernia and patient will be required to do open repair of ventral hernia, possible mesh. I did talk to the patient about the benefit and risk, alternate procedure. I indicated the risks may include but not limited such as bleeding, infection, hernia recurrence, myocardial infarction, DVT, stroke, even . The patient understands. She signed informed consent and I answered all questions. DETAILS OF PROCEDURE: We brought the patient to the OR, put the patient in the supine position. The patient received SCD on bilateral legs to prevent DVT. Also, the patient received 600 mg of clindamycin IV for prophylactic antibiotic. The patient received general anesthesia without difficulty. The abdomen was prepped and draped in routine sterile fashion. After time out, I made about a 4 cm incision just above ventral hernia, epigastric area, opened the subcutaneous layer found the patient had a hernia. Hernia size about 2 x 2 cm. After successful completely reduced the hernia contents back to the abdominal cavity, mobilized fascial layer and because the hernia was small, I decided to use 0 Ethibond suture for primary closed of the hernia interruptedly and rechecked and no more hernia and the suture closed the hernia nicely. Hemostasis was obtained. I used 2-0 Vicryl to close subcutaneous layer interruptedly and closed skin by using 4-0 Vicryl. Then we put the dressing on. The patient tolerated the procedure well. All the instrument, needle and sponge count correct x2 at the end of case. The patient transferred to recovery room in stable condition. I attest to the content of the Intraoperative Record and any orders documented therein. Any exceptions are noted below. MTDD
[2017-03-19] MEDS ORDERED: DEXAMETHASONE SOD INJ 4 MG/ML VIAL ONE (11:22)
[2017-03-19] MEDS ORDERED: DEXAMETHASONE SOD INJ 4 MG/ML VIAL IV PRN (11:30)
[2017-03-19] MEDS ORDERED: PROMETHAZINE HCL INJ 12.5 MG in SODIUM CHLORIDE 0.9% 50ML 50 ML IV PRN (11:30)
--- NOTE | 2017-03-19 11:39 | Anesthesiology Progress Note ---
Anesthesia Post Op Note Date & Time Mar 19, 2017 at 11:39 Vital Signs Pain Intensity: 4 Vital Signs Past 12 Hours Date Time Temp Pulse Resp B/P (MAP) Pulse Ox O2 Delivery O2 Flow Rate FiO2 03/19/17 11:36 123/66 03/19/17 11:34 59 14 100 03/19/17 11:34 58 14 03/19/17 11:31 133/58 03/19/17 11:29 59 12 100 03/19/17 11:29 59 12 03/19/17 11:28 62 12 100 03/19/17 11:28 63 12 03/19/17 11:26 129/81 03/19/17 11:23 63 14 97 03/19/17 11:23 64 14 03/19/17 11:21 137/55 03/19/17 11:18 62 16 100 03/19/17 11:18 61 16 03/19/17 11:16 127/63 03/19/17 11:13 61 14 03/19/17 11:13 62 14 100 03/19/17 11:12 65 16 100 03/19/17 11:12 64 16 03/19/17 11:11 116/61 03/19/17 11:07 64 14 03/19/17 11:07 63 14 100 03/19/17 11:06 133/72 03/19/17 11:02 65 11 100 03/19/17 11:02 64 11 03/19/17 11:01 124/72 03/19/17 10:57 67 23 100 03/19/17 10:57 67 23 03/19/17 10:56 116/69 03/19/17 10:52 72 17 03/19/17 10:52 72 17 100 03/19/17 10:51 119/78 03/19/17 10:47 83 20 100 03/19/17 10:47 83 20 03/19/17 10:46 127/85 03/19/17 10:42 86 21 100 03/19/17 10:42 86 21 03/19/17 10:41 129/72 03/19/17 10:38 132/71 03/19/17 10:37 94 24 100 03/19/17 10:37 36 88 17 132/71 100 Oxymask 12 03/19/17 10:37 94 24 03/19/17 08:47 36.8 68 20 173/89 (117) 98 Room Air Notes Mental Status: alert / awake / arousable, participated in evaluation Pt Amnestic to Procedure: Yes Nausea / Vomiting: adequately controlled Pain: adequately controlled Airway Patency, RR, SpO2: stable & adequate BP & HR: stable & adequate Hydration State: stable & adequate Anesthetic Complications: no major complications apparent
[2017-03-19] MEDS: LACTATED RINGER'S 1000ML 1,000 ML IV SCH ×2 (12:56→13:33)
[2017-03-19] MEDS ORDERED: INSDGI SC (13:33)
[2017-03-19] MEDS ORDERED: OMEP20TA PO (13:47)
[2017-03-19] MEDS ORDERED: D5W AND 1/2NSS + 20MEQ KCL 1,000 ML IV SCH (14:00)
[2017-03-19] MEDS ORDERED: GLUCAGON FOR INJ 1 MG VIAL SQ PRN (14:15)
[2017-03-19] MEDS ORDERED: GLUCOSE 40% GEL 15 GM TUBE PO PRN (14:15)
[2017-03-19] MEDS ORDERED: DEXTROSE 50% 50 ML SYR IV PRN (14:15)
[2017-03-19] MEDS ORDERED: GLUCOSE 10 TABS/TUBE PO PRN (14:15)
[2017-03-19] MEDS ORDERED: PHARMACY GLYCEMIC MGMT CONSULT PRN (14:19)
--- NOTE | 2017-03-19 14:29 | Medical Consult ---
Consultation Date of Consultation: Mar 19, 2017. Attending Physician: Elvis Jenkins MD Reason for Consultation: Post Op Medical Management History of Present Illness 71 year old female who is s/p ventral hernia repair by Dr. Jenkins. Post operatively the patient is doing well. She reports her pain is well controlled. She has mild nausea. She denies vomiting. No chest pain or shortness of breath. Denies lightheadedness and dizziness. She has not voided since surgery. 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 Status: Chronic (11) [place] (myocardial infarction) Permanent Comment: self reported, no documented history of CAD Status: Chronic (12) Peripheral neuropathy Status: Chronic (13) Recurrent DVT Status: Chronic (14) RLS (restless legs syndrome) Status: Chronic Surgical Problems: (1) History of appendectomy Status: Resolved (2) History of cholecystectomy Status: Resolved (3) History of hysterectomy Status: Resolved (4) History of salpingo-oophorectomy Status: Chronic (5) S/P cholecystectomy Status: Chronic (6) S/P removal of ovarian cyst Status: Chronic Family History Early CAD FATHER ( in 30s of [place]) MOTHER ( in 30s of [place]) BROTHER ( in 50s of [place]) GRANDFATHER GRANDMOTHER FHx: cancer DAUGHTER (hx cervical and throat CA) FHx: gallbladder disease FHx: heart disease FHx: hypertension GRANDFATHER GRANDMOTHER Stroke GRANDMOTHER Social History Smoking Status: Former Smoker Alcohol Use: none Allergies Coded Allergies: Macrolides and Ketolides (Verified Allergy, Severe, anaphylaxis, 03/19/17) Niacin (Verified Allergy, Severe, anaphylaxis, 03/19/17) Penicillins (Verified Allergy, Severe, anaphylaxis, 03/19/17) Procaine (Verified Allergy, Unknown, rash and swelling around injection site, 03/19/17) Sulfa Antibiotics (Verified Allergy, Unknown, RASH, 03/19/17) Home Medications Nitrostat (Nitroglycerin) 0.4 Mg Tab 0.4 Mg SL UD PRN [address] ONE TABLET UNDER THE TONGUE EVERY 5 MINUTES FOR UP TO 3 DOSES IF NEEDED FOR CHEST PAIN. Omeprazole 20 Mg Tab 1 Tab PO DAILY 90 Days Lantus (Insulin Glargine) 100 Unit/Ml Inj 36 Units SC QPM Probiotic (Probiotic Product) 1 Cap Cap 1 Cap PO QAM Caltrate 600+D (Calcium Carbonate-Cholecalcife) 1 Tab Tab 1 Tab PO BID Zantac (Ranitidine HCl) 150 Mg Tab 150 Mg PO DAILY PRN Multi For Her 50+ (Multiple Vitamins W/ Minerals) 1 Cap Cap 1 Cap PO QPM Mirtazapine 45 Mg Tab 45 Mg PO HS Jantoven (Warfarin Sodium) 4 Mg Tab 4 Mg PO WK SUNDAY Jantoven (Warfarin Sodium) 2 Mg Tab 2 Mg PO 6XWK except sunday Requip (Ropinirole HCl) 4 Mg Tab 4 Mg PO HS Miralax (Polyethylene) 17 Gm Pow 17 Gm PO DAILY PRN Milk of Magnesia (Magnesium Hydroxide) 30 Ml Susp 30 Ml PO BID PRN Ultram (Tramadol HCl) 50 Mg Tab 50 Mg PO Q6 PRN Aspirin Adult Low Dose (Aspirin) 81 Mg Tab 81 Mg PO QAM Visine (Tetrahydrozoline Hcl (Ophth)) 0.05 % [place] 1 Drop OPB UD PRN Vitamin B-12 (Cyanocobalamin) 100 Mcg Tab 100 Mcg PO QAM Ventolin Hfa (Albuterol) 60 Puffs/5400 Mcg Aers 2 Puffs INH QID PRN Flovent Hfa (Fluticasone Propionate) 120 Puffs/5280 Mcg Aero 2 Puffs INH BID PRN 30 Days pt reports uses in summer Tenormin (Atenolol) 25 Mg Tab 25 Mg PO QAM Glipizide Er (Glipizide) 2.5 Mg Tab 2.5 Mg PO QAM 90 Days Fosamax (Alendronate Sodium) 70 Mg Tab 70 Mg PO WK TAKE THIS MEDICATION EVERY SUNDAY 30 MINUTES BEFORE FIRST MEAL OF THE DAY WITH 8 OUNCES OF WATER AND REMAIN UPRIGHT FOR 30 MINUTES AFTER TAKING. Lipitor (Atorvastatin Calcium) 80 Mg Tab 80 Mg PO QAM Ditropan (Oxybutynin Chloride) 5 Mg Tab 5 Mg PO TID Current Inpatient Medications Current Inpatient Medications Medications (Trade) Dose Ordered Sig/Juany Route Start Time Stop Time Status Last Admin Dose Admin Lactated Ringer's 1,000 ml @ 15 mls/hr Q24H IV 03/19/17 06:00 03/19/17 18:00 03/19/17 13:33 15 MLS/HR Clindamycin Phosphate 54 ml @ 100 mls/hr PREOP IV 03/19/17 06:00 03/19/17 18:00 Potassium Chloride/Dextrose/ Sod Cl 1,000 ml @ 50 mls/hr Q20H IV 03/19/17 14:00 04/18/17 10:37 Ondansetron HCl (Zofran Inj) 4 mg Q4H PRN IV 03/19/17 10:45 04/18/17 10:44 Acetaminophen (Tylenol Tab) 650 mg Q6H PRN PO 03/19/17 10:45 04/18/17 10:44 Oxycodone/ Acetaminophen (Percocet 5-325mg Tab) 1 tab Q4H PRN PO 03/19/17 10:45 04/02/17 10:44 Hydromorphone HCl (Dilaudid Inj) 0.5 mg Q3H PRN IV 03/19/17 10:45 04/02/17 10:44 Dexamethasone Sodium Phosphate (Decadron Inj) 8 mg ONE PRN IV 03/19/17 11:30 03/19/17 16:00 Promethazine HCl 12.5 mg/Sodium Chloride 50.5 ml @ 202 mls/hr ONE PRN IV 03/19/17 11:30 03/19/17 16:00 Aspirin (Ecotrin Tab) 81 mg QAM PO 03/20/17 09:00 04/19/17 08:59 UNV Atenolol (Tenormin Tab) 25 mg QAM PO 03/20/17 09:00 04/19/17 08:59 UNV Atorvastatin Calcium (Lipitor Tab) 80 mg QAM PO 03/20/17 09:00 04/19/17 08:59 UNV Cyanocobalamin (Vitamin B-12 Tab) 100 mcg QAM PO 03/20/17 09:00 04/19/17 08:59 UNV Oxybutynin Chloride (Ditropan Tab) 5 mg TID PO 03/19/17 14:00 04/18/17 13:59 UNV Ropinirole HCl (Requip Tab) 4 mg HS PO 03/19/17 21:00 04/18/17 20:59 UNV Warfarin Sodium (Coumadin Tab) 2 mg UD PO 03/19/17 14:00 04/18/17 13:59 UNV Warfarin Sodium (Coumadin Tab) 4 mg UD PO 03/19/17 14:00 04/18/17 13:59 UNV Non-Formulary Medication (Calcium Carbonate-Cholecalcife (Caltrate 600+D)) 1 tab BID PO 03/19/17 21:00 04/18/17 20:59 UNV Non-Formulary Medication (Mirtazapine ) 45 mg HS PO 03/19/17 21:00 04/18/17 20:59 UNV Non-Formulary Medication (Multiple Vitamins W/ Minerals (Multi For Her 50+)) 1 cap QPM PO 03/19/17 21:00 04/18/17 20:59 UNV Non-Formulary Medication (Omeprazole ) 1 tab DAILY PO 03/20/17 09:00 04/19/17 08:59 UNV Non-Formulary Medication (Probiotic Product (Probiotic)) 1 cap QAM PO 03/20/17 09:00 04/19/17 08:59 UNV Insulin Glargine (Lantus Solostar Pen) 10 units Q12 SC 03/19/17 21:00 04/18/17 20:59 UNV Insulin Aspart (novoLOG ASPART) SLIDING SCALE If C... ACHS SC 03/19/17 17:15 04/18/17 17:14 UNV Glucose (Glucose 40% Gel) 15-30 GRAMS 15 GRAMS... UD PRN PO 03/19/17 14:15 04/18/17 14:14 UNV Glucose (Glucose Chew Tab) 4-8 Tablets 4 Tabl... UD PRN PO 03/19/17 14:15 04/18/17 14:14 UNV Review of Systems ROS per HPI, all other systems reviewed and negative Physical Exam Date Time Temp Pulse Resp B/P (MAP) Pulse Ox O2 Delivery O2 Flow Rate FiO2 1/22/18 13:15 36.5 70 16 127/62 (83) 97 Nasal Cannula 2.0 03/19/17 12:45 36.7 61 16 121/75 (90) 97 Nasal Cannula 2.0 03/19/17 12:43 Nasal Cannula 2.0 03/19/17 12:36 36.6 60 20 154/86 (108) 91 Nasal Cannula 2.0 03/19/17 12:34 91 Nasal Cannula 2.0 03/19/17 11:57 56 13 100 03/19/17 11:57 56 13 03/19/17 11:56 120/62 03/19/17 11:52 55 16 100 03/19/17 11:52 55 16 03/19/17 11:51 116/68 03/19/17 11:47 57 16 03/19/17 11:47 57 16 100 03/19/17 11:46 124/63 03/19/17 11:45 36.4 03/19/17 11:42 61 15 03/19/17 11:42 60 15 100 03/19/17 11:41 115/77 03/19/17 11:37 66 13 94 03/19/17 11:37 65 13 03/19/17 11:36 123/66 03/19/17 11:34 59 14 100 03/19/17 11:34 58 14 03/19/17 11:31 133/58 03/19/17 11:29 59 12 100 03/19/17 11:29 59 12 03/19/17 11:28 62 12 100 03/19/17 11:28 63 12 03/19/17 11:26 129/81 03/19/17 11:23 63 14 97 03/19/17 11:23 64 14 03/19/17 11:21 137/55 03/19/17 11:18 62 16 100 03/19/17 11:18 61 16 03/19/17 11:16 127/63 03/19/17 11:13 61 14 03/19/17 11:13 62 14 100 03/19/17 11:12 65 16 100 03/19/17 11:12 64 16 03/19/17 11:11 116/61 03/19/17 11:07 64 14 03/19/17 11:07 63 14 100 03/19/17 11:06 133/72 03/19/17 11:02 65 11 100 03/19/17 11:02 64 11 03/19/17 11:01 124/72 03/19/17 10:57 67 23 100 03/19/17 10:57 67 23 03/19/17 10:56 116/69 03/19/17 10:52 72 17 03/19/17 10:52 72 17 100 03/19/17 10:51 119/78 03/19/17 10:47 83 20 100 03/19/17 10:47 83 20 03/19/17 10:46 127/85 03/19/17 10:42 86 21 100 03/19/17 10:42 86 21 03/19/17 10:41 129/72 03/19/17 10:38 132/71 03/19/17 10:37 94 24 100 03/19/17 10:37 36 88 17 132/71 100 Oxymask 12 03/19/17 10:37 94 24 03/19/17 08:47 36.8 68 20 173/89 (117) 98 Room Air General Appearance: WD/WN, no apparent distress Head: normocephalic, atraumatic Eyes: normal inspection, EOMI, sclerae normal ENT: hearing grossly normal, + pertinent finding (mucous membranes moist) Neck: supple, no JVD, trachea midline Respiratory/Chest: lungs clear, normal breath sounds, no respiratory distress Cardiovascular: regular rate, rhythm, no edema, normal peripheral pulses Abdomen/GI: normal bowel sounds, soft, no organomegaly, + tenderness (mild incisional ), + pertinent finding (epigastric surgical dressing intact with a small amount of blood stain noted) Extremities/Musculoskelatal: normal inspection, no calf tenderness, normal capillary refill Neurologic/Psych: no motor/sensory deficits, alert, normal mood/affect, oriented x 3 Skin: normal color, warm/dry Laboratory Results Last 24 Hours Test 03/19/17 08:47 03/19/17 09:04 03/19/17 11:27 03/19/17 13:52 Bedside Glucose 119 mg/dl 127 mg/dl Prothrombin Time 12.7 SECONDS Prothromb Time International Ratio 1.2 Activated Partial Thromboplast Time 26.4 SECONDS Partial Thromboplastin Ratio 1.0 Assessment & Plan S/P VENTRAL HERNIA REPAIR - POD#0 - management as per surgery HX DVT/PE - on Coumadin which has been on hold for the past 3 days - discussed with Dr. Jenkins - ok to resume Coumadin tonight, no bridge DM - hgb a1c 6.7 12/2016 - hold oral agents while hospitalized - continue Lantus and add on SSI HTN - BP controlled, continue atenolol HX CVA - continue ASA and statin DVT PROPHYLAXIS - SCDs when INR < 2.0 Thank you for this consultation. We will follow the patient with you during their hospital stay. You can reach a member of the [facility] Hospitalist Team 18/09 via pager @ . Agree with above consult note. Briefly 71F is s/p ventral hernia repair. Post op doing fine. No fevers. No chest pain or sob. has some pain at surgery site. p/e Ge not in distress Cvs s1 and s2 heard no murmurs RS cta b/l no added sounds Abd soft bs sluggish surgical site dressing clean. Optimization Specialist non focal Ext no edema a/p s/p Ventral hernia repair management as per surgery Hx of DVT/PE held Coumadin for surgery to restart Coumadin tonight
[2017-03-19] MEDS: OXYBUTYNIN CHLORIDE 5 MG TAB PO SCH ×2 (15:06→20:34)
[2017-03-19] MEDS ORDERED: NURSING VERBAL MED ORDER ONE (15:15)
--- NOTE | 2017-03-19 15:31 | Pharmacy Progress Note ---
Glycemic Control Intl Consult Date of Service Mar 19, 2017. Scope Glycemic Pharmacist consulted by Laverne Berger on 03/19/17 for glycemic control and to write orders per [facility] inpatient glycemic control protocol Objective Weight (Kilograms): 92.400 Accuchecks BSG (last 24hrs): Test 03/19/17 08:47 03/19/17 11:27 Bedside Glucose 119 mg/dl (70-90) 127 mg/dl (70-90) HbA1c 6.7% 01/24/17 Recent Pertinent Medications Outpatient Anti-diabetic Regimen: * Lantus 36u HS * Glipizide 2.5mg QAM * A1c = 6.7 % 01/24/17 Risk Factors for Insulin Resistance: * Steroids: Dexamethasone 8mg IV x1 in OR * IVF: D5 1/2NSS @ 50cc/hr * Recent Surgery: epigastric hernial repair * Diet:DM-II/CLD Assessment & Plan ASSESSMENT: * Ms. Kamara is a 71yo F POD#0 for herniated repair. She is a DM-II who receives Glipizide 2.5mg QAM & Lantus 36u HS. Her A1C is indicative of good outpt glycemic control. The dexamethasone in the OR leads me to believe she will require more insulin; however, she is ordered a clear liquid diet. Will order a lantus scale to help balance metabolic requirements. In an effort to transition easier to discharge will maintain lantus QHS, rather than a BID regimen. The CF/ CR of 25/8 yielded therapeutic bsg's during previous admission's, ergo, will continue this component. PLAN FOR INPATIENT GLYCEMIC CONTROL: * Holding outpatient oral diabetes medications * Basal insulin with LANTUS scale QHS: bsg less than 110 give 16u, bsg 110-140 give 32u, greater than 141 give 46u. * Correctional Insulin with NOVOLOG per scale ACHS * Goal Range: Low 110 mg/dL - High 140 mg/dL * Correction Factor: 25 mg/dL/unit * Nutritional / Prandial insulin per carb ratio of 1 unit per 8 grams CHO consumed * Please note that the plan above was derived based on current level of insulin resistance and hospital stress. These recommendations are appropriate for inpatient admission only. Plan of care upon discharge will need to be reassessed to avoid potential outpatient hypo/hyperglycemia. Thank you.
[2017-03-19] MEDS ORDERED: LACTATED RINGER'S 1000ML 1,000 ML IV SCH (15:45)
[2017-03-19] MEDS ORDERED: IV FLUIDS COMPLETED PRN (15:45)
[2017-03-19] MEDS ORDERED: WARFARIN SOD 2 MG TAB PO SCH (16:00)
[2017-03-19] MEDS: INSULIN ASPART 100 UNITS/ML 3 ML PEN SC SCH ×2 (17:15→20:41)
[2017-03-19] MEDS ORDERED: INSULIN GLARGINE SOLOSTAR 100 UNITS/ML 3 ML PEN SC SCH (18:00)
[2017-03-19] MEDS: CALCIUM 600MG + VIT D 400 IU TAB PO SCH (20:34)
[2017-03-19] MEDS ORDERED: MIRTAZAPINE TAB 15 MG TAB PO SCH (21:00)
[2017-03-19] MEDS ORDERED: ROPINIROLE HCL 1 MG TAB PO SCH (21:00)
[2017-03-19] MEDS ORDERED: CEROVITE ADV FORMULA TAB PO SCH (21:00)
[2017-03-20 02:25] VITALS: BP 107/63; PULSE 55; TEMP 36.7; O2SAT 97
[2017-03-20 03:06] VITALS: BP 121/69; PULSE 66; TEMP 36.4; O2SAT 91
[2017-03-20 06:50] LABS: HEMOGLOBIN 12.2 g/dL (12.0-16.0); IG# 0.03 K/uL (0.00-0.02); LYMPH % 14.6 %; LYMPH ABS # 1.39 K/uL (1.2-3.4); MEAN CELL VOLUME 97.1 fL (80-100); MEAN PLATELET VOLUME 10.2 fL (7.4-10.4); MONO % 3.8 %; MONO ABS # 0.36 K/uL (0.11-0.59); NEUT % 81.3 %; NEUT ABS # 7.76 K/uL (1.4-6.5); PLATELET COUNT 298 K/uL (130-400); RED CELL DISTRIBUTION WIDTH CV 14.1 % (11.5-14.5); RED CELL DISTRIBUTION WIDTH SD 49.6 fL (36.4-46.3); WHITE BLOOD COUNT 9.54 K/uL (4.8-10.8)
[2017-03-20 06:55] LABS: INR 1.2 (0.9-1.1)
[2017-03-20 07:25] LABS: ALBUMIN 2.8 gm/dl (3.4-5.0); CALCIUM 8.6 mg/dl (8.5-10.1); CREATININE 0.89 mg/dl (0.60-1.20); POTASSIUM 3.8 mmol/L (3.5-5.1)
[2017-03-20 07:28] LABS: TOTAL PROTEIN 6.7 gm/dl (6.4-8.2)
--- NOTE | 2017-03-20 07:28 | Anesthesiology Progress Note ---
Anesthesia Post Op Note Date & Time Mar 20, 2017 at 07:27 Vital Signs Pain Intensity: 0.0 Vital Signs Past 12 Hours Date Time Temp Pulse Resp B/P (MAP) Pulse Ox O2 Delivery O2 Flow Rate FiO2 03/20/17 03:06 36.4 66 14 121/69 (86) 91 Room Air 03/20/17 00:00 Room Air 03/19/17 23:05 36.4 68 14 105/66 (79) 91 Room Air Notes Mental Status: alert / awake / arousable Pt Amnestic to Procedure: Yes Nausea / Vomiting: adequately controlled Pain: adequately controlled Airway Patency, RR, SpO2: stable & adequate BP & HR: stable & adequate Hydration State: stable & adequate Anesthetic Complications: patient c/o Post op nausea that has improved with treatment;
[2017-03-20 07:45] VITALS: BP 120/64; PULSE 64; TEMP 36.7; O2SAT 95
[2017-03-20] MEDS ORDERED: PANTOprazole SOD 40 MG TAB PO SCH (09:00)
[2017-03-20] MEDS ORDERED: CYANOCOBALAMIN 100 MCG TAB (VIT B-12) PO SCH (09:00)
[2017-03-20] MEDS ORDERED: ASPIRIN 81 MG ECTAB PO SCH (09:00)
[2017-03-20] MEDS ORDERED: LACTOBACILLUS ACIDOPHILUS (FLORANEX) TAB PO SCH (09:00)
[2017-03-20] MEDS ORDERED: ATORVASTATIN 40 MG TAB PO SCH (09:00)
[2017-03-20] MEDS ORDERED: TRAMADOL HCL 50 MG TAB PO PRN (09:15)
[2017-03-20] MEDS ORDERED: TRAMADOL HCL 50 MG TAB ONE (09:18)
--- NOTE | 2017-03-20 09:19 | Progress Note ---
Medicine Progress Note Date & Time of Visit: Mar 20, 2017 at 09:14. Subjective seen sitting up in bed, comfortable states she feels ok overall denies abdominal pain, nausea, tolerating diet well no chest pain, dyspnea, palpitations, dizziness has mild headache- same migraine headache she had before no other symptoms Objective Last 8 Hrs Date Time Temp Pulse Resp B/P (MAP) Pulse Ox O2 Delivery O2 Flow Rate FiO2 03/20/17 07:45 36.7 64 16 120/64 (82) 95 Room Air 03/20/17 03:06 36.4 66 14 121/69 (86) 91 Room Air Physical Exam: General- oriented x 3, not in distress, speaks in sentences with no effort Head- atraumatic Eyes- PERRL, EOMI, anicteric ENT- oropharynx clear Neck- supple, no JVD, no adenopathy, no thyromegaly Lungs- clear breath sounds bilaterally, no rales/wheezes Heart- regular rhythm; no murmur, normal rate Abdomen- dressing in place, no active discharge/bleeding; hypoactive bowel sounds, non distended, soft, nontender Extremities- no pretibial edema, no calf tenderness; peripheral pulses intact Neuro- alert, oriented x 3; no gross focal deficits Skin- warm & dry Laboratory Results: Last 24 Hours Test 03/19/17 11:27 03/19/17 13:52 03/19/17 16:54 03/19/17 20:29 Bedside Glucose 127 mg/dl 153 mg/dl 196 mg/dl Hepatitis C Antibody Screen NEG Test 03/20/17 05:49 White Blood Count 9.54 K/uL Red Blood Count 3.81 M/uL Hemoglobin 12.2 g/dL Hematocrit 37.0 % Mean Corpuscular Volume 97.1 fL Mean Corpuscular Hemoglobin 32.0 pg Mean Corpuscular Hemoglobin Concent 33.0 g/dl Platelet Count 298 K/uL Mean Platelet Volume 10.2 fL Neutrophils (%) (Auto) 81.3 % Lymphocytes (%) (Auto) 14.6 % Monocytes (%) (Auto) 3.8 % Eosinophils (%) (Auto) 0.0 % Basophils (%) (Auto) 0.0 % Neutrophils # (Auto) 7.76 K/uL Lymphocytes # (Auto) 1.39 K/uL Monocytes # (Auto) 0.36 K/uL Eosinophils # (Auto) 0.00 K/uL Basophils # (Auto) 0.00 K/uL RDW Standard Deviation 49.6 fL RDW Coefficient of Variation 14.1 % Immature Granulocyte % (Auto) 0.3 % Immature Granulocyte # (Auto) 0.03 K/uL Prothrombin Time 12.2 SECONDS Prothromb Time International Ratio 1.2 Sodium Level 138 mmol/L Potassium Level 3.8 mmol/L Chloride Level 106 mmol/L Carbon Dioxide Level 27 mmol/L Anion Gap 5.0 mmol/L Blood Urea Nitrogen 11 mg/dl Creatinine 0.89 mg/dl Est Creatinine Clear Calc Drug Dose 60.9 ml/min Estimated GFR () 76.1 Estimated GFR (Non- 65.7 BUN/Creatinine Ratio 12.5 Random Glucose 141 mg/dl Calcium Level 8.6 mg/dl Total Bilirubin 0.4 mg/dl Aspartate Amino Transf (AST/SGOT) 12 U/L Alanine Aminotransferase (ALT/SGPT) 21 U/L Alkaline Phosphatase 71 U/L Total Protein 6.7 gm/dl Albumin 2.8 gm/dl Globulin 3.9 gm/dl Albumin/Globulin Ratio 0.7 Assessment & Plan 71 year old female with history of DM, HTN, 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 S/P VENTRAL HERNIA REPAIR - POD#1 - stable overall HX DVT/PE - continue Coumadin monitor INR ff up with [facility] Pharmacist Ashlyn Vital as soon as discharged DM - hgb a1c 6.7 12/2016 - BSGs stable - oral DM meds on hold continue Lantus and add on SSI HTN - BP stable - continue atenolol HX CVA - continue ASA and statin DVT PROPHYLAXIS - SCDs when INR < 2.0 Thank you for this consultation. We will follow the patient with you during their hospital stay. You can reach a member of the [facility] Hospitalist Team 18/09 via pager @ [phone]. Current Inpatient Medications: Current Inpatient Medications Medications (Trade) Dose Ordered Sig/Juany Route Start Time Stop Time Status Last Admin Dose Admin Ondansetron HCl (Zofran Inj) 4 mg Q4H PRN IV 03/19/17 10:45 04/18/17 10:44 Acetaminophen (Tylenol Tab) 650 mg Q6H PRN PO 03/19/17 10:45 2/21/18 10:44 Oxycodone/ Acetaminophen (Percocet 5-325mg Tab) 1 tab Q4H PRN PO 03/19/17 10:45 04/02/17 10:44 03/19/17 19:37 1 TAB Hydromorphone HCl (Dilaudid Inj) 0.5 mg Q3H PRN IV 03/19/17 10:45 04/02/17 10:44 Aspirin (Ecotrin Tab) 81 mg QAM PO 03/20/17 09:00 04/19/17 08:59 Atenolol (Tenormin Tab) 25 mg QAM PO 03/20/17 09:00 04/19/17 08:59 Atorvastatin Calcium (Lipitor Tab) 80 mg QAM PO 03/20/17 09:00 04/19/17 08:59 Cyanocobalamin (Vitamin B-12 Tab) 100 mcg QAM PO 03/20/17 09:00 04/19/17 08:59 Oxybutynin Chloride (Ditropan Tab) 5 mg TID PO 03/19/17 14:00 04/18/17 13:59 03/19/17 20:34 5 MG Ropinirole HCl (Requip Tab) 4 mg HS PO 03/19/17 21:00 04/18/17 20:59 03/19/17 20:34 4 MG Warfarin Sodium (Coumadin Tab) 2 mg MoTuWeThFrSa@1600 PO 03/19/17 16:00 04/18/17 15:59 03/19/17 15:59 2 MG Warfarin Sodium (Coumadin Tab) 4 mg Cortes@1600 PO 03/25/17 16:00 04/24/17 15:59 Calcium/Vitamin D (Caltrate Plus Tab) 1 tab BID PO 03/19/17 21:00 04/18/17 20:59 03/19/17 20:34 1 TAB Mirtazapine (Remeron Tab) 45 mg HS PO 03/19/17 21:00 04/18/17 20:59 03/19/17 20:35 45 MG Multivitamins/ Minerals (Multivitamin W/ Minerals Tab) 1 tab QPM PO 03/19/17 21:00 04/18/17 20:59 03/19/17 20:34 1 TAB Pantoprazole Sodium (Protonix Tab) 40 mg QAM PO 03/20/17 09:00 04/19/17 08:59 Lactobacillus Acidophilus (Floranex Tab) 1 tab QAM PO 03/20/17 09:00 04/19/17 08:59 Insulin Glargine (Lantus Solostar Pen) PLEASE SEE PROTOCOL TEXT HS SC 03/19/17 18:00 04/18/17 17:59 03/19/17 18:37 46 UNITS Insulin Aspart (novoLOG ASPART) SLIDING SCALE If C... ACHS SC 03/19/17 17:15 04/18/17 17:14 03/19/17 20:41 3 UNITS Glucose (Glucose 40% Gel) 15-30 GRAMS 15 GRAMS... UD PRN PO 03/19/17 14:15 04/18/17 14:14 Glucose (Glucose Chew Tab) 4-8 Tablets 4 Tabl... UD PRN PO 03/19/17 14:15 04/18/17 14:14 Dextrose (Dextrose 50% 50ML Syringe) 25-50ML OF 50% DW IV FOR... UD PRN IV 03/19/17 14:15 04/18/17 14:14 Glucagon (Glucagon Inj) 1 mg UD PRN SQ 03/19/17 14:15 04/18/17 14:14 Miscellaneous Information (Consult Glycemic Management Pharmacy) 1 ea UD PRN N/A 03/19/17 14:19 04/18/17 14:18 Lactated Ringer's 1,000 ml @ 50 mls/hr Q20H IV 03/19/17 15:45 04/18/17 15:44 03/19/17 19:37 50 MLS/HR Miscellaneous (Iv Fluids Completed) 1 ea PRN PRN N/A 03/19/17 15:45 03/19/18 15:44
[2017-03-20] MEDS: INSULIN ASPART 100 UNITS/ML 3 ML PEN SC SCH (09:23)
[2017-03-20] MEDS: OXYBUTYNIN CHLORIDE 5 MG TAB PO SCH (09:24)
[2017-03-20] MEDS: CALCIUM 600MG + VIT D 400 IU TAB PO SCH (09:25)
--- NOTE | 2017-03-20 11:12 | Surgery Progress Note ---
Surgery Progress Note Date of Service Mar 20, 2017. Subjective Post OP Day: 1 + feeling well pt is doing fine, no nausea, no vomiting, good control incisional pain, Objective Vital Signs: Date Time Temp Pulse Resp B/P (MAP) Pulse Ox O2 Delivery O2 Flow Rate FiO2 03/20/17 07:45 36.7 64 16 120/64 (82) 95 Room Air 03/20/17 03:06 36.4 66 14 121/69 (86) 91 Room Air 03/20/17 00:00 Room Air 03/19/17 23:05 36.4 68 14 105/66 (79) 91 Room Air 03/19/17 19:16 36.8 76 16 102/61 (75) 91 Room Air 03/19/17 15:45 97 Room Air 03/19/17 15:02 36.6 82 16 121/72 (88) 97 Nasal Cannula 2.0 03/19/17 14:15 70 16 124/71 (88) 97 Nasal Cannula 2.0 03/19/17 13:15 36.5 70 16 127/62 (83) 97 Nasal Cannula 2.0 03/19/17 12:45 36.7 61 16 121/75 (90) 97 Nasal Cannula 2.0 03/19/17 12:43 Nasal Cannula 2.0 03/19/17 12:36 36.6 60 20 154/86 (108) 91 Nasal Cannula 2.0 03/19/17 12:34 91 Nasal Cannula 2.0 03/19/17 11:57 56 13 100 03/19/17 11:57 56 13 03/19/17 11:56 120/62 03/19/17 11:52 55 16 100 03/19/17 11:52 55 16 03/19/17 11:51 116/68 03/19/17 11:47 57 16 03/19/17 11:47 57 16 100 03/19/17 11:46 124/63 03/19/17 11:45 36.4 03/19/17 11:42 61 15 03/19/17 11:42 60 15 100 03/19/17 11:41 115/77 03/19/17 11:37 66 13 94 03/19/17 11:37 65 13 03/19/17 11:36 123/66 03/19/17 11:34 59 14 100 03/19/17 11:34 58 14 03/19/17 11:31 133/58 03/19/17 11:29 59 12 100 03/19/17 11:29 59 12 03/19/17 11:28 62 12 100 03/19/17 11:28 63 12 03/19/17 11:26 129/81 03/19/17 11:23 63 14 97 03/19/17 11:23 64 14 03/19/17 11:21 137/55 03/19/17 11:18 62 16 100 03/19/17 11:18 61 16 03/19/17 11:16 127/63 03/19/17 11:13 61 14 03/19/17 11:13 62 14 100 03/19/17 11:12 65 16 100 03/19/17 11:12 64 16 03/19/17 11:11 116/61 General Appearance: WD/WN, no apparent distress Head: normocephalic Neck: supple, no JVD Respiratory/Chest: chest non-tender, lungs clear, normal breath sounds Cardiovascular: regular rate, rhythm, no edema, no gallop, no JVD, no murmur Abdomen: normal bowel sounds, non tender, non distended, soft, no organomegaly Incision(s): clean, dry, intact Extremities: normal range of motion, non-tender, normal inspection Laboratory Results: Results Past 24 Hours Test 03/19/17 11:27 03/19/17 13:52 03/19/17 16:54 03/19/17 20:29 Range/Units Bedside Glucose 127 153 196 70-90 mg/dl Hepatitis C Antibody Screen NEG NEG Test 03/20/17 05:49 Range/Units White Blood Count 9.54 4.8-10.8 K/uL Red Blood Count 3.81 4.2-5.4 M/uL Hemoglobin 12.2 12.0-16.0 g/dL Hematocrit 37.0 37-47 % Mean Corpuscular Volume 97.1 80-100 fL Mean Corpuscular Hemoglobin 32.0 25-34 pg Mean Corpuscular Hemoglobin Concent 33.0 32-36 g/dl Platelet Count 298 130-400 K/uL Mean Platelet Volume 10.2 7.4-10.4 fL Neutrophils (%) (Auto) 81.3 % Lymphocytes (%) (Auto) 14.6 % Monocytes (%) (Auto) 3.8 % Eosinophils (%) (Auto) 0.0 % Basophils (%) (Auto) 0.0 % Neutrophils # (Auto) 7.76 1.4-6.5 K/uL Lymphocytes # (Auto) 1.39 1.2-3.4 K/uL Monocytes # (Auto) 0.36 0.11-0.59 K/uL Eosinophils # (Auto) 0.00 0-0.5 K/uL Basophils # (Auto) 0.00 0-0.2 K/uL RDW Standard Deviation 49.6 36.4-46.3 fL RDW Coefficient of Variation 14.1 11.5-14.5 % Immature Granulocyte % (Auto) 0.3 % Immature Granulocyte # (Auto) 0.03 0.00-0.02 K/uL Prothrombin Time 12.2 9.0-12.0 SECONDS Prothromb Time International Ratio 1.2 0.9-1.1 Sodium Level 138 136-145 mmol/L Potassium Level 3.8 3.5-5.1 mmol/L Chloride Level 106 98-107 mmol/L Carbon Dioxide Level 27 21-32 mmol/L Anion Gap 5.0 3-11 mmol/L Blood Urea Nitrogen 11 7-18 mg/dl Creatinine 0.89 0.60-1.20 mg/dl Est Creatinine Clear Calc Drug Dose 60.9 ml/min Estimated GFR () 76.1 Estimated GFR (Non- 65.7 BUN/Creatinine Ratio 12.5 10-20 Random Glucose 141 70-99 mg/dl Calcium Level 8.6 8.5-10.1 mg/dl Total Bilirubin 0.4 0.2-1 mg/dl Aspartate Amino Transf (AST/SGOT) 12 15-37 U/L Alanine Aminotransferase (ALT/SGPT) 21 12-78 U/L Alkaline Phosphatase 71 45-117 U/L Total Protein 6.7 6.4-8.2 gm/dl Albumin 2.8 3.4-5.0 gm/dl Globulin 3.9 2.5-4.0 gm/dl Albumin/Globulin Ratio 0.7 0.9-2 Assessment & Plan F/U S/P open repair ventral hernia, POD 1 pt is doing fine, pt wants to go home today, the post-op care instruction was given, Follow up me in 2 weeks, regular diet
[2017-03-20] MEDS ORDERED: TRAM-10 PO (11:16)
--- NOTE | 2017-03-20 11:20 | Discharge Instructions ---
Discharge Instructions Date of Service Mar 20, 2017. Admission Reason for Admission: Ventral Hernia Discharge Discharge Diagnosis / Problem: S/P ventral hernia repair Discharge Goals Goal(s): Decrease discomfort, Improve function Activity Recommendations Activity Limitations: per Instructions/Follow-up section Lifting Limitations: no more than 25 pounds Exercise/Sports Limitations: rest today May Resume Sexual Activity: when tolerated Shower/Bathe: may shower/bathe in 3 days Driving or Machine Use: resume 3 days after discharge . Instructions / Follow-Up Instructions / Follow-Up keep the dressing on for 4 days, she can take a shower on 03/24/2017, follow up DR. Jenkins in 2 weeks, Current Hospital Diet Patient's current hospital diet: Diabetes Type 2 Diet Discharge Diet Recommended Diet: Diabetes Type 1 Diet Procedures Procedures Performed: Open Ventral Hernia Repair Pending Studies Studies pending at discharge: no Laboratory Results Hemoglobin A1c Test 01/24/17 07:38 Range/Units Estimated Average Glucose 146 mg/dl Hemoglobin A1c 6.7 H 4.5-5.6 % Medical Emergencies . Who to Call and When: Medical Emergencies: If at any time you feel your situation is an emergency, please call 911 immediately. . Non-Emergent Contact Non-Emergency issues call your: Surgeon Call Non-Emergent contact if: you have a fever, temperature is above 100.5, your pain is not controlled, your pain is worsening, wound has increased drainage, wound has increased redness . "Provider Documentation" section prepared by Elvis Jenkins. . VTE Core Measure Inpt VTE Proph given/why not?: SCD's [place] Drug Monitoring Program Search Results: no issues identified
[2017-03-20 13:24] VITALS: BP 120/64; PULSE 64; TEMP 36.7; O2SAT 95
--- NOTE | 2017-03-20 16:18 | DISCHARGE SUMMARY ---
DISCHARGE DATE: 03/20/2017. ADMITTING DIAGNOSIS: Ventral hernia. DISCHARGE DIAGNOSIS: Same. OPERATION: Open repair of ventral hernia. SURGEON: Dr. Evlis Jenkins M.D. DETAILS OF DISCHARGE SUMMARY: This is a 71-year-old female who presented symptomatic ventral hernia. The patient will be required to do ventral hernia repair. We took the patient to the OR on 03/19/2017. In the OR, we did a primary ventral hernia repair. The patient tolerated the procedure well. After the procedure, the patient transferred to regular surgical floor and the patient doing fine overnight, no significant abdominal pain, no nausea, no vomiting. She tolerated regular diet. PHYSICAL EXAMINATION: VITAL SIGNS: Temperature is 36.7, the heart rate is 64, the respiratory rate is 16, blood pressure 120/64, O2 saturation 95% on room air. GENERAL: The patient is alert, awake, oriented x3. HEAD, EYES, EARS, NOSE, AND THROAT: Within normal limitation. NEUROLOGIC: Exam intact. NECK: No JVD. CHEST: Bilateral lung sounds clear. HEART: Normal S1, S2. No murmur. ABDOMEN: Soft, no tenderness. Bowel sounds positive. All the dressing intact. EXTREMITIES: No edema. PLAN: The patient wanted to go home today. I gave patient the postop care instructions and we will follow up the patient in 2 weeks. The patient understands. I answered all questions. HORTENSIA
[2017-03-25] MEDS ORDERED: WARFARIN SOD 4 MG TAB PO SCH (16:00)
== END 2017-03-20 14:30 | disposition home or self-care (01) ==
LOC: C.ACU 08:19 → C.MSN 09:10 → ENRESERV 11:23
PROVIDERS: ADMIT Surgery; ATTEND Surgery
DX: K43.9 Ventral hernia without obstruction or gangrene (principal); K21.9 Gastro-esophageal reflux disease without esophagitis; M81.0 Age-related osteoporosis without current pathological fracture; F32.9 Major depressive disorder, single episode, unspecified; G25.81 Restless legs syndrome; E11.41 Type 2 diabetes mellitus with diabetic mononeuropathy; I10 Essential (primary) hypertension; I25.10 Atherosclerotic heart disease of native coronary artery without angina pectoris; E78.5 Hyperlipidemia, unspecified; N39.46 Mixed incontinence; I25.2 Old myocardial infarction; J45.909 Unspecified asthma, uncomplicated; Z86.73 Personal history of transient ischemic attack (TIA), and cerebral infarction without residual deficits; Z91.81 History of falling; Z79.01 Long term (current) use of anticoagulants; Z90.710 Acquired absence of both cervix and uterus; Z68.35 Body mass index [BMI] 35.0-35.9, adult; Z86.711 Personal history of pulmonary embolism; Z90.49 Acquired absence of other specified parts of digestive tract; Z82.49 Family history of ischemic heart disease and other diseases of the circulatory system; Z82.3 Family history of stroke; Z80.49 Family history of malignant neoplasm of other genital organs; Z79.84 Long term (current) use of oral hypoglycemic drugs; Z88.0 Allergy status to penicillin; Z88.2 Allergy status to sulfonamides; Z86.718 Personal history of other venous thrombosis and embolism

== ENCOUNTER 2017-04-09 20:04 | Inpatient (IN) | payer OTHER ==
[~2017-04-09] VITALS: Ht 152.4 cm; Wt 91.7 kg
[~2017-04-09 20:04] MED LIST changes: -CLINDAMYCIN 600 MG/54 ML D5W IV SCH; +INSDGI SC; -INSU1INJ2 SQ; +OMEP20TA PO; +RANI150T85 PO; -ZNTT/150 PO
--- NOTE | 2017-04-09 22:15 | EMERGENCY ROOM VISIT NOTE ---
History Report prepared by Janet: Jacob Michelle Under the Supervision of: Dr. Jerrica Mason D.O. First contact with patient: 21:46 Chief Complaint: ILLNESS Stated Complaint: COLD, SHIVER,COUGH History of Present Illness The patient is a 71 year old female who presents to the Emergency Room with complaints of constant abdominal discomfort and nausea beginning 4 hours ago. The patient states she later developed lightheadedness, a dry cough, chills, dizziness when standing, and shortness of breath. She reports she has chest pain from coughing so much. The patient notes she ate liver last night and does not know if this is the cause. She also states everyone around her has been sick with similar symptoms. The patient reports she received a flu shot this year. She denies diarrhea and changes in her bowel movements. The patient notes a history of multiple CVAs and MIs. Pt feels symptoms may be related to eating liver last night. States had a repair of a ventral hernia 2 weeks ago but has been healing well and only has mild soreness at the incision site. Source of History: patient Onset: 4 hours ago Position: abdomen Quality: other (discomfort and nausea) Timing: constant Associated Symptoms: + chills, + cough (dry), + chest pain (secondary to coughing), + SOB, No diarrhea Note: Associated symptoms: dizziness when standing, lightheadedness Denies: changes in her bowels Review of Systems See HPI for pertinent positives & negatives. A total of 10 systems reviewed and were otherwise negative. Past Medical & Surgical Medical Problems: (1) Benign neoplasm of cerebral meninges (2) CVA (cerebral vascular accident) (3) Depression (4) DM type 2 (diabetes mellitus, type 2) (5) DVT (deep venous thrombosis) (6) GERD (gastroesophageal reflux disease) (7) History of Alfonso's syndrome (8) Hyperlipidemia (9) Hypertension (10) Macular degeneration (11) PR (myocardial infarction) (12) Peripheral neuropathy (13) Recurrent DVT (14) RLS (restless legs syndrome) Surgical Problems: (1) H/O ventral hernia repair (2) History of appendectomy (3) History of cholecystectomy (4) History of hysterectomy (5) History of salpingo-oophorectomy (6) S/P cholecystectomy (7) S/P removal of ovarian cyst Family History Early CAD FATHER ( in 30s of PR) MOTHER ( in 30s of PR) BROTHER ( in 50s of PR) GRANDFATHER GRANDMOTHER FHx: cancer DAUGHTER (hx cervical and throat CA) FHx: gallbladder disease FHx: heart disease FHx: hypertension GRANDFATHER GRANDMOTHER Stroke GRANDMOTHER Social History Smoking Status: Never Smoker Alcohol Use: none Marital Status: Occupation Status: retired Current/Historical Medications Scheduled Alendronate Sodium (Fosamax), 70 MG PO WK Aspirin (Aspirin Adult Low Dose), 81 MG PO QAM Atenolol (Tenormin), 25 MG PO QAM Atorvastatin (Lipitor), 80 MG PO QAM Calcium Carbonate-Cholecalcife (Caltrate 600+D), 1 TAB PO BID Cyanocobalamin (Vitamin B-12), 100 MCG PO QAM Glipizide (Glipizide Er), 2.5 MG PO QAM Insulin Glargine (Lantus), 36 UNITS SC QPM Mirtazapine (Mirtazapine), 45 MG PO HS Multiple Vitamins W/ Minerals (Multi For Her 50+), 1 CAP PO QPM Oxybutynin Chloride (Ditropan), 5 MG PO TID Probiotic Product (Probiotic), 1 CAP PO QAM Ropinirole (Requip), 4 MG PO HS Warfarin Sod (Jantoven), 2 MG PO 5XWK Warfarin Sod (Jantoven), 4 MG PO 2XWK Scheduled PRN Albuterol (Ventolin Hfa), 2 PUFFS INH QID PRN for SOB/Wheezing Fluticasone Propionate (Flovent Hfa), 2 PUFFS INH BID PRN for Shortness of Breath Magnesium Hydroxide (Milk of Magnesia), 30 ML PO BID PRN for Constipation Nitroglycerin (Nitrostat), 0.4 MG SL UD PRN for Chest Pain Polyethylene (Miralax), 17 GM PO DAILY PRN for Constipation Ranitidine (Zantac), 150 MG PO DAILY PRN for Heartburn Tetrahydrozoline Hcl (Ophth) (Visine), 1 DROP OPB UD PRN for DRYNESS Tramadol (Ultram), 50 MG PO Q6 PRN for Pain Allergies Coded Allergies: Macrolides and Ketolides (Verified Allergy, Severe, anaphylaxis, 04/09/17) Niacin (Verified Allergy, Severe, anaphylaxis, 04/09/17) Penicillins (Verified Allergy, Severe, anaphylaxis, 04/09/17) Procaine (Verified Allergy, Unknown, rash and swelling around injection site, 04/09/17) Sulfa Antibiotics (Verified Allergy, Unknown, RASH, 04/09/17) Physical Exam Vital Signs Date Time Temp Pulse Resp B/P (MAP) Pulse Ox O2 Delivery O2 Flow Rate FiO2 04/10/17 01:36 37.0 75 135/69 95 Room Air 04/09/17 23:38 80 120/72 95 Room Air 04/09/17 20:37 36.9 85 18 143/68 100 Room Air Physical Exam GENERAL: alert, ill appearing, well nourished, no distress, non-toxic EYE EXAM: normal conjunctiva, PERRL and EOM's grossly intact OROPHARYNX: no exudate, no erythema, lips, buccal mucosa, and tongue normal and mucous membranes are dry NECK: supple, no nuchal rigidity, no adenopathy, non-tender LUNGS: Clear to auscultation. Normal chest wall mechanics HEART: no murmurs, S1 normal and S2 normal ABDOMEN: abdomen soft, non-tender, normo-active bowel sounds, no masses, no rebound or guarding. Vertical midline incision in the mid epigastric region - healing, no surrounding erythema, no drainage/bleeding. BACK: Back is symmetrical on inspection and there is no deformity, no midline tenderness, no CVA tenderness. SKIN: no rashes and no bruising UPPER EXTREMITIES: upper extremities are grossly normal. LOWER EXTREMITIES: No pitting edema. NEURO EXAM: Normal sensorium, cranial nerves II-XII intact, normal speech, no weakness of arms, no weakness of legs. Medical Decision & Procedures ER Provider Diagnostic Interpretation: Radiology results have been interpreted by the radiologist and reviewed by me. Chest X-ray per my interpretation: Rotated. No cardiomegaly. No effusion. No focal infiltrate or wide mediastinum. Abdominal X-ray per my interpretation: Scattered air and stool. No definite SBO. No free air. CT ABDOMEN & PELVIS with contrast: Ventral hernia repair with scarring in the anterior abdominal wall. No drainage collection. Nonobstructive bowel gas pattern. Colonic diverticula without diverticulitis. Appendix not identified. Small hiatal hernia. Gallbladder is absent. 15mm low attenuation lesion in the right kidney. Right renal artery aneurysm Hysterectomy. Mild pneumonitis in the lung bases. Cardiomegaly. Radiologist: Brandon Pineda M.D. Study ready at 0101 and initial results transmitted at 0126 Laboratory Results Test 04/09/17 22:30 04/09/17 23:00 04/09/17 23:05 Urine Color DK YELLOW Urine Appearance CLOUDY (CLEAR) Urine pH 6.0 (4.5-7.5) Urine Specific Keo 1.021 (1.000-1.030) Urine Protein NEG (NEG) Urine Glucose (UA) NEG (NEG) Urine Ketones NEG (NEG) Urine Occult Blood NEG (NEG) Urine Nitrite NEG (NEG) Urine Bilirubin NEG (NEG) Urine Urobilinogen NEG (NEG) Urine Leukocyte Esterase MODERATE (NEG) Urine WBC (Auto) >30 /hpf (0-5) Urine RBC (Auto) 0-4 /hpf (0-4) Urine Hyaline Casts (Auto) 10-30 /lpf (0-5) Urine Epithelial Cells (Auto) >30 /lpf (0-5) Urine Bacteria (Auto) NEG (NEG) Urine Renal Epithelial Cells 10-20 /lpf (0-5) Influenza Type A Antigen Neg for Influ A (NEG) Influenza Type B Antigen Neg for Influ B (NEG) Estimated Average Glucose 137 mg/dl Hemoglobin A1c 6.4 % (4.5-5.6) Troponin I < 0.015 ng/ml (0-0.045) Pro-B-Type Natriuretic Peptide 110 pg/ml (0-900) Chemistry Specimen Hemolysis Bedside Lactic Acid Venous 1.62 mmol/L (0.90-1.70) Date/Time Source Procedure Growth Status 04/09/17 22:30 Urine , Clean Catch Urine Culture - Final THREE TYPES OF ORGANSIMS PRESENT, ALL... Complete Laboratory results per my review. Medications Administered Medications (Trade) Dose Ordered Sig/Juany Route Start Time Stop Time Status Last Admin Dose Admin Sodium Chloride 1,000 ml @ 999 mls/hr Q1H1M STAT IV 04/09/17 22:23 04/09/17 23:23 DC 04/09/17 23:02 999 MLS/HR Ondansetron HCl (Zofran Inj) 4 mg NOW STAT IV 04/09/17 22:23 04/09/17 22:25 DC 04/09/17 23:02 4 MG Ondansetron HCl (Zofran Inj) 4 mg NOW STAT IV 04/09/17 23:57 04/09/17 23:58 DC 04/10/17 00:20 4 MG Sodium Chloride 1,000 ml @ 250 mls/hr Q4H STAT IV 04/10/17 00:05 04/10/17 03:44 DC 04/10/17 00:21 250 MLS/HR Levofloxacin (Levaquin / D5W) 750 mg NOW ONCE IV 04/10/17 02:15 04/10/17 02:16 DC 04/10/17 02:15 750 MG ECG Indication: chest pain Rate (beats per minute): 76 Rhythm: sinus rhythm Findings: RBBB (appearance of and incomplete in lead II), no acute ischemic change, other (Normal axis. Normal intervals.) ED Course 2158: The patient was evaluated in room C07. A complete history and physical exam was performed. 2223: Ordered Ondansetron HCl 4mg IV, Sodium Chloride 1000 ml @ 999 mls/hr IV 2349: I reevaluated the patient and discussed current test results. The patient still does not feel well. 2357: Ordered Ondansetron HCl 4 mg IV 0005: Ordered Sodium Chloride 1000 ml @ 250 mls/hr IV 0146: Upon reevaluation, the patient is still not feeling well. When the patient was asleep, her O2Sat was 87. I placed her on 1-2L of [place] oxygen. I discussed the findings and the treatment plan with the patient. She expresses agreement and understanding. 0207: I spoke with Dr. Estrada of the [facility]. The patient will be evaluated for further management. Medical Decision Differential Diagnosis includes but is not limited to dehydration, stroke, anemia, hypoglycemia, hyponatremia, hypernatremia, urinary tract infection, pneumonia, bronchitis, sepsis, gastroenteritis, additional abdominal pathology, metabolic abnormalities and infections. Patient with persistent symptoms of dehydration, nausea vomiting here. Concern given patient's age and that she lives alone for better resolution of symptoms. Discussed with hospitalist for additional evaluation and treatment. UA suboptimal, no other symptoms to suggest UTI however will be sent for culture as a precaution. Other labs and imaging reassuring. Patient covered for possible pneumonia after she dropped her oxygen saturations, despite declining a sense of shortness of breath but also with having recent mild upper respiratory symptoms. Patient covered for community-acquired pneumonia, no risk factors for healthcare associated and not immunocompromised or high risk. I do not suspect bacteremia/sepsis. Medication Reconcilliation Current Medication List: was personally reviewed by me Blood Pressure Screening Patient's blood pressure: Normal blood pressure Blood pressure disposition: Did not require urgent referral Consults Time Called: 020 Consulting Physician: Dr. Estrada of the [facility] Returned Call: [address] Estrada of the [facility]. The patient will be evaluated for further management. Impression Primary Impression: Abdominal pain Additional Impressions: Nausea UTI (urinary tract infection) Pneumonia Lightheadedness Scribe Attestation The scribe's documentation has been prepared under my direction and personally reviewed by me in its entirety. I confirm that the note above accurately reflects all work, treatment, procedures, and medical decision making performed by me. Departure Information Referrals Ayanna Rhodes M.D. (PCP) Patient Instructions My [facility] Problem Qualifiers Primary Impression: Abdominal pain Abdominal location: generalized Qualified Codes: R10.84 - Generalized abdominal pain Additional Impressions: UTI (urinary tract infection) Urinary tract infection type: acute cystitis Hematuria presence: with hematuria Qualified Codes: N30.01 - Acute cystitis with hematuria Pneumonia Pneumonia type: due to unspecified organism Laterality: right Lung location : lower lobe of lung Qualified Codes: J18.1 - Lobar pneumonia, unspecified organism
[2017-04-09] MEDS ORDERED: ONDANSETRON INJ 2 MG/ML 2 ML VIAL IV STA ×2 (22:23→23:57)
[2017-04-09] MEDS ORDERED: SODIUM CHLORIDE 0.9% 1000ML 1,000 ML IV STA (22:23)
[2017-04-09 23:07] LABS: BASO % 0.3 %; BASO ABS # 0.02 K/uL (0-0.2); HEMATOCRIT 39.7 % (37-47); HEMOGLOBIN 13.1 g/dL (12.0-16.0); IG# 0.01 K/uL (0.00-0.02); LYMPH % 11.8 %; LYMPH ABS # 0.84 K/uL (1.2-3.4); MEAN CELL VOLUME 98.5 fL (80-100); MEAN CORPUSCULAR HEMOGLOBIN 32.5 pg (25-34); MEAN PLATELET VOLUME 10.1 fL (7.4-10.4); MONO % 8.2 %; MONO ABS # 0.58 K/uL (0.11-0.59); NEUT % 79.6 %; NEUT ABS # 5.65 K/uL (1.4-6.5); PLATELET COUNT 350 K/uL (130-400); RED CELL DISTRIBUTION WIDTH CV 14.1 % (11.5-14.5); RED CELL DISTRIBUTION WIDTH SD 50.9 fL (36.4-46.3)
[2017-04-09 23:10] LABS: INFLUENZA B ANTIGEN Neg for Influ B (NEG)
[2017-04-09 23:32] LABS: ALBUMIN 3.6 gm/dl (3.4-5.0); ALKALINE PHOSPHATASE 92 U/L (45-117); ALT/SGPT 24 U/L (12-78); AST/SGOT 17 U/L (15-37); BLOOD UREA NITROGEN 12 mg/dl (7-18); CALCIUM 9.3 mg/dl (8.5-10.1); CARBON DIOXIDE 28 mmol/L (21-32); CREATININE 1.03 mg/dl (0.60-1.20); GLUCOSE 131 mg/dl (70-99); SODIUM 137 mmol/L (136-145); TOTAL PROTEIN 8.3 gm/dl (6.4-8.2)
[2017-04-10] MEDS ORDERED: SODIUM CHLORIDE 0.9% 1000ML 1,000 ML IV STA (00:05)
[2017-04-10 00:11] LABS: INR 1.3 (0.9-1.1)
[2017-04-10] MEDS ORDERED: OPTIRAY 320 IV PRN (00:30)
[2017-04-10] MEDS ORDERED: CEFTRIAXONE SOD INJ 1 GM ADDVIAL IV STA (02:04)
[2017-04-10] MEDS ORDERED: VANCOMYCIN INJ 1,000 MG in SODIUM CHLORIDE 0.9% 250ML 250 ML IV STA (02:11)
[2017-04-10] MEDS ORDERED: VANCOMYCIN CONSULT ACTIVE PRN ×2 (02:15→03:45)
[2017-04-10] MEDS ORDERED: LEVAQUIN 750MG / 150ML D5W IV ONE (02:15)
[2017-04-10] MEDS ORDERED: FLUTICASONE PROP HFA INH 44 MCG INHALER INH PRN (03:30)
[2017-04-10] MEDS ORDERED: GLUCOSE 40% GEL 15 GM TUBE PO PRN (03:30)
[2017-04-10] MEDS ORDERED: ALBUTEROL HFA 8 GM INHALER INH PRN (03:30)
[2017-04-10] MEDS ORDERED: RANITIDINE HCL 150 MG TAB PO PRN (03:30)
[2017-04-10] MEDS ORDERED: GLUCOSE 10 TABS/TUBE PO PRN (03:30)
[2017-04-10] MEDS ORDERED: DEXTROSE 50% 50 ML SYR IV PRN (03:30)
[2017-04-10] MEDS ORDERED: ACETAMINOPHEN 325 MG TAB PO PRN (03:30)
[2017-04-10] MEDS ORDERED: GLUCAGON FOR INJ 1 MG VIAL SQ PRN (03:30)
[2017-04-10] MEDS ORDERED: NITROGLYCERIN 0.4 MG SL PER TAB CHARGE SL PRN (03:30)
--- NOTE | 2017-04-10 03:38 | History and Physical ---
History & Physical Date & Time of Service: Apr 10, 2017 at 03:29 Chief Complaint: Cold, Shiver,Cough Primary Care Physician: Ayanna Rhodes M.D. History of Present Illness Source: patient, clinic records, hospital records 71 yo F who is blind with a h/o multiple strokes and L sided weakness presents with abdominal discomfort, nausea and vomiting that began today. She reports not eating all day and feels very dehydrated. She states that having liver and onions seemed to upset her from last night's dinner and she has felt like the food was up in her throat all day today. She recently had a ventral hernia repair and is healing well from this. She denies diarrhea or other stool changes. She also admits to cold symptoms including fevers, chills and a cough. She has a splitting headahce from the coughing that became worse today when she stood up from her nap. She reports a history of chronic headaches. She reports 3 family members are sick with cold symptoms including her daughter and grandson who is 5, with whom she lives. In the ER she was doing well until getting some IVF and then was requiring 2L oxygen via [place]. She reports chronic weakness in her L side from her strokes in the past. She felt unable to stand or walk today and her arms were flailing, however, her baseline ambulation is not much better because of chronic numbness from the waist down. 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 Status: Chronic (11) MN (myocardial infarction) Permanent Comment: self reported, no documented history of CAD Status: Chronic (12) Peripheral neuropathy Status: Chronic (13) Recurrent DVT Status: Chronic (14) RLS (restless legs syndrome) Status: Chronic Surgical Problems: (1) History of appendectomy Status: Resolved (2) History of cholecystectomy Status: Resolved (3) History of hysterectomy Status: Resolved (4) History of salpingo-oophorectomy Status: Chronic (5) S/P cholecystectomy Status: Chronic (6) S/P removal of ovarian cyst Status: Chronic Family History Early CAD FATHER ( in 30s of MN) MOTHER ( in 30s of MN) BROTHER ( in 50s of MN) GRANDFATHER GRANDMOTHER FHx: cancer DAUGHTER (hx cervical and throat CA) FHx: gallbladder disease FHx: heart disease FHx: hypertension GRANDFATHER GRANDMOTHER Stroke GRANDMOTHER Social History Smoking Status: Never Smoker Smokeless Tobacco Use: No Alcohol Use: none Drug Use: none Marital Status: Housing status: lives with family Occupational Status: retired Immunizations History of Influenza Vaccine: Yes History of Tetanus Vaccine?: Yes Tetanus Immunization Date: July 07, 2003 History of Pneumococcal: Yes History of Hepatitis B Vaccine: No Multi-Drug Resistant Organisms History of MDRO: No Allergies Coded Allergies: Macrolides and Ketolides (Verified Allergy, Severe, anaphylaxis, 04/09/17) Niacin (Verified Allergy, Severe, anaphylaxis, 04/09/17) Penicillins (Verified Allergy, Severe, anaphylaxis, 04/09/17) Procaine (Verified Allergy, Unknown, rash and swelling around injection site, 04/09/17) Sulfa Antibiotics (Verified Allergy, Unknown, RASH, 04/09/17) Home Medications Scheduled Alendronate Sodium (Fosamax), 70 MG PO WK Aspirin (Aspirin Adult Low Dose), 81 MG PO QAM Atenolol (Tenormin), 25 MG PO QAM Atorvastatin (Lipitor), 80 MG PO QAM Calcium Carbonate-Cholecalcife (Caltrate 600+D), 1 TAB PO BID Cyanocobalamin (Vitamin B-12), 100 MCG PO QAM Glipizide (Glipizide Er), 2.5 MG PO QAM Insulin Glargine (Lantus), 36 UNITS SC QPM Mirtazapine (Mirtazapine), 45 MG PO HS Multiple Vitamins W/ Minerals (Multi For Her 50+), 1 CAP PO QPM Oxybutynin Chloride (Ditropan), 5 MG PO TID Probiotic Product (Probiotic), 1 CAP PO QAM Ropinirole (Requip), 4 MG PO HS Warfarin Sod (Jantoven), 2 MG PO 5XWK Warfarin Sod (Jantoven), 4 MG PO 2XWK Scheduled PRN Albuterol (Ventolin Hfa), 2 PUFFS INH QID PRN for SOB/Wheezing Fluticasone Propionate (Flovent Hfa), 2 PUFFS INH BID PRN for Shortness of Breath Magnesium Hydroxide (Milk of Magnesia), 30 ML PO BID PRN for Constipation Nitroglycerin (Nitrostat), 0.4 MG SL UD PRN for Chest Pain Polyethylene (Miralax), 17 GM PO DAILY PRN for Constipation Ranitidine (Zantac), 150 MG PO DAILY PRN for Heartburn Tetrahydrozoline Hcl (Ophth) (Visine), 1 DROP OPB UD PRN for DRYNESS Tramadol (Ultram), 50 MG PO Q6 PRN for Pain Review of Systems AT least ten systems were reviewed and negative except as indicated in HPI. Physical Exam Vital Signs Date Time Temp Pulse Resp B/P (MAP) Pulse Ox O2 Delivery O2 Flow Rate FiO2 04/10/17 01:36 37.0 75 135/69 95 Room Air 04/09/17 23:38 80 120/72 95 Room Air 04/09/17 20:37 36.9 85 18 143/68 100 Room Air General Appearance: no apparent distress, + obese Head: normocephalic, atraumatic Eyes: normal inspection, PERRL, sclerae normal ENT: hearing grossly normal, pharynx normal Neck: supple, no adenopathy, no JVD, trachea midline Respiratory/Chest: lungs clear, normal breath sounds, no respiratory distress, no accessory muscle use Cardiovascular: regular rate, rhythm, no edema, no gallop, no JVD, no murmur, normal peripheral pulses Abdomen/GI: normal bowel sounds, non tender, soft, no organomegaly, + pertinent finding (small vertical incision site which is closed wtih dermabond and healing very well. ) Back: normal inspection Extremities/Musculoskelatal: normal inspection, no calf tenderness, normal range of motion, + pertinent finding (L hemiweakness ) Neurologic/Psych: no motor/sensory deficits, alert, normal mood/affect, oriented x 3 Skin: normal color, warm/dry Diagnostics Laboratory Results 04/09/17 23:00 Red Blood Count 4.03, Mean Corpuscular Volume 98.5, Mean Corpuscular Hemoglobin 32.5, Mean Corpuscular Hemoglobin Concent 33.0, Mean Platelet Volume 10.1, Neutrophils (%) (Auto) 79.6, Lymphocytes (%) (Auto) 11.8, Monocytes (%) (Auto) 8.2, Eosinophils (%) (Auto) 0.0, Basophils (%) (Auto) 0.3, Neutrophils # (Auto) 5.65, Lymphocytes # (Auto) 0.84, Monocytes # (Auto) 0.58, Eosinophils # (Auto) 0.00, Basophils # (Auto) 0.02 04/09/17 23:00 Test 04/09/17 22:30 04/09/17 23:00 04/09/17 23:36 04/10/17 03:16 Urine Color DK YELLOW Urine Appearance CLOUDY (CLEAR) Urine pH 6.0 (4.5-7.5) Urine Specific [place] 1.021 (1.000-1.030) Urine Protein NEG (NEG) Urine Glucose (UA) NEG (NEG) Urine Ketones NEG (NEG) Urine Occult Blood NEG (NEG) Urine Nitrite NEG (NEG) Urine Bilirubin NEG (NEG) Urine Urobilinogen NEG (NEG) Urine Leukocyte Esterase MODERATE (NEG) Urine WBC (Auto) >30 /hpf (0-5) Urine RBC (Auto) 0-4 /hpf (0-4) Urine Hyaline Casts (Auto) 10-30 /lpf (0-5) Urine Epithelial Cells (Auto) >30 /lpf (0-5) Urine Bacteria (Auto) NEG (NEG) Urine Renal Epithelial Cells 10-20 /lpf (0-5) Influenza Type A Antigen Neg for Influ A (NEG) Influenza Type B Antigen Neg for Influ B (NEG) White Blood Count 7.10 K/uL (4.8-10.8) Red Blood Count 4.03 M/uL (4.2-5.4) Hemoglobin 13.1 g/dL (12.0-16.0) Hematocrit 39.7 % (37-47) Mean Corpuscular Volume 98.5 fL (80-100) Mean Corpuscular Hemoglobin 32.5 pg (25-34) Mean Corpuscular Hemoglobin Concent 33.0 g/dl (32-36) Platelet Count 350 K/uL (130-400) Mean Platelet Volume 10.1 fL (7.4-10.4) Neutrophils (%) (Auto) 79.6 % Lymphocytes (%) (Auto) 11.8 % Monocytes (%) (Auto) 8.2 % Eosinophils (%) (Auto) 0.0 % Basophils (%) (Auto) 0.3 % Neutrophils # (Auto) 5.65 K/uL (1.4-6.5) Lymphocytes # (Auto) 0.84 K/uL (1.2-3.4) Monocytes # (Auto) 0.58 K/uL (0.11-0.59) Eosinophils # (Auto) 0.00 K/uL (0-0.5) Basophils # (Auto) 0.02 K/uL (0-0.2) RDW Standard Deviation 50.9 fL (36.4-46.3) RDW Coefficient of Variation 14.1 % (11.5-14.5) Immature Granulocyte % (Auto) 0.1 % Immature Granulocyte # (Auto) 0.01 K/uL (0.00-0.02) Anion Gap 8.0 mmol/L (3-11) Est Creatinine Clear Calc Drug Dose 51.2 ml/min Estimated GFR () 63.8 Estimated GFR (Non- 55.0 BUN/Creatinine Ratio 11.7 (10-20) Calcium Level 9.3 mg/dl (8.5-10.1) Magnesium Level 2.3 mg/dl (1.8-2.4) Total Bilirubin 0.4 mg/dl (0.2-1) Aspartate Amino Transf (AST/SGOT) 17 U/L (15-37) Alanine Aminotransferase (ALT/SGPT) 24 U/L (12-78) Alkaline Phosphatase 92 U/L (45-117) Troponin I < 0.015 ng/ml (0-0.045) Pro-B-Type Natriuretic Peptide 110 pg/ml (0-900) Total Protein 8.3 gm/dl (6.4-8.2) Albumin 3.6 gm/dl (3.4-5.0) Globulin 4.7 gm/dl (2.5-4.0) Albumin/Globulin Ratio 0.8 (0.9-2) Chemistry Specimen Hemolysis Prothrombin Time 13.7 SECONDS (9.0-12.0) Prothromb Time International Ratio 1.3 (0.9-1.1) Date/Time Source Procedure Growth Status 04/10/17 02:29 Blood Blood Culture Pending Received 04/09/17 22:30 Urine , Clean Catch Urine Culture Pending Received Results Past 24 Hours Test 04/09/17 22:30 04/09/17 23:00 04/09/17 23:36 04/10/17 03:16 Range/Units Urine Color DK YELLOW Urine Appearance CLOUDY CLEAR Urine pH 6.0 4.5-7.5 Urine Specific [place] 1.021 1.000-1.030 Urine Protein NEG NEG Urine Glucose (UA) NEG NEG Urine Ketones NEG NEG Urine Occult Blood NEG NEG Urine Nitrite NEG NEG Urine Bilirubin NEG NEG Urine Urobilinogen NEG NEG Urine Leukocyte Esterase MODERATE NEG Urine WBC (Auto) >30 0-5 /hpf Urine RBC (Auto) 0-4 0-4 /hpf Urine Hyaline Casts (Auto) 10-30 0-5 /lpf Urine Epithelial Cells (Auto) >30 0-5 /lpf Urine Bacteria (Auto) NEG NEG Urine Renal Epithelial Cells 10-20 0-5 /lpf Influenza Type A Antigen Neg for Influ A NEG Influenza Type B Antigen Neg for Influ B NEG White Blood Count 7.10 4.8-10.8 K/uL Red Blood Count 4.03 4.2-5.4 M/uL Hemoglobin 13.1 12.0-16.0 g/dL Hematocrit 39.7 37-47 % Mean Corpuscular Volume 98.5 80-100 fL Mean Corpuscular Hemoglobin 32.5 25-34 pg Mean Corpuscular Hemoglobin Concent 33.0 32-36 g/dl Platelet Count 350 130-400 K/uL Mean Platelet Volume 10.1 7.4-10.4 fL Neutrophils (%) (Auto) 79.6 % Lymphocytes (%) (Auto) 11.8 % Monocytes (%) (Auto) 8.2 % Eosinophils (%) (Auto) 0.0 % Basophils (%) (Auto) 0.3 % Neutrophils # (Auto) 5.65 1.4-6.5 K/uL Lymphocytes # (Auto) 0.84 1.2-3.4 K/uL Monocytes # (Auto) 0.58 0.11-0.59 K/uL Eosinophils # (Auto) 0.00 0-0.5 K/uL Basophils # (Auto) 0.02 0-0.2 K/uL RDW Standard Deviation 50.9 36.4-46.3 fL RDW Coefficient of Variation 14.1 11.5-14.5 % Immature Granulocyte % (Auto) 0.1 % Immature Granulocyte # (Auto) 0.01 0.00-0.02 K/uL Sodium Level 137 136-145 mmol/L Potassium Level 4.0 3.5-5.1 mmol/L Chloride Level 102 98-107 mmol/L Carbon Dioxide Level 28 21-32 mmol/L Anion Gap 8.0 3-11 mmol/L Blood Urea Nitrogen 12 7-18 mg/dl Creatinine 1.03 0.60-1.20 mg/dl Est Creatinine Clear Calc Drug Dose 51.2 ml/min Estimated GFR () 63.8 Estimated GFR (Non- 55.0 BUN/Creatinine Ratio 11.7 10-20 Random Glucose 131 70-99 mg/dl Calcium Level 9.3 8.5-10.1 mg/dl Magnesium Level 2.3 1.8-2.4 mg/dl Total Bilirubin 0.4 0.2-1 mg/dl Aspartate Amino Transf (AST/SGOT) 17 15-37 U/L Alanine Aminotransferase (ALT/SGPT) 24 12-78 U/L Alkaline Phosphatase 92 45-117 U/L Troponin I < 0.015 0-0.045 ng/ml Pro-B-Type Natriuretic Peptide 110 0-900 pg/ml Total Protein 8.3 6.4-8.2 gm/dl Albumin 3.6 3.4-5.0 gm/dl Globulin 4.7 2.5-4.0 gm/dl Albumin/Globulin Ratio 0.8 0.9-2 Chemistry Specimen Hemolysis Prothrombin Time 13.7 9.0-12.0 SECONDS Prothromb Time International Ratio 1.3 0.9-1.1 Microbiology Results 04/10/17 Blood Culture, Received Pending 04/10/17 Blood Culture, Received Pending 04/09/17 Urine Culture, Received Pending Diagnostic Radiology CT OF THE ABDOMEN AND PELVIS WITH CONTRAST CLINICAL HISTORY: Abdominal pain, nausea and vomiting status post hernia repair. COMPARISON STUDY: CT of the abdomen and pelvis February 11, 2017 and abdominal series April 09, 2017. TECHNIQUE: Following IV administration of 93 mL of Optiray-320, axial images of the abdomen and pelvis were obtained from the lung bases to the proximal femurs. Images were reviewed in the axial, sagittal, and coronal planes. IV contrast was administered without complication. A dose lowering technique was utilized adhering to the principles of ALARA. CT DOSE: 1037.41 mGy.cm FINDINGS: There are findings suggestive of recent upper ventral hernia repair. There is mild associated infiltration. There is no fluid collection is suggest abscess. There is no evidence for a bowel obstruction. The liver, spleen, adrenal glands, left kidney and pancreas are unremarkable. 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 There is no evidence for rupture. A 1.4 cm hypodense right renal lesion measures just above water attenuation. This is indeterminate although probably benign. This is unchanged. There is extensive colonic diverticulosis without evidence for acute diverticulitis. Mild pericolonic inflammation shown on prior CT of February 11, 2017 has resolved. Pelvic collaterals are noted. No suspicious osseous lesions are present. There is no lymphadenopathy. IMPRESSION: 1. Findings consistent with interval repair of a ventral hernia with mild adjacent infiltration which is likely postsurgical. No unexpected findings. No abscess. 2. Colonic diverticulosis without evidence for acute diverticulitis. PA CHEST RADIOGRAPH AND UPRIGHT AND SUPINE AP RADIOGRAPHS OF THE ABDOMEN CLINICAL HISTORY: Cough, nausea and vomiting. COMPARISON STUDY: Chest radiograph and CT of the abdomen and pelvis February 11, 2017. FINDINGS: Lung volumes are normal. Lungs are clear. No pneumothorax or pleural effusion is noted. Cardiomediastinal silhouette is normal. Pulmonary vascularity is normal. There is no consolidation to suggest pneumonia. There is no free air. The bowel gas pattern is normal. Pelvic calcifications reflect phleboliths. IMPRESSION: 1. No free air or evidence of bowel obstruction. 2. No acute cardiopulmonary findings. EKG SR 76 Impression Assessment and Plan 71 yo F presented with abdominal bloating and malaise, headache, fevers and chills. 1. Hypoxia 2/2 HCAP vs other (flu, etc)-mult family members ill. Flu PCR pending. Hypoxia after hydration, poss HCAP. Vanc/Levaquin. Cont oxygen supplementation. Blood and sputum cultures are pending. 2. Abdominal discomfort-described as bloating from eating liver and onions last night. Likely will resolve on own 3. Headache-she has these chronically, likely exacerbated from coughing and position change with dehydration today. Tramadol PRN 4. Weakness/Ambulatory Dysfunction 2/2 /dehydration and mutliple comorbidities including blindness and extensive peripheral neuropathy-PT/OT to assess. DVT proph: warfain Full Code Dispo-to floor DO Alejandra Hinojosa Hospitalist VTE Prophylaxis VTE Risk Assessment Done? Y/N: Yes Risk Level: Moderate Given or contraindicated: Warfarin (Coumadin)
[2017-04-10] MEDS ORDERED: LEVOFLOXACIN CONSULT ACTIVE PRN (03:45)
[2017-04-10] MEDS ORDERED: LEVAQUIN 750MG / 150ML D5W ONE (04:35)
[2017-04-10] MEDS ORDERED: VANCOMYCIN INJ 2,000 MG in SODIUM CHLORIDE 0.9% 500ML 500 ML IV SCH (05:00)
[2017-04-10] MEDS: SODIUM CHLORIDE 0.9% 1000ML 1,000 ML IV SCH ×2 (05:06→18:01)
[2017-04-10 05:11] VITALS: BP 145/82; PULSE 71; TEMP 37.1; O2SAT 95; Ht 152.4 cm; Wt 91.7 kg
[2017-04-10 06:39] LABS: HEMOGLOBIN A1C 6.4 % (4.5-5.6)
--- NOTE | 2017-04-10 07:05 | DIAGNOSTIC IMAGING REPORT ---
PA CHEST RADIOGRAPH AND UPRIGHT AND SUPINE AP RADIOGRAPHS OF THE ABDOMEN CLINICAL HISTORY: Cough, nausea and vomiting. COMPARISON STUDY: Chest radiograph and CT of the abdomen and pelvis February 11, 2017. FINDINGS: Lung volumes are normal. Lungs are clear. No pneumothorax or pleural effusion is noted. Cardiomediastinal silhouette is normal. Pulmonary vascularity is normal. There is no consolidation to suggest pneumonia. There is no free air. The bowel gas pattern is normal. Pelvic calcifications reflect phleboliths. IMPRESSION: 1. No free air or evidence of bowel obstruction. 2. No acute cardiopulmonary findings. Electronically signed by: Jose Levy M.D. 04/10/2017 7:03 AM Dictated Date/Time: 04/10/2017 7:02 AM
[2017-04-10 07:20] VITALS: BP 129/72; PULSE 71; TEMP 36.8; O2SAT 95
--- NOTE | 2017-04-10 07:32 | DIAGNOSTIC IMAGING REPORT ---
CT OF THE ABDOMEN AND PELVIS WITH CONTRAST CLINICAL HISTORY: Abdominal pain, nausea and vomiting status post hernia repair. COMPARISON STUDY: CT of the abdomen and pelvis February 11, 2017 and abdominal series April 09, 2017. TECHNIQUE: Following IV administration of 93 mL of Optiray-320, axial images of the abdomen and pelvis were obtained from the lung bases to the proximal femurs. Images were reviewed in the axial, sagittal, and coronal planes. IV contrast was administered without complication. A dose lowering technique was utilized adhering to the principles of ALARA. CT DOSE: 1037.41 mGy.cm FINDINGS: There are findings suggestive of recent upper ventral hernia repair. There is mild associated infiltration. There is no fluid collection is suggest abscess. There is no evidence for a bowel obstruction. The liver, spleen, adrenal glands, left kidney and pancreas are unremarkable. 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 There is no evidence for rupture. A 1.4 cm hypodense right renal lesion measures just above water attenuation. This is indeterminate although probably benign. This is unchanged. There is extensive colonic diverticulosis without evidence for acute diverticulitis. Mild pericolonic inflammation shown on prior CT of February 11, 2017 has resolved. Pelvic collaterals are noted. No suspicious osseous lesions are present. There is no lymphadenopathy. IMPRESSION: 1. Findings consistent with interval repair of a ventral hernia with mild adjacent infiltration which is likely postsurgical. No unexpected findings. No abscess. 2. Colonic diverticulosis without evidence for acute diverticulitis. Electronically signed by: Jose Levy M.D. 04/10/2017 7:30 AM Dictated Date/Time: 04/10/2017 7:24 AM
[2017-04-10] MEDS: CALCIUM 600MG + VIT D 400 IU TAB PO SCH ×2 (08:08→20:24)
[2017-04-10] MEDS: CYANOCOBALAMIN 100 MCG TAB (VIT B-12) PO SCH (08:08)
[2017-04-10] MEDS: ATORVASTATIN 40 MG TAB PO SCH (08:08)
[2017-04-10] MEDS: ASPIRIN 81 MG ECTAB PO SCH (08:09)
[2017-04-10] MEDS: INSULIN ASPART 100 UNITS/ML 3 ML PEN SC SCH ×4 (08:46→20:25)
[2017-04-10] MEDS: INSULIN GLARGINE SOLOSTAR 100 UNITS/ML 3 ML PEN SC SCH ×2 (08:48→20:35)
[2017-04-10 15:14] VITALS: BP 133/80; PULSE 71; TEMP 37.1; O2SAT 96
[2017-04-10] MEDS: WARFARIN SOD 2 MG TAB PO SCH (15:47)
--- NOTE | 2017-04-10 16:42 | Pharmacy Progress Note ---
Pharmacy Antibiotic Consult Date of Service: Apr 10, 2017. Pharmacy Dosing Scope Pharmacy is consulted to initiate vancomycin IV dosing therapy, order appropriate labs and adjust drug dose/frequency. Subjective The patient is a 71 year old female admitted on Apr 10, 2017 at 02:30 with possible HCAP. History of recent surgery, multiple CVA's, diabetes, macular degeneration. Objective Height (Feet): 5 Height (Inches): 0.00 Weight (Kilograms): 91.700 Lab Results (24hrs): Test 04/09/17 22:30 04/09/17 23:00 04/09/17 23:36 Urine Color DK YELLOW Urine Appearance CLOUDY (CLEAR) Urine pH 6.0 (4.5-7.5) Urine Specific [place] 1.021 (1.000-1.030) Urine Protein NEG (NEG) Urine Glucose (UA) NEG (NEG) Urine Ketones NEG (NEG) Urine Occult Blood NEG (NEG) Urine Nitrite NEG (NEG) Urine Bilirubin NEG (NEG) Urine Urobilinogen NEG (NEG) Urine Leukocyte Esterase MODERATE (NEG) Urine WBC (Auto) >30 /hpf (0-5) Urine RBC (Auto) 0-4 /hpf (0-4) Urine Hyaline Casts (Auto) 10-30 /lpf (0-5) Urine Epithelial Cells (Auto) >30 /lpf (0-5) Urine Bacteria (Auto) NEG (NEG) Urine Renal Epithelial Cells 10-20 /lpf (0-5) Influenza Type A Antigen Neg for Influ A (NEG) Influenza Type B Antigen Neg for Influ B (NEG) White Blood Count 7.10 K/uL (4.8-10.8) Red Blood Count 4.03 M/uL (4.2-5.4) Hemoglobin 13.1 g/dL (12.0-16.0) Hematocrit 39.7 % (37-47) Mean Corpuscular Volume 98.5 fL (80-100) Mean Corpuscular Hemoglobin 32.5 pg (25-34) Mean Corpuscular Hemoglobin Concent 33.0 g/dl (32-36) Platelet Count 350 K/uL (130-400) Mean Platelet Volume 10.1 fL (7.4-10.4) Neutrophils (%) (Auto) 79.6 % Lymphocytes (%) (Auto) 11.8 % Monocytes (%) (Auto) 8.2 % Eosinophils (%) (Auto) 0.0 % Basophils (%) (Auto) 0.3 % Neutrophils # (Auto) 5.65 K/uL (1.4-6.5) Lymphocytes # (Auto) 0.84 K/uL (1.2-3.4) Monocytes # (Auto) 0.58 K/uL (0.11-0.59) Eosinophils # (Auto) 0.00 K/uL (0-0.5) Basophils # (Auto) 0.02 K/uL (0-0.2) RDW Standard Deviation 50.9 fL (36.4-46.3) RDW Coefficient of Variation 14.1 % (11.5-14.5) Immature Granulocyte % (Auto) 0.1 % Immature Granulocyte # (Auto) 0.01 K/uL (0.00-0.02) Sodium Level 137 mmol/L (136-145) Potassium Level 4.0 mmol/L (3.5-5.1) Chloride Level 102 mmol/L (98-107) Carbon Dioxide Level 28 mmol/L (21-32) Anion Gap 8.0 mmol/L (3-11) Blood Urea Nitrogen 12 mg/dl (7-18) Creatinine 1.03 mg/dl (0.60-1.20) Est Creatinine Clear Calc Drug Dose 51.2 ml/min Estimated GFR () 63.8 Estimated GFR (Non- 55.0 BUN/Creatinine Ratio 11.7 (10-20) Random Glucose 131 mg/dl (70-99) Estimated Average Glucose 137 mg/dl Hemoglobin A1c 6.4 % (4.5-5.6) Calcium Level 9.3 mg/dl (8.5-10.1) Magnesium Level 2.3 mg/dl (1.8-2.4) Total Bilirubin 0.4 mg/dl (0.2-1) Aspartate Amino Transf (AST/SGOT) 17 U/L (15-37) Alanine Aminotransferase (ALT/SGPT) 24 U/L (12-78) Alkaline Phosphatase 92 U/L (45-117) Troponin I < 0.015 ng/ml (0-0.045) Pro-B-Type Natriuretic Peptide 110 pg/ml (0-900) Total Protein 8.3 gm/dl (6.4-8.2) Albumin 3.6 gm/dl (3.4-5.0) Globulin 4.7 gm/dl (2.5-4.0) Albumin/Globulin Ratio 0.8 (0.9-2) Chemistry Specimen Hemolysis Prothrombin Time 13.7 SECONDS (9.0-12.0) Prothromb Time International Ratio 1.3 (0.9-1.1) Micro Results: 04/10 blood x2 pending 04/10 urine pending 04/10 nasal swab (+) MRSA Recent Pertinent Medications Item Value Date Time Levofloxacin 750 150 ml @ 100 mls/hr 04/11/17 0200 mg/Prmx Q24H/IV Vancomycin HCl 275 ml @ 125 mls/hr 04/10/17 1800 1250 mg/Sodium Q16H/IV Chloride Vancomycin HCl 540 ml @ 200 mls/hr 04/10/17 0500 2000 mg/Sodium TODAY@0500/IV 04/10/17 0506 Chloride Levofloxacin 750 mg 04/10/17 0215 (Levaquin / D5W) NOW ONCE/IV 04/10/17 0215 Assessment & Plan Loading dose: vancomycin 2000 mg IV X 1 dose (modified loading dose) then: vancomycin 1250 mg IV every 16 hours. Goal peak level estimate: between 25-40 mcg/mL. Goal trough level estimate: between 15-20 mcg/mL. Trough has been ordered for: 04/12/17 before 0200 dose. Levaquin 750 mg q24h for CrCl greater than 50 ml/min. Pharmacy will continue to follow and will adjust dose/frequency as necessary. Thank you
--- NOTE | 2017-04-10 17:02 | Progress Note ---
Internal Med Progress Note Date of Service: Apr 10, 2017. Provider Documentation: SUBJECTIVE: Seen and examined at bedside States having left sided headache Also reports nausea and mild abdominal discomfort Has dry cough No other complaints OBJECTIVE: Vital Signs-as noted below Physical Exam: General Appearance:Moderately built and nourished, no apparent distress Head: normocephalic, Atraumatic Eyes: normal inspection, +blindness Neck: supple, Trachea midline Respiratory/Chest: Normal breath sounds, CTA Cardiovascular: S1, S2, No murmur Abdomen/GI:Soft, Non tender, Bowel sounds present, + midline surgical incision healing Extremities/Musculoskelatal:normal inspection, no edema Neurologic/Psych:grossly no focal neurological deficits, + left hemiparesis Skin: normal color, warm Lab data as noted below. ASSESSMENT & PLAN: Patient is a 71 yr female who presented with abdominal bloating and malaise, headache, fevers and chills. Flu like symptoms:? Bronchitis Flu screen negative, PCR: pending CXR: no acute process Empirically continue Vanco Levaquin MRSA screen is positive Cultures:pending Oxygen PRN Abdominal discomfort: CT abd:Negative monitor Headache:chronic Tramadol PRN Weakness/Ambulatory Dysfunction 2/2 /dehydration and mutliple comorbidities including blindness and extensive peripheral neuropathy PT/OT S/P Ventral Hernia repair stable H/O DVT/PE continue Coumadin monitor INR DM II Last A1C: 6.4 oral DM meds on hold continue Lantus and add on SSI HTN stable continue atenolol H/o CVA continue ASA, statin DVT Px: On Coumadin Vital Signs: Date Time Temp Pulse Resp B/P (MAP) Pulse Ox O2 Delivery O2 Flow Rate FiO2 04/10/17 16:15 Room Air 04/10/17 15:14 37.1 71 18 133/80 (97) 96 Room Air 04/10/17 08:15 Room Air 04/10/17 07:20 36.8 71 18 129/72 (91) 95 Room Air 04/10/17 05:11 37.1 71 18 145/82 95 Room Air 04/10/17 04:07 70 18 128/72 96 04/10/17 04:02 70 18 128/72 96 Room Air 04/10/17 01:36 37.0 75 135/69 95 Room Air 04/09/17 23:38 80 120/72 95 Room Air 04/09/17 20:37 36.9 85 18 143/68 100 Room Air Lab Results: Results Past 24 Hours Test 04/09/17 22:30 04/09/17 23:00 04/09/17 23:36 Range/Units Urine Color DK YELLOW Urine Appearance CLOUDY CLEAR Urine pH 6.0 4.5-7.5 Urine Specific [place] 1.021 1.000-1.030 Urine Protein NEG NEG Urine Glucose (UA) NEG NEG Urine Ketones NEG NEG Urine Occult Blood NEG NEG Urine Nitrite NEG NEG Urine Bilirubin NEG NEG Urine Urobilinogen NEG NEG Urine Leukocyte Esterase MODERATE NEG Urine WBC (Auto) >30 0-5 /hpf Urine RBC (Auto) 0-4 0-4 /hpf Urine Hyaline Casts (Auto) 10-30 0-5 /lpf Urine Epithelial Cells (Auto) >30 0-5 /lpf Urine Bacteria (Auto) NEG NEG Urine Renal Epithelial Cells 10-20 0-5 /lpf Influenza Type A Antigen Neg for Influ A NEG Influenza Type B Antigen Neg for Influ B NEG White Blood Count 7.10 4.8-10.8 K/uL Red Blood Count 4.03 4.2-5.4 M/uL Hemoglobin 13.1 12.0-16.0 g/dL Hematocrit 39.7 37-47 % Mean Corpuscular Volume 98.5 80-100 fL Mean Corpuscular Hemoglobin 32.5 25-34 pg Mean Corpuscular Hemoglobin Concent 33.0 32-36 g/dl Platelet Count 350 130-400 K/uL Mean Platelet Volume 10.1 7.4-10.4 fL Neutrophils (%) (Auto) 79.6 % Lymphocytes (%) (Auto) 11.8 % Monocytes (%) (Auto) 8.2 % Eosinophils (%) (Auto) 0.0 % Basophils (%) (Auto) 0.3 % Neutrophils # (Auto) 5.65 1.4-6.5 K/uL Lymphocytes # (Auto) 0.84 1.2-3.4 K/uL Monocytes # (Auto) 0.58 0.11-0.59 K/uL Eosinophils # (Auto) 0.00 0-0.5 K/uL Basophils # (Auto) 0.02 0-0.2 K/uL RDW Standard Deviation 50.9 36.4-46.3 fL RDW Coefficient of Variation 14.1 11.5-14.5 % Immature Granulocyte % (Auto) 0.1 % Immature Granulocyte # (Auto) 0.01 0.00-0.02 K/uL Sodium Level 137 136-145 mmol/L Potassium Level 4.0 3.5-5.1 mmol/L Chloride Level 102 98-107 mmol/L Carbon Dioxide Level 28 21-32 mmol/L Anion Gap 8.0 3-11 mmol/L Blood Urea Nitrogen 12 7-18 mg/dl Creatinine 1.03 0.60-1.20 mg/dl Est Creatinine Clear Calc Drug Dose 51.2 ml/min Estimated GFR () 63.8 Estimated GFR (Non- 55.0 BUN/Creatinine Ratio 11.7 10-20 Random Glucose 131 70-99 mg/dl Estimated Average Glucose 137 mg/dl Hemoglobin A1c 6.4 4.5-5.6 % Calcium Level 9.3 8.5-10.1 mg/dl Magnesium Level 2.3 1.8-2.4 mg/dl Total Bilirubin 0.4 0.2-1 mg/dl Aspartate Amino Transf (AST/SGOT) 17 15-37 U/L Alanine Aminotransferase (ALT/SGPT) 24 12-78 U/L Alkaline Phosphatase 92 45-117 U/L Troponin I < 0.015 0-0.045 ng/ml Pro-B-Type Natriuretic Peptide 110 0-900 pg/ml Total Protein 8.3 6.4-8.2 gm/dl Albumin 3.6 3.4-5.0 gm/dl Globulin 4.7 2.5-4.0 gm/dl Albumin/Globulin Ratio 0.8 0.9-2 Chemistry Specimen Hemolysis Prothrombin Time 13.7 9.0-12.0 SECONDS Prothromb Time International Ratio 1.3 0.9-1.1 Microbiology Results 04/10/17 Blood Culture, Received Pending 04/10/17 Blood Culture, Received Pending 04/10/17 MRSA DNA Surveillance Screen - Final, Complete Specimen Positive for MRSA by DNA Probe 04/09/17 Urine Culture, Received Pending
[2017-04-10] MEDS: VANCOMYCIN INJ 1,250 MG in SODIUM CHLORIDE 0.9% 250ML 250 ML IV SCH (18:01)
[2017-04-10] MEDS: POLYETHYLENE (MIRALAX) 17 GM PACK PO PRN (18:17)
[2017-04-10] MEDS: RANITIDINE HCL 150 MG TAB PO SCH (18:18)
[2017-04-10] MEDS: TRAMADOL HCL 50 MG TAB PO PRN (20:23)
[2017-04-10] MEDS: ROPINIROLE HCL 1 MG TAB PO SCH (20:25)
[2017-04-10] MEDS: MIRTAZAPINE TAB 15 MG TAB PO SCH (20:25)
[2017-04-10 20:42] LABS: INFLUENZA A PCR Neg for Influ A (NEG); INFLUENZA B PCR Neg for Influ B (NEG)
[2017-04-10] MEDS: ONDANSETRON INJ 2 MG/ML 2 ML VIAL IV PRN (23:43)
[2017-04-11] VITALS: BP 127/75; PULSE 81; TEMP 36.6; O2SAT 91
[2017-04-11] MEDS ORDERED: LEVOFLOXACIN 750MG / D5W IV SCH (02:00)
[2017-04-11] MEDS: TRAMADOL HCL 50 MG TAB PO PRN ×3 (03:51→17:30)
[2017-04-11 07:08] LABS: HEMATOCRIT 35.4 % (37-47); HEMOGLOBIN 11.5 g/dL (12.0-16.0); MEAN CELL VOLUME 99.4 fL (80-100); MEAN CORPUSCULAR HEMOGLOBIN 32.3 pg (25-34); MEAN CORPUSCULAR HGB CONC 32.5 g/dl (32-36); MEAN PLATELET VOLUME 9.7 fL (7.4-10.4); PLATELET COUNT 285 K/uL (130-400); RED CELL DISTRIBUTION WIDTH CV 14.4 % (11.5-14.5); RED CELL DISTRIBUTION WIDTH SD 52.7 fL (36.4-46.3); WHITE BLOOD COUNT 4.63 K/uL (4.8-10.8)
[2017-04-11 07:16] LABS: INR 1.3 (0.9-1.1)
[2017-04-11 07:39] LABS: CREATININE 0.95 mg/dl (0.60-1.20); POTASSIUM 3.9 mmol/L (3.5-5.1)
[2017-04-11] MEDS: ASPIRIN 81 MG ECTAB PO SCH (07:55)
[2017-04-11] MEDS: ATORVASTATIN 40 MG TAB PO SCH (07:55)
[2017-04-11] MEDS: CALCIUM 600MG + VIT D 400 IU TAB PO SCH ×2 (07:55→21:10)
[2017-04-11] MEDS: RANITIDINE HCL 150 MG TAB PO SCH (07:55)
[2017-04-11] MEDS: CYANOCOBALAMIN 100 MCG TAB (VIT B-12) PO SCH (07:55)
[2017-04-11 07:59] VITALS: BP 134/81; PULSE 74; TEMP 36.7; O2SAT 91
[2017-04-11 08:10] VITALS: O2SAT 91
[2017-04-11] MEDS: VANCOMYCIN INJ 1,250 MG in SODIUM CHLORIDE 0.9% 250ML 250 ML IV SCH (08:56)
[2017-04-11] MEDS: INSULIN GLARGINE SOLOSTAR 100 UNITS/ML 3 ML PEN SC SCH ×2 (08:59→21:13)
[2017-04-11] MEDS: INSULIN ASPART 100 UNITS/ML 3 ML PEN SC SCH ×4 (08:59→21:11)
[2017-04-11] MEDS: ONDANSETRON INJ 2 MG/ML 2 ML VIAL IV PRN ×2 (11:38→22:33)
[2017-04-11] MEDS ORDERED: MAGNESIUM HYDROXIDE SUSP 30 ML UDC PO PRN (12:00)
[2017-04-11 15:41] VITALS: BP 125/78; PULSE 64; TEMP 37.1; O2SAT 93
[2017-04-11] MEDS: WARFARIN SOD 2 MG TAB PO SCH (16:00)
--- NOTE | 2017-04-11 17:07 | Progress Note ---
Internal Med Progress Note Date of Service: Apr 11, 2017. Provider Documentation: SUBJECTIVE: Seen and examined at bedside Reports constipation Also has some chest pain with coughing Denies any worsening of abdominal discomfort No other complaints OBJECTIVE: Vital Signs-as noted below Physical Exam: General Appearance:Moderately built and nourished, no apparent distress Head: normocephalic, Atraumatic Eyes: normal inspection, +blindness Neck: supple, Trachea midline Respiratory/Chest: Normal breath sounds, CTA Cardiovascular: S1, S2, No murmur Abdomen/GI:Soft, Non tender, Bowel sounds present, + midline surgical incision healing Extremities/Musculoskelatal:normal inspection, no edema Neurologic/Psych:grossly no focal neurological deficits, + left hemiparesis Skin: normal color, warm Lab data as noted below. ASSESSMENT & PLAN: Patient is a 71 yr female who presented with abdominal bloating and malaise, headache, fevers and chills. Flu like symptoms:? Bronchitis Flu screen negative, PCR:Negative CXR: no acute process Continue Levaquin DC Vanco MRSA screen is positive Blood Cultures:No growth to date Oxygen PRN Abdominal discomfort: Likely secondary to constipation CT abd:Negative monitor Continue bowel regimen Headache:chronic Tramadol PRN Weakness/Ambulatory Dysfunction 2/2 /dehydration and multiple comorbidities including blindness and extensive peripheral neuropathy PT/OT S/P Ventral Hernia repair stable H/O DVT/PE continue Coumadin monitor INR:1.3 today DM II Last A1C: 6.4 oral DM meds on hold continue Lantus and add on SSI HTN stable continue atenolol H/o CVA continue ASA, statin DVT Px: On Coumadin Vital Signs: Date Time Temp Pulse Resp B/P (MAP) Pulse Ox O2 Delivery O2 Flow Rate FiO2 04/11/17 15:41 37.1 64 18 125/78 (94) 93 Room Air 04/11/17 08:10 91 Room Air 04/11/17 08:00 Room Air 04/11/17 07:59 36.7 74 20 134/81 (98) 91 Room Air 04/11/17 00:00 36.6 81 20 127/75 (92) 91 Room Air 04/11/17 00:00 Room Air Lab Results: Results Past 24 Hours Test 04/10/17 18:00 04/11/17 06:49 04/11/17 07:04/11/17 11:27 Range/Units Influenza Type A (RT-PCR) Neg for Influ A NEG Influenza Type B (RT-PCR) Neg for Influ B NEG White Blood Count 4.63 4.8-10.8 K/uL Red Blood Count 3.56 4.2-5.4 M/uL Hemoglobin 11.5 12.0-16.0 g/dL Hematocrit 35.4 37-47 % Mean Corpuscular Volume 99.4 80-100 fL Mean Corpuscular Hemoglobin 32.3 25-34 pg Mean Corpuscular Hemoglobin Concent 32.5 32-36 g/dl RDW Standard Deviation 52.7 36.4-46.3 fL RDW Coefficient of Variation 14.4 11.5-14.5 % Platelet Count 285 130-400 K/uL Mean Platelet Volume 9.7 7.4-10.4 fL Prothrombin Time 13.4 9.0-12.0 SECONDS Prothromb Time International Ratio 1.3 0.9-1.1 Sodium Level 140 136-145 mmol/L Potassium Level 3.9 3.5-5.1 mmol/L Chloride Level 108 98-107 mmol/L Carbon Dioxide Level 26 21-32 mmol/L Anion Gap 6.0 3-11 mmol/L Blood Urea Nitrogen 10 7-18 mg/dl Creatinine 0.95 0.60-1.20 mg/dl Est Creatinine Clear Calc Drug Dose 55.7 ml/min Estimated GFR () 70.3 Estimated GFR (Non- 60.7 BUN/Creatinine Ratio 10.3 10-20 Random Glucose 76 70-99 mg/dl Calcium Level 8.0 8.5-10.1 mg/dl Bedside Glucose 72 119 70-90 mg/dl
[2017-04-11] MEDS: MIRTAZAPINE TAB 15 MG TAB PO SCH (21:09)
[2017-04-11] MEDS: ROPINIROLE HCL 1 MG TAB PO SCH (21:10)
[2017-04-11] MEDS ORDERED: DOCUSATE SODIUM/SENNA 50/8.6MG TAB PO SCH (22:00)
[2017-04-11] MEDS ORDERED: HYDROmorphone INJ 0.5 MG/0.5 ML SYR IV PRN (23:15)
[2017-04-11] MEDS ORDERED: OPTIRAY 320 IV PRN (23:15)
[2017-04-11] MEDS ORDERED: LACTATED RINGER'S 1000ML 1,000 ML IV SCH (23:30)
[2017-04-11 23:35] VITALS: BP 125/72; PULSE 74; TEMP 37.5; O2SAT 95
[2017-04-12] MEDS ORDERED: LACTATED RINGER'S 1000ML 1,000 ML IV ONE
--- NOTE | 2017-04-12 00:08 | Progress Note ---
Internal Med Progress Note Date of Service: Apr 12, 2017. Provider Documentation: Made aware by RN of worsening generalized abdominal pain symptoms. Still coughing. Still constipated. CT abdomen pelvis initial read : unchanged ventral hernia, no bowel obstruction , worsening pneumonia right AP HCAP Worsening as per CT initial read Possible aspiration mechanism given nausea vomiting symptoms as per admission H& P- Change Levaquin to Ertapenem for now for additional anaerobic coverage. Constipation Bowel regimen Will relay to AM provider. Vital Signs: Date Time Temp Pulse Resp B/P (MAP) Pulse Ox O2 Delivery O2 Flow Rate FiO2 04/12/17 05:00 37.4 04/12/17 00:00 Room Air 04/11/17 23:35 37.5 74 20 125/72 (89) 95 Room Air 04/11/17 18:42 Room Air 04/11/17 15:41 37.1 64 18 125/78 (94) 93 Room Air 04/11/17 08:10 91 Room Air 04/11/17 08:00 Room Air 04/11/17 07:59 36.7 74 20 134/81 (98) 91 Room Air Lab Results: Results Past 24 Hours Test 04/11/17 07:28 04/11/17 11:27 04/11/17 16:28 04/11/17 20:49 Range/Units Bedside Glucose 72 119 85 103 70-90 mg/dl Test 04/12/17 06:21 Range/Units White Blood Count 4.33 4.8-10.8 K/uL Red Blood Count 3.56 4.2-5.4 M/uL Hemoglobin 11.6 12.0-16.0 g/dL Hematocrit 35.0 37-47 % Mean Corpuscular Volume 98.3 80-100 fL Mean Corpuscular Hemoglobin 32.6 25-34 pg Mean Corpuscular Hemoglobin Concent 33.1 32-36 g/dl Platelet Count 276 130-400 K/uL Mean Platelet Volume 9.5 7.4-10.4 fL Neutrophils (%) (Auto) 53.6 % Lymphocytes (%) (Auto) 37.9 % Monocytes (%) (Auto) 7.4 % Eosinophils (%) (Auto) 0.2 % Basophils (%) (Auto) 0.7 % Neutrophils # (Auto) 2.32 1.4-6.5 K/uL Lymphocytes # (Auto) 1.64 1.2-3.4 K/uL Monocytes # (Auto) 0.32 0.11-0.59 K/uL Eosinophils # (Auto) 0.01 0-0.5 K/uL Basophils # (Auto) 0.03 0-0.2 K/uL RDW Standard Deviation 51.7 36.4-46.3 fL RDW Coefficient of Variation 14.4 11.5-14.5 % Immature Granulocyte % (Auto) 0.2 % Immature Granulocyte # (Auto) 0.01 0.00-0.02 K/uL Prothrombin Time 14.0 9.0-12.0 SECONDS Prothromb Time International Ratio 1.3 0.9-1.1 Activated Partial Thromboplast Time 29.3 21.0-31.0 SECONDS Partial Thromboplastin Ratio 1.1
[2017-04-12] MEDS ORDERED: ERTAPENEM CONSULT ACTIVE PRN (00:15)
[2017-04-12] MEDS ORDERED: HYDROmorphone INJ 0.5 MG/0.5 ML SYR IV PRN (00:15)
[2017-04-12] MEDS ORDERED: LACTULOSE SYRUP 30 GM/45 ML UDP PO ONE ×2 (00:30→05:45)
[2017-04-12] MEDS: ERTAPENEM IV 1,000 MG in SODIUM CHLORIDE 0.9% 50ML 50 ML IV SCH ×2 (00:54→23:57)
[2017-04-12] MEDS ORDERED: VANCOMYCIN TROUGH ONE (01:30)
[2017-04-12 05:00] VITALS: TEMP 37.4
[2017-04-12] MEDS: POLYETHYLENE (MIRALAX) 17 GM PACK PO PRN (05:18)
[2017-04-12] MEDS: ONDANSETRON INJ 2 MG/ML 2 ML VIAL IV PRN ×2 (05:18→20:53)
[2017-04-12] MEDS: KETOROLAC TROMETHAMINE 15 MG/ML VIAL IV. PRN ×2 (05:20→20:53)
[2017-04-12] MEDS ORDERED: DOCUSATE SODIUM/SENNA 50/8.6MG TAB PO ONE (05:29)
[2017-04-12] MEDS ORDERED: LORAZEPAM INJ 0.25 MG in SYRINGE 0.25 ML IV STA (05:29)
[2017-04-12] MEDS ORDERED: LORAZEPAM INJ 0.25 MG in SYRINGE 0.125 ML IV ONE (05:45)
[2017-04-12 06:34] LABS: BASO % 0.7 %; BASO ABS # 0.03 K/uL (0-0.2); EOS % 0.2 %; EOS ABS # 0.01 K/uL (0-0.5); HEMOGLOBIN 11.6 g/dL (12.0-16.0); IG# 0.01 K/uL (0.00-0.02); LYMPH % 37.9 %; LYMPH ABS # 1.64 K/uL (1.2-3.4); MEAN CELL VOLUME 98.3 fL (80-100); MEAN CORPUSCULAR HEMOGLOBIN 32.6 pg (25-34); MEAN CORPUSCULAR HGB CONC 33.1 g/dl (32-36); MEAN PLATELET VOLUME 9.5 fL (7.4-10.4); MONO % 7.4 %; MONO ABS # 0.32 K/uL (0.11-0.59); NEUT % 53.6 %; NEUT ABS # 2.32 K/uL (1.4-6.5); PLATELET COUNT 276 K/uL (130-400); RED CELL DISTRIBUTION WIDTH CV 14.4 % (11.5-14.5); RED CELL DISTRIBUTION WIDTH SD 51.7 fL (36.4-46.3); WHITE BLOOD COUNT 4.33 K/uL (4.8-10.8)
[2017-04-12 06:44] LABS: INR 1.3 (0.9-1.1); PTT PATIENT 29.3 SECONDS (21.0-31.0)
[2017-04-12 07:02] LABS: ALBUMIN 2.8 gm/dl (3.4-5.0); CALCIUM 8.6 mg/dl (8.5-10.1); CREATININE 1.04 mg/dl (0.60-1.20); POTASSIUM 3.6 mmol/L (3.5-5.1)
[2017-04-12 07:05] LABS: TOTAL PROTEIN 6.8 gm/dl (6.4-8.2)
--- NOTE | 2017-04-12 07:05 | DIAGNOSTIC IMAGING REPORT ---
HEAD WITHOUT CONTRAST (CT) CLINICAL HISTORY: 71 years-old Female with stanley. Acute headache with nausea TECHNIQUE: Multiple axial CT images of the head were obtained without contrast. A dose lowering technique was utilized adhering to the principles of ALARA. CT DOSE: 614.27 mGy.cm COMPARISON: CT head 02/11/2017. FINDINGS: Exam is mildly motion degraded. No acute intracranial hemorrhage, midline shift, intracranial mass, hydrocephalus, territorial ischemia or abnormal extra-axial collection. Mild cerebral and cerebellar atrophy. The calvarium is intact. The paranasal sinuses, mastoid air cells, and middle ear cavities are clear. IMPRESSION: No acute intracranial abnormality. The above report was generated using voice recognition software. It may contain grammatical, syntax or spelling errors. Electronically signed by: Alen Mills M.D. 04/12/2017 7:04 AM Dictated Date/Time: 04/12/2017 7:01 AM
[2017-04-12 07:24] VITALS: BP 125/78; PULSE 66; TEMP 36.9; O2SAT 91
[2017-04-12] MEDS: CYANOCOBALAMIN 100 MCG TAB (VIT B-12) PO SCH (07:27)
[2017-04-12] MEDS: RANITIDINE HCL 150 MG TAB PO SCH (07:27)
[2017-04-12] MEDS: ASPIRIN 81 MG ECTAB PO SCH (07:27)
[2017-04-12] MEDS: CALCIUM 600MG + VIT D 400 IU TAB PO SCH ×2 (07:27→20:54)
[2017-04-12] MEDS: ATORVASTATIN 40 MG TAB PO SCH (07:27)
[2017-04-12] MEDS ORDERED: DOCUSATE SODIUM/SENNA 50/8.6MG TAB PO SCH ×2 (08:00→20:00)
--- NOTE | 2017-04-12 08:15 | DIAGNOSTIC IMAGING REPORT ---
ABD/PELVIS IV CONTRAST ONLY CLINICAL HISTORY: 71 years-old Female presenting with worsening abd pain. TECHNIQUE: Multidetector CT of the abdomen and pelvis was performed after the administration of intravenous contrast. IV contrast: 24 mL of Optiray 320. A dose lowering technique was used consistent with the principles of ALARA (as low as reasonably achievable). COMPARISON: 04/10/2017. CT DOSE (mGy.cm): The estimated cumulative dose is 1169.30 mGy.cm. FINDINGS: Nutrition Professor topogram: Unremarkable. Lung bases: Extensive peripheral nodular consolidation in the posterior basal and medial basal right lower lobe. Additional solid 4 mm nodule in the posterior basal right lower lobe (series 3 image 4) may be related to the consolidation. Minimal dependent changes in the left lower lobe likely atelectasis. Bronchial wall thickening noted in the right lower lobe. Top normal heart size. Mitral annular calcification. No pericardial or pleural effusion. Liver: Normal morphology. No liver lesion. Patent hepatic vasculature. Biliary: Mild biliary ductal prominence likely a reservoir effect in the post cholecystectomy state. Gallbladder surgically absent. Pancreas: Mild parenchymal atrophy. Spleen: Normal. Spinal noted. Adrenal glands: Normal. Kidneys and ureters: Well-defined hypodensity in the right kidney with slightly elevated density, indeterminate but possibly hemorrhagic or proteinaceous cyst. No hydronephrosis. No nephrolithiasis. 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 Ureters normal. Bladder: Normal. Pelvic organs: Uterus surgically absent. Normal ovaries. Bowel: Pancolonic diverticulosis. No pericolonic inflammatory change to suggest diverticulitis. Fluid in the colon could suggest a diarrheal state. No colonic wall thickening. No bowel obstruction. Peritoneal cavity: No free fluid or intraperitoneal gas. Lymph nodes: No enlarged lymph nodes in the abdomen or pelvis. Vasculature: Atherosclerosis of the normal caliber abdominal aorta. IVC patent. Right renal artery aneurysm as mentioned above. Extensive abdominal wall varices in the lower abdomen. Calcification noted in the left common femoral vein, which may imply chronic thrombus. Varices may be providing collateral drainage of the left lower extremity to the right common femoral vein. Abdominal wall: Postsurgical changes of the midline ventral abdominal wall in the upper abdomen from hernia repair. Persistent inflammatory changes. No focal fluid collection. Mild body wall edema. Musculoskeletal: Degenerative changes of the spine. Degenerative changes of the pubic symphysis. IMPRESSION: 1. Extensive consolidation in the right lower lobe concerning for pneumonia. The solid right lower lobe 4 mm nodule may be associated with the consolidation. This should be followed to resolution. 2. Pancolonic diverticulosis without evidence of diverticulitis. 3. 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 No evidence of rupture. 4. 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 5. Post surgical changes of ventral hernia repair. Associated inflammatory change may be within the expected range of normal postsurgical state. No associated fluid collection. Electronically signed by: Carlton Alcala M.D. 04/12/2017 8:14 AM Dictated Date/Time: 04/12/2017 6:44 AM
[2017-04-12] MEDS: INSULIN ASPART 100 UNITS/ML 3 ML PEN SC SCH ×4 (08:21→21:04)
[2017-04-12] MEDS: INSULIN GLARGINE SOLOSTAR 100 UNITS/ML 3 ML PEN SC SCH ×2 (08:47→21:04)
[2017-04-12] MEDS: GUAIFENESIN SUGAR FREE 100 MG/5 ML UDC PO PRN ×2 (12:29→21:00)
[2017-04-12 15:29] VITALS: BP 116/68; PULSE 75; TEMP 37.4; O2SAT 92
[2017-04-12] MEDS ORDERED: COUGH DROP (SUGAR FREE) LOZ 24 LOZ/1 BOX LOZ PRN (15:45)
--- NOTE | 2017-04-12 15:46 | Progress Note ---
Internal Med Progress Note Date of Service: Apr 12, 2017. Provider Documentation: SUBJECTIVE: Seen and examined at bedside Reports constipation Also has some chest pain with coughing Denies any worsening of abdominal discomfort No other complaints OBJECTIVE: Vital Signs-as noted below Physical Exam: General Appearance:Moderately built and nourished, no apparent distress Head: normocephalic, Atraumatic Eyes: normal inspection, +blindness Neck: supple, Trachea midline Respiratory/Chest: Normal breath sounds, CTA Cardiovascular: S1, S2, No murmur Abdomen/GI:Soft, Non tender, Bowel sounds present, + midline surgical incision healing Extremities/Musculoskelatal:normal inspection, no edema Neurologic/Psych:grossly no focal neurological deficits, + left hemiparesis Skin: normal color, warm Lab data as noted below. ASSESSMENT & PLAN: Patient is a 71 yr female who presented with abdominal bloating and malaise, headache, fevers and chills. CAP Flu screen negative, PCR:Negative CXR: no acute process CT: RLL Consolidation Levaquin, Vanco discontinued Continue Ertapenem MRSA screen is positive Blood Cultures:No growth to date Oxygen PRN Abdominal discomfort: Likely secondary to constipation Constipation resolved CT abd:reviewed monitor Headache:chronic secondary to migraine per patient since [address] head:No acute intracranial abnormality Tramadol PRN Weakness/Ambulatory Dysfunction 2/2 /dehydration and multiple comorbidities including blindness and extensive peripheral neuropathy PT/OT S/P Ventral Hernia repair stable H/O DVT/PE continue Coumadin monitor INR:1.3 today DM II Last A1C: 6.4 oral DM meds on hold continue Lantus and add on SSI HTN stable continue atenolol H/o CVA continue ASA, statin DVT Px: On Coumadin Vital Signs: Date Time Temp Pulse Resp B/P (MAP) Pulse Ox O2 Delivery O2 Flow Rate FiO2 04/12/17 15:29 37.4 75 18 116/68 (84) 92 04/12/17 08:00 Room Air 04/12/17 07:24 36.9 66 20 125/78 (94) 91 04/12/17 05:00 37.4 04/12/17 00:00 Room Air 04/11/17 23:35 37.5 74 20 125/72 (89) 95 Room Air 04/11/17 18:42 Room Air Lab Results: Results Past 24 Hours Test 04/11/17 16:28 2/14/18 20:49 04/12/17 06:21 04/12/17 07:42 Range/Units Bedside Glucose 85 103 84 70-90 mg/dl White Blood Count 4.33 4.8-10.8 K/uL Red Blood Count 3.56 4.2-5.4 M/uL Hemoglobin 11.6 12.0-16.0 g/dL Hematocrit 35.0 37-47 % Mean Corpuscular Volume 98.3 80-100 fL Mean Corpuscular Hemoglobin 32.6 25-34 pg Mean Corpuscular Hemoglobin Concent 33.1 32-36 g/dl Platelet Count 276 130-400 K/uL Mean Platelet Volume 9.5 7.4-10.4 fL Neutrophils (%) (Auto) 53.6 % Lymphocytes (%) (Auto) 37.9 % Monocytes (%) (Auto) 7.4 % Eosinophils (%) (Auto) 0.2 % Basophils (%) (Auto) 0.7 % Neutrophils # (Auto) 2.32 1.4-6.5 K/uL Lymphocytes # (Auto) 1.64 1.2-3.4 K/uL Monocytes # (Auto) 0.32 0.11-0.59 K/uL Eosinophils # (Auto) 0.01 0-0.5 K/uL Basophils # (Auto) 0.03 0-0.2 K/uL RDW Standard Deviation 51.7 36.4-46.3 fL RDW Coefficient of Variation 14.4 11.5-14.5 % Immature Granulocyte % (Auto) 0.2 % Immature Granulocyte # (Auto) 0.01 0.00-0.02 K/uL Prothrombin Time 14.0 9.0-12.0 SECONDS Prothromb Time International Ratio 1.3 0.9-1.1 Activated Partial Thromboplast Time 29.3 21.0-31.0 SECONDS Partial Thromboplastin Ratio 1.1 Sodium Level 136 136-145 mmol/L Potassium Level 3.6 3.5-5.1 mmol/L Chloride Level 102 98-107 mmol/L Carbon Dioxide Level 28 21-32 mmol/L Anion Gap 6.0 3-11 mmol/L Blood Urea Nitrogen 11 7-18 mg/dl Creatinine 1.04 0.60-1.20 mg/dl Est Creatinine Clear Calc Drug Dose 50.8 ml/min Estimated GFR () 63.0 Estimated GFR (Non- 54.4 BUN/Creatinine Ratio 11.0 10-20 Random Glucose 94 70-99 mg/dl Calcium Level 8.6 8.5-10.1 mg/dl Magnesium Level 2.3 1.8-2.4 mg/dl Total Bilirubin 0.3 0.2-1 mg/dl Aspartate Amino Transf (AST/SGOT) 15 15-37 U/L Alanine Aminotransferase (ALT/SGPT) 20 12-78 U/L Alkaline Phosphatase 78 45-117 U/L Total Protein 6.8 6.4-8.2 gm/dl Albumin 2.8 3.4-5.0 gm/dl Globulin 4.0 2.5-4.0 gm/dl Albumin/Globulin Ratio 0.7 0.9-2 Lipase 71 73-393 U/L Test 04/12/17 11:25 Range/Units Bedside Glucose 90 70-90 mg/dl
[2017-04-12] MEDS ORDERED: WARFARIN SOD 4 MG TAB PO SCH (16:00)
[2017-04-12] MEDS: WARFARIN SOD 4 MG TAB PO SCH (16:41)
[2017-04-12] MEDS: ROPINIROLE HCL 1 MG TAB PO SCH (20:59)
[2017-04-12] MEDS: MIRTAZAPINE TAB 15 MG TAB PO SCH (21:00)
[2017-04-12 22:42] VITALS: BP 153/72; PULSE 91; TEMP 38.1; O2SAT 91
[2017-04-13 07:20] LABS: INR 1.5 (0.9-1.1)
[2017-04-13] MEDS: GUAIFENESIN SUGAR FREE 100 MG/5 ML UDC PO PRN ×3 (07:27→20:37)
[2017-04-13] MEDS: KETOROLAC TROMETHAMINE 15 MG/ML VIAL IV. PRN (07:40)
[2017-04-13] MEDS: RANITIDINE HCL 150 MG TAB PO SCH (07:40)
[2017-04-13] MEDS: ASPIRIN 81 MG ECTAB PO SCH (07:41)
[2017-04-13] MEDS: ATORVASTATIN 40 MG TAB PO SCH (07:41)
[2017-04-13] MEDS: CALCIUM 600MG + VIT D 400 IU TAB PO SCH ×2 (07:41→20:00)
[2017-04-13] MEDS: CYANOCOBALAMIN 100 MCG TAB (VIT B-12) PO SCH (07:42)
[2017-04-13 07:47] VITALS: BP 157/77; PULSE 72; TEMP 37.8; O2SAT 95
[2017-04-13 07:50] LABS: CALCIUM 9.1 mg/dl (8.5-10.1); POTASSIUM 3.4 mmol/L (3.5-5.1)
[2017-04-13] MEDS ORDERED: PSYLLIUM 58.6% PWD PACK S\\F PO SCH (08:00)
[2017-04-13] MEDS: INSULIN ASPART 100 UNITS/ML 3 ML PEN SC SCH ×4 (09:19→20:29)
[2017-04-13] MEDS: INSULIN GLARGINE SOLOSTAR 100 UNITS/ML 3 ML PEN SC SCH ×2 (09:20→20:28)
[2017-04-13] MEDS ORDERED: POTASSIUM CHLORIDE 10 MEQ TABCR PO ONE (14:30)
--- NOTE | 2017-04-13 14:37 | Progress Note ---
Internal Med Progress Note Date of Service: Apr 13, 2017. Provider Documentation: SUBJECTIVE: Seen and examined at bedside States having multiple episodes of loose watery diarrhea Less cough Denies any abdominal pain, nausea Has low grade fever No other complaints OBJECTIVE: Vital Signs-as noted below Physical Exam: General Appearance:Moderately built and nourished, no apparent distress Head: normocephalic, Atraumatic Eyes: normal inspection, +blindness Neck: supple, Trachea midline Respiratory/Chest: Normal breath sounds, CTA Cardiovascular: S1, S2, No murmur Abdomen/GI:Soft, Non tender, Bowel sounds present, + midline surgical incision healing Extremities/Musculoskelatal:normal inspection, no edema Neurologic/Psych:grossly no focal neurological deficits, + left hemiparesis Skin: normal color, warm Lab data as noted below. ASSESSMENT & PLAN: Patient is a 71 yr female who presented with abdominal bloating and malaise, headache, fevers and chills. CAP Flu screen negative, PCR:Negative CXR: no acute process CT: RLL Consolidation Levaquin, Vanco discontinued Continue Ertapenem MRSA screen is positive Blood Cultures:No growth to date Oxygen PRN Abdominal discomfort: Likely secondary to constipation Constipation resolved CT abd:reviewed monitor Reports diarrhea, low grade fever, check Stool for C.diff Hypokalemia: Secondary to diarrhea Replace and monitor Headache:chronic secondary to migraine per patient since [address] head:No acute intracranial abnormality Tramadol PRN Improved Weakness/Ambulatory Dysfunction 2/2 /dehydration and multiple comorbidities including blindness and extensive peripheral neuropathy PT/OT S/P Ventral Hernia repair stable H/O DVT/PE continue Coumadin monitor INR:1.5 today DM II Last A1C: 6.4 oral DM meds on hold continue Lantus and SSI HTN stable continue atenolol H/o CVA continue ASA, statin DVT Px: On Coumadin Disposition: Plan to discharge home when stable Vital Signs: Date Time Temp Pulse Resp B/P (MAP) Pulse Ox O2 Delivery O2 Flow Rate FiO2 04/13/17 07:47 37.8 72 16 157/77 (103) 95 Room Air 04/13/17 00:00 Room Air 04/12/17 22:42 38.1 91 18 153/72 (99) 91 Room Air 04/12/17 18:37 Room Air 04/12/17 15:29 37.4 75 18 116/68 (84) 92 Lab Results: Results Past 24 Hours Test 04/12/17 16:30 04/12/17 20:02 04/13/17 06:43 04/13/17 08:05 Range/Units Bedside Glucose 85 104 107 70-90 mg/dl Prothrombin Time 15.7 9.0-12.0 SECONDS Prothromb Time International Ratio 1.5 0.9-1.1 Sodium Level 139 136-145 mmol/L Potassium Level 3.4 3.5-5.1 mmol/L Chloride Level 102 98-107 mmol/L Carbon Dioxide Level 30 21-32 mmol/L Anion Gap 7.0 3-11 mmol/L Blood Urea Nitrogen 13 7-18 mg/dl Creatinine 1.00 0.60-1.20 mg/dl Est Creatinine Clear Calc Drug Dose 52.9 ml/min Estimated GFR () 66.1 Estimated GFR (Non- 57.0 BUN/Creatinine Ratio 13.2 10-20 Random Glucose 81 70-99 mg/dl Calcium Level 9.1 8.5-10.1 mg/dl
[2017-04-13] MEDS: WARFARIN SOD 4 MG TAB PO SCH (15:45)
[2017-04-13 16:08] VITALS: BP 131/77; PULSE 66; TEMP 36.4; O2SAT 95
[2017-04-13] MEDS: ROPINIROLE HCL 1 MG TAB PO SCH (20:31)
[2017-04-13] MEDS: MIRTAZAPINE TAB 15 MG TAB PO SCH (20:31)
[2017-04-13] MEDS: ONDANSETRON INJ 2 MG/ML 2 ML VIAL IV PRN (20:37)
[2017-04-13 23:44] VITALS: BP 124/75; PULSE 74; TEMP 37.8; O2SAT 93
[2017-04-13] MEDS: ERTAPENEM IV 1,000 MG in SODIUM CHLORIDE 0.9% 50ML 50 ML IV SCH (23:54)
[2017-04-14 07:38] LABS: HEMATOCRIT 37.8 % (37-47); HEMOGLOBIN 12.4 g/dL (12.0-16.0); MEAN CELL VOLUME 97.2 fL (80-100); MEAN CORPUSCULAR HEMOGLOBIN 31.9 pg (25-34); MEAN CORPUSCULAR HGB CONC 32.8 g/dl (32-36); MEAN PLATELET VOLUME 9.7 fL (7.4-10.4); PLATELET COUNT 287 K/uL (130-400); RED CELL DISTRIBUTION WIDTH CV 14.2 % (11.5-14.5); RED CELL DISTRIBUTION WIDTH SD 50.2 fL (36.4-46.3); WHITE BLOOD COUNT 4.53 K/uL (4.8-10.8)
[2017-04-14 07:44] LABS: INR 1.9 (0.9-1.1)
[2017-04-14] MEDS: GUAIFENESIN SUGAR FREE 100 MG/5 ML UDC PO PRN (07:51)
[2017-04-14] MEDS: CYANOCOBALAMIN 100 MCG TAB (VIT B-12) PO SCH (07:51)
[2017-04-14] MEDS: ASPIRIN 81 MG ECTAB PO SCH (07:51)
[2017-04-14] MEDS: ATORVASTATIN 40 MG TAB PO SCH (07:51)
[2017-04-14] MEDS: CALCIUM 600MG + VIT D 400 IU TAB PO SCH (07:51)
[2017-04-14] MEDS: RANITIDINE HCL 150 MG TAB PO SCH (07:51)
[2017-04-14 08:06] LABS: CALCIUM 8.4 mg/dl (8.5-10.1); CREATININE 1.15 mg/dl (0.60-1.20); POTASSIUM 3.4 mmol/L (3.5-5.1)
[2017-04-14] MEDS: INSULIN ASPART 100 UNITS/ML 3 ML PEN SC SCH ×2 (09:05→12:57)
[2017-04-14] MEDS: INSULIN GLARGINE SOLOSTAR 100 UNITS/ML 3 ML PEN SC SCH (09:06)
[2017-04-14 09:25] VITALS: BP 126/76; PULSE 76; TEMP 37; O2SAT 90
[2017-04-14] MEDS ORDERED: POTASSIUM CHLORIDE 10 MEQ TABCR PO STA (13:25)
--- NOTE | 2017-04-14 13:46 | Progress Note ---
Internal Med Progress Note Date of Service: Apr 14, 2017. Provider Documentation: SUBJECTIVE: Seen and examined at bedside Diarrhea improving Less cough Denies any abdominal pain, nausea No other complaints OBJECTIVE: Vital Signs-as noted below Physical Exam: General Appearance:Moderately built and nourished, no apparent distress Head: normocephalic, Atraumatic Eyes: normal inspection, +blindness Neck: supple, Trachea midline Respiratory/Chest: Normal breath sounds, CTA Cardiovascular: S1, S2, No murmur Abdomen/GI:Soft, Non tender, Bowel sounds present, + midline surgical incision healing Extremities/Musculoskelatal:normal inspection, no edema Neurologic/Psych:grossly no focal neurological deficits, + left hemiparesis Skin: normal color, warm Lab data as noted below. ASSESSMENT & PLAN: Patient is a 71 yr female who presented with abdominal bloating and malaise, headache, fevers and chills. CAP Flu screen negative, PCR:Negative CXR: no acute process CT: RLL Consolidation Levaquin, Vanco discontinued Continue Ertapenem MRSA screen is positive Blood Cultures:No growth to date Oxygen PRN Abdominal discomfort: Likely secondary to constipation Constipation resolved CT abd:reviewed monitor Diarrhea improving Stool For C.diff: Negative Hypokalemia: Secondary to diarrhea Replace and monitor Headache:chronic secondary to migraine per patient since [address] head:No acute intracranial abnormality Tramadol PRN Improved Weakness/Ambulatory Dysfunction 2/2 /dehydration and multiple comorbidities including blindness and extensive peripheral neuropathy PT/OT S/P Ventral Hernia repair stable H/O DVT/PE continue Coumadin monitor INR:1.9 today DM II Last A1C: 6.4 oral DM meds on hold continue Lantus and SSI HTN stable continue atenolol H/o CVA continue ASA, statin DVT Px: On Coumadin Disposition: Plan to discharge home when stable Follow up with your PCP on Apr 19, 2017 at 12:45pm Complete the antibiotic course as prescribed Seek immediate medical attention if your symptoms reoccur or worsen Vital Signs: Date Time Temp Pulse Resp B/P (MAP) Pulse Ox O2 Delivery O2 Flow Rate FiO2 04/14/17 09:25 37.0 76 18 126/76 (93) 90 Room Air 04/14/17 08:00 Room Air 04/14/17 00:00 Room Air 04/13/17 23:44 37.8 74 16 124/75 (91) 93 Room Air 04/13/17 16:08 36.4 66 20 131/77 (95) 95 Room Air 04/13/17 16:00 Room Air Lab Results: Results Past 24 Hours Test 04/13/17 16:54 04/13/17 19:32 04/14/17 06:57 04/14/17 08:13 Range/Units Bedside Glucose 80 120 101 70-90 mg/dl White Blood Count 4.53 4.8-10.8 K/uL Red Blood Count 3.89 4.2-5.4 M/uL Hemoglobin 12.4 12.0-16.0 g/dL Hematocrit 37.8 37-47 % Mean Corpuscular Volume 97.2 80-100 fL Mean Corpuscular Hemoglobin 31.9 25-34 pg Mean Corpuscular Hemoglobin Concent 32.8 32-36 g/dl RDW Standard Deviation 50.2 36.4-46.3 fL RDW Coefficient of Variation 14.2 11.5-14.5 % Platelet Count 287 130-400 K/uL Mean Platelet Volume 9.7 7.4-10.4 fL Prothrombin Time 19.5 9.0-12.0 SECONDS Prothromb Time International Ratio 1.9 0.9-1.1 Sodium Level 139 136-145 mmol/L Potassium Level 3.4 3.5-5.1 mmol/L Chloride Level 104 98-107 mmol/L Carbon Dioxide Level 27 21-32 mmol/L Anion Gap 8.0 3-11 mmol/L Blood Urea Nitrogen 12 7-18 mg/dl Creatinine 1.15 0.60-1.20 mg/dl Est Creatinine Clear Calc Drug Dose 46.0 ml/min Estimated GFR () 55.8 Estimated GFR (Non- 48.2 BUN/Creatinine Ratio 10.7 10-20 Random Glucose 87 70-99 mg/dl Calcium Level 8.4 8.5-10.1 mg/dl Magnesium Level 2.0 1.8-2.4 mg/dl Microbiology Results 04/13/17 C.difficile Toxin B Gene (PCR) - Final, Complete No C. difficile toxin B gene detected
[2017-04-14] MEDS ORDERED: LEVO-459 PEG (13:53)
[2017-04-14] MEDS ORDERED: POTA1TAB97 PO (13:53)
[2017-04-14] MEDS ORDERED: LCTX PO (13:53)
[2017-04-14] MEDS ORDERED: LEVO-459 PO (13:55)
--- NOTE | 2017-04-14 13:55 | Discharge Summary ---
Discharge Summary Date of Service Apr 14, 2017. Discharge Summary Admission Date: Apr 10, 2017 at 02:30 Discharge Date: Apr 14, 2017 Discharge Disposition: Home Principal Diagnosis: Pneumonia Secondary Diagnoses/Problems: Migraine, Constipation Procedures: CT head: No acute intracranial abnormality CT ABD: 1. Extensive consolidation in the right lower lobe concerning for pneumonia. The solid right lower lobe 4 mm nodule may be associated with the consolidation. This should be followed to resolution. 2. Pancolonic diverticulosis without evidence of diverticulitis. 3. 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 No evidence of rupture. 4. 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 5. Post surgical changes of ventral hernia repair. Associated inflammatory change may be within the expected range of normal postsurgical state. No associated fluid collection.. Consultations: None Pending Studies/Follow-Up: Follow up with your PCP on Apr 19, 2017 at 12:45pm Follow up with coumadin clinic for Coumadin dosing Complete the antibiotic course as prescribed Seek immediate medical attention if your symptoms reoccur or worsen Medication Reconciliation New Medications: Levofloxacin (Levaquin) 500 Mg Tab 500 MG PO DAILY for 5 Days, #5 TAB Potassium Chloride (K-Tab) 20 Meq Tab 20 MG PO DAILY for 7 Days, #7 TABS Lactobacillus Acidophilus (Floranex) 1 Tab Tab 4 TAB PO TIDM for 7 Days, #21 TAB Continued Medications: Albuterol (Ventolin Hfa) 60 Puffs/5400 Mcg Aers 2 PUFFS INH QID PRN for SOB/Wheezing Alendronate Sodium (Fosamax) 70 Mg Tab 70 MG PO WK, TAB TAKE THIS MEDICATION EVERY SUNDAY 30 MINUTES BEFORE FIRST MEAL OF THE DAY WITH 8 OUNCES OF WATER AND REMAIN UPRIGHT FOR 30 MINUTES AFTER TAKING. Aspirin (Aspirin Adult Low Dose) 81 Mg Tab 81 MG PO QAM Atenolol (Tenormin) 25 Mg Tab 25 MG PO QAM, TAB Atorvastatin (Lipitor) 80 Mg Tab 80 MG PO QAM, TAB Calcium Carbonate-Cholecalcife (Caltrate 600+D) 1 Tab Tab 1 TAB PO BID Cyanocobalamin (Vitamin B-12) 100 Mcg Tab 100 MCG PO QAM, TAB Fluticasone Propionate (Flovent Hfa) 120 Puffs/5280 Mcg Aero 2 PUFFS INH BID PRN for Shortness of Breath for 30 Days, #10.6 GM 2 Refills pt reports uses in summer Glipizide (Glipizide Er) 2.5 Mg Tab 2.5 MG PO QAM for 90 Days, #90 TAB 3 Refills Insulin Glargine (Lantus) 100 Unit/Ml Inj 36 UNITS SC QPM, VIAL Magnesium Hydroxide (Milk of Magnesia) 30 Ml Susp 30 ML PO BID PRN for Constipation Mirtazapine (Mirtazapine) 45 Mg Tab 45 MG PO HS Multiple Vitamins W/ Minerals (Multi For Her 50+) 1 Cap Cap 1 CAP PO QPM Nitroglycerin (Nitrostat) 0.4 Mg Tab 0.4 MG SL UD PRN for Chest Pain for 10 Days, #[address] ONE TABLET UNDER THE TONGUE EVERY 5 MINUTES FOR UP TO 3 DOSES IF NEEDED FOR CHEST PAIN. Oxybutynin Chloride (Ditropan) 5 Mg Tab 5 MG PO TID, TAB Polyethylene (Miralax) 17 Gm Pow 17 GM PO DAILY PRN for Constipation Probiotic Product (Probiotic) 1 Cap Cap 1 CAP PO QAM Ranitidine (Zantac) 150 Mg Tab 150 MG PO DAILY PRN for Heartburn, TAB Ropinirole (Requip) 4 Mg Tab 4 MG PO HS, TAB Tetrahydrozoline Hcl (Ophth) (Visine) 0.05 % Tequila 1 DROP OPB UD PRN for DRYNESS Tramadol (Ultram) 50 Mg Tab 50 MG PO Q6 PRN for Pain for 4 Days, #16 TAB Warfarin Sod (Jantoven) 2 Mg Tab 2 MG PO 5XWK, TAB everday except sunday and Warfarin Sod (Jantoven) 4 Mg Tab 4 MG PO 2XWK, TAB take 4mg on SUNDAY and Admission Information HPI (per Admitting provider): 71 yo F who is blind with a h/o multiple strokes and L sided weakness presents with abdominal discomfort, nausea and vomiting that began today. She reports not eating all day and feels very dehydrated. She states that having liver and onions seemed to upset her from last night's dinner and she has felt like the food was up in her throat all day today. She recently had a ventral hernia repair and is healing well from this. She denies diarrhea or other stool changes. She also admits to cold symptoms including fevers, chills and a cough. She has a splitting headahce from the coughing that became worse today when she stood up from her nap. She reports a history of chronic headaches. She reports 3 family members are sick with cold symptoms including her daughter and grandson who is 5, with whom she lives. In the ER she was doing well until getting some IVF and then was requiring 2L oxygen via [place]. She reports chronic weakness in her L side from her strokes in the past. She felt unable to stand or walk today and her arms were flailing, however, her baseline ambulation is not much better because of chronic numbness from the waist down. Physical Exam (per Admitting): General Appearance: no apparent distress, + obese Head: normocephalic, atraumatic Eyes: normal inspection, PERRL, sclerae normal ENT: hearing grossly normal, pharynx normal Neck: supple, no adenopathy, no JVD, trachea midline Respiratory/Chest: lungs clear, normal breath sounds, no respiratory distress, no accessory muscle use Cardiovascular: regular rate, rhythm, no edema, no gallop, no JVD, no murmur , normal peripheral pulses Abdomen/GI: normal bowel sounds, non tender, soft, no organomegaly, + pertinent finding (small vertical incision site which is closed wtih dermabond and healing very well. ) Back: normal inspection Extremities/Musculoskelatal: normal inspection, no calf tenderness, normal range of motion, + pertinent finding (L hemiweakness ) Neurologic/Psych: no motor/sensory deficits, alert, normal mood/affect, oriented x 3 Skin: normal color, warm/dry Hospital Course Patient is a 71 yr female who presented with abdominal bloating and malaise, headache, fevers and chills. CAP Flu screen negative, PCR:Negative CXR: no acute process CT: RLL Consolidation Levaquin, Vanco discontinued Continue Ertapenem MRSA screen is positive Blood Cultures:No growth to date Oxygen PRN Abdominal discomfort: Likely secondary to constipation Constipation resolved CT abd:reviewed monitor Diarrhea improving Stool For C.diff: Negative Hypokalemia: Secondary to diarrhea Replace and monitor Headache:chronic secondary to migraine per patient since [address] head:No acute intracranial abnormality Tramadol PRN Improved Weakness/Ambulatory Dysfunction 2/2 /dehydration and multiple comorbidities including blindness and extensive peripheral neuropathy PT/OT S/P Ventral Hernia repair stable H/O DVT/PE continue Coumadin monitor INR:1.9 today DM II Last A1C: 6.4 oral DM meds on hold continue Lantus and SSI HTN stable continue atenolol H/o CVA continue ASA, statin DVT Px: On Coumadin Disposition: Plan to discharge home when stable Follow up with your PCP on Apr 19, 2017 at 12:45pm Complete the antibiotic course as prescribed Seek immediate medical attention if your symptoms reoccur or worsen Total time spent on discharge =35 minutes This includes examination of the patient, discharge planning, medication reconciliation, and communication with other providers. Discharge Instructions Discharge Instructions Date of Service Apr 14, 2017. Admission Reason for Admission: Pneumonia Discharge Discharge Diagnosis / Problem: Pneumonia Discharge Goals Goal(s): Decrease discomfort, Improve function Activity Recommendations Activity Limitations: resume your previous activity Exercise/Sports Limitations: as tolerated . Instructions / Follow-Up Instructions / Follow-Up Follow up with your PCP on Apr 19, 2017 at 12:45pm Follow up with coumadin clinic for Coumadin dosing Complete the antibiotic course as prescribed Seek immediate medical attention if your symptoms reoccur or worsen Current Hospital Diet Patient's current hospital diet: AHA Diet (Heart Healthy), Diabetes Type 2 Diet Discharge Diet Recommended Diet: AHA Diet (Heart Healthy), Diabetes Type 2 Diet Pending Studies Studies pending at discharge: no Laboratory Results Hemoglobin A1c Test 04/09/17 23:00 Range/Units Estimated Average Glucose 137 mg/dl Hemoglobin A1c 6.4 H 4.5-5.6 % Medical Emergencies . Who to Call and When: Medical Emergencies: If at any time you feel your situation is an emergency, please call 911 immediately. . Non-Emergent Contact Non-Emergency issues call your: Primary Care Provider Call Non-Emergent contact if: you have a fever, your pain is not controlled, your pain is worsening, your pain is unusual for you, your pain is concerning you, you have any medication questions Seek immediate medical attention if your symptoms reoccur or worsen . . "Provider Documentation" section prepared by Etienne Landa. . VTE Core Measure Inpt VTE Proph given/why not?: Warfarin (Coumadin)
[2017-04-14 14:08] VITALS: BP 126/76; PULSE 76; TEMP 37; O2SAT 90
[2017-04-14] MEDS ORDERED: LACTOBACILLUS ACIDOPHILUS (FLORANEX) TAB PO SCH (17:00)
--- NOTE | 2017-04-18 09:41 | EDITING REQUIRED CODING QUERY ---
CODING QUERY To promote full compliance with coding requirements relating to patient care, provider participation is requested in all cases of parking technician uncertainty. Please assist us with the question(s) below: Coding Question(s): There is documentation of Pneumonia and documentation showing MRSA screen is positive in Progress Notes and Discharge Summary as well as documentation on 04/12 Progress Note of possible aspiration mechanism and the antibiotic was changed from Levaquin to Ertapenem for additional anaerobic coverage. Please clarify below, in your clinical opinion, regarding the Pneumonia. (X ) Pneumonia, Unspecified ( ) MRSA Pneumonia ( ) Aspiration Pneumonia ( ) Pneumonia, Other - Specify Physician's Response(s): Thank you Norma Pérez Principal Diagnosis: "_that condition established after study, to be chiefly responsible for occasioning the admission of the patient to the hospital for care." Co-Existing Principal Diagnosis: "_when two or more diagnoses equally meet the criteria for principal diagnosis as determined by the circumstances of admission, diagnostic work up, and/or therapy provided, and the Alphabetic Index, Tabular List, or another coding guideline does not provide sequencing direction, any one of the diagnoses may be sequenced first." "When the physician has documented what appears to be a current diagnosis in the body of the record, but has not included the diagnosis in the final diagnostic statement, the physician should be asked whether the diagnosis should be added." (Source [facility]oding [facility] 2 QTR90. p3-4)
== END 2017-04-14 14:56 | disposition home or self-care (01) | DRG 194 ==
LOC: C.EDB 20:05 → UNDOADMIN 04-10 02:30 → C.MS4W 04-10 02:30 → ENRESERV 04-10 04:00
PROVIDERS: ADMIT Hospitalist; ATTEND Internal Medicine
DX: J18.9 Pneumonia, unspecified organism (principal); I69.354 Hemiplegia and hemiparesis following cerebral infarction affecting left non-dominant side; K59.00 Constipation, unspecified; R09.02 Hypoxemia; E86.0 Dehydration; E87.6 Hypokalemia; R84.6 Abnormal cytological findings in specimens from respiratory organs and thorax; G43.909 Migraine, unspecified, not intractable, without status migrainosus; H54.7 Unspecified visual loss; E11.43 Type 2 diabetes mellitus with diabetic autonomic (poly)neuropathy; I25.2 Old myocardial infarction; I11.9 Hypertensive heart disease without heart failure; K21.9 Gastro-esophageal reflux disease without esophagitis; G25.81 Restless legs syndrome; G90.2 Horner's syndrome; E78.5 Hyperlipidemia, unspecified; H35.30 Unspecified macular degeneration; F32.9 Major depressive disorder, single episode, unspecified; Z79.899 Other long term (current) drug therapy; Z79.82 Long term (current) use of aspirin; Z79.4 Long term (current) use of insulin; Z79.01 Long term (current) use of anticoagulants; Z86.718 Personal history of other venous thrombosis and embolism; Z88.8 Allergy status to other drugs, medicaments and biological substances; Z88.0 Allergy status to penicillin; Z88.1 Allergy status to other antibiotic agents; Z88.2 Allergy status to sulfonamides; Z82.49 Family history of ischemic heart disease and other diseases of the circulatory system; Z82.3 Family history of stroke; Z80.49 Family history of malignant neoplasm of other genital organs; Z80.8 Family history of malignant neoplasm of other organs or systems